=== PATIENT | female | born 1960 | race Caucasian/White ===

== ENCOUNTER 2019-05-16 18:00 | Emergency (ER) | payer SELFPAY ==
[2019-05-16 18:10] VITALS: BP 146/84; PULSE 102; RESP 18; TEMP 38.1; O2SAT 98
--- NOTE | 2019-05-16 18:14 | ED.URI ---
HPI - URI/Sore Throat General Chief Complaint: Upper Respiratory Infection Stated Complaint: fever Time Seen by Provider: 05/16/19 18:15 Source: patient and RN notes reviewed Mode of arrival: ambulatory Limitations: no limitations History of Present Illness HPI Narrative: 59-year-old female, smoker, presents with concern for cough, congestion, fever up to 103, general malaise. Reports symptoms started Wednesday. Reports she is been taking [id number] medications with no relief. MD elicited complaint: cough Related Data Allergies Allergy/AdvReac Type Severity Reaction Status Date / Time codeine AdvReac Intermediate Nausea Verified 08/29/15 17:09 Review of Systems Review of Systems: Narrative: CONSTITUTIONAL: Reports malaise, chills, sweats, fever. EYES: Denies visual changes, redness, or discharge. ENT: Reports rhinorrhea, congestion. Denies sinus pain, otalgia and sore throat. CARDIOVASCULAR: Denies chest pain, palpitations, or edema. RESPIRATORY: Reports cough, chest congestion. Denies dyspnea. GASTROINTESTINAL: Denies abdominal pain, nausea, vomiting, diarrhea SKIN: Denies rash or itching. MUSCULOSKELETAL: Reports myalgia. NEUROLOGIC: Denies headache. All systems reviewed & are unremarkable except as noted in HPI and below PMFSH Social History Social History Gender identity (if verbalized by the patient): Female Comments At time of signature, agree with nursing past medical, surgical, social and family history. There is no relevant family history pertinent to the presenting complaint Exam Narrative: Exam Narrative: GENERAL: Nontoxic-appearing, well-nourished, and in no acute distress. HEAD: Normocephalic EYES: PERRLA, conjunctivae clear ENT: Nares clear, turbinates edematous and erythematous, clear discharge. Mucous membranes moist. TM pearly ernst with dull light reflex bilaterally; no tragal tenderness. Oropharynx not erythematous without lesions. Tonsils not enlarged and without exudate, no drooling, no hoarseness, no trismus. NECK: Supple. No lymphadenopathy CHEST: Clear to auscultation, breath sounds equal. No wheezing, rhonchi, rales, or stridor. No respiratory distress, speaks in full sentences. Cough noted HEART: Regular rate and rhythm. No murmur heard. Normal peripheral pulses. SKIN: Warm, dry, no rash. NEURO: Alert and oriented x3. PSYCH: Normal mood and affect Course Course Emergency Course: Patient is aware of diagnosis, understands and agrees to treatment plan. Anticipatory guidance given. Patient agrees to follow-up as directed and is aware of reasons to seek care at the emergency department. Portions of this record may have been created with voice recognition software Vital Signs Vital signs: Vital Signs Temperature 100.6 F H 05/16/19 18:10 Pulse Rate 102 H 05/16/19 18:10 Respiratory Rate 18 05/16/19 18:10 Blood Pressure 146/84 H 05/16/19 18:10 Pulse Oximetry 98 05/16/19 18:10 Temperature 100.6 F H 05/16/19 18:10 Pulse Rate 102 H 05/16/19 18:10 Respiratory Rate 18 05/16/19 18:10 Blood Pressure 146/84 H 05/16/19 18:10 Pulse Oximetry 98 05/16/19 18:10 Reviewed. MDM - URI/Sore Throat MDM Narrative Medical decision making narrative: Differential diagnosis considered: Strep pharyngitis, allergic rhinitis, upper respiratory tract infection, sinusitis, rhinosinusitis, nasopharyngitis. viral pharyngitis, otitis media, otitis externa, pneumonia, bronchitis, viral cough syndrome, viral syndrome, and influenza. Exam findings show no acute concerns or changes; patient is non-toxic appearing and is in no distress. Patient is appropriate for outpatient treatment and follow-up. Lab Data Attestation: I reviewed the patient's lab results. Labs: Influenza A Screen Positive Reference Range: Negative Influenza B Screen Negative Reference Range: Negative Critical Care Time Critical Care Time Critical Care Time: No Discharge Pl
== END 2019-05-16 18:28 | disposition home or self-care (01) ==
PROVIDERS: Emergency Provider Nurse Practitioner
DX: J10.1 Influenza due to other identified influenza virus with other respiratory manifestations (principal)
CPT/HCPCS: 87804; 99203; G0463

== ENCOUNTER 2020-06-20 08:52 | Observation (INO) | payer MEDICAID, SELFPAY ==
[2020-06-20] VITALS (53 sets, daily range): BP systolic 120–191; BP diastolic 70–111; PULSE 55–78; RESP 12–24; TEMP 36–36.8; O2SAT 95–100; BMI 25.2
--- NOTE | 2020-06-20 | ECHO_ITS ---
Patient Info Name: Basia Al Age: 60 years : 1960 Gender: Female Ht: 64 in Wt: 155 lbs BSA: 1.80 m2 HR: 60 bpm BP: 148 / 98 mmHg Technical Quality: Good Exam Date: 06/20/2020 3:56 PM Exam Location: [facility] Pulmonary Exam Room: [facility] Patient Status: Inpatient Admit Date: 06/20/2020 Staff Ordering Physician: Arvind Carpenter MD Aviation Survival Technician: Jody Landeros RDCS Attending Provider: Arvind Carpenter MD Exam Type: CA echo doppler color flow Study Info Indications - chest pain s/p cath nstemi Complete two-dimensional, color flow and Doppler transthoracic echocardiogram is performed. Summary 1. Complete two-dimensional, color flow and Doppler transthoracic echocardiogram is performed. 2. The mitral valve has thickened leaflets. 3. Left ventricular systolic function is normal with an estimated ejection fraction of 5055.0 %. 4. Grade I diastolic dysfunction of the left ventricle (impaired relaxation pattern). 5. TDS. Left Ventricle Left ventricular systolic function is normal with an estimated ejection fraction of 5055.0 %. Grade I diastolic dysfunction of the left ventricle (impaired relaxation pattern). Right Ventricle Right ventricle Empty are normal. Left Atria Left atrial chamber dimension is normal. Right Atria Right atrial chamber dimension is normal. Aortic Valve AV not well visualized. Pulmonic Valve Pulmonary valve is not well visualized. Mitral Valve The mitral valve has thickened leaflets. Tricuspid Valve The tricuspid valve is structurally and functionally normal by two-dimensional, color flow Doppler and Doppler interrogation. Pericardium/Pleural Pericardium is normal in appearance with no evidence for significant pericardial effusion. Left Ventricular Outflow Tract Name Value Normal LVOT 2D LVOT Diameter 2.0 cm LVOT Doppler LVOT Peak Gradient 3 mmHg LVOT Mean Gradient 1 mmHg LVOT VTI 20 cm LVOT VTI/AV VTI Ratio 1.0 LVOT Stroke Volume 65 ml Pulmonic Valve Name Value Normal PV Doppler PV Peak Gradient 2 mmHg PV Regurgitation Doppler OH Peak End Diastolic Velocity 132 cm/s Mitral Valve Name Value Normal MV Doppler MV Decel Hutchinson 304 cm/s2 MV PHT 54 ms MV Area (PHT) 4.1 cm2 4.0-5.0
--- NOTE | ~2020-06-20 | XR_ITS ---
EXAMINATION: XR chest 2V 06/20/2020 09:26 INDICATION: Chest pain. History of smoking. PROCEDURE: 2 view chest COMPARISON: No prior studies for comparison. FINDINGS: The lungs are clear. The cardiomediastinal silhouette is within normal limits. There are no pleural effusions. There is no pneumothorax suspected. IMPRESSION: 1: NO ACUTE CARDIOPULMONARY DISEASE. Reviewed, dictated and finalized at location A.
--- NOTE | ~2020-06-20 | CT_ITS ---
EXAMINATION: CTA chest PE protocol DATE: 06/20/2020 10:56 CDT INDICATION: Sudden onset of midsternal chest pain and dyspnea TECHNIQUE: Computed tomographic angiography (CTA) of the chest was performed with 100 mL Omnipaque-35 0 intravenous contrast. The dose-length product was 274.35 mGy-cm. Maximum intensity projection 3D-re constructions of the aorta and other arteries were constructed by the technologist on a separate work station. Automated exposure control and iterative reconstruction technique were employed. COMPARISON: Chest dated 06/20/2020 FINDINGS: Study is technically adequate without evidence for pulmonary embolism. Heart size is normal . No thoracic lymphadenopathy. No significant pleural or pericardial effusion. Moderate emphysema. No pneumothorax. No evidence for focal pneumonia. There is lingular atelectasis. No endobronchial lesio ns. The upper abdomen is unremarkable. Mild thoracic spondylosis. IMPRESSION: 1. No evidence for pulmonary embolism. 2: Lingular atelectasis. 3: Moderate emphysema. Reviewed, dictated and finalized at location A.
--- NOTE | 2020-06-20 09:07 | ECG_ITS ---
Measurements Intervals [place] Rate: 60 P: 56 UT: 149 QRS: -24 QRSD: 92 T: 27 QT: 411 QTc: 411 Interpretive Statements SINUS RHYTHM DELAYED PRECORDIAL R/S TRANSITION BORDERLINE ECG Electronically Signed On 06-20-2020 9:32:21 CDT by Carroll Madison D.O.
--- NOTE | 2020-06-20 09:13 | ED.CHESTPAIN ---
HPI - Chest Pain General Chief Complaint: Chest Pain Stated Complaint: CP Source: RN notes reviewed History of Present Illness HPI narrative: Patient presents emergency department from urgent care via EMS for chest pain. Patient states she has had lower midsternal chest pain since last night described as burning states the pain does not radiate. Nothing makes the pain better or worse. Patient denies any associated fevers or chills shortness of breath abdominal pain nausea vomiting diarrhea or any other symptoms she was given 325 aspirin by EMS as well as nitro with some improvement of pain but still present denies any previous cardiac history Related Data Home Medications Medication Instructions Recorded Confirmed No Home Medications 06/20/20 06/20/20 Allergies Allergy/AdvReac Type Severity Reaction Status Date / Time codeine AdvReac Intermediate Nausea Verified 06/20/20 09:03 Review of Systems Review of Systems: Narrative: Gen.: Denies fevers or chills ENT: Denies congestion Respiratory: Denies shortness of breath or cough CV: See HPI GI: Denies abdominal pain nausea, emesis or diarrhea Musculoskeletal: Denies back pain or muscle pain Neuro: Denies numbness, tingling, weakness or focal weakness Skin: Denies rash Except as documented, all other systems reviewed and negative PMFSH Past Medical History Medical History (Updated 06/20/20 @ 13:45 by Matthew Rebolledo DO) Patient denies significant medical history Social History Social History (Updated 06/20/20 @ 09:31 by Matthew Rebolledo DO) Smoking status: Current every day smoker Gender identity (if verbalized by the patient): Female Exam Narrative: Exam Narrative: APPEARANCE: No acute distress, nontoxic, resting in bed EYES: EOMI HEENT: Normocephalic, atraumatic, OMM RESPIRATORY: No respiratory distress Clear to auscultation bilaterally with no rhonchi wheezing or rales. CARDIOVASCULAR: Regular rate and rhythm without murmurs rubs or gallops. ABDOMINAL: Soft, tender to palpation epigastric and lateral quadrant no tenderness right upper quadrant right lower quadrant left lower quadrant no rebound or guarding MUSCULOSKELETAl: Moves all extremities. No clubbing, cyanosis or edema. NEURO: Awake and alert. Following commands, speech normal, no focal deficits SKIN:: Warm, dry. No rashes lesions or abrasions PSYCHIATRIC: Normal affect/mood, Course Course Emergency Course: Discussed with Dr. carpenter presentation work-up agrees with admission to his service request patient started on heparin drip Called back and discussed with Dr. carpenter patient's continued pain second troponin. At this time plan to take patient to the [facility] Dr. Ruiz came down to see the patient for cardiology patient received nitroglycerin drip as well as metoprolol 5 mg x [address] Carpenter in ED at this time Discussed with patient and family results of workup and diagnosis. Discussed need for admission. Patient and family understand and agree to current treatment plan Vital Signs Vital signs: Vital Signs Temperature 98.2 F 06/20/20 08:56 Pulse Rate 64 06/20/20 08:56 Respiratory Rate 14 06/20/20 08:56 Blood Pressure 150/111 H 06/20/20 08:56 Pulse Oximetry 99 06/20/20 08:56 Temperature 98.2 F 06/20/20 08:56 Pulse Rate 78 06/20/20 12:05 Respiratory Rate 18 06/20/20 12:05 Blood Pressure 132/78 06/20/20 12:05 Pulse Oximetry 99 06/20/20 12:05 MDM - Chest Pain Lab Data Result diagrams: 06/20/20 09:34 06/20/20 09:33 Labs: Lab Results 06/20/20 06/20/20 06/20/20 Range/Units 09:33 09:34 09:34 WBC 6.8 (4.5-10.0) K/mm3 RBC 5.29 (4.2-5.4) M/mm3 Hgb 16.9 H (12.0-15.0) g/dL Hct 49.7 H (37.0-47.0) % MCV 94.0 (80-100) fl MCH 31.9 (26-34) pg MCHC 34.0 (32-36) g/dl RDW 13.0 (11.5-14.5) % Plt Count 225 (150-375) k/mm3 MPV 9.2 (7.4-10.4) fl Mar[place]
[2020-06-20 09:43] LABS: Basophils Absolute Auto 0.1 K/mm3 (0.0-0.1); Basophils Percent Auto 0.7 % (0.2-1.2); Eosinophils Absolute Auto 0.1 K/mm3 (0-0.3); Eosinophils Percent Auto 1.3 % (0-4.4); Hematocrit 49.7 % (37.0-47.0); Hemoglobin 16.9 g/dL (12.0-15.0); Immature Granulocyte Absolute 0.03 K/mm3 (0.00-0.031); Immature Granulocyte Percent A 0.4 % (0-0.5); Lymphocytes Absolute Auto 1.99 K/mm3 (0.9-3.2); Lymphocytes Percent Auto 29.1 % (18.3-44.2); Mean Corpuscular Hemoglobin 31.9 pg (26-34); Mean Platelet Volume 9.2 fl (7.4-10.4); Monocytes Absolute Auto 0.6 K/mm3 (0.1-0.6); Monocytes Percent Auto 8.8 % (2.6-8.5); Neutrophils Absolute Auto 4.1 K/mm3 (1.3-6.7); Neutrophils Percent Auto 59.7 % (45.5-73.1); Platelet Count Result 225 k/mm3 (150-375); Red Blood Count 5.29 M/mm3 (4.2-5.4); White Blood Count 6.8 K/mm3 (4.5-10.0)
[2020-06-20 09:56] LABS: INR 0.9; Lipase 131 U/L (23-300); Prothrombin Time 12.4 Seconds (11.1-14.7)
[2020-06-20 09:57] LABS: Partial Thromboplastin Time 26.5 SECONDS (22.3-36.8)
[2020-06-20 10:11] LABS: Troponin I 0.033 ng/mL (0.000-0.034)
[2020-06-20 10:23] LABS: Alanine Aminotransferase 18 U/L (4-35); Albumin Level 4.4 g/dL (3.5-5.1); Alkaline Phosphatase 76 U/L (38-126); Anion Gap 7 mmol/L (8-16); Aspartate Amino Transferase 28 U/L (14-36); Bilirubin,Total 0.4 mg/dL (0.2-1.3); Blood Urea Nitrogen 16 mg/dL (7-17); Calcium 9.3 mg/dL (8.4-10.2); Carbon Dioxide 25 mmol/L (22-30); Chloride 109 mmol/L (98-107); Estimated CRCL calculation 64 ml/min; Estimated Glomerular Filt Rate > 60; Glucose 134 mg/dL (65-105); Potassium 4.6 mmol/L (3.4-5.0); Sodium 141 mmol/L (137-145)
--- NOTE | 2020-06-20 10:48 | PC.NURSE ---
pt states epigastric pain remains 2/10. continues to have intermittent episodes of intense burning that radiates into her back.
[2020-06-20] MEDS: MORPHINE SULFATE (*CRX) 2 MG/ML INJ IV PUSH ×3 (10:57→12:58)
--- NOTE | 2020-06-20 11:38 | ECG_ITS ---
Measurements Intervals [place] Rate: 65 P: 50 [place]: 146 QRS: -23 QRSD: 92 T: 27 QT: 401 QTc: 420 Interpretive Statements SINUS RHYTHM DELAYED PRECORDIAL R/S TRANSITION BORDERLINE ST-T WAVE ABNORMALITY- ANT/HIGH LAT LEADS BORDERLINE ECG Electronically Signed On 06-20-2020 12:58:00 CDT by Carroll Madison D.O.
[2020-06-20 12:45] LABS: Troponin I 0.196 ng/mL (0.000-0.034)
[2020-06-20] MEDS: HEPARIN SOD/D5W 100 UNITS/ML 25,000 UNITS/250 ML BAG 7 UNITS IV CONT (12:49)
[2020-06-20] MEDS: HEPARIN SODIUM 5,000 UNITS/ML VIAL 3500 UNITS IV PUSH (12:49)
[2020-06-20] MEDS: METOPROLOL TARTRATE INJ 5 MG/5 ML VIAL IV PUSH (13:49)
--- NOTE | 2020-06-20 13:51 | PM.CNCAR ---
History of Present Illness History of Present Illness Consult date/time: 06/20/20 13:51 Patient is a 60-year-old woman with history of active tobacco dependence (1-1.5 packs per day for 45 years), who is seen in cardiac consultation for chief complaint of chest pain. Patient reports onset of lower midsternal chest pain since 8:00 p.m. on 06/19/2020. She reports that this burning discomfort has persisted and has been nearly constant. She does report intermittent worsening of the discomfort. She reports that the lower midsternal burning is persisting at present. She denies shortness of breath. She reports some nausea and nonbloody emesis. She reports some radiation of her chest discomfort to the mid back. She reports occasional palpitations but denies dizziness or syncope. She denies edema, orthopnea, paroxysmal nocturnal dyspnea. She denies any history of myocardial infarction, congestive heart failure, valvular heart disease, or cardiac arrhythmia. She denies seeing a photography teacher previously. She denies any history of prior cardiac stress testing or echocardiography. She denies any prior left heart catheterization. She denies any history of hypertension or diabetes mellitus. This admission, hemoglobin was elevated at 16.9. D-dimer was negative at 0.30. Potassium is 4.6 and creatinine 0.8. Troponin I was initially negative then the elevated at 0.195. Reason For Visit: Chest pain PMFSH Past Medical History Medical History (Updated 06/20/20 @ 13:45 by Matthew Rebolledo DO) Patient denies significant medical history Social History Social History (Updated 06/20/20 @ 09:31 by Matthew Rebolledo DO) Smoking status: Current every day smoker Gender identity (if verbalized by the patient): Female Meds Home Medications and Allergies Home Medications Medication Instructions Recorded Confirmed Type No Home Medications 06/20/20 06/20/20 History Allergies Allergy/AdvReac Type Severity Reaction Status Date / Time codeine AdvReac Intermediate Nausea Verified 06/20/20 09:03 Vital Signs Vital Signs - 24 hr 06/20/20 08:56 06/20/20 08:57 06/20/20 08:58 Temperature 36.8 C Pulse Rate 64 67 Respiratory Rate 14 22 H Blood Pressure 150/111 H 176/91 H Pulse Oximetry 99 100 100 06/20/20 09:00 06/20/20 09:02 06/20/20 09:15 Temperature Pulse Rate 66 63 63 Respiratory Rate 13 12 14 Blood Pressure 150/111 H Pulse Oximetry 99 100 100 06/20/20 09:17 06/20/20 09:30 06/20/20 09:45 Temperature Pulse Rate 64 62 56 L Respiratory Rate 18 13 13 Blood Pressure 191/94 H Pulse Oximetry 100 100 100 06/20/20 10:00 06/20/20 10:07 06/20/20 10:15 Temperature Pulse Rate 65 70 69 Respiratory Rate 24 H Blood Pressure 120/82 Pulse Oximetry 100 100 100 06/20/20 10:16 06/20/20 10:30 06/20/20 10:32 Temperature Pulse Rate 63 62 68 Respiratory Rate Blood Pressure 183/105 H 167/109 H Pulse Oximetry 100 100 100 06/20/20 10:45 06/20/20 12:05 Temperature Pulse Rate 73 78 Respiratory Rate 18 Blood Pressure 132/78 Pulse Oximetry 99 Results Labs and Meds Result diagrams: 06/20/20 09:34 06/20/20 09:33 Lab results: Cardiac Enzymes 06/20/20 06/20/20 06/20/20 Range/Units 09:33 09:34 11:53 AST 28 (14-36) U/L Troponin I 0.033 0.196 H* D (0.000-0.034) ng/mL Coagulation 06/20/20 Range/Units 09:34 PT 12.4 (11.1-14.7) Seconds APTT 26.5 (22.3-36.8) SECONDS CBC 06/20/20 Range/Units 09:34 WBC 6.8 (4.5-10.0) K/mm3 RBC 5.29 (4.2-5.4) M/mm3 Hgb 16.9 H (12.0-15.0) g/dL Hct 49.7 H (37.0-47.0) % Plt Count 225 (150-375) k/mm3 Lymph # (Auto) 1.99 (0.9-3.2) K/mm3 [place] # (Auto) 0.6 (0.1-0.6) K/mm3 Eos # (Auto) 0.1 (0-0.3) K/mm3 Baso # (Auto) 0.1 (0.0-0.1) K/mm3 Comprehensive Metabolic Panel 06/20/20 Range/Units 09:33 Sodium 141 (137-145) mmol/L Potassium 4.6 (3.4-5.0)
--- NOTE | 2020-06-20 13:58 | WPDMODSED ---
Moderate Sedation Note-Pt Data Patient Data Allergies Allergy/AdvReac Type Severity Reaction Status Date / Time codeine AdvReac Intermediate Nausea Verified 06/20/20 09:03 Home Medications Medication Instructions Recorded Confirmed Type No Home Medications 06/20/20 06/20/20 History Current Medications: Active Medications Aspirin (Aspirin 81 Mg Chewable Tablet) 324 mg PO DAILY@0800 RAHEEM Aspirin (Aspirin 81 Mg Enteric Tablet) 81 mg PO QAM [facility] Heparin Sodium (Porcine) (Heparin Sodium 5,000 Units/Ml Vial) 4,000 units IV PUSH PRN PRN PRN Reason: aPTT less than 55 seconds Heparin Sodium (Porcine) (Heparin Sodium 5,000 Units/Ml Vial) 2,500 units IV PUSH PRN PRN PRN Reason: aPTT 55 - 70 seconds Heparin Sodium/Dextrose (Heparin Sodium/D5w 100 Units/Ml) 25,000 units in 250 mls @ 7 mls/hr IV CONT .Q24H RAHEEM; Protocol Last Admin: 06/20/20 12:49 Dose: 700 units/hr, 7 mls/hr Documented by: Sedation/Anesthesia: No previous sedation/anesthesia problems (including family history). [facility] Past Medical History Medical History (Updated 06/20/20 @ 13:45 by Matthew Rebolledo DO) Patient denies significant medical history Social History Social History (Updated 06/20/20 @ 09:31 by Matthew Rebolledo DO) Smoking status: Current every day smoker Gender identity (if verbalized by the patient): Female Mod Sed Physical Exam Physical Exam Pre Procedural Exam: Normal: Appearance, Eyes, Ears, Nose, Neck, Throat, Airway, Lungs, Heart Size, Heart Rate, Heart Rhythm, Neuro Exam, Abdomen, Liver, Kidneys, Spleen, Breasts, Genitalia, Extremities and Skin Hours since solid foods: 6 Hours since liquid intake: 6 Internal Medicine - PN: Obj Da Vital Signs Vital Signs: Vital Signs - 24 hr 06/20/20 08:56 06/20/20 08:57 06/20/20 08:58 Temperature 36.8 C Pulse Rate 64 67 Respiratory Rate 14 22 H Blood Pressure 150/111 H 176/91 H Pulse Oximetry 99 100 100 06/20/20 09:00 06/20/20 09:02 06/20/20 09:15 Temperature Pulse Rate 66 63 63 Respiratory Rate 13 12 14 Blood Pressure 150/111 H Pulse Oximetry 99 100 100 06/20/20 09:17 06/20/20 09:30 06/20/20 09:45 Temperature Pulse Rate 64 62 56 L Respiratory Rate 18 13 13 Blood Pressure 191/94 H Pulse Oximetry 100 100 100 06/20/20 10:00 06/20/20 10:07 06/20/20 10:15 Temperature Pulse Rate 65 70 69 Respiratory Rate 24 H Blood Pressure 120/82 Pulse Oximetry 100 100 100 06/20/20 10:16 06/20/20 10:30 06/20/20 10:32 Temperature Pulse Rate 63 62 68 Respiratory Rate Blood Pressure 183/105 H 167/109 H Pulse Oximetry 100 100 100 06/20/20 10:45 06/20/20 11:00 06/20/20 11:15 Temperature Pulse Rate 73 70 65 Respiratory Rate Blood Pressure Pulse Oximetry 100 99 06/20/20 11:30 06/20/20 11:45 06/20/20 12:00 Temperature Pulse Rate 63 70 64 Respiratory Rate Blood Pressure Pulse Oximetry 100 100 100 06/20/20 12:05 06/20/20 12:15 06/20/20 12:30 Temperature Pulse Rate 78 68 77 Respiratory Rate 18 Blood Pressure 132/78 Pulse Oximetry 99 100 06/20/20 12:45 06/20/20 13:00 06/20/20 13:15 Temperature Pulse Rate 64 65 75 Respiratory Rate Blood Pressure 167/102 H Pulse Oximetry 100 99 06/20/20 13:32 06/20/20 13:49 06/20/20 13:52 Temperature Pulse Rate 60 78 78 Respiratory Rate Blood Pressure Pulse Oximetry 98 Meds/Results Medications: Active Medications Generic Name Dose Route Start Last Admin Trade Name Freq PRN Reason Stop Dose Admin Aspirin 324 mg 06/21/20 08:00 Aspirin 81 Mg Chewable Tablet PO DAILY@0800 [facility] Aspirin 81 mg 06/21/20 09:00 Aspirin 81 Mg Enteric Tablet PO QAM [facility] Heparin Sodium (Porcine) 4,000 units 06/20/20 12:10 Heparin Sodium 5,000 Units/Ml Vial IV PUSH PRN PRN aPTT less than 55 seconds Heparin Sodium (Porcine) 2,500 units 06/20/20 12:10 Heparin Sodium 5,000 Units/Ml Vial IV PUSH AL
--- NOTE | 2020-06-20 14:01 | WPDMODSED ---
Moderate Sedation Note-Pt Data Patient Data Allergies Allergy/AdvReac Type Severity Reaction Status Date / Time codeine AdvReac Intermediate Nausea Verified 06/20/20 09:03 Home Medications Medication Instructions Recorded Confirmed Type No Home Medications 06/20/20 06/20/20 History Current Medications: Active Medications Aspirin (Aspirin 81 Mg Chewable Tablet) 324 mg PO DAILY@0800 [facility] Aspirin (Aspirin 81 Mg Enteric Tablet) 81 mg PO QAM [facility] Heparin Sodium (Porcine) (Heparin Sodium 5,000 Units/Ml Vial) 4,000 units IV PUSH PRN PRN PRN Reason: aPTT less than 55 seconds Heparin Sodium (Porcine) (Heparin Sodium 5,000 Units/Ml Vial) 2,500 units IV PUSH PRN PRN PRN Reason: aPTT 55 - 70 seconds Heparin Sodium/Dextrose (Heparin Sodium/D5w 100 Units/Ml) 25,000 units in 250 mls @ 7 mls/hr IV CONT .Q24H [facility]HEEM; Protocol Last Admin: 06/20/20 12:49 Dose: 700 units/hr, 7 mls/hr Documented by: Sedation/Anesthesia: No previous sedation/anesthesia problems (including family history). [facility] Past Medical History Medical History (Updated 06/20/20 @ 13:45 by Matthew Rebolledo DO) Patient denies significant medical history Social History Social History (Updated 06/20/20 @ 09:31 by Matthew Rebolledo DO) Smoking status: Current every day smoker Gender identity (if verbalized by the patient): Female Mod Sed Physical Exam Physical Exam Pre Procedural Exam: Normal: Appearance, Eyes, Ears, Nose, Neck, Throat, Airway, Lungs, Heart Size, Heart Rate, Heart Rhythm, Neuro Exam, Abdomen, Liver, Kidneys, Spleen, Breasts, Genitalia, Extremities and Skin Hours since solid foods: 6 Hours since liquid intake: 6 Internal Medicine - PN: Obj Da Vital Signs Vital Signs: Vital Signs - 24 hr 06/20/20 08:56 06/20/20 08:57 06/20/20 08:58 Temperature 36.8 C Pulse Rate 64 67 Respiratory Rate 14 22 H Blood Pressure 150/111 H 176/91 H Pulse Oximetry 99 100 100 06/20/20 09:00 06/20/20 09:02 06/20/20 09:15 Temperature Pulse Rate 66 63 63 Respiratory Rate 13 12 14 Blood Pressure 150/111 H Pulse Oximetry 99 100 100 06/20/20 09:17 06/20/20 09:30 06/20/20 09:45 Temperature Pulse Rate 64 62 56 L Respiratory Rate 18 13 13 Blood Pressure 191/94 H Pulse Oximetry 100 100 100 06/20/20 10:00 06/20/20 10:07 06/20/20 10:15 Temperature Pulse Rate 65 70 69 Respiratory Rate 24 H Blood Pressure 120/82 Pulse Oximetry 100 100 100 06/20/20 10:16 06/20/20 10:30 06/20/20 10:32 Temperature Pulse Rate 63 62 68 Respiratory Rate Blood Pressure 183/105 H 167/109 H Pulse Oximetry 100 100 100 06/20/20 10:45 06/20/20 11:00 06/20/20 11:15 Temperature Pulse Rate 73 70 65 Respiratory Rate Blood Pressure Pulse Oximetry 100 99 06/20/20 11:30 06/20/20 11:45 06/20/20 12:00 Temperature Pulse Rate 63 70 64 Respiratory Rate Blood Pressure Pulse Oximetry 100 100 100 06/20/20 12:05 06/20/20 12:15 06/20/20 12:30 Temperature Pulse Rate 78 68 77 Respiratory Rate 18 Blood Pressure 132/78 Pulse Oximetry 99 100 06/20/20 12:45 06/20/20 13:00 06/20/20 13:15 Temperature Pulse Rate 64 65 75 Respiratory Rate Blood Pressure 167/102 H Pulse Oximetry 100 99 06/20/20 13:32 06/20/20 13:49 06/20/20 13:52 Temperature Pulse Rate 60 78 78 Respiratory Rate Blood Pressure Pulse Oximetry 98 Meds/Results Medications: Active Medications Generic Name Dose Route Start Last Admin Trade Name Freq PRN Reason Stop Dose Admin Aspirin 324 mg 06/21/20 08:00 Aspirin 81 Mg Chewable Tablet PO DAILY@0800 [facility] Aspirin 81 mg 06/21/20 09:00 Aspirin 81 Mg Enteric Tablet PO QAM [facility] Heparin Sodium (Porcine) 4,000 units 06/20/20 12:10 Heparin Sodium 5,000 Units/Ml Vial IV PUSH PRN PRN aPTT less than 55 seconds Heparin Sodium (Porcine) 2,500 units 06/20/20 12:10 Heparin Sodium 5,000 Units/Ml Vial IV PUSH [place]
--- NOTE | 2020-06-20 14:01 | PM.IMHP ---
H&P: HPI History of Present Illness Date/Time: 06/20/20 14:01 Patient is a 60-year-old woman with history of active tobacco dependence (1-1.5 packs per day for 45 years), who is seen in cardiac consultation for chief complaint of chest pain. Patient reports onset of lower midsternal chest pain since 8:00 p.m. on 06/19/2020. She reports that this burning discomfort has persisted and has been nearly constant. She does report intermittent worsening of the discomfort, with some radiation of the discomfort to her mid back. She reports that the lower midsternal burning is persisting at present. She denies shortness of breath. She reports some nausea and nonbloody emesis. She reports occasional palpitations but denies dizziness or syncope. She denies edema, orthopnea, paroxysmal nocturnal dyspnea. She denies any history of myocardial infarction, congestive heart failure, valvular heart disease, or cardiac arrhythmia. She denies seeing a cutter v groove previously. She denies any history of prior cardiac stress testing or echocardiography. She denies any prior left heart catheterization. She denies any history of hypertension or diabetes mellitus. She denies any history of alcohol or drug use. This admission, hemoglobin was elevated at 16.9. D-dimer was negative at 0.30. Potassium is 4.6 and creatinine 0.8. Troponin I was initially negative then elevated at 0.195. Blood pressure was elevated in emergency department at 183/105. She had CTA of the chest PE protocol which was negative for pulmonary embolism, with evidence of moderate emphysema, normal heart size. Patient was seen and examined, chart reviewed, case discussed with nurse. Chief Complaint: Chest pain Review of Systems Review of Systems: All systems reviewed & are unremarkable except as noted in HPI and below [facility] Past Medical History Medical History (Updated 06/20/20 @ 14:05 by Sidney Ruiz MD) Patient denies significant medical history Social History Social History Smoking status: Current every day smoker Gender identity (if verbalized by the patient): Female Meds Home Medications and Allergies Home Medications Medication Instructions Recorded Confirmed Type No Home Medications 06/20/20 06/20/20 History Allergies Allergy/AdvReac Type Severity Reaction Status Date / Time codeine AdvReac Intermediate Nausea Verified 06/20/20 09:03 Vital Signs Vital Signs - 24 hr 06/20/20 08:56 06/20/20 08:57 06/20/20 08:58 Temperature 36.8 C Pulse Rate 64 67 Respiratory Rate 14 22 H Blood Pressure 150/111 H 176/91 H Pulse Oximetry 99 100 100 06/20/20 09:00 06/20/20 09:02 06/20/20 09:15 Temperature Pulse Rate 66 63 63 Respiratory Rate 13 12 14 Blood Pressure 150/111 H Pulse Oximetry 99 100 100 06/20/20 09:17 06/20/20 09:30 06/20/20 09:45 Temperature Pulse Rate 64 62 56 L Respiratory Rate 18 13 13 Blood Pressure 191/94 H Pulse Oximetry 100 100 100 06/20/20 10:00 06/20/20 10:07 06/20/20 10:15 Temperature Pulse Rate 65 70 69 Respiratory Rate 24 H Blood Pressure 120/82 Pulse Oximetry 100 100 100 06/20/20 10:16 06/20/20 10:30 06/20/20 10:32 Temperature Pulse Rate 63 62 68 Respiratory Rate Blood Pressure 183/105 H 167/109 H Pulse Oximetry 100 100 100 06/20/20 10:45 06/20/20 11:00 06/20/20 11:15 Temperature Pulse Rate 73 70 65 Respiratory Rate Blood Pressure Pulse Oximetry 100 99 06/20/20 11:30 06/20/20 11:45 06/20/20 12:00 Temperature Pulse Rate 63 70 64 Respiratory Rate Blood Pressure Pulse Oximetry 100 100 100 06/20/20 12:05 06/20/20 12:15 06/20/20 12:30 Temperature Pulse Rate 78 68 77 Respiratory Rate 18 Blood Pressure 132/78 Pulse Oximetry 99 100 06/20/20 12:45 06/20/20 13:00 06/20/20 13:15 Temperature Pulse Rate 64 65 75 Respiratory Rate Blood Pressure 167/102 H Pulse
--- NOTE | 2020-06-20 14:34 | WPDCARDPROC ---
Cardiac Cath Procedure Note Date of procedure:: 06/20/20 Performing physician:: Arvind Carpenter MD Procedure: 1. Left heart catheterization, selective coronary angiogram. 2. Angio-Seal device for arterial hemostasis 3. Conscious sedation. 4. 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 Arvind Carpenter Complications: None. Sedation: Conscious sedation, local anesthesia, using 1 mg of Versed said, 25 mcg of fentanyl, and using 1% lidocaine for local anesthesia. starting time is 2:08 p.m. ending time is 2:27 p.m. mom medication was administered by nurse Colleen Damico under my supervision History: 60 years old lady with history of hypertension, history of smoking came to hospital because of recurrent episode of chest pain she was having active pain in the emergency room did not improved in spite of nitroglycerin and morphine. Had some EKG changes and positive troponin due to that she was brought to the supervisor laboratory animal facility on urgent basis in view of persistent chest pain for evaluation of coronary disease and possible treatment. was very difficult going through aorta bifurcation due to significant disease, I was able to navigate through and at the end the procedure we did angiogram to evaluate the abnormalities there Technique: After informed consent was obtained from patient, was brought to the supervisor laboratory animal facility, put in the supervisor laboratory animal facility table, prepped and draped in usual sterile fashion. Five Urdu sheath was inserted into the right common femoral artery, through the sheath 5 Urdu JL4 catheter inserted, advanced to the left coronary artery, left coronary artery angiogram was obtained. The catheter was exchanged over guidewire into a 5 Urdu JR4 catheter, advanced to the right coronary artery, right coronary artery angiogram was obtained. LV pressure was obtained, and then the catheter was exchanged over guidewire into pigtail catheter advanced to the abdominal aorta abdominal aorta angiogram was done to evaluate the abdominal aorta bifurcation due to significant difficulty passing the wire up The catheter. The catheter then was pulled, the sheath was pulled applying Angio-Seal device for arterial hemostasis. Patient tolerated the procedure no complication, taken from the supervisor laboratory animal facility to his room in stable condition stable vital signs. Hemodynamics: aortic pressure 110/60 . LV pressure 113/04 with LVEDP of 20 mmHg Angiographic findings: Left main: Medium size artery no significant disease or stenosis. Lad medium size artery showed proximal LAD 75% disease followed by severe disease of the 1st diagonal branch which has ostial 95% disease and then mid LAD showed 75% disease and then bifurcation lesion of the LAD and diagonal Left circumflex artery, showed mid left circumflex 95% disease RCA: Dominant vessel, showed no significant disease or stenosis Abdominal aorta showed slight irregularity with significant atherosclerotic plaque but severe atherosclerotic plaque noted at distal portion with subtotal occlusion followed by severe disease of both ostium of the iliac arteries Summary: severe 3 vessel coronary disease involving the circumflex the 1st diagonal branch and LAD, with bifurcation lesion of the LAD. Severe peripheral vascular disease with disease of distal aorta at the level of the aortic bifurcation Recommendation: with multiple lesion and specially with bifurcation lesion of aorta she would benefit from coronary bypass surgery with KIM to LAD saphenous venous graft to diagonal branch and venous graft to the distal circ.
[2020-06-20] MEDS: NITROGLYCERIN/D5W 200 MCG/ML 50 MG/250 ML BTL IV CONT ×2 (14:45→16:45)
--- NOTE | 2020-06-20 15:03 | SUR.PHASEII ---
0324- Telephoned Dr. Carpenter to clarify what dosage to titrate nitroglycerin drip. Verbal order per Dr. Carpenter to titrate by 2 mcg/min for systolic goal below 140. MD notified that patient's current BP is 139/70 and MD instructed this RN to stop nitroglycerin infusion.
--- NOTE | 2020-06-20 15:20 | SUR.PHASEII ---
3335-Telephoned Dr. Carpenter to clarify specifics about nitroglycerin gtt titration. Dr. Carpenter states to titrate by 2 mcg/min to achieve SBP of 140. Dr. Carpenter states that since patient's blood pressure is 139/70, nitro gtt can be turned off. Will continue to monitor.
[2020-06-20 15:27] LABS: Cholesterol 279 mg/dL (0-200); HDL Direct 51 mg/dL; Triglycerides 53 mg/dL (<150)
[2020-06-20 15:38] LABS: LDL Cholesterol Direct 200 mg/dL
--- NOTE | 2020-06-20 15:42 | SUR.PHASEII ---
Addendum entered by Lorena Gilliland RN 06/20/20 15:48: Dr. Carpenter states to not bolus patient heparin at this time. Original Note: 1530- Verified heparin gtt order with Dr. Carpenter. Dr. Carpenter states he wants the heparin gtt resumed now (1530) and at previous dose of 700 units/hr. This is 1 hour post angioseal time. Will continue to monitor.
[2020-06-20 15:46] LABS: Troponin I 0.619 ng/mL (0.000-0.034)
--- NOTE | 2020-06-20 16:10 | SUR.PHASEII ---
Report given to Kimberly SAMANIEGO RN
--- NOTE | 2020-06-20 16:55 | ADMGEN ---
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 Report received from Kelin @ 0527 Original Note: This patient, Basia Al, was admitted to Intensive Care Unit-9. Patient/family oriented to hospital policies and general routines including ID bracelet, bed and alarms, visiting hours, pain management, procedures, bathroom and other care routines, personal items, smoking policy, room service/diet, and visiting hours. Information on how to activate the Rapid Response Team has been discussed. Patient/Family are encouraged to report perceived risks to care and to ask questions if they do not understand what they are told or what they should do.
[2020-06-20] MEDS: SODIUM CHLORIDE 0.9% IV 1,000 ML 80 ML IV CONT (17:11)
[2020-06-20] MEDS: MORPHINE SULFATE (*CRX) 2 MG/ML INJ 1 MG IV PUSH (18:50)
--- NOTE | 2020-06-20 18:54 | PC.NURSE ---
Spoke with Dr. Carpenter regarding patient's chest pain. Titrated Nitro drip up to 10mcg/hr. New order for 1 mg Morphine IVP once.
[2020-06-20] MEDS: METOPROLOL TARTRATE 25 MG TABLET PO (20:13)
[2020-06-20] MEDS: ATORVASTATIN 40 MG TABLET 80 MG PO (20:13)
--- NOTE | 2020-06-20 20:27 | ECG_ITS ---
Measurements Intervals [place] Rate: 63 P: 61 [place]: 153 QRS: -33 QRSD: 89 T: 2 QT: 424 QTc: 435 Interpretive Statements SINUS RHYTHM LEFT AXIS DEVIATION BORDERLINE R WAVE PROGRESSION, ANTERIOR LEADS T WAVE ABNORMALITY IN INFERIOR LEADS- CONSIDER ISCHEMIA ABNORMAL ECG Electronically Signed On 06-21-2020 7:54:46 CDT by Carroll Madison D.O.
[2020-06-20] MEDS: ONDANSETRON INJ 4 MG/2 ML VIAL IV PUSH (20:35)
--- NOTE | 2020-06-20 20:55 | PC.NURSE ---
2049 out with [facility]. B/P 148/85
--- NOTE | 2020-06-20 21:26 | PC.NURSE ---
210 notified ARGELIA Fung at [facility] of patient departure with EMS
--- NOTE | 2020-07-11 11:04 | PM.TDS ---
Transfer Discharge Sum: Prov Provider Date of admission: 06/20/20 12:12 Primary care physician: UNKNOWN,DOCTOR Admitting clinician: Arvind Carpenter MD DS: Admitting Diagnosis Admitting Diagnosis Admitting Diagnosis: NSTEMI DS: Discharge Diagnosis Discharge Diagnosis (1) Acute non-ST elevation myocardial infarction (NSTEMI): Code(s): I21.4 - Non-ST elevation (NSTEMI) myocardial infarction Status: Acute Assessment and Plan: Patient is a 60-year-old woman with history of active tobacco dependence (1-1.5 packs per day for 45 years), who is seen in cardiac consultation for chief complaint of chest pain. - She has non ST elevation myocardial infarction with initial negative troponin I and subsequent troponin I elevated at 0.195, with persistent chest pain. - she had moderate to severe elevation of blood pressure on presentation, with hypertensive urgency. - continue to trend troponin I. - EKG demonstrated sinus rhythm, 65 beats per minute, with 1-[address] depression in leads V4 and V5 ( ST depression new since EKG upon arrival in the emergency department). -She received full-dose aspirin and will continue with aspirin 81 mg daily. -She was started on intravenous heparin for 24 hours. -given her moderate to severely elevated blood pressure, she was given metoprolol tartrate 5 mg IV once and nitroglycerin intravenous infusion ordered in the emergency department. -Obtain fasting lipid panel, TSH, and magnesium. -Began atorvastatin 80 mg q.h.s. - obtain echo to evaluate cardiac structure and function. - Given her active chest discomfort and newly elevated troponin I, will proceed with left heart catheterization for definitive evaluation of coronary artery disease. Risks and benefits of procedure discussed with the patient. (2) Essential hypertension: Code(s): I10 - Essential (primary) hypertension Status: Acute Assessment and Plan: -She had moderate to severe elevation of her blood pressure on presentation at 183/105, with hypertensive urgency. -improve blood pressure control with addition of metoprolol tartrate 5 mg IV p.r.n. and with intravenous nitroglycerin infusion as needed. - She denies any history of hypertension. (3) Tobacco dependence: Code(s): F17.200 - Nicotine dependence, unspecified, uncomplicated Status: Acute Assessment and Plan: -She had CTA of the chest PE protocol which was negative for pulmonary embolism, with evidence of moderate emphysema. -Tobacco cessation needed, with pulmonary follow-up for management of her emphysema. Transfer Discharge Sum: Med Medications Active and Home Medications: Home Medications No Home Medications 06/20/20 [History Confirmed 06/20/20] Transfer Discharge Sum: Hosp Hospital Course Hospital course: Basia Al is a 60 year old female was admitted to the hospital with NSTEMI, chest pain, Had a cath with 3 vessel CAD, was transferred for CABG vs high risk PCI to [facility] Time Spent with Patient Time attestation: Total time spent providing and/or coordinating transfer services:30 Exam Narrative: Exam Narrative: Exam Narrative: APPEARANCE: Mild acute distress, actively vomiting, resting in bed EYES: EOMI HEENT: Normocephalic, atraumatic, RESPIRATORY: No respiratory distress Clear to auscultation bilaterally with no rhonchi wheezing or rales. CARDIOVASCULAR: No heave. Regular rate and rhythm with 1/6 intensity systolic murmur, no rubs or gallops. ABDOMINAL: Soft, tender to palpation epigastric and lateral quadrant no tenderness right upper quadrant right lower quadrant left lower quadrant no rebound or guarding MUSCULOSKELETAl: Moves all extremities. No clubbing, cyanosis or edema. NEURO: Awake and alert. Following commands, speech normal, no focal deficits SKIN:: Warm, dry. No rashes lesions or abrasions PSYCHIATRIC: Normal affect/mood, DS: Data Data Completed and Pending Completed studies during hospitalization: Kareem
== END 2020-06-20 20:52 | disposition short-term general hospital (02) ==
LOC: ANHED 09:27 → ANHIMU 12:33 → ANHICU 16:43
PROVIDERS: Internal Medicine Cardiovascular Disease; Admitting Provider Specialist; Emergency Provider Emergency Medicine; Visit Provider Specialist
PROC: 4A023N7 Measurement of Cardiac Sampling and Pressure, Left Heart, Percutaneous Approach (ICD-10-PCS; CPT 93452; principal; 2020-06-20 13:30)
DX: I21.4 Non-ST elevation (NSTEMI) myocardial infarction (principal); I10 Essential (primary) hypertension; F17.210 Nicotine dependence, cigarettes, uncomplicated
CPT/HCPCS: 36415; 71046; 71275; 80053; 80061; 83690; 84443; 84484; 85025; 85380; 85610; 85730; 93005; 93306; 93458; 96365; 96366; 96368; 96375; 96376; 99291; A9270; C1760; C1769; C1887; C1894; G0269; G0378; G0379; J1644; J2250; J2270; J2405; J3010; J7030; J7040; Q9967

== ENCOUNTER 2020-09-27 14:18 | Emergency (ER) | payer OTHER, SELFPAY ==
[2020-09-27 14:25] VITALS: BP 111/75; PULSE 65; RESP 15; TEMP 36.2; O2SAT 97
--- NOTE | 2020-09-27 14:32 | ED.GENADULT ---
HPI - General Adult General Chief complaint: Dental/Oral Stated complaint: tooth abscess Source: patient Mode of arrival: ambulatory Limitations: no limitations History of Present Illness HPI narrative: Patient is a 40-year-old female presents to urgent care via POV for evaluation of right lower dental pain that began yesterday. Additionally, patient reports her pain is constant and throbbing in nature. She reports her pain is 7 out of 10 on a pain scale. She also reports right facial pain and intermittent mild generalized headaches. Tylenol provides mild temporary relief. Nothing worsens symptoms. Patient does not have a dentist and cannot remember the last time she was seen by a dentist. Related Data Home Medications Medication Instructions Recorded Confirmed amlodipine 10 mg PO DAILY 09/27/20 09/27/20 aspirin [Aspir-81] 81 mg PO DAILY 09/27/20 09/27/20 atorvastatin 80 mg PO DAILY 09/27/20 09/27/20 carvedilol 6.25 mg PO DAILY 09/27/20 09/27/20 clopidogrel 75 mg PO DAILY 09/27/20 09/27/20 Allergies Allergy/AdvReac Type Severity Reaction Status Date / Time codeine AdvReac Intermediate Nausea Verified 09/27/20 14:22 Review of Systems Review of Systems: Narrative: CONSTITUTIONAL: Denies fever, chills, or sweats. EYES: Denies visual changes, redness, or discharge. ENT: Denies rhinorrhea, congestion, sore throat, or otalgia. MOUTH: Sores in mouth, dry mouth, loss of taste, difficulty swallowing, bleeding gums, hoarseness/change in voice. CARDIOVASCULAR: Denies chest pain, palpitations, or edema. RESPIRATORY: Denies cough or dyspnea. GASTROINTESTINAL: Denies abdominal pain, nausea, vomiting, or diarrhea. GENITOURINARY: Denies dysuria or hematuria. SKIN: Denies rash or itching. MUSCULOSKELETAL: Denies back pain, joint pain, or myalgia. NEUROLOGIC: Denies headache, numbness, or weakness. PSYCHIATRIC: Denies anxiety or depression. [facility] Past Medical History Medical History Patient denies significant medical history Family History Family History Grandparent Acute myocardial infarction Diabetes mellitus Mother Acute myocardial infarction Cerebrovascular accident Diabetes mellitus Son Asthma Social History Social History Smoking status: Current every day smoker Additional smoking assessment comments: 1.5 PPD for 40 years Alcohol intake: former Substance use type: marijuana Gender identity (if verbalized by the patient): Female Spiritual care concerns: No Comments I have reviewed and agree with the patient's past medical, surgical, social, and family hx as documented by the RN. There is no relevant family history pertinent to the presenting complaint. Exam Narrative: Exam Narrative: GENERAL: Well-appearing, well-nourished, and in no acute distress. HEAD: Normocephalic, atraumatic. No sinus tenderness or facial swelling. NECK: Supple. No lymphadenopathy or nuchal rigidity. CHEST: Lung sounds are clear to auscultation in bilateral lung hobbs. No respiratory distress. No evidence of cough upon examination. HEART: Regular rate and rhythm. No murmurs, gallops, or rubs heard. Normal peripheral pulses. Eyes: PERRLA and EOMI. Bilateral conjunctiva with erythema. Normal sclera, eyelids, and eyelashes. Periorbital areas without swelling, erythema, and warmth. No drainage appreciated. ENT: Ears: TMs pearly gonzalez. No bulging, erythema, or fluid appreciated. External auditory canals are Nose: Nares clear, no rhinorrhea or epistaxis. No swelling or erythema. Throat/Mouth: No evidence of swelling, erythema, exudate, peritonsillar mass, lesions, ulcers or drooling. Uvula is midline and without erythema and swelling. Mucous membranes moist. Voice and breath odor normal. Small dental abscess noted to gums surrounding tooth #31. Missing
== END 2020-09-27 14:53 | disposition home or self-care (01) ==
PROVIDERS: Emergency Provider Nurse Practitioner Family
DX: K04.7 Periapical abscess without sinus (principal); F17.200 Nicotine dependence, unspecified, uncomplicated
CPT/HCPCS: 99213; G0463

== ENCOUNTER 2021-01-22 16:30 | Outpatient (RCR) | payer OTHER, SELFPAY ==
[2020-10-29 15:27] VITALS: BP 124/70; PULSE 55; RESP 16; O2SAT 97
[2020-10-29 16:12] VITALS: PULSE 55
--- NOTE | 2020-11-04 17:13 | PCCPR ---
Teo Lofton called this am states she was watching her grandchildren and lifted her out of bath tub and strained her back. Verbalized she hopes to return on Wednesday.
--- NOTE | 2020-11-25 16:45 | PCCPR ---
Basia called today and stated that she has not been feeling well, running a low grade fever and congested. Instructed to return once she was symptom and fever free for 24 hours.
--- NOTE | 2020-11-28 16:44 | PCCPR ---
Basia has not returned, called today, no answer, left message.
== END 2021-01-22 19:30 | disposition home or self-care (01) ==
LOC: ANHCPREHAB 16:30
PROVIDERS: PCP Family Medicine
DX: Z95.5 Presence of coronary angioplasty implant and graft (principal)
CPT/HCPCS: 93798

== ENCOUNTER 2021-06-04 17:31 | Emergency (ER) | payer OTHER, SELFPAY ==
[2021-06-04 17:47] VITALS: BP 134/78; PULSE 86; RESP 18; TEMP 37.1; O2SAT 99
--- NOTE | 2021-06-04 17:54 | ED.NAVMDI ---
HPI - Nausea/Vomiting/Diarrhea General Chief complaint: Upper Respiratory Infection Stated complaint: nausea Time Seen by Provider: 06/04/21 17:55 Source: patient and RN notes reviewed Mode of arrival: ambulatory Limitations: no limitations History of Present Illness HPI Narrative: 61-year-old female presents with concern for nausea, 1 episode of vomiting, one episode of diarrhea, chills, headache, runny nose, frequent urination. Reports symptoms started this morning. Reports she was mostly concerned that her blood pressure was slightly elevated when she took it today. Reports she took her blood pressure after vomiting. She denies taking any [id number] medications for her symptoms. She denies cough, shortness of breath MD elicited complaint: nausea, vomiting and diarrhea Related Data Home Medications Medication Instructions Recorded Confirmed amlodipine 10 mg PO DAILY 09/27/20 06/04/21 aspirin [Aspir-81] 81 mg PO DAILY 09/27/20 06/04/21 atorvastatin 80 mg PO DAILY 09/27/20 06/04/21 carvedilol 6.25 mg PO DAILY 09/27/20 06/04/21 clopidogrel 75 mg PO DAILY 09/27/20 06/04/21 [id number] 1 cap PO DAILY 06/04/21 06/04/21 [Krill Oil ([place] 3 and 6)] Allergies Allergy/AdvReac Type Severity Reaction Status Date / Time codeine AdvReac Intermediate Nausea Verified 06/04/21 18:09 Review of Systems Review of Systems: CONSTITUTIONAL: Reports malaise, chills. Denies sweats, or fever. ENT: Reports rhinorrhea. Denies congestion, sinus pain, otalgia or sore throat. CARDIOVASCULAR: Denies chest pain, palpitations, or edema. RESPIRATORY: Denies cough or dyspnea. GASTROINTESTINAL: Denies abdominal pain, bloody, or mucous stools. Reports nausea, vomiting, diarrhea, GENITOURINARY: Denies dysuria or hematuria. Reports urine frequency MUSCULOSKELETAL: Denies myalgia. NEUROLOGIC: Reports headache. All systems reviewed & are unremarkable except as noted in HPI and below PMFSH Past Medical History Medical History Patient denies significant medical history Family History Family History Grandparent Acute myocardial infarction Diabetes mellitus Mother Acute myocardial infarction Cerebrovascular accident Diabetes mellitus Son Asthma Social History Social History Smoking packs per day: 2 Smoking cigarettes per day: 40.0 Years smoked: 40 Smoking pack-years: 80.00 Smoking status: Former smoker Tobacco type: cigarettes Smoking end date: 06/21/20 Additional smoking assessment comments: Basia states she stopped smoking the day of her [place] Alcohol intake: former Substance use type: marijuana Gender identity (if verbalized by the patient): Female Spiritual care concerns: No Comments At time of signature, agree with nursing past medical, surgical, social and family history. There is no relevant family history pertinent to the presenting complaint Exam Narrative: GENERAL: Well-appearing, well-nourished, and in no acute distress. HEAD: Normocephalic, atraumatic. EYES: PERRLA, conjunctivae clear, and EOMI. ENT: Nares clear, turbinates pink, no rhinorrhea or epistaxis. Mucous membranes moist. Oropharynx without edema, erythema, or lesions. Tonsils not enlarged and without exudate. NECK: Supple. No lymphadenopathy CHEST: Speaks in full sentences. No respiratory distress. HEART: Regular rate and rhythm. ABDOMEN: Soft, flat, nondistended. No guarding, rebound tenderness, or rigid. No pulsatilla masses. Bowel sounds present in all four quadrants. No organomegaly. Negative Cruz?s sign. No periumbilical tenderness. No Supra public tenderness or distension. Good femoral pulses bilaterally. No hernia noted. No scars or surface trauma. SKIN: Warm, dry, no rash. NEURO: Alert and oriented x3. PSYCH: Normal mood and affect
== END 2021-06-04 18:34 | disposition home or self-care (01) ==
PROVIDERS: Emergency Provider Nurse Practitioner
DX: R11.2 Nausea with vomiting, unspecified (principal); R19.7 Diarrhea, unspecified; Z20.822 Contact with and (suspected) exposure to COVID-19; I10 Essential (primary) hypertension; Z87.891 Personal history of nicotine dependence; I25.2 Old myocardial infarction; I25.10 Atherosclerotic heart disease of native coronary artery without angina pectoris; Z95.5 Presence of coronary angioplasty implant and graft
CPT/HCPCS: 81003; 87086; 87426; 87804; 99213; C9803; G0463

== ENCOUNTER 2021-09-01 13:49 | Emergency (ER) | payer OTHER, SELFPAY ==
[2021-09-01 13:59] VITALS: BP 112/65; PULSE 67; RESP 18; TEMP 36.1; O2SAT 97
--- NOTE | 2021-09-01 14:10 | ED.DENTAL ---
HPI - Dental/Oral General Chief complaint: Dental/Oral Stated complaint: toothache Time Seen by Provider: 09/01/21 14:10 Source: patient Mode of arrival: ambulatory Limitations: no limitations History of Present Illness HPI Narrative: 61-year-old female presents with complaint of lower dental pain for 3 days. Reports that teeth are very bad . States that she needs multiple teeth pulled. Does not have a dentist. Denies fever/chills. And antibiotics. All systems reviewed and normal except as noted above. Related Data Home Medications Medication Instructions Recorded Confirmed amlodipine 10 mg tablet 10 mg PO DAILY 09/27/20 09/01/21 aspirin 81 mg tablet,delayed 81 mg PO DAILY 09/27/20 09/01/21 release atorvastatin 80 mg tablet 80 mg PO DAILY 09/27/20 09/01/21 carvedilol 6.25 mg tablet 6.25 mg PO DAILY 09/27/20 09/01/21 Allergies Allergy/AdvReac Type Severity Reaction Status Date / Time codeine AdvReac Intermediate Nausea Verified 09/01/21 14:07 Review of Systems Review of Systems: CONSTITUTIONAL: Denies fever, chills, or sweats. EYES: Denies visual changes, redness, or discharge. ENT: Denies rhinorrhea, congestion, sore throat, or otalgia. Reports dental pain. CARDIOVASCULAR: Denies chest pain, palpitations, or edema. RESPIRATORY: Denies cough or dyspnea. GASTROINTESTINAL: Denies abdominal pain, nausea, vomiting, or diarrhea. GENITOURINARY: Denies dysuria or hematuria. SKIN: Denies rash or itching. MUSCULOSKELETAL: Denies back pain, joint pain, or myalgia. NEUROLOGIC: Denies headache, numbness, or weakness. PSYCHIATRIC: Denies anxiety or depression. All other systems reviewed are negative, except as documented in HPI. [facility] Past Medical History Medical History Patient denies significant medical history Family History Family History Grandparent Acute myocardial infarction Diabetes mellitus Mother Acute myocardial infarction Cerebrovascular accident Diabetes mellitus Son Asthma Social History Social History Smoking packs per day: 2 Smoking cigarettes per day: 40.0 Years smoked: 40 Smoking pack-years: 80.00 Smoking status: Former smoker Tobacco type: cigarettes Smoking end date: 06/21/20 Additional smoking assessment comments: Basia states she stopped smoking the day of her [place] Alcohol intake: former Substance use type: marijuana Gender identity (if verbalized by the patient): Female Spiritual care concerns: No Comments At time of signature, agree with nursing past medical, surgical, social and family history. There is no relevant family history pertinent to the presenting complaint. Exam Narrative: GENERAL: This is a well-nourished, well-developed patient, in no apparent distress. HEAD: normocephalic, atraumatic. EYES: PERRL. Sclera clear/white. Vision is grossly intact. EARS: External ears normal NOSE: External nose normal MOUTH: Several decayed, broken teeth to lower gumline. No significant swelling or fluctuance concerning for dental abscess. NECK: Neck supple, non-tender without lymphadenopathy, masses or thyromegaly. CARDIOVASCULAR: Regular rate and rhythm without murmurs, gallops, or rubs. RESPIRATORY: Clear to auscultation. Breath sounds equal bilaterally. No wheezes, rales, or rhonchi. SKIN: warm, Dry, intact with no suspicious lesions or rash, good texture and turgor. NEURO: awake, alert, and oriented to person, place and time. There were no obvious focal neurologic abnormalities. EXTREMITIES: Normal range of motion to all extremities. Course Course Level of Care: Express Care Visit Vital Signs Vital signs: Vital Signs Temperature 36.1 C L 09/01/21 13:59 Pulse Rate 67 09/01/21 13:59 Respiratory Rate 18 09/01/21 13:59 Blood Pressure 112/65 09/01/21 13:59 Pul
== END 2021-09-01 14:18 | disposition home or self-care (01) ==
PROVIDERS: Emergency Provider Nurse Practitioner Family
DX: K04.7 Periapical abscess without sinus (principal); Z87.891 Personal history of nicotine dependence; E78.00 Pure hypercholesterolemia, unspecified; I10 Essential (primary) hypertension; I25.2 Old myocardial infarction; Z95.5 Presence of coronary angioplasty implant and graft; H26.9 Unspecified cataract
CPT/HCPCS: 99213; G0463

== ENCOUNTER 2022-08-14 08:03 | Emergency (ER) | payer OTHER, SELFPAY ==
[2022-08-14 08:12] VITALS: BP 131/92; PULSE 63; RESP 18; TEMP 36.1; O2SAT 99
--- NOTE | 2022-08-14 08:24 | ED.EXTPRO ---
HPI - Extremity Problem General Chief complaint: Extremity Problem,Nontraumatic Stated complaint: Lt Leg Swelling Time Seen by Provider: 08/14/22 08:17 Source: patient Mode of arrival: ambulatory Limitations: no limitations History of Present Illness HPI Narrative: Patient presents today complaining of swelling to the left anterolateral calf, with pain from the left groin radiating to the left ankle since last night. She is also complaining of a burning sensation to the lower leg. Denies color change. She currently rates her pain 7/10 andtook a dose of Tylenol at 3:00 a.m. without relief. Patient has history of blood clot to the left groin in the past. She was taken off her Plavix approximately 6 months ago. Related Data Home Medications Medication Instructions Recorded Confirmed amlodipine 10 mg tablet 10 mg PO DAILY 09/27/20 08/14/22 aspirin 81 mg tablet,delayed 81 mg PO DAILY 09/27/20 08/14/22 release atorvastatin 80 mg tablet 80 mg PO DAILY 09/27/20 08/14/22 carvedilol 6.25 mg tablet 6.25 mg PO DAILY 09/27/20 08/14/22 Allergies Allergy/AdvReac Type Severity Reaction Status Date / Time codeine AdvReac Intermediate Nausea Verified 08/14/22 08:05 Review of Systems Review of Systems: CONSTITUTIONAL: Denies body aches, fever, chills, or sweats. EYES: Denies visual changes, redness, or discharge. ENT: Denies rhinorrhea, congestion, sore throat, or otalgia. CARDIOVASCULAR: Denies chest pain, palpitations, or edema. RESPIRATORY: Denies cough or dyspnea. GASTROINTESTINAL: Denies abdominal pain, nausea, vomiting, or diarrhea. GENITOURINARY: Denies dysuria or hematuria. SKIN: Denies rash, itching, or wounds. MUSCULOSKELETAL: + left leg pain, left calf swelling NEUROLOGIC: Denies headache, numbness, tingling, or weakness. PSYCH: Denies depression or anxiety. [facility] Past Medical History Medical History (Updated 08/14/22 @ 08:33 by Muna Nath, FRONT DESK AGENT, ) History of DVT (deep vein thrombosis) Family History Family History Grandparent Acute myocardial infarction Diabetes mellitus Mother Acute myocardial infarction Cerebrovascular accident Diabetes mellitus Son Asthma Social History Social History Smoking packs per day: 2 Smoking cigarettes per day: 40.0 Years smoked: 40 Smoking pack-years: 80.00 Smoking status: Former smoker Tobacco type: cigarettes Smoking end date: 06/21/20 Additional smoking assessment comments: Basia states she stopped smoking the day of her [place] Alcohol intake: former Substance use type: marijuana Gender identity (if verbalized by the patient): Female Spiritual care concerns: No Comments At time of signature, I have reviewed and agree with nursing past medical, surgical, social and family history unless otherwise noted. Please see nursing chart for further information. There is no relevant family history pertinent to the presenting complaint Exam Narrative: GENERAL: Well-appearing, well-nourished, and in no acute distress. HEAD: Normocephalic, atraumatic. EYES: EOMI. No redness or drainage. Conjunctivae normal. ENT: Mucous membranes pink and moist. NECK: Normal AROM. CHEST: No respiratory distress. EXTREMITIES: Left leg: Color normal. Range of movement normal throughout, with movement in the groin with flexion of the hip. Distal sensation intact. Capillary refill normal. Pedal pulse normal. Patient is localizing swelling to the anterolateral portion of the calf. No swelling or pitting appreciated at this time. There is tenderness to this area. Negative Homans. SKIN: Warm, dry, no rash. Capillary refill normal. Normal skin turgor. NEURO: No focal deficits. Alert and oriented x3. Gait steady. PSYCH: Normal affect. No signs of depression or anxiety. Course Course Level of Care: Express Care Visit Vital S
== END 2022-08-14 08:34 | disposition short-term general hospital (02) ==
PROVIDERS: Emergency Provider Nurse Practitioner
DX: M79.605 Pain in left leg (principal); Z86.718 Personal history of other venous thrombosis and embolism; Z79.82 Long term (current) use of aspirin; Z87.891 Personal history of nicotine dependence; I25.2 Old myocardial infarction
CPT/HCPCS: 99212; G0463

== ENCOUNTER 2022-08-14 08:50 | Emergency (ER) | payer OTHER, SELFPAY ==
--- NOTE | ~2022-08-14 | XR_ITS ---
XR hip LT min 3V w AP pelvis 08/14/2022 11:00 Indication: Pelvic pain Procedure: AP pelvis and 3 views left hip Comparison: No prior studies for comparison. Findings: Pelvic rings are intact. Sacral foramen are symmetric. No acute fracture, subluxation or di slocation. Impression: 1: No acute bone or joint abnormality. Reviewed, dictated and finalized at location B. Impression: 1: No acute bone or joint abnormality.
--- NOTE | ~2022-08-14 | XR_ITS ---
XR tibia fibula LT 2V 08/14/2022 11:00 Indication: Left leg pain and swelling Procedure: 2 views left tibia/fibula Comparison: No prior studies for comparison. Findings: There is a single lag screw transfixing the medial malleolus. There is a side plate and 5 s crews transfixing the distal fibula. No acute fracture or traumatic malalignment. Ankle mortise intac t. No significant soft tissue abnormality. No focal soft tissue abnormality. No foreign bodies. Impression: 1: No acute bone or joint abnormality. Reviewed, dictated and finalized at location B. Impression: 1: No acute bone or joint abnormality.
--- NOTE | ~2022-08-14 | US_ITS ---
EXAMINATION:US venous doppler LE LT INDICATION:Left lower extremity pain TECHNIQUE: Multiple grayscale, color flow and Doppler images of the left lower extremity deep venous systems were obtained and reviewed. COMPARISON:04/29/2015 FINDINGS: The common femoral, superficial femoral and popliteal veins demonstrate normal respiratory variation, augmentation and compressibility. Color flow is also seen within the posterior tibial, pe roneal, greater saphenous and profunda veins. There is a Fernandes's cyst measuring 4.1 x 3.8 x 1.3 cm. IMPRESSION: 1: No lower extremity deep venous thrombosis. Reviewed, dictated and finalized at location B.
[2022-08-14 08:54] VITALS: BP 145/97; PULSE 61; RESP 16; TEMP 37; O2SAT 95
--- NOTE | 2022-08-14 10:21 | ED.EXTPRO ---
HPI - Extremity Problem General Chief complaint: Extremity Problem,Nontraumatic Stated complaint: left leg pain Time Seen by Provider: 08/14/22 10:08 History of Present Illness HPI Narrative: 62-year-old female here for evaluation of left leg pain x2 days. Patient states the pain is sharp and shooting in nature, originating in her low back and radiates into her foot. She describes it as occasional burning sensation on the top of her foot as well. Patient did have a fall 1 week ago and states the pain has been worsening since. Sent from urgent care for DVT rule out. Patient does have a history of DVT 30 years ago. Related Data Home Medications Medication Instructions Recorded Confirmed amlodipine 10 mg tablet 10 mg PO DAILY 09/27/20 08/14/22 aspirin 81 mg tablet,delayed 81 mg PO DAILY 09/27/20 08/14/22 release atorvastatin 80 mg tablet 80 mg PO DAILY 09/27/20 08/14/22 carvedilol 6.25 mg tablet 6.25 mg PO DAILY 09/27/20 08/14/22 Allergies Allergy/AdvReac Type Severity Reaction Status Date / Time codeine AdvReac Intermediate Nausea Verified 08/14/22 08:05 Review of Systems Review of Systems: Gen.: Denies fevers or chills Eyes: Denies eye pain or visual change ENT: Denies congestion Respiratory: Denies shortness of breath or cough CV: Denies chest pain or palpitations GI: Denies abdominal pain nausea, emesis or diarrhea denies burning, urgency, frequency or hematuria Musculoskeletal: Reports left hip pain and knee Neuro: Denies numbness, tingling, weakness or focal weakness Skin: Denies rash Except as documented, all other systems reviewed and negative [facility] Past Medical History Medical History History of DVT (deep vein thrombosis) Family History Family History Grandparent Acute myocardial infarction Diabetes mellitus Mother Acute myocardial infarction Cerebrovascular accident Diabetes mellitus Son Asthma Social History Social History Smoking packs per day: 2 Smoking cigarettes per day: 40.0 Years smoked: 40 Smoking pack-years: 80.00 Smoking status: Former smoker Tobacco type: cigarettes Smoking end date: 06/21/20 Additional smoking assessment comments: Basia states she stopped smoking the day of her [place] Alcohol intake: former Substance use type: marijuana Gender identity (if verbalized by the patient): Female Spiritual care concerns: No Exam Narrative: APPEARANCE: Well appearing, no pain in distress, well-nourished. Head: Normocephalic and atraumatic. EYES: PERRLA/EOMI, conjunctivae clear NOSE: No nasal drainage EARS: External ear normal in appearance THROAT: Oropharynx is clear. Mucous membranes are moist. NECK: Supple. No adenopathy, no masses. RESPIRATORY: Airway patent, respirations nonlabored. Clear to auscultation bilaterally, no rales, rhonchi, wheezing. CARDIOVASCULAR: 2+ DP PT pulses bilaterally. Regular rate and rhythm without murmurs, rubs, or gallops. ABDOMINAL: Normoactive bowel sounds. Soft, nontender, nondistended. No rebound tenderness or guarding. MUSCULOSKELETAL: Straight leg raise negative bilaterally. Extremities are warm and well-perfused. Moves all extremities well. No edema. NEURO: Normal speech. No focal neurologic deficits. SKIN: Skin is warm and dry. No rashes. PSYCHIATRIC: Normal affect/mood.. Course Vital Signs Vital signs: Vital Signs Temperature 98.6 F 08/14/22 08:54 Pulse Rate 61 08/14/22 08:54 Respiratory Rate 16 08/14/22 08:54 Blood Pressure 145/97 H 08/14/22 08:54 Pulse Oximetry 95 08/14/22 08:54 Oxygen Delivery Room Air 08/14/22 08:54 Temperature 98.6 F 08/14/22 08:54 Pulse Rate 61 08/14/22 08:54 Respiratory Rate 16 08/14/22 08:54 Blood Pressure 145/97 H 08/14/22 08:54 Pulse Oximetry 95 08/14
[2022-08-14] MEDS: KETOROLAC 30 MG/ML VIAL (*BKC) IM (11:16)
== END 2022-08-14 11:27 | disposition home or self-care (01) ==
PROVIDERS: Emergency Provider Physician Assistant
DX: M54.42 Lumbago with sciatica, left side (principal); I25.2 Old myocardial infarction; Z86.718 Personal history of other venous thrombosis and embolism; Z87.891 Personal history of nicotine dependence
CPT/HCPCS: 73502; 73590; 93971; 96372; 99284; J1885

== ENCOUNTER 2023-05-22 13:07 | Emergency (ER) | payer OTHER, SELFPAY ==
[2023-05-22 13:15] VITALS: BP 143/79; PULSE 63; RESP 16; TEMP 36.5; O2SAT 99
--- NOTE | 2023-05-22 13:26 | ECG_ITS ---
Measurements Intervals [place] Rate: 63 P: 23 MA: 157 QRS: -19 QRSD: 90 T: 30 QT: 412 QTc: 423 Interpretive Statements SINUS RHYTHM LOW QRS VOLTAGE IN PRECORDIAL LEADS [QRS DEFLECTION < 1.0 mV IN CHEST LEADS] BORDERLINE ECG COMPARED TO ECG 06/20/2020 20:27:10 NO SIGNIFICANT CHANGES Electronically Signed On 05-22-2023 14:47:43 REALTY LOAN SPECIALIST by Rod Boyer M.D.
--- NOTE | 2023-05-22 13:34 | ED.GENADULT ---
HPI - General Adult General Chief complaint: Nausea/Vomiting/Diarrhea Stated complaint: Stomach Pain and Vomiting Time Seen by Provider: 05/22/23 13:22 Source: patient, RN notes reviewed and old records reviewed Mode of arrival: ambulatory Limitations: no limitations History of Present Illness HPI narrative: 63-year-old female presents to the [facility] with complaints of upper right and epigastric pain as well as vomiting since yesterday. Patient states that she is on the did 4 times today. Multiple times yesterday. States that she is not able to keep her medications down, tried taking them this morning and vomited them up Patient on arrival states ?I want to make sure it is not my heart. ? Patient also states ?I feel dehydrated. EKG done, no ST elevation or depression noted Onset (ago): day(s) (1) Related Data Home Medications Medication Instructions Recorded Confirmed amlodipine 10 mg tablet 10 mg PO DAILY 09/27/20 05/22/23 aspirin 81 mg tablet,delayed 81 mg PO DAILY 09/27/20 05/22/23 release atorvastatin 80 mg tablet 80 mg PO DAILY 09/27/20 05/22/23 carvedilol 6.25 mg tablet 6.25 mg PO DAILY 09/27/20 05/22/23 Allergies Allergy/AdvReac Type Severity Reaction Status Date / Time codeine AdvReac Intermediate Nausea Verified 05/22/23 13:09 Review of Systems Review of Systems: All systems reviewed & are unremarkable except as noted in HPI and below Constitutional: Constitutional: Reports no additional constitutional complaints Eyes: Eyes: Reports no additional eye complaints ENT: Reports system reviewed and no additional complaints, except as documented Cardiovascular: Cardiovascular: Reports no additional cardiovascular complaints, Denies chest pain and Denies dyspnea Respiratory: Respiratory: Reports no additional respiratory complaints, Denies chest congestion, Denies cough and Denies dyspnea Gastrointestinal: Gastrointestinal: Reports as per HPI, Reports abdominal pain, Reports nausea and Reports vomiting Musculoskeletal: Musculoskeletal: Reports no additional musculoskeletal complaints Integumentary/Breasts: Skin/Breast: Reports system reviewed and no additional complaints, except as docu Neurologic: Reports system reviewed and no additional complaints, except as documented Psychiatric: Psychiatric: Reports no additional psychiatric complaints Allergic/Immunologic: Allergic/Immunologic: Reports no additional allergic/immunologic complaints PMFSH Past Medical History Medical History History of DVT (deep vein thrombosis) Family History Family History Grandparent Acute myocardial infarction Diabetes mellitus Mother Acute myocardial infarction Cerebrovascular accident Diabetes mellitus Son Asthma Social History Social History Smoking packs per day: 2 Smoking cigarettes per day: 40.0 Years smoked: 40 Smoking pack-years: 80.00 Smoking status: Former smoker Tobacco type: cigarettes Smoking end date: 06/21/20 Additional smoking assessment comments: Basia states she stopped smoking the day of her [place] Alcohol intake: former Substance use type: marijuana Gender identity (if verbalized by the patient): Female Spiritual care concerns: No Comments At the time of my signature, I reviewed and agree with the nursing past medical, surgical, social, and family history. There is no relevant family history pertinent to the patient complaint. Exam Const: General: cooperative, no acute distress, well developed, alert, ill appearing acutely, tired appearing, uncomfortable and well nourished Nutritional Appearance: well nourished Orientation/consciousness: patient oriented x3 Limitations: no limitations HENMT: Head: normal to inspection Ears: hearing grossly normal bilaterally and external ears normal
== END 2023-05-22 13:35 | disposition short-term general hospital (02) ==
PROVIDERS: Emergency Provider Nurse Practitioner
DX: R10.11 Right upper quadrant pain (principal); R11.2 Nausea with vomiting, unspecified; Z20.822 Contact with and (suspected) exposure to COVID-19; Z87.891 Personal history of nicotine dependence; Z86.718 Personal history of other venous thrombosis and embolism; Z79.82 Long term (current) use of aspirin
CPT/HCPCS: 87426; 87804; 93005; 99213; G0463

== ENCOUNTER 2023-05-22 13:50 | Emergency (ER) | payer OTHER, SELFPAY ==
--- NOTE | ~2023-05-22 | XR_ITS ---
EXAMINATION: XR chest 1V portable Exam Date/Time: 05/22/2023 15:12 MEDICAL INSURANCE CLAIMS SPECIALIST HISTORY: epigastric pain, vomiting Comparison: 06/20/2020. RESULT: Lines, tubes, and devices: None. Lungs and pleura: Clear. Cardiomediastinal silhouette: Stable. Other: No acute osseous or upper abdominal finding. IMPRESSION: No acute cardiopulmonary process. Reviewed, dictated and finalized at location K. [place] INSURANCE CLAIMS SPECIALIST
--- NOTE | ~2023-05-22 | CT_ITS ---
EXAMINATION: CT abdomen pelvis w con DATE: 05/22/2023 16:20 INDICATION: RUQ/epigastric pain, N/V TECHNIQUE: Computed tomography (CT) of the abdomen and pelvis was performed with 100 mL Omnipaque-350 intravenous contrast. Automated exposure control and iterative reconstruction technique were employe d. The dose-length product was 332.03 mGy-cm. COMPARISON: None. FINDINGS: Lower thorax: Unremarkable Liver: Normal. Biliary/Gallbladder: Gallbladder is normal. No bile duct dilation. Pancreas: No mass or duct dilation. Spleen: Normal. Adrenals:No mass. Kidneys: No suspicious mass, obstructing stone, or hydronephrosis. Simple right midpole cyst. Bilater al subcentimeter hypodensities that also likely represent cysts. GI tract: Mild distal esophageal and gastric wall edema. Small uncomplicated gastric diverticulum. No small or large bowel dilation. Appendix not visualized. Diverticulosis without diverticulitis. Mesentery/Peritoneum: No ascites, mass, or free air. Retroperitoneum: No mass. Atherosclerotic abdominal aortic and/or arterial calcifications. Pelvis: Pelvic organs are within normal limits. Soft Tissues: Soft tissues and body wall unremarkable. Bones: No acute osseous finding. IMPRESSION: Mild esophagitis/gastritis. Otherwise, no acute abdominal pelvic process detected Reviewed, dictated and finalized at location K. SETTERS PRINTER
[2023-05-22 13:52] VITALS: BP 162/93; PULSE 55; RESP 18; TEMP 35.6; O2SAT 99
[2023-05-22 14:31] LABS: Basophils Percent Auto 0.6 % (0.2-1.2); Eosinophils Percent Auto 0.4 % (0-4.4); Hematocrit 48.2 % (37.0-47.0); Hemoglobin 16.2 g/dL (12.0-15.0); Immature Granulocyte Absolute 0.01 K/mm3 (0.00-0.031); Immature Granulocyte Percent A 0.1 % (0-0.5); Lymphocytes Absolute Auto 1.22 K/mm3 (0.9-3.2); Lymphocytes Percent Auto 17.5 % (18.3-44.2); Mean Corpuscular HGB Conc 33.6 g/dl (32-36); Mean Corpuscular Hemoglobin 30.7 pg (26-34); Mean Corpuscular Volume 91.3 fl (80-100); Mean Platelet Volume 10.1 fl (7.4-10.4); Monocytes Absolute Auto 0.4 K/mm3 (0.1-0.6); Neutrophils Absolute Auto 5.3 K/mm3 (1.3-6.7); Neutrophils Percent Auto 75.4 % (45.5-73.1); Platelet Count Result 200 k/mm3 (150-375); Red Blood Count 5.28 M/mm3 (4.2-5.4); Red Cell Distribution Width 12.7 % (11.5-14.5)
--- NOTE | 2023-05-22 15:05 | ECG_ITS ---
Measurements Intervals [place] Rate: 55 P: 29 NC: 159 QRS: -21 QRSD: 90 T: 28 QT: 429 QTc: 412 Interpretive Statements SINUS BRADYCARDIA LOW-VOLTAGE QRS IN PRECORDIAL LEADS BORDERLINE ECG COMPARED TO ECG 05/22/2023 13:26:03 NO SIGNIFICANT CHANGES ALTHOUGH HEART RATE HAS DECREASED Electronically Signed On 05-23-2023 18:00:55 SENIOR PHYSICIAN by Rod Boyer M.D.
--- NOTE | 2023-05-22 15:06 | ED.ABDPAIN ---
HPI - Abdominal Pain General Chief Complaint: Abdominal Pain Stated Complaint: abd pain, vomiting Time Seen by Provider: 05/22/23 14:16 History of Present Illness HPI narrative: Patient is a 63-year-old female with a history of CAD, hyperlipidemia, hypertension presenting with upper abdominal pain and nausea. States that it started last night. She initially thought that she had just eaten something bad. States that she has had a lot of vomiting and she continues to have pain in her epigastrium that sometimes goes to both sides. States that it may just be bad acid. She would urgent care and was advised to come here for further evaluation. Patient states that she is concerned about her heart given her history of NSTEMI. She denies any chest pain, shortness of breath, diaphoresis, leg swelling. States that she has felt a little bit lightheaded. No diarrhea, had a small bowel movement this morning, nonbloody. No dysuria or hematuria. Related Data Home Medications Medication Instructions Recorded Confirmed amlodipine 10 mg tablet 10 mg PO DAILY 09/27/20 05/22/23 aspirin 81 mg tablet,delayed 81 mg PO DAILY 09/27/20 05/22/23 release atorvastatin 80 mg tablet 80 mg PO DAILY 09/27/20 05/22/23 carvedilol 6.25 mg tablet 6.25 mg PO DAILY 09/27/20 05/22/23 Allergies Allergy/AdvReac Type Severity Reaction Status Date / Time codeine AdvReac Intermediate Nausea Verified 05/22/23 13:09 Review of Systems Review of Systems: All systems reviewed & are unremarkable except as noted in HPI and below PMFSH Past Medical History Medical History History of DVT (deep vein thrombosis) Family History Family History Grandparent Acute myocardial infarction Diabetes mellitus Mother Acute myocardial infarction Cerebrovascular accident Diabetes mellitus Son Asthma Social History Social History Smoking packs per day: 2 Smoking cigarettes per day: 40.0 Years smoked: 40 Smoking pack-years: 80.00 Smoking status: Former smoker Tobacco type: cigarettes Smoking end date: 06/21/20 Additional smoking assessment comments: Basia states she stopped smoking the day of her [place] Alcohol intake: former Substance use type: marijuana Gender identity (if verbalized by the patient): Female Spiritual care concerns: No Exam Narrative: GENERAL: Nontoxic, no acute distress, pleasant cooperative HEAD: Normocephalic, atraumatic. EYES: PERRLA and EOMI. ENT: Mucous membranes moist. NECK: Supple. CHEST: Clear to auscultation. No respiratory distress. HEART: Regular rate and rhythm ABDOMEN: Soft, + mild tenderness epigastrium/right upper quadrant, no guarding or rebound EXTREMITIES: Normal range of motion. No edema. SKIN: Warm, dry, no rash. NEURO: No focal deficits. Alert and oriented x3. PSYCH: Normal mood and affect. Course Vital Signs Vital signs: Vital Signs Temperature 96.1 F L 05/22/23 13:52 Pulse Rate 55 L 05/22/23 13:52 Respiratory Rate 18 05/22/23 13:52 Blood Pressure 162/93 H 05/22/23 13:52 Pulse Oximetry 99 05/22/23 13:52 Oxygen Delivery Room Air 05/22/23 13:52 Temperature 97.5 F L 05/22/23 20:11 Pulse Rate 75 05/22/23 20:11 Respiratory Rate 15 05/22/23 20:11 Blood Pressure 122/66 05/22/23 20:11 Pulse Oximetry 98 05/22/23 20:11 Oxygen Delivery Room Air 05/22/23 13:52 MDM - Abdominal Pain MDM Narrative Medical decision making narrative: 63-year-old female presenting with abdominal pain, nausea vomiting. Vitals are stable. Exam remarkable for the above. EKG per my interpretation shows sinus bradycardia, no ST elevations or depressions. Blood work with no significant abnormalities. Troponin undetectable. Lipase is normal. CT abdomen pelvis shows a esophagitis/gastritis.
[2023-05-22 15:08] LABS: Influenza A QL RT-PCR Negative (Negative); Influenza B QL RT-PCR Negative (Negative); RSV RNA, RT-PCR Negative (Negative); SARS-CoV-2 RNA PCR Negative (Negative)
[2023-05-22] MEDS: SODIUM CHLORIDE 0.9% IV 1,000 ML 999 ML IV CONT (15:18)
[2023-05-22] MEDS: ONDANSETRON INJ 4 MG/2 ML VIAL IV PUSH (15:18)
[2023-05-22] MEDS: FAMOTIDINE 20 MG/2 ML VIAL IV PUSH (15:18)
[2023-05-22 15:26] VITALS: BP 155/84; PULSE 60; RESP 19; O2SAT 97
[2023-05-22 15:49] LABS: Appearance Urine Cloudy (Clear); Bacteria Urine None Seen /hpf; Bilirubin Urine Negative (Negative); Blood Urine Negative (Negative); Color Urine Yellow (Yellow); Glucose Urine UA Negative (Negative); Ketones Urine 1+ mg/dL (Negative); Leukocyte Esterase Ur Negative LEU/UL (Negative); Nitrate Urine Negative (Negative); Non Pathogenic Casts 0-2; Protein Urine 1+ mg/dL (Negative); Specific Grav Ur 1.021 (1.001-1.035); Squamous Epithelial Cell Urine None seen /hpf (Few); WBC Urine 0-5 /hpf
[2023-05-22 15:50] LABS: Alanine Aminotransferase 33 U/L (6-35); Albumin Level 4.4 g/dL (3.5-5.1); Alkaline Phosphatase 87 U/L (38-126); Anion Gap 8 mmol/L (8-16); Aspartate Amino Transferase 32 U/L (14-36); Bilirubin,Total 0.8 mg/dL (0.2-1.3); Blood Urea Nitrogen 18 mg/dL (7-17); Calcium 9.6 mg/dL (8.4-10.2); Carbon Dioxide 28 mmol/L (22-30); Chloride 104 mmol/L (98-107); Estimated CRCL calculation 71 ml/min; Estimated Glomerular Filt Rate > 60; Glucose 137 mg/dL (65-110); Lipase 55 U/L (23-300); Potassium 3.8 mmol/L (3.4-5.0); Sodium 140 mmol/L (137-145)
[2023-05-22 15:52] LABS: INR 0.9
[2023-05-22 15:53] LABS: Partial Thromboplastin Time 24.7 SECONDS (22.3-36.8)
[2023-05-22 15:55] LABS: Add Urine Microscopic? YES
[2023-05-22 16:01] LABS: Troponin I < 0.012 ng/mL (0.000-0.034)
--- NOTE | 2023-05-22 16:56 | ECG_ITS ---
Measurements Intervals [place] Rate: 56 P: 53 GA: 153 QRS: -24 QRSD: 91 T: 28 QT: 440 QTc: 428 Interpretive Statements SINUS BRADYCARDIA LOW QRS VOLTAGE IN PRECORDIAL LEADS [QRS DEFLECTION < 1.0 mV IN CHEST LEADS] BORDERLINE ECG COMPARED TO ECG 05/22/2023 15:24:44 NO SIGNIFICANT CHANGES Electronically Signed On 05-23-2023 18:02:23 DIESEL ENGINE PIPE FITTER by Rod Boyer M.D.
[2023-05-22] MEDS: BELLADONNA ALK/PHENOB ELIX 10 ML, MAG HYDROX/ALUMINUM HYD/SIMETH 30 ML, LIDOCAINE HCL 2... PO (17:15)
[2023-05-22 17:18] VITALS: BP 125/67; PULSE 77; RESP 20; O2SAT 100
[2023-05-22 20:11] VITALS: BP 122/66; PULSE 75; RESP 15; TEMP 36.4; O2SAT 98
== END 2023-05-22 20:12 | disposition home or self-care (01) ==
PROVIDERS: Emergency Provider Emergency Medicine
DX: K20.90 Esophagitis, unspecified without bleeding (principal); K29.70 Gastritis, unspecified, without bleeding; Z20.822 Contact with and (suspected) exposure to COVID-19; I10 Essential (primary) hypertension; I25.10 Atherosclerotic heart disease of native coronary artery without angina pectoris; I25.2 Old myocardial infarction; E78.5 Hyperlipidemia, unspecified; Z86.718 Personal history of other venous thrombosis and embolism; Z87.891 Personal history of nicotine dependence; Z79.82 Long term (current) use of aspirin; R00.1 Bradycardia, unspecified
CPT/HCPCS: 36415; 71045; 74177; 80053; 81001; 83690; 84484; 85025; 85610; 85730; 87426; 87637; 87804; 93005; 96361; 96374; 96375; 99213; 99284; A9270; G0463; J2405; J7030; Q9967

== ENCOUNTER 2023-11-05 14:33 | Outpatient (CLI) | payer OTHER, SELFPAY ==
--- NOTE | ~2023-11-05 | MM_ITS ---
EXAMINATION: MM screening young BI w juani HISTORY: Screening TECHNIQUE: Craniocaudal and mediolateral oblique 3-D tomosynthesis images were obtained and synthetic 2-D images were generated. CAD analysis was submitted and interpreted. COMPARISON: No prior mammogram is available for comparison at this institution. BREAST PARENCHYMAL COMPOSITION: Not dense: There are scattered areas of fibroglandular density. FINDINGS: There is no evidence of suspicious mass, calcification, or architectural distortion to sugg est malignancy in either breast. There has been no suspicious interval change. IMPRESSION: 1. No mammographic evidence of malignancy. 2. Recommend routine screening mammography in one year. BI-RADS Category 1: Negative Reviewed, dictated and finalized at location B.
== END 2023-11-05 14:34 | disposition home or self-care (01) ==
LOC: ANHIMG 14:40
PROVIDERS: PCP Emergency Medicine; Visit Provider Emergency Medicine
DX: Z12.31 Encounter for screening mammogram for malignant neoplasm of breast (principal)
CPT/HCPCS: 77063; 77067

== ENCOUNTER → 2023-11-22 10:14 | Outpatient (CLI) | payer OTHER, SELFPAY ==
--- NOTE | ~2023-11-22 | XR_ITS ---
Right wrist Technique: PA, oblique, lateral, and ulnar deviation views were obtained. Clinical History: Pain Findings: No acute fracture or dislocation is seen. Osseous alignment is anatomic. 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 Soft tissues are unremarkable. 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 Reviewed, dictated and finalized at location . 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
--- NOTE | ~2023-11-22 | XR_ITS ---
Right Hand Technique: PA, oblique, and lateral views were obtained. Clinical History: Pain Findings: No acute fracture or dislocation is seen. Old, healed fracture deformity of the fifth metac arpal noted. Osseous alignment is otherwise anatomic. Advanced degenerative change of the first CMC j oint noted. Soft tissues are unremarkable. Impression: No acute abnormality. 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 Old, healed fracture deformity of the fifth metacarpal. Reviewed, dictated and finalized at location M. Impression: No acute abnormality. 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 Old, healed fracture deformity of the fifth metacarpal.
== END ==
LOC: EXPCRAD 10:16
PROVIDERS: PCP Emergency Medicine; Visit Provider Emergency Medicine
DX: M19.041 Primary osteoarthritis, right hand (principal); M19.031 Primary osteoarthritis, right wrist
CPT/HCPCS: 73110; 73130

== ENCOUNTER 2023-11-26 00:06 | Emergency (ER) | payer OTHER, SELFPAY ==
[2023-11-26 00:08] VITALS: BP 143/58; PULSE 57; RESP 22; TEMP 36.7; O2SAT 100
[2023-11-26 01:18] VITALS: PULSE 86; RESP 32; O2SAT 100
[2023-11-26 01:30] VITALS: PULSE 56; RESP 18; O2SAT 94
[2023-11-26 01:31] VITALS: BP 151/83; PULSE 63; RESP 19; O2SAT 95
[2023-11-26 01:36] LABS: Basophils Absolute Auto 0.1 K/mm3 (0.0-0.1); Basophils Percent Auto 0.3 % (0.2-1.2); Eosinophils Absolute Auto 0.1 K/mm3 (0-0.3); Eosinophils Percent Auto 0.6 % (0-4.4); Hematocrit 49.5 % (37.0-47.0); Hemoglobin 16.8 g/dL (12.0-15.0); Immature Granulocyte Absolute 0.05 K/mm3 (0.00-0.031); Immature Granulocyte Percent A 0.3 % (0-0.5); Lymphocytes Absolute Auto 1.77 K/mm3 (0.9-3.2); Lymphocytes Percent Auto 11.6 % (18.3-44.2); Mean Corpuscular HGB Conc 33.9 g/dl (32-36); Mean Corpuscular Volume 94.3 fl (80-100); Mean Platelet Volume 10.1 fl (7.4-10.4); Monocytes Absolute Auto 0.7 K/mm3 (0.1-0.6); Monocytes Percent Auto 4.4 % (2.6-8.5); Neutrophils Absolute Auto 12.6 K/mm3 (1.3-6.7); Neutrophils Percent Auto 82.8 % (45.5-73.1); Platelet Count Result 215 k/mm3 (150-375); Red Blood Count 5.25 M/mm3 (4.2-5.4); White Blood Count 15.3 K/mm3 (4.5-10.0)
[2023-11-26 01:46] LABS: Lactic Acid Reflex 2.2 mmol/L (0.7-2.0)
[2023-11-26 01:48] VITALS: PULSE 55; RESP 16; O2SAT 94
[2023-11-26 01:48] LABS: Alanine Aminotransferase 32 U/L (6-35); Albumin Level 4.7 g/dL (3.5-5.1); Alkaline Phosphatase 83 U/L (38-126); Anion Gap 13 mmol/L (4-12); Aspartate Amino Transferase 30 U/L (14-36); Bilirubin,Total 0.5 mg/dL (0.2-1.3); Blood Urea Nitrogen 23 mg/dL (7-17); Calcium 10.3 mg/dL (8.4-10.2); Carbon Dioxide 26 mmol/L (22-30); Chloride 99 mmol/L (98-107); Estimated CRCL calculation 49 ml/min; Estimated Glomerular Filt Rate > 60; Glucose 183 mg/dL (65-110); Lipase 701 U/L (23-300); Magnesium 2.4 mg/dL (1.6-2.3); Potassium 4.1 mmol/L (3.4-5.0); Sodium 138 mmol/L (137-145)
[2023-11-26] MEDS: SODIUM CHLORIDE 0.9% IV 1,000 ML 999 ML IV CONT (01:55)
--- NOTE | 2023-11-26 02:31 | ED.ABDPAIN ---
HPI - Abdominal Pain General Chief Complaint: Abdominal Pain Stated Complaint: abd pain Time Seen by Provider: 11/26/23 01:04 History of Present Illness HPI narrative: Patient is a 63-year-old female who presents to the emergency department this evening complaining of abdominal pain. Patient admits that she took a few laxatives at home before the abdominal pain started and then started to have some cramping and decided to come to the emergency department for evaluation. Denies any nausea or vomiting, any dysuria or hematuria, any fevers or chills at home. No additional symptoms or concerns at this time. Related Data Home Medications Medication Instructions Recorded Confirmed amlodipine 10 mg tablet 10 mg PO DAILY 09/27/20 05/22/23 aspirin 81 mg tablet,delayed 81 mg PO DAILY 09/27/20 05/22/23 release atorvastatin 80 mg tablet 80 mg PO DAILY 09/27/20 05/22/23 carvedilol 6.25 mg tablet 6.25 mg PO DAILY 09/27/20 05/22/23 Allergies Allergy/AdvReac Type Severity Reaction Status Date / Time codeine AdvReac Intermediate Nausea Verified 05/22/23 13:09 Review of Systems Review of Systems: All systems are reviewed and are negative unless stated otherwise in the HPI. [facility] Past Medical History Medical History History of DVT (deep vein thrombosis) Family History Family History Grandparent Acute myocardial infarction Diabetes mellitus Mother Acute myocardial infarction Cerebrovascular accident Diabetes mellitus Son Asthma Social History Social History Smoking packs per day: 2 Smoking cigarettes per day: 40.0 Years smoked: 40 Smoking pack-years: 80.00 Smoking status: Former smoker Tobacco type: cigarettes Smoking end date: 06/21/20 Additional smoking assessment comments: Basia states she stopped smoking the day of her [place] Alcohol intake: former Substance use type: marijuana Gender identity (if verbalized by the patient): Female Spiritual care concerns: No Exam Narrative: General: Alert, awake, afebrile, in no acute distress. HEENT: PERRL, no rhinorrhea, no post nasal drip, oropharynx clear. Cardiovascular: Regular rate and rhythm, no murmurs, rubs or gallops, no peripheral edema. Respiratory: Clear to auscultation bilaterally, no tachypnea, no wheezing, no rhonchi, no rubs, no respiratory distress. Abdomen: Soft, nontender, nondistended, no rebound, no guarding, no peritoneal signs. Musculoskeletal: No joint swelling or deformity, normal muscle tone. Skin: No rashes or petechia, no signs of infection. Neurological: Alert and oriented to person, place, and time. Follows all commands. No focal deficits, speech is clear and fluent. Course Vital Signs Vital signs: Vital Signs Temperature 98.0 F 11/26/23 00:08 Pulse Rate 57 L 11/26/23 00:08 Respiratory Rate 22 H 11/26/23 00:08 Blood Pressure 143/58 H 11/26/23 00:08 Pulse Oximetry 100 11/26/23 00:08 Temperature 97.9 F 11/26/23 03:55 Pulse Rate 86 11/26/23 03:55 Respiratory Rate 16 11/26/23 03:55 Blood Pressure 110/70 11/26/23 03:55 Pulse Oximetry 94 11/26/23 03:55 MDM - Abdominal Pain MDM Narrative Medical decision making narrative: The patient was evaluated by myself in the emergency department. History is obtained from patient who is an independent historian and physical exam was performed. External medical records were reviewed at this time. IV was established and pertinent tests were ordered. Patient was administered 1 L IV fluid bolus with normal saline. Laboratory results obtained revealing lactic acid of 2.2, magnesium 2.4, or blood cell count of 15.3 and lipase of 701. Urinalysis revealed trace ketones and trace leuk esterase otherwise unremarkable. At this time given patient's abdominal pain and elevated
[2023-11-26 03:06] LABS: Add Urine Microscopic? YES; Appearance Urine Clear (Clear); Bacteria Urine None Seen /hpf; Bilirubin Urine 1+ (Negative); Blood Urine Negative (Negative); Color Urine Dark Yellow (Yellow); Glucose Urine UA Negative (Negative); Ketones Urine Trace mg/dL (Negative); Leukocyte Esterase Ur Trace LEU/UL (Negative); Nitrate Urine Negative (Negative); Non Pathogenic Casts 0-2; Protein Urine Trace mg/dL (Negative); RBC Urine 0-2 /hpf (0-2); Specific Grav Ur 1.023 (1.001-1.035); Squamous Epithelial Cell Urine None Seen /hpf (Few); WBC Urine 0-5 /hpf (0-3)
[2023-11-26 03:55] VITALS: BP 110/70; PULSE 86; RESP 16; TEMP 36.6; O2SAT 94
[2023-11-26 04:34] LABS: Reflex Lactic Acid Yes or No Add Lactic
== END 2023-11-26 03:56 | disposition home or self-care (01) ==
PROVIDERS: Emergency Provider Emergency Medicine; PCP Emergency Medicine
DX: E86.0 Dehydration (principal); D72.829 Elevated white blood cell count, unspecified; R19.7 Diarrhea, unspecified; R74.8 Abnormal levels of other serum enzymes; Z86.718 Personal history of other venous thrombosis and embolism; Z87.891 Personal history of nicotine dependence
CPT/HCPCS: 36415; 80053; 81001; 83605; 83690; 83735; 85025; 96360; 96361; 99283; J7030

== ENCOUNTER 2024-05-09 03:14 | Emergency (ER) | payer OTHER, SELFPAY ==
--- NOTE | ~2024-05-09 | XR_ITS ---
Clinical Indication: Chest pain PA and lateral views of the chest: Comparison: 05/22/2023 Findings: The lungs are clear, without evidence of focal consolidation or pleural effusion. Cardiome diastinal silhouette is within normal limits. Bones and soft tissues are unremarkable. Impression: Normal chest. Reviewed, dictated and finalized at [facility]. ICATION RELEASE MANAGER Impression: Normal chest.
--- OUTSIDE RECORDS SUMMARY | 2024-05-09 03:16 | XMS_ITS | Patient Health Summary ---
Author Organization [facility] Address [address] [place] [address] Care Team Providers Care Yarn Comber Name Role Phone Unavailable Primary Care Provider Unavailabl e Note from [facility],non-owned Affiliates and Associated Physician Practices is amultiple site organization consisting of ambulatory clinics and hospital sitesin [place], [place], [place] and [place]. This disclosure is being madepursuant to the Care Everywhere program and may not contain all information available regarding this patient. Last updated 17.[facility] Allergies * Codeine(GI Discomfort) -High Criticality Medications * Be aware that medications may not be up to date on this document. Alwaysverify current medications with the patient. * aspirin (ASPIRIN) 81 MG chew tablet(Started 06/23/2020) Take 1 (one) tablet by mouth once daily * carvedilol (Coreg) 6.25 MG tablet(Started 07/17/2022) Take 1 (one) tablet by mouth 2 times daily 3 refills by 07/17/2023 * pantoprazole EC (Protonix) 20 MG tablet(Started 05/30/2023) Take 1 (one) tablet by mouth once daily * amLODIPine (Norvasc) 5 MG tablet(Started 01/17/2024) Take 1 (one) tablet by mouth once daily 4 refills by 01/16/2025 * atorvastatin (Lipitor) 80 MG tablet(Started 03/03/2024) Take 1 (one) tablet by mouth once daily * DULoxetine HCl 40 MG(Started 05/08/2024) Take 40 mg by mouth at bedtime Replaces use of 60 mg capsules Active Problems Problem Noted Date Diagnosed Date Primary osteoarthritis of both first carpometaca rpal joints 12/07/2023 S/P drug eluting coronary stent placement 2023 Coronary artery disease invo lving [place] coronary artery of [place] heart without angina pectoris 10/22/2023 Mixed hyperlipidemia 07/15/2020 Essential hypertension 07/15/2020 NSTEMI (non-ST elevated myocardial infarction) 0 06/20/2020 Social History Tobacco Use Types Packs/Day Years Used Date Smoking Tobacco: Every Day Cigarettes Smokeless Tobacco: Never Tobacco Cessation:Ready to Q uit: Not Asked; Counseling Given: Not Answered Alcohol Use Standard Drinks/Week Comments Not Currently 0 (1 standard drink = 0.6 oz pure alcohol) has not had a drink in 15 years Sex and Gender Information Value Date Recorded Sex Assigned at Not on file Gender Identity Female 06/21/2020 12:12 PM CDT Sexual Orientation Not on file Last Filed Vital Signs Vital Sign Reading Time Taken Comments Blood Pressure 110/64 01/19/2024 3:47 PM CDT Pulse 56 01/19/2024 3:47 PM CDT Temperature 36.7 C (98 F) 01/19/2024 3:47 PM CDT Respiratory Rate 16 01/19/2024 3:47 PM CDT Oxygen Saturation 96% 01/19/2024 3:47 PM CDT Inhaled Oxygen Concentration - - Weight 65.3 kg (144 lb) 01/19/2024 3:47 PM CDT Height 162.6 cm (5' 4 ) 01/19/2024 3:47 PM CDT Body Mass Index 24.72 01/19/2024 3:47 PM CDT Medical Devices Implanted Type Area Marshmallow Runner Device Identifier Shelf Expiration Date Model / Serial / Lot Sys Cor Stent Xience Srr 3mm 15mm Rap Ex Implanted:Qty: 1 on 06/21/2020 by Hima Herrera MD at [facility] Coronary [employer] 09/03/2021 [id number] Description:m-CIRC Procedures * LIPID PROFILE(Performed 08/28/2020) Performed for NSTEMI (non-ST elevated myocardial infarction) (HCC), Mixed hyperlipidemia * CARDIAC EKG ORDER(Performed 06/25/2020) * CARDIAC PROCEDURE ORDER(Performed 06/24/2020) * PHOSPHORUS BLOOD(Performed 06/22/2020) * MAGNESIUM BLOOD(Performed 06/22/2020) * BASIC METABOLIC PANEL (CALCIUM TOTAL)(Performed 06/22/2020) * CBC W AUTO DIFFERENTIAL(Performed 06/22/2020) * CULTURE URINE(Performed 06/21/2020) Performed for NSTEMI (non-ST elevated myocardial infarction) ([facility]) * CCL CARDIAC CATH LEFT(Performed 06/21/2020) Performed for NSTEMI (non-ST elevated myocardial infarction) ([facility]) * ECHO COMPLETE(Performed 06/21/2020) Performed for NSTEMI (non-ST elevated myocardial infarction) ([facility]) * LIPID PROFILE(Performed 06/21/2020) Performed for NSTEMI (non-ST elevated myocardial infarction) ([facility]) * LACTIC ACID BLOOD(Performed 06/21/2020) * PTT [facility](Performed 06/21/2020) * URINALYSIS REFLEX TO MICROSCOPIC NO CULTURE(Performed 06/21/2020) * EKG 12-LEAD(Performed 06/20/2020) Performed for NSTEMI (non-ST elevated myocardial infarction) ([facility]) * SARS-COV-2 (COVID-19) IN HOUSE(Performed 06/20/2020) * HEMOGLOBIN A1C(Performed 06/20/2020) * PTT [facility](Performed 06/20/2020) * PT-INR [facility](Performed 06/20/2020) * PHOSPHORUS BLOOD(Performed 06/20/2020) * MAGNESIUM BLOOD(Performed 06/20/2020) * LACTIC ACID BLOOD(Performed 06/20/2020) * COMPREHENSIVE METABOLIC PANEL(Performed 06/20/2020) * CBC W AUTO DIFFERENTIAL(Performed 06/20/2020) * CALCIUM IONIZED WHOLE BLOOD(Performed 06/20/2020) * B-TYPE NATRIURETIC PEPTIDE(Performed 06/20/2020) * XR CHEST 1VW PORTABLE(Performed 06/20/2020) Performed for NSTEMI (non-ST elevated myocardial infarction) ([facility]) Results * (ABNORMAL) LIPID PROFILE (08/28/2020 2:11 PM CDT) Only the most recent of2 resultswithin the time period is included. Cholesterol Total 190 <200 mg/dL 08/28/2020 2:55 PM CDT [facility] HDL 46 >40 mg/dL 08/28/2020 2:55 PM CDT [facility] Comment: ATP III Classification of HDL Cholesterol: <40 mg/dL: Considered a major risk factor. >60 mg/dL: Considered a negative risk factor. LDL Calculated 82 <100 mg/dL 08/28/2020 2:55 PM CDT [facility] Comment: ATP III Classification of LDL Cholesterol: <100 mg/dL: Optimal 100 - 129 mg/dL: Near Optimal/Above Optimal 130 - 159 mg/dL: Borderline High 160 - 189 mg/dL: High >190 mg/dL: Very High Triglycerides 312(H) <150 mg/dL 08/28/2020 2:55 PM CDT [facility] Comment: ATP III Classification of Triglycerides: <150 mg/dL: Normal 150 - 199 mg/dL: Borderline High 200 - 400 mg/dL: High >500 mg/dL: Very High Blood BLOOD SPECIMEN / Unknown Lab Venipuncture / Unknown 08/28/2020 2:11 PM CDT 08/28/2020 2:30 PM CDT Leonides Chávez MD LAB - CHEMISTRY ORD ERABLES [facility] [address] [place] [address], [facility] [phone] * CARDIAC EKG ORDER (06/25/2020 9:10 AM CDT) Narrative 06/25/2020 9:10 AM CDT Ordered by an unspecified provider. Scanned Document CARDIAC SERVICES ORD ERABLES * CARDIAC PROCEDURE ORDER (06/24/2020 2:35 PM CDT) Narrative 06/24/2020 2:35 PM CDT Ordered by an unspecified provider. Scanned Document CARDIAC SERVICES ORD ERABLES * (ABNORMAL) CBC W AUTO DIFFERENTIAL (06/22/2020 4:45 AM CDT) Only the most recent of2 resultswithin the time period is included. WBC 11.0(H) 3.5 - 10.5 10 3/uL 06/22/2020 5:08 AM [facility] RBC 5.29(H) 3.90 - 5.00 10 6/uL 06/22/2020 5:08 AM [facility] Hemoglobin 16.4(H) 12.0 - 15.5 g/dL 06/22/2020 5:08 AM [facility] Hematocrit 48.3(H) 35.0 - 45.0 % 06/22/2020 5:08 AM [facility] MCV 91.3 81.0 - 97.0 fL 06/22/2020 5:08 AM [facility] MCH 31.0 28.0 - 34.0 pg 06/22/2020 5:08 AM [facility] MCHC 34.0 32.0 - 36.0 g/dL 06/22/2020 5:08 AM [facility] Platelet Count 215 150 - 400 10 3/uL 06/22/2020 5:08 AM [facility] RDW-SD 42.8 36.0 - 50.0 fL 06/22/2020 5:08 AM [facility] RDW-CV 12.7 11.2 - 14.8 % 06/22/2020 5:08 AM [facility] MPV 9.6 9.3 - 12.8 fL 06/22/2020 5:08 AM [facility] nRBC Absolute 0.00 0 10 3/uL 06/22/2020 5:08 AM [facility] nRBC Auto 0.0 0 /100 WBC 06/22/2020 5:08 AM [facility] Neutrophils % 70.3(H) 35.0 - 70.0 % 06/22/2020 5:08 AM [facility] Lymphocytes % 18.9(L) 19.7 - 55.1 % 06/22/2020 5:08 AM [facility] Monocytes % 9.8 3.0 - 15.0 % 06/22/2020 5:08 AM [facility] Eosinophils % 0.2 0.0 - 6.0 % 06/22/2020 5:08 AM CDT [facility] Basophil % 0.4 0.0 - 1.5 % 06/22/2020 5:08 AM [facility] Neutrophils Absolute 7.8(H) 1.6 - 7.0 10 3/uL 06/22/2020 5:08 AM [facility] Lymphocyte Absolute 2.1 0.8 - 2.9 10 3/uL 06/22/2020 5:08 AM T [facility] Monocytes Absolute 1.08(H) 0.14 - 0.66 10 3/uL 06/22/2020 5:08 AM [facility] Eosinophils Absolute 0.02 0.00 - 0.45 10 3/uL 06/22/2020 5:08 AM [facility] Basophils Absolute 0.04 0.00 - 0.06 10 3/uL 06/22/2020 5:08 AM [facility] Immature Granulocytes % 0.4 0.0 - 1.0 % 06/22/2020 5:08 AM [facility] Blood BLOOD SPECIMEN / Unknown Venipuncture / Unknown 06/22/2020 4:45 AM CDT 06/22/2020 4:49 AM CDT Braulio Dueñas MD LAB - HEMATOLOGY ORD ERABLES [facility] [address] [place] [address], [facility] [phone] * (ABNORMAL) BASIC METABOLIC PANEL (CALCIUM TOTAL) (06/22/2020 4:45 AM CDT) BUN 10 7 - 26 mg/dL 06/22/2020 5:17 AM CDT [facility] Creatinine 0.7 0.6 - 1.2 mg/dL 06/22/2020 5:17 AM [facility] Sodium 138 136 - 145 mmol/L 06/22/2020 5:17 AM [facility] Potassium 4.1 3.5 - 4.5 mmol/L 06/22/2020 5:17 AM T [facility] Chloride 104 98 - 107 mmol/L 06/22/2020 5:17 AM [facility] CO2 22 22 - 29 mmol/L 06/22/2020 5:17 AM [facility] Glucose 136(H) 70 - 115 mg/dL 06/22/2020 5:17 AM [facility] Calcium 9.0 8.4 - 10.2 mg/dL 06/22/2020 5:17 AM [facility] Anion Gap 16 8 - 18 06/22/2020 5:17 AM [facility] BUN/Creatinine Ratio 14 7 - 23 06/22/2020 5:17 AM [facility] Osmolality Calculated 287 270 - 300 mOsm/kg 06/22/2020 5:17 AM [facility] eGFR >60 >60 mL/min/1.7 3 m2 06/22/2020 5:17 AM [facility] Blood BLOOD SPECIMEN / Unknown Venipuncture / Unknown 06/22/2020 4:45 AM CDT 06/22/2020 4:49 AM CDT Braulio Dueñas MD LAB - CHEMISTRY [facility] [address] [address], [place] [phone] * PHOSPHORUS BLOOD (06/22/2020 4:45 AM CDT) Only the most recent of2 resultswithin the time period is included. Phosphorus 2.4 2.3 - 4.7 mg/dL 06/22/2020 5:17 AM T [facility] Blood BLOOD SPECIMEN / Unknown Venipuncture / Unknown 06/22/2020 4:45 AM CDT 06/22/2020 4:49 AM CDT Braulio Dueñas MD LAB - CHEMISTRY [facility] [address] [address], [place] [phone] * MAGNESIUM BLOOD (06/22/2020 4:45 AM CDT) Only the most recent of2 resultswithin the time period is included. Magnesium 1.9 1.6 - 2.6 mg/dL 06/22/2020 5:17 AM CDT [facility] Blood BLOOD SPECIMEN / Unknown Venipuncture / Unknown 06/22/2020 4:45 AM CDT 06/22/2020 4:49 AM CDT Braulio Dueñas MD LAB - CHEMISTRY AM[facility] RIVERA [facility] [address] [place] [address], [facility] [phone] * CULTURE URINE (06/21/2020 7:01 PM CDT) Culture Urine 10,000-50,000 CFU/mL urogenital torres DEION 06/23/2020 7:13 AM CDT [facility] Urine URINE SPECIMEN OBTAINED BY CLEAN CATCH PROCEDURE / Unknown Collection / Unknown 06/21/2020 7:01 PM CDT 06/21/2020 7:03 PM CDT Braulio Dueñas MD LAB - MICROBIOLOGY O RDERABLES Performing Organization Address City/[facility]/ZIP Co de Phone Number [facility] [address] [place] [address], [facility] [phone] * CCL CARDIAC CATH LEFT (06/21/2020 3:01 PM CDT) Anatomical Region Laterality Modality Chest X-Ray Angiograph y Narrative 06/22/2020 12:33 AM CDT [facility] Cardiac Catheterization Procedure Note Patient: Basia Al Age: [age] year old Date of : 1960 Procedure Date: 06/21/20 MAINFRAME SYSTEMS PROGRAMMER: Charlie Glover ATTENDING PHYSICIAN: Hima Herrera HISTORY: 60 year old female previously healthy who presented with chest pain to [facility], found to have multi- vessel disease. She is refusing CABG and is here to get PCI today. EKG showed ST depressions in V4 and V5. She was started on heparin drip, loaded with ASA and taken for a LHC. LHC showed proximal LAD 60%, 1st diagonal 90%, Left Cx 95%. ACCESS SITE(S): right radial artery PROCEDURAL OVERVIEW: After obtaining informed consent and positioning the patient on the catheterization table, a timeout was performed to confirm the patient s name, date of , and procedure. Sedation was initiated and the patient was prepped and draped using standard sterile technique. Lidocaine was used for local anesthesia over the access site, after which the vessel was accessed and a sheath was placed using the modified Seldinger technique. Access was uncomplicated. At the conclusion of the procedure, hemostasis was achieved using a radial compression device after removal of all catheters, wires, and sheaths. APPROPRIATENESS CRITERIA FOR PCI: NSTEMI PCI INDICATION: NSTEMI Unstable Angina / [id number] Myocardial Infarction-Class:I PCI STATUS: urgent PCI PROCEDURAL MODIFIERS: none LESION UNDERGOING INTERVENTION : PCI TO THE OM1. 1. LESION MODIFIERS: culprit lesion for ACS and thrombus present in lesion 2. RESTENOSIS?:no 3. ACCESS: The existing sheath was used for the PCI procedure. 4. GUIDE: XB 3.0 guide catheter was used for intervention. 5. ORAL ANTIPLATELET THERAPY: Aspirin and ticagrelor 6. INTRAVENOUS ANTICOAGULATION DURING PCI: Heparin 7. INTERVENTIONAL WIRE: A Lab42i wire was advanced beyond the lesion into the distal vessel. 8. PROCEDURE DETAILS:Balloon angioplasty was performed using a Trek 3.0 * 12 balloon. After angioplasty, a Xience drug-eluting 3.0 * 15 stent was deployed across the lesion. 9. After intervention, the 99% stenosis was reduced to 0% with JACOBY-II flow prior to PCI and JACOBY-III flow after PCI. FFR TO LAD Opsens wire advanced into Diagonal branch and dPR measured at 0.88 Wire pulled back and re advanced into distal LAD and dPR was measured as 0.91 Adenosine was given IV and FFR measured as 0.83 in distal LAD, pull back showed area of stenosis at proximal LAD but not yet significant stenosis COMPLICATIONS: none HEMOSTASIS: At the conclusion of the procedure, hemostasis was achieved using TR band after removal of all catheters, wires, and sheaths. INTERVENTIONAL CONCLUSIONS: Successful PCI to OM1 culprit lesion of NSTEMI FFR to LAD was not 0.83 (IFR is 0.91) RECOMMENDATIONS AFTER INTERVENTIONAL PROCEDURE: Aspirin 81 mg QDAY indefinitely. ticagrelor 90 mg BID for 12 months Medical management of LAD/diagonal disease Hima Herrera MD 06/22/2020 Braulio Dueñas MD CARDIAC AIRCRAFT CABIN CLEANER RAD IANT * ECHO COMPLETE (06/21/2020 12:36 PM CDT) Anatomical Region Laterality Modality Chest Echo 06/21/2020 11:5 4 AM CDT Narrative Procedure Note John Chavarria MD - 06/21/2020 Braulio Dueñas MD ECHOCARDIOGRAPHY RAD IANT * (ABNORMAL) PTT [facility] (06/21/2020 5:13 AM CDT) Only the most recent of2 resultswithin the time period is included. APTT 122.4(HH) 23.0 - 38.4 Seconds 06/21/2020 7:46 AM CDT [facility] Comment: Patient is on Heparin, Argatroban or Dabigatran. Blood BLOOD SPECIMEN / Unknown Venipuncture / Unknown 06/21/2020 5:13 AM CDT 06/21/2020 6:04 AM CDT Braulio Dueñas MD LAB - COAGULATION OR DERABLES Performing Organization Address [facility]/State/[facility] Co de Phone Number [address] [address], [facility] [phone] * LACTIC ACID BLOOD (06/21/2020 5:13 AM CDT) Only the most recent of2 resultswithin the time period is included. Lactic Acid-Stat 1.0 0.5 - 2.2 mmol/L 06/21/2020 6:19 AM CDT [facility] Blood BLOOD SPECIMEN / Unknown Venipuncture / Unknown 06/21/2020 5:13 AM CDT 06/21/2020 5:47 AM CDT Braulio Dueñas MD LAB - CHEMISTRY [facility] [address] [place] [address], [facility] [phone] * (ABNORMAL) URINALYSIS REFLEX TO MICROSCOPIC NO CULTURE (06/21/2020 2:02 AM CDT) Color UA Yellow Straw, Yellow, Colorless 06/21/2020 2:21 AM [facility] Clarity UA Slt Cloudy Clear, t Cloudy 06/21/2020 2:21 AM [facility] Specific B[place]ford UA 1.034(H) 1.005 - 1.030 06/21/2020 2:21 AM [facility] pH UA 5.0 5.0 - 8.0 pH 06/21/2020 2:21 AM [facility] Protein UA 1+(A) Negative mg/dL 06/21/2020 2:21 AM [facility] Glucose UA Negative Negative mg/dL 06/21/2020 2:21 AM [facility] Ketone UA 2+(A) Negative mg/dL 06/21/2020 2:21 AM [facility] Bilirubin UA Negative Negative mg/dL 06/21/2020 2:21 AM [facility] Blood UA 1+(A) Negative 06/21/2020 2:21 AM [facility] Nitrite UA Negative Negative 06/21/2020 2:21 AM [facility] Leukocyte Esterase 3+(A) Negative 06/21/2020 2:21 AM [facility] Urobilinogen UA Negative Negative mg/dL 06/21/2020 2:21 AM [facility] RBC UA 6-10(A) None Seen, 0-2, 3-5 /HPF 06/21/2020 2:21 AM [facility] WBC UA 6-10(A) None Seen, 0-5 /HPF 06/21/2020 2:21 AM [facility] Squamous Epithelial Cells UA 3-5(A) None Seen, 0-2 /HPF 06/21/2020 2:21 AM CDT [facility] Urine URINE SPECIMEN OBTAINED BY CLEAN CATCH PROCEDURE / Unknown Collection / Unknown 06/21/2020 2:02 AM CDT 06/21/2020 2:14 AM CDT Narrative [facility] - 06/21/2020 2:21 AM CDT Braulio Dueñas MD LAB - URINALYSIS ORD ERABLES Performing Organization Address City/[facility]/ZIP Co de Phone Number [facility] [address] [place] [address], [facility] [phone] * EKG 12-LEAD (06/20/2020 10:54 PM CDT) Ventricular Rate 59 BPM [facility] Atrial Rate 59 BPM [facility] P-R Interval 150 ms [facility] QRS Duration ms 80 ms [facility] Q-T Interval ms 450 ms [facility] QTC Calculation (Bezet) 445 ms [facility] Calculated P Mercer 56 degrees [facility] Calculated R Mercer -27 degrees [facility] Calculated T Mercer 42 degrees [facility] MUSE Interpretation EKG SINUS BRADYCARDIA POSSIBLE ANTEROSEPTAL INFARCT , AGE UNDETERMINED ABNORMAL ECG NO PREVIOUS ECGS AVAILABLE Confirmed by Braulio Dueñas ([id number]) on 06/23/2020 3:04:52 PM [facility] MUSE 06/20/2020 10:5 4 PM CDT 06/23/2020 3:04 PM CDT Braulio Dueñas MD ECG ORDERABLES Performing Organization Address City/[facility]/ZIP Co de Phone Number [facility] * SARS-COV-2 (COVID-19) IN HOUSE (06/20/2020 10:45 PM CDT) Pathologist [facility] COVID-19 PCR Not detected Not detected 06/21/2020 3:59 AM CDT [facility] Microbiology SPECIMEN FROM NASOPHARYNGEAL STRUCTURE / Unknown Collection / Unknown 06/20/2020 10:45 PM CDT 06/20/2020 10:49 PM CDT Narrative [facility] - 06/21/2020 3:59 AM CDT This nucleic acid amplification assay performance was validated by [facility]. This test has been authorized by the Food and Drug administration (FDA)under an Emergency Use Authorization (EUA). This test has been validated in accordance with the FDA's guidance document Policy for Diagnostic Testing in Laboratories Certified to perform High Complexity Testing under CLIA prior to Emergency Use Authorization for Coronavirus Disease-2019 during the Public Health Emergency issued on May 27, 2019. FDA independent review of this validation is pending. This test is only authorized for the duration of time the declaration that circumstances exist justifying the authorization of emergency use of in vitro diagnostic tests for detection of SARS-CoV-2 virus and/or diagnosis of COVID-19 infection under section 564(b)(1) of the Act, 21 U.S.C 360bbb-3 (b)(1), unless the authorization is terminated or revoked sooner. Fact Sheets for this EUA assay are available upon request. Braulio Dueñas MD LAB - MICROBIOLOGY O RDERABLES [facility] [address] [place], [address] [phone] * PT-INR [facility] (06/20/2020 10:22 PM CDT) PT 12.5 12.1 - 14.8 Seconds 06/20/2020 10:43 PM CDT [facility] INR 1.0 See Comment 06/20/2020 10:43 PM CDT [facility] Comment:The suggested therap eutic range for standard coumadin (warfarin) therapy is an INR of 2.0-3.0. For high-risk patients (Mechanical Mitral Valve Prosthesis, etc.), the suggested prophylactic therapeutic range is an INR of 2.5-3.5. Blood BLOOD SPECIMEN / Unknown Venipuncture / Unknown 06/20/2020 10:22 PM CDT 06/20/2020 10:34 PM CDT Braulio Dueñas MD LAB - COAGULATION OR DERABLES [facility] [address] [place] [address], [facility] [phone] * (ABNORMAL) CALCIUM IONIZED WHOLE BLOOD (06/20/2020 10:22 PM CDT) Ionized Calcium Whole Blood 1.20 mmol/L 06/20/2020 10:34 PM CDT [facility] Adjusted Ionized Calcium 1.16(L) 1.19 - 1.34 mmol/L 06/20/2020 10:34 PM CDT [facility] pH Whole Blood 7.32(L) 7.35 - 7.45 06/20/2020 10:34 PM CDT [facility] Blood WHOLE BLOOD SPECIMEN / Unknown Venipuncture / Unknown 06/20/2020 10:22 PM CDT 06/20/2020 10:29 PM CDT Braulio Dueñas MD LAB - CHEMISTRY [facility] [address] [address], [facility] [phone] * HEMOGLOBIN A1C (06/20/2020 10:22 PM CDT) Hemoglobin A1c 6.1 4.4 - 6.3 % 06/21/2020 8:50 AM CDT [facility] Estimated Average Glucose 128 mg/dL 06/21/2020 8:50 AM T [facility] Comment: HbA1c Interpretation: Treatment target values recommended by ADA and other clinical organizations should be used to evaluate metabolic control in patients. Treatment Target Values: Normal : < 5.7% Pre-diabetes: 5.7-6.4% Diabetes: Equal to or greater than 6.5% Reference: [place] [employer] Standards of Care in Diabetes -2014 In patients 70 years and older consider HbA1c target range of 7.0-7.5% Reference: Diabetes Mellitus in Older People: Position Statement on behalf of the International Association of Gerontology and Geriatrics (IAGG), the Diabetes Working Democrat for Older People (EDWPOP), and the International Task Force of Experts in Diabetes. Balbir Deluna et al. J [place] [employer]. 2012 Test results diagnostic of diabetes should be repeated for confirmation. The Sebia Capillary 2 assay for the measurement of HbA1c is a National Glycohemoglobin Standardization Program (NGSP)certified method. Blood BLOOD SPECIMEN / Unknown Venipuncture / Unknown 06/20/2020 10:22 PM CDT 06/20/2020 10:27 PM CDT Braulio Dueñas MD LAB - CHEMISTRY [facility] Performing Organization Address [facility]/ZIP Co de Phone Number [address] [address], [facility] [phone] * (ABNORMAL) B-TYPE NATRIURETIC PEPTIDE (06/20/2020 10:22 PM CDT) Pathologist [facility] BNP 246(H) See Comment pg/mL 06/20/2020 10:57 PM CDT [facility] Comment: A decision threshold of 100 pg/mL has been demonstrated to provide the maximal combination of sensitivity, specificity and predictive value for the diagnosis of congestive heart failure (CHF). Virtually all patients with no evidence of CHF have BNP values less than 100 pg/mL. A BNP value greater than 100 pg/mL is consistent with the diagnosis of CHF in the appropriate clinical setting. In a study of 693 patients (male and female) with diagnosed CHF, the following values were determined based on the NYHA functional classification system: NYHA Functional Class Mean Valule (pg/mL) % >100 pg/mL I 320 58.1 II 432 73.0 III 656 79.0 IV 1635 98.3 Blood BLOOD SPECIMEN / Unknown Venipuncture / Unknown 06/20/2020 10:22 PM CDT 06/20/2020 10:27 PM CDT Braulio Dueñas MD LAB - CHEMISTRY [facility] Performing Organization Address City/[facility]/ZIP Co de Phone Number [address] [address], [place] [phone] * (ABNORMAL) COMPREHENSIVE METABOLIC PANEL (06/20/2020 10:22 PM CDT) [facility] BUN 10 7 - 26 mg/dL 06/20/2020 10:54 PM [facility] Creatinine 0.6 0.6 - 1.2 mg/dL 06/20/2020 10:54 PM [facility] Sodium 138 136 - 145 mmol/L 06/20/2020 10:54 PM [facility] Potassium 4.1 3.5 - 4.5 mmol/L 06/20/2020 10:54 PM [facility] Chloride 105 98 - 107 mmol/L 06/20/2020 10:54 PM [facility] CO2 22 22 - 29 mmol/L 06/20/2020 10:54 PM [facility] Glucose 176(H) 70 - 115 mg/dL 06/20/2020 10:54 PM [facility] Calcium 8.8 8.4 - 10.2 mg/dL 06/20/2020 10:54 PM [facility] Protein Total 7.3 6.0 - 8.3 g/dL 06/20/2020 10:54 PM [facility] Albumin 4.1 3.4 - 5.0 g/dL 06/20/2020 10:54 PM [facility] Bilirubin Total 0.5 0.2 - 1.2 mg/dL 06/20/2020 10:54 PM [facility] Alkaline Phosphatase 72 40 - 150 Units/L 06/20/2020 10:54 PM [facility] ALT 17 0 - 55 Units/L 06/20/2020 10:54 PM [facility] AST 28 5 - 34 Units/L 06/20/2020 10:54 PM [facility] Anion Gap 15 8 - 18 06/20/2020 10:54 PM [facility] BUN/Creatinine Ratio 17 7 - 23 06/20/2020 10:54 PM [facility] Osmolality Calculated 289 270 - 300 mOsm/kg 06/20/2020 10:54 PM [facility] Albumin/Globulin Ratio 1.3 1.1 - 2.3 06/20/2020 10:54 PM [facility] eGFR >60 >60 mL/min/1.7 3 m2 06/20/2020 10:54 PM [facility] Blood BLOOD SPECIMEN / Unknown Venipuncture / Unknown 06/20/2020 10:22 PM CDT 06/20/2020 10:27 PM CDT Braulio Dueñas MD LAB - CHEMISTRY [facility] Organization Address City/State/ZIP Co de Phone Number [facility] [address] [place] [address], [facility] [phone] * XR CHEST 1VW PORTABLE (06/20/2020 10:13 PM CDT) Anatomical Region Laterality Modality Chest Radiographic Laurita ging 06/21/2020 8:30 AM CDT Impressions 06/25/2020 9:18 AM CDT FINDINGS/IMPRESSION: Right basilar opacity, likely representing atelectasis and/or airspace disease. Likely mild bibasilar atelectasis. No pleural effusion or pneumothorax bilaterally. The cardiomediastinal silhouette is normal. The visible bony thorax is intact. Dictated by Bridget Souza MD (residential service technician). Dr. CHOLO Miguel have personally reviewed and interpreted this examination/study. This report was electronically signed by CHOLO PAULA on 06/25/2020 9:18 AM . Narrative 06/25/2020 9:18 AM CDT EXAMINATION: XR CHEST 1VW PORTABLE HISTORY: I21.4: NSTEMI (non-ST elevated myocardial infarction) COMPARISON: No prior study is available for comparison. Procedure Note Cholo Paula DO - 06/25/2020 EXAMINATION: XR CHEST 1VW PORTABLE HISTORY: I21.4: NSTEMI (non-ST elevated myocardial infarction) COMPARISON: No prior study is available for comparison. FINDINGS/IMPRESSION: Right basilar opacity, likely representing atelectasis and/or airspace disease. Likely mild bibasilar atelectasis. No pleural effusion or pneumothorax bilaterally. The cardiomediastinal silhouette is normal.The visible bony thorax is intact. Dictated by Bridget Souza MD (residential service technician). Dr. CHOLO Miguel have personally reviewed and interpreted this examination/study. This report was electronically signed by CHOLO PAULA on 06/25/2020 9:18 AM . Braulio Dueñas MD DIAGNOSTIC IMAGING O RDERABLES
--- OUTSIDE RECORDS SUMMARY | 2024-05-09 03:16 | XMS_ITS | Encounter Summary ---
Author Organization [facility] Address [address] [place] [address] Care Team Providers Care Locomotive Supervisor Name Role Phone Unavailable Primary Care Provider Unavailabl e Reason for Visit * Reason Onset Date Comments MEDICATION REFILL 05/08/2024 Encounter Details Date Type Department Care Team (Late st Contact Info) Description 05/08/2024 Refill [facility] Medical Group - Rheumatology [address], [address] [place] [address] Abel Amin DO [address] [place] [address] MEDICATION REFILL Social History Tobacco Use Types Packs/Day Years Used Date Smoking Tobacco: Every Day Cigarettes Smokeless Tobacco: Never Alcohol Use Standard Drinks/Week Comments Not Currently 0 (1 standard drink = 0.6 oz pure alcohol) has not had a drink in 15 years Sex and Gender Information Value Date Recorded Sex Assigned at Not on file Gender Identity Female 06/21/2020 12:12 PM CDT Sexual Orientation Not on file documented as of this encounter Functional Status Functional Status Response Date of Assess ment Is person deaf or have serious hearing difficult y? No 06/20/2020 Is person blind or have serious difficulty seein g? No 06/20/2020 Does person have serious dif ficulty walking/climbing stairs? No 06/20/2020 Does person have difficulty dressing/bathing? No 06/20/2020 Does person have difficulty doing errands alone? No 06/20/2020 Cognitive Status Response Date of Assessm ent Does person have difficulty concentrating/remembering/making decisions? No 06/20/2020 documented as of this encounter Miscellaneous Notes * Telephone Encounter - Hood Segal, RN - 05/08/2024 11:24 AM CST Patient chart, labs and allergies reviewed and medication sent to provider due to unable to reach to determine if 40mg capsules are being tolerated. Called patient, no answer, LMOR for patient to inform of the need for clarification on how being tolerated. Called and MyChart message sent. NON-BIOLOGIC REFILL REQUEST Last OV: 01/19/2024 Next Appointment: 07/19/2024 Last Fill: 02/11/2024 Recent Labs Component Name 06/22/20 0445 06/20/20 2222 WBC 11.0* 12.4* HGB 16.4* 16.1* PLTCOUNT 215 231 MCV 91.3 93.0 Recent Labs Component Name 06/22/20 0445 06/20/20 2222 CREATININE 0.7 0.6 BUN 10 10 POTASSIUM 4.1 4.1 Recent Labs Component Name 06/22/20 0445 06/20/20 2222 EGFR >60 >60 Recent Labs Component Name 06/20/20 2222 AST 28 ALT 17 ALKPHOS 72 No results for input(s): [id number] in the last 45358 hours. No results for input(s): URICACID in the last 38248 hours. Last ESR: No results for input(s): SEDRATE in the last 71224 hours. Last 3 CRP: No results for input(s): CRP in the last 64843 hours. ENT DEVELOPMENT COORDINATOR documented in this encounter Plan of Treatment Upcoming Encounters Date Type Department Care Team (Late st Contact Info) Description 05/18/2024 4:00 PM STUDENT DEVELOPMENT COORDINATOR Office Visit [facility] Physician Group - Cardiology [address] [facility], [facility] [address] [place] [address] Basia Cortez, PA [address] [place] [address] 07/19/2024 4:00 PM CDT Office Visit [facility] Medical [facility] - Rheumatology [address], [address] [place] [address] Abel Amin DO [address] [place] [address] documented as of this encounter Visit Diagnoses Diagnosis Primary osteoarthritis of both first carpometacarpal joints- Primary Primary localized osteoarthrosis, hand documented in this encounter
--- OUTSIDE RECORDS SUMMARY | 2024-05-09 03:16 | XMS_ITS | Encounter Summary ---
Author Organization [facility] Address [address] [address] [place] [address] Care Team Providers Care Insurance Territory Manager Name Role Phone Unavailable Primary Care Provider Unavailabl e Encounter Details Date Type Department Care Team (Latest Contact Info) Description 05/08/2024 Travel Social History Tobacco Use Types Packs/Day Years [...] No 06/20/2020 documented as of this encounter Plan of Treatment Upcoming Encounters Date Type Department Care Team (Late st Contact Info) Description 05/18/2024 4:00 PM ELEVATOR CONSTRUCTOR ELECTRIC Office Visit [facility] - Cardiology [address] [facility], [facility] [address] [place] [address] Basia Cortez, MERVAT [address] [place] [address] 07/19/2024 4:00 PM CDT Office Visit [facility] - Rheumatology [address], [address] [place] [address] Abel Amin DO [address] [place] [address] documented as of this encounter Visit Diagnoses Not on filedocumented in this encounter
--- OUTSIDE RECORDS SUMMARY | 2024-05-09 03:16 | XMS_ITS | Clinical Summary ---
Author Organization [facility] Address [address] [place] [address] Care Team Providers Care Employee Service Officer Name Role Phone Unavailable Primary Care Provider Unavailabl e Source Comments [facility],non-owned Affiliates and Associated Physician Practices is amultiple site organization consisting of ambulatory clinics and hospital sitesin [place] and [place]. This disclosure is being madepursuant to the Care Everywhere program and may not contain all information available regarding this patient. Last updated 17.[facility] Allergies Active Allergy Reactions Criticality Noted Date Comments Codeine GI Discomfort High 06/20/2020 Medications * Be aware that medications may not be up to date on this document. Alwaysverify current medications with the patient. Medication Sig Dispensed Refills Start Date End Date Status aspirin (ASPIRIN) 81 MG chew tablet Take 1 (one) tablet by mouth once daily 30 tablet 06/23/2020 Active carvedilol (Coreg) 6.25 MG tablet Take 1 (one) tablet by mouth 2 times daily 180 tablet 3 07/17/2022 Active pantoprazole EC (Protonix) 20 MG tablet Take 1 (one) tablet by mouth once daily 05/30/2023 Active amLODIPine (Norvasc) 5 MG tablet Take 1 (one) tablet by mouth once daily 90 tablet 4 01/17/2024 Active atorvastatin (Lipitor) 80 MG tablet Take 1 (one) tablet by mouth once daily 30 tablet 03/03/2024 Active DULoxetine HCl 40 MGIndications:Primary osteoarthritis of both first carpometacarpal joints Take 40 mg by mouth at bedtime Replaces use of 60 mg capsules 90 capsule 05/08/2024 Active Active Problems Problem Noted Date Diagnosed Date Primary osteoarthritis of both first carpometaca rpal joints 12/07/2023 Assessment & Plan (12/07/2023 4:52 PM CDT): I discussed the 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 Basia Al favored a trial of duloxetine and will start at 30 mg taken at bedtime but if not feeling improved with less pain after 14 days to contact [facility] to be provided a dose titration as long as tolerated without side effects. S/P drug eluting coronary stent placement 2023 Coronary artery disease invo lving [place] coronary artery of [place] heart without angina pectoris 10/22/2023 Mixed hyperlipidemia 07/15/2020 Overview (07/15/2020): On high intensity statin therapy. At goal LDL. Tolerating without side effects Assessment & Plan (07/15/2020 12:35 PM CDT): On high intensity statin therapy.check if At goal LDL. Tolerating without side effects Essential hypertension 07/15/2020 Assessment & Plan (07/15/2020 12:34 PM CDT): BP in good range. will lower amlodipine and monitor NSTEMI (non-ST elevated myocardial infarction) 0 06/20/2020 Assessment & Plan (07/15/2020 12:33 PM CDT): S/P multivesel PCI ISAEL 06/16 has stopped smoking! continue [employer] DAPT6-12 months Ok's return to work Encounters Date Type Department Care Team Description 05/08/2024 Travel 05/08/2024 Refill [facility] Medical Group - Rheumatology [address], [address] [place] [address] Abel Amin, DO MEDICATION REFILL 03/01/2024 Refill [facility] Physician Group - Cardiology [address] [place] [address], [address] [phone] Basia Cortez PA MEDICATION REFILL from Last 3 Months Social History Tobacco Use Types Packs/Day Years [...] Mass Index 24.72 01/19/2024 3:47 PM CDT Plan of Treatment Upcoming Encounters Date Type Department Care Team (Late st Contact Info) Description 05/18/2024 4:00 PM MEDICAL EDUCATION MANAGER Office Visit [facility] Physician [facility] - Cardiology [address] [place], [place] [address] [place] [address] Basia Cortez PA [facility] [place] [address] 07/19/2024 4:00 PM CDT Office Visit [facility] Medical [facility] - Rheumatology [address] [place] [address], [address] [place] [address] Matt AminanDO [address] [place] [address] Health Maintenance Due Date Last Done Comments COLOGUARD (AGES 45-75) - COL ON CA SCREENING 1961 COLON MONITORING 1961 COLONOSCOPY - COLON CA SCREENING 1961 CT COLONOGRAPHY - COLON CA SCREENING 1961 Colorectal Cancer Screening 1961 FIT - COLON CA SCREENING 1961 FLEX SIG - COLON CA SCREENING 1961 MAMMOGRAM 1961 PAP SMEAR 1961 HIV SCREENING 02/09/1976 HEPATITIS C SCREENING 02/04/1979 DTAP/TDAP/TD VACCINES (1 - Tdap) 02/09/1980 PNEUMOCOCCAL VACCINE 50+ (1 of 2 - PCV) 02/09/1980 ZOSTER VACCINE (1 of 2) 2011 COVID-19 VACCINE ( - 2023-2 5 season) 2023 INFLUENZA VACCINE (#1) 2023 DEPRESSION SCREENING 03/29/2024 Respiratory Syncytial Virus (RSV) Vaccine Pt: or over 60 yrs (1 - 1-dose 75+ series) 02/09/2036 HEPATITIS B VACCINE Aged Out No longe r eligible based on patient's age to complete this topic HIB VACCINE Aged Out No longer eligi ble based on patient's age to complete this topic HPV VACCINE Aged Out No longer eligi ble based on patient's age to complete this topic MENINGOCOCCAL (Group B) VACCINE Aged Out No longer eligible based on patient's age to complete this topic MENINGOCOCCAL VACCINE Aged Out No jackeline li eligible based on patient's age to complete this topic Medical Devices Implanted Type Area Microwave Remote Sensing Scientist Device Identifier Shelf Expiration Date Model / Serial / Lot Sys Cor Stent Xience Srr 3mm 15mm Rap Ex Implanted:Qty: 1 on 06/21/2020 by Hima Tracey MD at [facility] Coronary [employer] 09/03/2021 [id number] Description:m-CIRC Advance Directives * Full Code (Latest Code Status on File) Date Activated Date Inactivated Comments 06/20/2020 9:53 PM 06/22/2020 2:41 PM
--- OUTSIDE RECORDS SUMMARY | 2024-05-09 03:16 | XMS_ITS | Encounter Summary ---
Author Organization [facility] Address [address] [place] [address] Care Team Providers Care Barrel Loader Name Role Phone Kevan Mejía MD Primary Care Provider Unavailable Encounter Details Date Type Department Care Team (Late st Contact Info) Description 07/24/2012 Abstract [facility] CONVERSION [address] [place] [address] Kevan Mejía MD Social History Tobacco Use Types Packs/Day Years Used Date Smoking Tobacco: Never Assessed Comments Unknown Sex and Gender Information Value Date Recorded Sex Assigned at Not on file Legal Sex Female 7:57 PM CDT Gender Identity Not on file Sexual Orientation Not on file documented as of this encounter Plan of Treatment Not on file documented as of this encounter Visit Diagnoses Not on filedocumented in this encounter Care Teams Barrel Loader Relationship Specialty Start Date End Date Kevan Mejía MD PCP - General 07/24/12 documented as of this encounter
--- OUTSIDE RECORDS SUMMARY | 2024-05-09 03:16 | XMS_ITS | Encounter Summary ---
Author Organization [facility] Address [address] [place] [address] Care Team Providers Care Livestock Trucker Name Role Phone Unavailable Primary Care Provider Unavailabl e Reason for Visit * Reason Onset Date Comments MEDICATION REFILL 11/17/2020 Encounter Details Date Type Department Care Team (Late st Contact Info) Description 11/17/2020 Refill [facility] Cardiology [address] [facility] [address] [place] [address] Isidro Martínez W, DO [address] [facility] [address] [place], [place] [address] MEDICATION REFILL Social History Tobacco Use Types [...] st Contact Info) Description 05/18/2024 4:00 PM BIOINFORMATICS ENGINEER Office Visit [facility] Physician Group - Cardiology [address] [facility] [address] [place] [address] Basia Cortez, MERVAT [address] [place] [address] 07/19/2024 4:00 PM CDT Office Visit [facility] Medical Group - Rheumatology [address], [address] [place] [address] Abel Amin DO [address] [place] [address] documented as of this encounter Visit Diagnoses Diagnosis Essential hypertension NSTEMI (non-ST elevated myocardial infarction) (HCC) Acute myocardial infarction, subendocardial infarction, episode of care unspecified documented in this encounter
--- OUTSIDE RECORDS SUMMARY | 2024-05-09 03:16 | XMS_ITS | Data Portability ---
Author Organization [facility] [place] Address [address] [place] [address] [place] [address] Care Team Providers Care Wire Steward Name Role Phone ROB RENE Primary Care Provider Assessment Encounter Date Assessment Date Assessment LastModified by Organization Details LastModified Time 04/06/2024 04/06/2024 Annual gynecological exam performed. Patient will come back in a year unless there are new symptoms. [email or web address] Not available 04/06/2024 14:15:49 Plan of Treatment Reminders Order Date Submit Date Provider Last Modified By Organization Details Last Modified Time Details Appointments None recorded. Lab None recorded. Referral None recorded. Procedures None recorded. Surgeries None recorded. Imaging US, pelvis, complete 2024 025 [email or web address] [place], [address], [address], [place], [address], 04:07:25 US, transvagina l 2024 025 [email or web address] [place] [facility] [address], [place], [address], 20:48:58 Medication Orders None recorded. Patient TargetsNo targets recorded. Patient InstructionsNo instructions recorded. Reason for Referral None Reported. Results Created Date Observation Date Name Description Value Unit Range Abnormal Flag Note LastModifiedBy Organization Detail LastModifiedTime 04/06/1904/06/2024 IMAGE GUIDE D PAP AND HPV REGAR DLESS image guided Pap, HPV regardless of Pap result SEE RESULT S BELOW CASE REPOR T: Cytol ogy Gynec ologi jeff Repor t Case: [id number] Autho fco to Provi abdirizak: Kimberly Mccord, MAURICIO Jimenez cted: 04/06 1628 Order ing Locat ion: [place] Patho lyssa Recei missy: 04/07 1008 First Leila n: Татьяна Lamar, CT Speci men: Leila johansen Pap - Image d, Cervi x STATE MENT OF ADEQU ACY: Satis facto ry for evalu ation Trans forma tion zone compo nent prese nt ----- ----- ----- ----- ----- ----- ----- ----- ----- ----- ----- ----- ----- ----- ----- ----- ----- ---- FINAL DIAGN OSIS: Negat sussy for Intra epith elial Aric michael or Liss gomez (NIL) . Elect luisito perez by Татьяна Lamar, MC on 2024 at 0820 QUALITY CONTROL HEAD ----- ----- ----- ----- ----- ----- ----- ----- ----- ----- ----- ----- ----- ----- ----- ----- ----- ---- HPV RESUL TS: HPV mRNA E6/E7 : No HPV mRNA Detec amaya NOTE: This high risk HPV mRNA assay detec ts fourt een high- risk HPV types (16, 18, 31, 33, 35, 39, 45, 51, 52, 56, 58, 59, 66, 68) witho ut diffe renti ation . COMME NT: This speci men was revie wed by a Cytot echno logis t and/o r Patho logis t (as indic ated in this repor t) after evalu ation using the Thinp rep Imagi ng Syste m. CLINI JEFF INFOR MATIO N: Menst rual Statu s: LMP (if appli cable ): Clini jeff Histo ry/Pr eviou s Pap: Type of Neopl elena (if appli cable ): Signi fican t Clini jeff Findi ngs: Other Histo ry: Hormo tennille (if appli cable ): PAP EDUCA FARAZ L NOTE: The Pap Test is a scree haily test with an inher ent false negat sussy rate. Liqui d-bas ed sampl ing may decre ase, but will not elimi siri, false negat sussy resul ts. A negat sussy resul t does not precl ude the prese nce and/o r devel opmen t of disea se, since the prese nce of abnor mal cells in the sampl e depen ds on the locat ion of the lesio n and sampl ing techn ique. Jett nued regul ar scree haily is the best metho d of cance r preve ntion . If repor amaya cytol ogic findi ng do not corre late with physi jeff and/o r histo rical findi ngs, furth er inves tigat ion is recom kami d, as clini fadi warra nted. Not Available [facility] (Lab) [address] , [place], [address], 04/14/2024 09:26:27 04/06/19 25 04/06/2024 TRICH OMONA S VAGIN LYDIA (RRNA ) trichomonas vaginalis ribosomal RNA (rrna) Negati ve negati ve Not Available [facility] (Lab) [address] , [place], [address], 04/14/2024 09:26:28 04/06/19 25 04/06/2024 CT/GC (ADALBERTO) , THINP REP VIAL chlamydia trachomatis, PCR Negati ve negati ve Not Available [facility] (Lab) [address], [place], [address], 04/14/2024 09:26:28 04/06/19 25 04/06/2024 CT/GC (ADALBERTO) , THINP REP VIAL neisseria gonorrhoeae, PCR Negati ve negati ve Not Available [facility] (Lab) [address], [place], [address], 04/14/2024 09:26:28 04/27/19 25 04/27/2024 US, trans vagin al No observ ation record ed. [email or web address] [place] [address], [place], [address], 04/27/2024 18:14:49 04/27/19 25 04/27/2024 US, trans vagin al No observ ation record ed. [email or web address] [address], [place], [address], 05/04/2024 09:33:40 Result Notes None recorded. Procedures Surgical History Date Name Laterality Status Provider Name and Address Organization Details Recorded Time 01/10/20 24 Date of Last Mammogram completed [facility] 04/06/2024 14:18:21 01/06/20 24 [facility] 04/06/2024 14:18:21 01/06/20 24 Date of Last Colonoscopy completed [facility] 04/06/2024 14:18:21 03/29/19 22 placement of stent in coronary artery completed JOAQUIM Garza [address], [place], [address], [facility] 04/06/2024 14:10:34 03/29/19 05 Date of Last Pap Smear completed [facility] 04/06/2024 14:22:07 Imaging Results Imaging Date Name Status LastModified by Organization Details LastModified Time 04/27/2024 [facility]inal [email or web address] [address], [place], [address], 04/27/2024 18:14:49 04/27/2024 US, transvaginal completed [email or web address] [address], [place], [address], 05/04/2024 09:33:40 Procedure Notes None recorded. Medical Equipment None Reported. Allergies Allergen ID Allergen Name Allergen Category Reaction Reaction Severity Criticality Documentation Date Start Date Code Code System Note Provider Name and Address Organization Details Recorded Time 20517 codeine medicatio n Not available Not available Not available 04/06/2024 2670 RxNorm Lorie Love [facility] 14:18:35 Medications Name Sig Start Date Stop Date Status Note LastModified by Organization Details LastModified Time atorvastati n 80 mg tablet TAKE 1 TABLET BY MOUTH DAILY active Not Available Not Available No t Available carvedilol 6.25 mg tablet TAKE 1 TABLET BY MOUTH TWICE DAILY active Not Available Not Available No t Available prednisone 10 mg tablet TAKE 1 TABLET BY MOUTH DAILY FOR 3 DAYS 04/06 completed Not Available Not Available Not Available amlodipine 5 mg tablet TAKE 1 TABLET BY MOUTH DAILY active Not Available Not Available No t Available peg-electro lyte solution 420 gram oral solution TAKE DIRECTED BY OFFICE 04/06 completed Not Available Not Available Not Available pantoprazol e 20 mg tablet,amanda yed release TAKE 1 TABLET BY MOUTH DAILY 04/06 completed Not Available Not Available Not Available famotidine 20 mg tablet TAKE 1 TABLET BY MOUTH DAILY 04/06 completed Not Available Not Available Not Available promethazin e 25 mg tablet TAKE 1/2 TABLET BY MOUTH EVERY 6 HOURS NEEDED 04/06 completed Not Available Not Available Not Available ergocalcife rol (vitamin D2) 1,250 mcg (50,000 unit) capsule TAKE 1 CAPSULE BY MOUTH WEEKLY 04/06 completed Not Available Not Available Not Available ondansetron 4 mg disintegrat ing tablet DISSOLVE 1 TABLET ON THE TONGUE EVERY 8 HOURS NEEDED FOR NAUSEA OR VOMITING 04/06 completed Not Available Not Available Not Available duloxetine 30 mg capsule,del ayed release TAKE 1 CAPSULE BY MOUTH AT BEDTIME active Not Available Not Available No t Available duloxetine 60 mg capsule,del ayed release 04/06 completed Not Available Not Available Not Available aspirin 80 mg chewable tablet 2021 active Not Available Not Available Not Avai lable duloxetine 40 mg capsule,del ayed release TAKE 1 CAPSULE BY MOUTH AT BEDTIME. REPLACES USE OF 60 MG CAPSULES active Not Available Not Available No t Available duloxetine 40 mg capsule,del ayed release sprinkle 04/06 completed Not Available Not Available Not Available Vitals None Recorded Social History Question Answer Notes LastModified by Organizat ion Details LastModified Time Tobacco Smoking Status Former Smoker Lorie Love [facility], [facility] 04/06/2024 14:26:15 Do You Have An Advance Directive? No [email or web address] Information not available 04/06/2024 What Is Your Level Of Alcohol Consumption? None [email or web address] Information not available 04/06/2024 How Many Years Have You Consumed Alcohol? 15 [email or web address] Information not available 04/06/2024 Are You Blind Or Do You Have Difficulty Seeing? Yes [email or web address] Information not available 04/06/2024 What Is Your Level Of Caffeine Consumption? Occasional Information not available 04/06/2024 How Much Tobacco Do You Chew? None Information not available 04/06/2024 In The 14 Days Before Symptom Onset, Have You Had Close Contact With A Laboratory-confir med COVID-19 While That Case Was Ill? No [email or web address] Information not available 04/06/2024 In The 14 Days Before Symptom Onset, Have You Had Close Contact With A Person Who Is Under Investigation For COVID-19 While That Person Was Ill? No [email or web address] Information not available 04/06/2024 Have You Been To An Area Known To Be High Risk For COVID-19? No [email or web address] Information not available 04/06/2024 Are You Deaf Or Do You Have Serious Difficulty Hearing? No [email or web address] Information not available 04/06/2024 What Type Of Diet Are You Following? REGULAR [email or web address] Information not available 04/06/2024 What Is The Highest Grade Or Level Of School You Have Completed Or The Highest Degree You Have Received? 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 No [email or web address] Information not available 04/06/2024 Do You Use Protection During Sex? No [email or web address] Information not available 04/06/2024 Do You Use Your Seat Belt Or Car Seat Routinely? Yes Information not available 04/06/2024 Do You Have Smoke And Carbon Monoxide Detectors In Your Home? Yes [email or web address] Information not available 04/06/2024 At What Age Did You Start Smoking Tobacco? 12 [email or web address] Information not available 04/06/2024 How Much Tobacco Do You Smoke? No Information not available 04/06/2024 Do You Feel Stressed (tense, Restless, Nervous, Or Anxious, Or Unable To Sleep At Night)? [id number] [email or web address] Information not available 04/06/2024 Do You Use Any Illicit Or Recreational Drugs? Yes [email or web address] Information not available 04/06/2024 Do You Use Sunscreen Routinely? No [email or web address] Information not available 04/06/2024 How Many Years Have You Smoked Tobacco? 40 [email or web address] Information not available 04/06/2024 Have You Used IV Drugs? No [email or web address] Information not available 04/06/2024 Sex: Unknown Functional Status Question Answer Note LastModified by Palamida ion Details LastModified Time Are you able to walk? [email or web address] Information not available 04/06/2024 What is your exercise level? Occasional [email or web address] Information not available 04/06/2024 Mental Status None recorded. Family History Relationship Description Onset Age of this Age Resolved Age Notes LastModified by Organization Details LastModified Time Mother Heart disease [email or web address] Not available 2024 14:18:21 Mother Diabetes mellitus [email or web address] Not available 2024 14:25:58 Maternal Grandmother Heart disease Not available 2024 14:18:21 Maternal Grandmother Diabetes mellitus [email or web address] Not available 2024 14:25:43 Medical History Condition Response Allergies (Food, seasonal, environmental ) N Other N Breast Cancer N Drug/Latex Allergies/Reactions N Blood Transfusion N Lung Disease N Dermatologic Disorders N Defects or Inherited Disease N Breast Problem N Gestational Diabetes N Hematologic disorders N Anesthesia Complications N History of STI N Deep Vein Thrombosis N Polycystic ovary syndrome N Anxiety Disorder N Autoimmune disease N Arthritis Y Polyps N Infertility N History of abnormal pap N Acid Reflux (GERD) N Cancer N Varicosities N Stroke N Neurologic/Epilepsy N Endometriosis N High Cholesterol Y Fibromyalgia N Headaches N Kidney Disease N Heart Problems N Kidney or Bladder Problems N Thyroid Problems N GI Problems N Eating Disorder N Anemia N Art (IVF or FET) N Psychiatric Illness N Ovarian Cancer N Diabetes Y Pulmonary (TB, Asthma) N Hepatitis/Liver Disease N No Past Medical History N Eczema N Urinary Tract Infection N Abuse/Domestic Violence N Asthma N Trauma/Violence N Depression/ depression N Heart Disease Y Pre-Eclampsia N Hypertension Y Osteoporosis N Thrombophilias N Gynecological History Statement/Question Response Date of Last Mammogram 01/10/2024 N Was last menstrual period normal N STIs/STDs N HPV Vaccine N Current Control Method None Age at First Child 21 If Post Menopausal, Age at Menopause 51 Are cycles usually normal N Date of Last Colonoscopy 01/06/2024 Sexually Active? Y Age of first menstrual cycle 12 Date of Last Pap Smear 03/29/2004 Sexual Problems? Yes Desired Control Method None LMP Unknown 01/06/2024 N Obstetrics History GPAL:G 3 P 3 0 0 3 Type Value Full Term 3 Living 3 Total 3 Past Encounters Encounter ID Performer Location Encounter Start Date Encounter Closed Date Diagnosis/Indication Diagnosis SNOMED-CT Code Diagnosis ICD10 Code Diagnosis Note [id number] JOAQUIM Garza [place] [address] [address] 04/06/2024 13:53:38 04/06/2024 14:57:39 Gynecologic examination [id number] Z01.419 WWEpostmen opausalPap - done todaySTI screen - gc/ct/tric h testing added to papMammogr am - UTDColon cancer screening - UTDDexa - n/aRoutine labs - UTD/PCPRTC in 1 yr or sooner if needed Do monthly self breast exams.It is advised to get annual flu shot in the fall and she could obtain at local pharmacy. If you haven't received the Tdap vaccine in the last 10 years you should obtain one as well.Have mammogram yearly, bone density every 2-3 years and stay up to date on colon cancer screening. Engage in regular exercise. Avoid tobacco and illicit drugs. This lifestyle behavior pattern will lead to less health conditions and longer life span. If BMI greater than 25 dietary consult advised.Qu estions have been answered. Postcoital bleeding 4888 0000 N93.0 discussed recent postcoital bleedingre commended pelvic u/s - orderedSTI screen sentdiscus sed possible further testing pending results Time spent in visit is a total of 30 mins with at least 50% of visit consisting of counseling and review of plan of care. Venereal d isease screening 427112708 Z11.3 [id number] Snow Olimpia [place] [address] [address] 04/27/2024 15:44:10 04/27/2024 16:28:53 Postcoital bleeding 00123158 N93.0 Health Concerns Section Related Observation LastModified by Organization Detai ls LastModified Time None Recorded Concern Status LastModified by Organization Details LastModified Time None Recorded Advance Directives Directive N: Payers Encounter Date Sequence Insurance Name Policy Number Policy Ibarra Covered Member ID Ibarra Member ID Guarantor Name 04/06/2024 1 [facility] ON OR AFTER 09/26/20 (MEDICAID REPLACEMENT - HMO) Basia Al [id number] Basia Al 04/27/2024 1 [facility] ON OR AFTER 09/26/20 (MEDICAID REPLACEMENT - HMO) Basia Al [id number] Basia Al Notes Date Note Type Note Provider Name and Address Organization Details Recorded Time 5 text/html 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 Post-MenopausalReporte d bypatient.Menopausal Symptoms:no menopausal symptoms; normal vaginal lubrication Vaginal Bleeding:post menopausal bleeding Urinary Symptoms:no hematuria; no incontinence; no nocturia; no urinary frequency Vulva:no genital lesion; no vulvar atrophy Vagina:normal vaginal discharge; no vaginal atrophy Breast:no breast lump; no nipple discharge; no breast pain Sexual Complaints:no sexual complaints Psychological Symptoms:no depression; no anxiety Preventive Measures:encourage regular mammograms starting age 40; encourage self breast examination; encourage regular exercise; encourage no tobacco useNotes:64yo wwepostmenopausal since age 51no h/o abnormal papslast pap 20+ yrs agorecently SA again, had not been for 15+ yrs. Has had bleeding with IC the last 3 times. Light spotting, quickly resolvesmammogram UTDcolonoscopy UTD JOAQUIM Garza [address], [place], [address], [place] [facility] 04/06/2024 14:57:16 OBGyn Episode Ob Episode Information Episode Created Date Number of Fetuses Patient Bloodtype Patient rh Status Prepregnancy Weight lbs Domestic Partner Domestic Partner Phone Father Name Architectural Sales Consultant Status 04/06/19 1 CLOSED Fetus Data First Name Last Name Admitted to NICU Weight (g) Sex Living Outcome Pediatric Complications Fetus ID Race Codes Race Delivery Type M Full Term [id number] Vaginal Delivery Obey Calculation Initial Obey Date Initial Exam Date Initial Exam Provider Initial Ultrasound Date Last Menstrual Period Date Ultra Sound Weeks Gestation 0 Eighteen To Twenty Week Obey Update Ultra Sound Date Fundal Height At Umbil Quickening Date Ultra Sound Latest Weeks Gestation Final Obey Confirmed By Final Obey Confirmed Date Final Obey Date Ultra Sound Latest Days Gestation 0 0 Menstrual History Last Menstrual Date Menses Monthly On Bcp Conception Prior Menses Frequency Hcg Plus Date Menarche Onset Age Delivery Information Delivery Date Delivery Type Labor Anesthesia Weeks Gestation Incision Type Labor Labor Length Hrs Delivered By Post Complications Tubal Sterilization Discharge Date Comments 1 Discharge Information Feeding Method Contraceptive Method Maternal HG B and HCT Levels Ob Episode Information Episode Created Date Number of Fetuses Patient Bloodtype Patient rh Status Prepregnancy Weight lbs Domestic Partner Domestic Partner Phone Father Name Architectural Sales Consultant Status 04/06/19 1 CLOSED Fetus Data First Name Last Name Admitted to NICU Weight (g) Sex Living Outcome Pediatric Complications Fetus ID Race Codes Race Delivery Type M Full Term [id number] Vaginal Delivery Obey Calculation Initial Obey Date Initial Exam Date Initial Exam Provider Initial Ultrasound Date Last Menstrual Period Date Ultra Sound Weeks Gestation 0 Eighteen To Twenty Week Obey Update Ultra Sound Date Fundal Height At Umbil Quickening Date Ultra Sound Latest Weeks Gestation Final Obey Confirmed By Final Obey Confirmed Date Final Obey Date Ultra Sound Latest Days Gestation 0 0 Menstrual History Last Menstrual Date Menses Monthly On Bcp Conception Prior Menses Frequency Hcg Plus Date Menarche Onset Age Delivery Information Delivery Date Delivery Type Labor Anesthesia Weeks Gestation Incision Type Labor Labor Length Hrs Delivered By Post Complications Tubal Sterilization Discharge Date Comments 4 Discharge Information Feeding Method Contraceptive Method Maternal HG B and HCT Levels Ob Episode Information Episode Created Date Number of Fetuses Patient Bloodtype Patient rh Status Prepregnancy Weight lbs Domestic Partner Domestic Partner Phone Father Name Architectural Sales Consultant Status 01/09/20 25 1 CLOSED Fetus Data First Name Last Name Admitted to NICU Weight (g) Sex Living Outcome Pediatric Complications Fetus ID Race Codes Race Delivery Type F Full Term [id number] Vaginal Delivery Obey Calculation Initial Obey Date Initial Exam Date Initial Exam Provider Initial Ultrasound Date Last Menstrual Period Date Ultra Sound Weeks Gestation 0 Eighteen To Twenty Week Obey Update Ultra Sound Date Fundal Height At Umbil Quickening Date Ultra Sound Latest Weeks Gestation Final Obey Confirmed By Final Obey Confirmed Date Final Obey Date Ultra Sound Latest Days Gestation 0 0 Menstrual History Last Menstrual Date Menses Monthly On Bcp Conception Prior Menses Frequency Hcg Plus Date Menarche Onset Age Delivery Information Delivery Date Delivery Type Labor Anesthesia Weeks Gestation Incision Type Labor Labor Length Hrs Delivered By Post Complications Tubal Sterilization Discharge Date Comments 1 Discharge Information Feeding Method Contraceptive Method Maternal HG B and HCT Levels
--- OUTSIDE RECORDS SUMMARY | 2024-05-09 03:16 | XMS_ITS | Clinical Summary ---
Author Organization [facility] Address [address] [place] [address] Care Team Providers Care Group Social Worker Name Role Phone Unavailable Primary Care Provider Unavailabl e Social History Tobacco Use Types Packs/Day Years Used Date Smoking Tobacco: Never Assessed Comments Unknown Sex and Gender Information Value Date Recorded Sex Assigned at Not on file Legal Sex Female 7:57 PM CDT Gender Identity Not on file Sexual Orientation Not on file Last Filed Vital Signs Vital Sign Reading Time Taken Comments Blood Pressure 118/78 05/11/2014 11:04 AM SALT WASHER Pulse 64 05/11/2014 11:04 AM SALT WASHER Temperature - - Respiratory Rate - - Oxygen Saturation - - Inhaled Oxygen Concentration - - Weight 66.2 kg (146 lb) 05/11/2014 11:04 AM SALT WASHER Height 161.9 cm (5' 3.75 ) 05/11/2014 11:[address] Body Mass Index 25.26 05/11/2014 11:04 AM SALT WASHER Plan of Treatment Health Maintenance Due Date Last Done Comments Cervical Cancer Screening Pa p Smear (Age 30 to 64) Every 3 Years 1961 Colorectal Cancer Screening Colonoscopy (10 Years) 1961 Annual Physical 02/09/1964 Hepatitis C 1979 DTaP, Tdap and Td Vaccines ( 1 - Tdap) 02/09/1980 Cervical Cancer Screening Pa p with HPV Testing (Age 30 to 64) Every 5 Years 1991 Cervical Cancer Screening with HPV 1991 Mammogram Screening 2001 Zoster Vaccines (1 of 2) 2011 COVID-19 Vaccine (2023-2 5 season) 2023 Influenza Adult (#1) 2023 RSV Immunization or 60+ Years (1 - 1-dose 75+ series) 02/09/2036 Meningococcal B Vaccine Aged Out No l onger eligible based on patient's age to complete this topic Meningococcal Vaccine Aged Out No jackeline li eligible based on patient's age to complete this topic Pneumococcal Vaccine: Pediat rics (0 to 5 Years) and At-Risk Patients (6 to 64 Years) Aged Out No longer eligible b ased on patient's age to complete this topic RSV Immunizations Under 20 Months Aged Out No longer eligible based on patient's age to complete this topic
--- OUTSIDE RECORDS SUMMARY | 2024-05-09 03:16 | XMS_ITS | Encounter Summary ---
Author Organization [facility] Address [address] [place] [address] Care Team Providers Care Adoption Manager Name Role Phone Unavailable Primary Care Provider Unavailabl e Reason for Visit * Reason Onset Date Comments MEDICATION REFILL 01/11/2021 Encounter Details Date Type Department Care Team (Late st Contact Info) Description 01/11/2021 Refill [facility] [address] [facility] [address] [place] [address] Isidro Martínez W, DO [address] [facility] [address] [place], [place] [id number] MEDICATION REFILL Social History Tobacco Use Types [...] st Contact Info) Description 05/18/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 Office Visit [facility] - Cardiology [address] [facility] [address] [place] [address] Basia Cortez, MERVAT [address] [place] [address] 07/19/2024 4:00 PM CDT Office Visit [facility] - Rheumatology [address] [facility], [address] [place] [address] Abel Amin DO [address] [facility] [address] [place] [address] documented as of this encounter Visit Diagnoses Diagnosis Essential hypertension NSTEMI (non-ST elevated myocardial infarction) (HCC) Acute myocardial infarction, subendocardial infarction, episode of care unspecified documented in this encounter
--- OUTSIDE RECORDS SUMMARY | 2024-05-09 03:16 | XMS_ITS | Referral Summary ---
Author Organization [facility] Address [address] [place] [address] Care Team Providers Care Shake Table Operator Name Role Phone Unavailable Primary Care Provider Unavailabl e Source Comments [facility],non-owned Affiliates and Associated Physician Practices is amultiple site organization consisting of ambulatory clinics and hospital sitesin [place], [place], [place] and [place]. This disclosure is being madepursuant to the Care Everywhere program and may not contain all information available regarding this patient. Last updated 17.[facility] Encounters Date Type Department Care Team Description 05/08/2024 Travel 05/08/2024 Refill [facility] - Rheumatology [address] [place] [address], [address] [place] [phone] Abel Amin DO MEDICATION REFILL 03/01/[address] [facility] - Cardiology [address] [place] [address], [address] [place] [address] Basia Cortez PA MEDICATION REFILL from Last 3 Months Allergies Active Allergy Reactions Criticality Noted Date [...] corticosteroid injection, or referral to hand surgical sales representative for consideration of basilar thumb arthroplasty. Basia Al favored a trial of duloxetine and will start at 30 mg taken at bedtime but if not feeling improved with less pain after 14 days to contact [facility] to be provided a dose titration as long as tolerated without side effects. S/P drug eluting coronary stent placement 2023 Coronary artery disease invo lving [place] coronary artery of [place] heart without angina pectoris 10/22/2023 Mixed hyperlipidemia [...] RFM DAPT6-12 months Ok's return to work Social History Tobacco Use Types Packs/Day Years [...] Mass Index 24.72 01/19/2024 3:47 PM CDT Functional Status Functional Status Response Date of [...] person have difficulty concentrating/remembering/making decisions? No 06/20/2020 Plan of Treatment Upcoming Encounters Date Type Department Care Team (Late st Contact Info) Description 05/18/2024 4:00 PM HAND ETCHER HELPER Office Visit [facility] - Cardiology [address] [facility], [address] [place] [address] Basia Cortez, PA [address] [place] [address] 07/19/2024 4:00 PM CDT Office Visit [facility] - Rheumatology [address], [address] [place] [address] Abel Amin DO [address] [place] [address] Medical Devices Implanted Type Area Laboratory Animal Caretaker Device Identifier Shelf Expiration Date Model / Serial / Lot Sys Cor Stent Xience Srr 3mm 15mm Rap Ex Implanted:Qty: 1 on 06/21/2020 by Hima Tracey MD at [facility] [employer] 09/03/2021 [id number] Description:m-CIRC Advance Directives * Full Code (Latest Code Status on File) Date Activated Date Inactivated Comments 06/20/2020 9:53 PM 06/22/2020 2:41 PM
--- OUTSIDE RECORDS SUMMARY | 2024-05-09 03:16 | XMS_ITS | CONTINUITY OF CARE DOCUMENT ---
Author Name edith sharma Address Unknown Organization [facility] Address [address] [place] [address] [address] [place] [address] Phone [phone] Care Team Providers Care Hardening Machine Operator Name Role Phone France Goss MD Unavailable [phone] ROB RENE MD Unavailable [phone] ROB RENE MD Unavailable [phone] PROBLEMS Condition Status Date Provider Notes Cardiology examination active France rivera MD AMI subendocardial active France Goss MD Hypercholesterolemia active France melendez MD GERD active France Goss MD Cardiovascular Condition Screening active S elías Goss MD CAD (coronary artery disease) active Josh Ly TOWEL INSPECTOR ENCOUNTERS Date Type Provider Location Encounter Diag nosis 04/26 - 04/28 In-person encounter Office Visit France Goss MD [facility] Office 08/17 - 08/18 In-person encounter Office Visit France Goss MD [facility] CAD (coronary artery disease) 06/02 - 06/04 In-person encounter Office Visit France Goss MD [facility] Cardiology examinationAMI subendocardialHypercholesterolemiaGERDCardiovascular Condition Screening VITAL SIGNS Date Observation Value Provider Body Mass Index (Ratio) 24.89 kg/m2 Rose Goss MD blood pressure, diastolic 75 mm[Hg] Deana nkLogic blood pressure, systolic 142 mm[Hg] Jocy Dorisogic blood pressure, diastolic 75 mm[Hg] Adriano Blakely blood pressure, systolic 142 mm[Hg] Tita Blakely pulse rate 66 /min Shirley Licea s oxygen saturation, oximetry 95 % Shirley Blakely weight E&M 145 [lb_av] Shirley Licea s height E&M 64 [in_i] Shirley Licea s Body Mass Index (Ratio) 25.23 kg/m2 Rose Goss MD blood pressure, diastolic 88 mm[Hg] Deana ortizLoglance blood pressure, systolic 140 mm[Hg] [facility], cuff size regular Prosper fortune Marquez blood pressure, diastolic 88 mm[Hg] Prosper fortune Marquez blood pressure, systolic 140 mm[Hg] [facility] oxygen saturation, oximetry 98 % Juliet Marquez respiratory rate E&M 12 /min Juliet Marquez pulse rate 61 /min Juliet Marquez weight E&M 147 [lb_av] Juliet Marquez height E&M 64 [in_i] Juliet Marquez Body Mass Index (Ratio) 26.09 kg/m2 Rose Goss MD blood pressure, diastolic -1 mm[Hg] Deana nkLoglance blood pressure, systolic 120 mm[Hg] Jocy Georgeoglance blood pressure, diastolic 70 mm[Hg] Faith Garcia blood pressure, systolic 120 mm[Hg] Jasmin Garcia oxygen saturation, oximetry 94 % Lauren Garcia pulse rate 59 /min Lauren Garcia height E&M 64 [in_i] Lauren Jose weight E&M 152 [lb_av] Lauren Garcia respiratory rate E&M 17 /min Lauren Carlisle lliams blood pressure, cuff size large Faith Garcia ALLERGIES Allergy Name Onset Date Reaction Criticality Status CODEINE High Criticality active RESULTS Date Observation Value Provider Reference Range Interpretation Location hemoglobin A1C, blood, as % of total hemoglobin 6.1 % OF TOTAL HGB LinkLogic <5.7 High basophils as percent of blood leukocytes 1.3 % [facility] Normal eosinophils as percent of blood leukocytes 1.8 % [facility] Normal monocyte count, blood 11.1 % [facility] Normal lymphocyte count, blood 35.4 % [facility] Normal neutrophils as percent of blood leukocytes 50.4 % [facility] Normal basophils, absolute, manual 49 cells/mcL [facility] 0-200 Normal eosinophils, absolute, manual 68 cells/mcL [facility] 15-500 Normal monocytes, absolute, manual 422 cells/mcL [facility] 200-950 Normal lymphocytes, absolute 1345 CELLS/UL [facility] 850-3900 Normal Absolute Neutrophil count 1915 cells/mcL [facility] 6652-3770 Normal mean platelet volume 10.5 fL [facility] 7.5-12.5 Normal platelet count 219 THOUSAND/UL [facility] 140-400 Normal red blood cell distribution width 12.3 % [facility] 11.0-15.0 Normal mean corpuscular hemoglobin concentration, RBC 33.7 G/DL [facility] 32.0-36.0 Normal mean corpuscular hemoglobin, RBC 31.8 pg [facility] 27.0-33.0 Normal mean corpuscular volume, RBC 94.4 fL [facility] 80.0-100.0 Normal hematocrit, blood 43.6 % [facility] 35.0-45.0 Normal hemoglobin electrophoresis, blood 14.7 [facility] 11.7-15.5 Normal erythrocyte (RBC) count 4.62 MILLION/UL [facility] 3.80-5.10 Normal leukocyte (white blood cells) count, blood 3.8 THOUSAND/UL [facility] 3.8-10.8 Normal hyaline casts, urine NONE SEEN [facility] NONE SEEN Normal bacteria, urine microscopy NONE SEEN [facility] NONE SEEN Normal epithelial cells, urine 6-10 [facility] < OR = 5 Abnormal RBC urine by microscopy NONE SEEN [facility] < OR = 2 Normal WBC urine on microscopy NONE SEEN /HPF [facility] < OR = 5 Normal leukocyte esterase, urine, by dipstick NEGATIVE [facility] NEGATIVE Normal nitrite, urine, semiquantitative NEGATIVE [facility] NEGATIVE Normal protein, urine, semiquantitative (dipstick) NEGATIVE [facility] NEGATIVE Normal blood in urine (hemoglobin) by dipstick NEGATIVE [facility] NEGATIVE Normal ketones, urine, by test strip 1+ [facility] NEGATIVE Abnormal bilirubin, urine NEGATIVE [facility] NEGATIVE Normal glucose, urine, semiquantitative NEGATIVE [facility] NEGATIVE Normal pH, urine, semiquantitative 5.5 [facility] 5.0-8.0 Normal specific gravity, urine 1.021 [facility] 1.001-1.035 Normal appearance, urine CLEAR [facility] CLEAR Normal urine color YELLOW [facility] YELLOW Normal alanine aminotransferase (SGPT), serum 21 1/L [facility] 6-29 Normal aspartate aminotransferase (SGOT), serum 22 1/L [facility] 10-35 Normal alkaline phosphatase, serum 68 1/L [facility] 37-153 Normal bilirubin, serum, total 0.6 mg/dL [facility] 0.2-1.2 Normal albumin/globulin ratio, serum 1.8 (calc) [facility] 1.0-2.5 Normal globulins, serum, total 2.5 G/DL (CALC) [facility] 1.9-3.7 Normal albumin, serum 4.5 g/dL [facility] 3.6-5.1 Normal protein, total, serum 7.0 g/dL [facility] 6.1-8.1 Normal calcium, serum 9.5 mg/dL [facility] 8.6-10.4 Normal carbon dioxide, venous blood 20 mmol/L [facility] 20-32 Normal chloride, serum 107 mmol/L [facility] 98-110 Normal potassium, serum 4.3 mmol/L [facility] 3.5-5.3 Normal sodium, serum 141 mmol/L [facility] 135-146 Normal urea nitrogen/creatinine ratio, serum SEE NOTE: (calc) [facility] 6-22 creatinine, serum 0.77 mg/dL [facility] 0.50-1.05 Normal urea nitrogen, blood 16 mg/dL [facility] 7-25 Normal blood glucose, random 111 mg/dL [facility] 65-99 High thyroxine, serum, free 1.1 ng/dL [facility] 0.8-1.8 Normal thyroid stimulating hormone, serum 1.67 u[IU]/mL [facility] 0.40-4.50 Normal microalbumin/creatin ine ratio, urine 2 MCG/MG CREAT [facility] <30 Normal microalbumin/total urine volume 4 mg/L [facility] Units converted. See lab report for original value. Normal creatinine, random, urine 165 mg/dL [facility] 20-275 Normal cholesterol, non-HDL, total 106 MG/DL (CALC) [facility]ic <130 Normal cholesterol/HDL ratio, serum, percent 3.0 (calc) [facility] <5.0 Normal LDL cholesterol, serum 90 MG/DL (CALC) [facility]ic Normal triglyceride, serum, fasting 69 mg/dL [facility] <150 Normal HDL cholesterol, serum 54 mg/dL [facility] > OR = 50 Normal cholesterol, serum 160 mg/dL [facility]ic <200 Normal HISTORY OF MEDICATION USE Medication Status Instructions Dates Provider Indications Com ments carvedilol 6.25 mg tablet active Take 1 tablet by mouth twice a day Irene Boswell ergocalciferol (vitamin D2) 1,250 mcg (50,000 unit) capsule active TAKE 1 CAPSULE BY MOUTH EVERY WEEK Josh Ly NP pantoprazole 20 mg tablet,delayed release (DR/EC) active 1 tablet by mouth once a day Josh Ly NP ondansetron 4 mg tablet,disintegra ting completed - Juliet Marquez famotidine 20 mg tablet completed - Juliet Marquez amlodipine 5 mg tablet active TAKE 1 TABLET BY MOUTH EVERY DAY Josh Ly NP carvedilol 6.25 mg tablet completed Take 1 tablet by mouth twice daily - Irene Boswell atorvastatin 80 mg tablet active Take 1 tablet by mouth once a day Kari Winn Aspirin Childrens 81 mg tablet,chewable active TAKE 1 TABLET BY MOUTH EVERY DAY Josh Ly NP SOCIAL HISTORY Date Observation Value Provider personal history of marijuana use yes France Goss MD drug use no France melendez MD alcohol use no France melendez MD cigarette use yes France rodrigues MD smoking status Former smoker France marte MD personal history of marijuana use yes Josh Ly NP drug use no Josh Ly NP alcohol use no Josh Ly NP cigarette use yes Josh Ly NP smoking status Former smoker Josh Jong bowden NP cigarette use yes Lauren Jose smoking status Former smoker Lauren campbell FUNCTIONAL STATUS Date Observation Value Provider HRA, CV Assess/Plan, Angina (inactive) Management Plan continue current therapy France Goss MD HRA, CV Assess/Plan, Angina (inactive) Management Plan continue current therapy Josh Aliyah MARTÍNEZ INSURANCE PROVIDERS Payer name Policy type / Coverage type [employer] party ID [place] MEDICAID (2) Medicaid [id number] ADVANCE DIRECTIVES Name Date DISCUSSED - NO DECISION MADE TREATMENT PLAN Date Name Performer Cardiology: Maria Guadalupe BOLDEN FROM ONCLUSIONS: 1 . Normal left ventricular systolic function. Normal left ventricular size. Normal left ventricular wall thickness. Normal left v entricular diastolic function. E/E': 6.1. Left ventricular ejection fraction is measured at 60 %. 2 . Normal right ventricular size. Normal right ventricular systolic function. 3 . Normal appearing tricuspid valve leaflets. There is mild tricuspid regurgitation. IVC is normal in size with normal r espiratory response. Estimated peak pulmonary artery systolic pressure is 21.0 mmHg. 4 . Pulmonic valve leaflets appear structurally normal. Normal pulmonic valve velocities by Doppler. There is mild pulmonic r egurgitation. NUCLAR JOSE STRESS 08/09/23 1 . Normal sinus rhythm. The resting EKG shows right bundle branch block. 2 . Normal Regadenoson ECG with no ischemic ST or T changes, following vasodilator stress. 3 . Normal left ventricle size. 4 . Left Ventricular Ejection Fraction is 62 %. TID: 1.03. 5 . Normal myocardial perfusion imaging with no evidence of ischemia or scar. 6 . Significant breast attenuation noted. France Goss MD Cardiology:This visi t has been a part of the consistent, comprehensive, and ongoing management of the chronic medical condition(s) listed above for the patient. Her updated medication list for this problem includes: Atorvastatin 80 Mg Tablet (Atorvastatin) ..... Take 1 tablet by mouth once a day C HOL: 160 (06/07/2023) LDL: 90 MG/DL (CALC) (06/07/2023) HDL: 54 (06/07/2023) T (06/07/2023) France Goss MD Cardiology: H er updated medication list for this problem includes: Pantoprazole 20 Mg Tablet,delayed Release (dr/ec) (Pantoprazole) ..... 1 tablet by mouth once a day France Goss MD Cardiology:63 Y/O HE RE FOR EVAL HAS HAD PRIOR HX OF [place] AND RECALLS SHE HAD STENT PLACED IN 2020 AT [facility] WITH DR MAURICIO MENDOSA ON ASA AND STATIN AND BB AND IS OFFF PLAVIX. T his visit has been a part of the consistent, comprehensive, and ongoing management of the chronic medical condition(s) listed above for the patient. France Goss MD Cardiology: s /p stents placed in 2020 at [facility] with Dr. Mauricio michael statin/BB/ASA T his visit has been a part of the consistent, comprehensive, and ongoing management of the chronic medical condition(s) listed above for the patient. France Goss MD Cardiology: s /p stents placed in 2020 at [facility] with Dr. Mauricio michael statin/BB/ASA Josh Ly NP Cardiology: T OTAL 60, HDL 54, TRI 69, LDL 90 H er updated medication list for this problem includes: Atorvastatin 80 Mg Tablet (Atorvastatin) ..... Take 1 tablet by mouth once a day Josh Ly NP Cardiology: H er updated medication list for this problem includes: Pantoprazole 20 Mg Tablet,delayed Release (dr/ec) (Pantoprazole) ..... 1 tablet by mouth once a day Josh Ly NP Cardiology:ECHO FROM ONCLUSIONS: 1 . Normal left ventricular systolic function. Normal left ventricular size. Normal left ventricular wall thickness. Normal left v entricular diastolic function. E/E': 6.1. Left ventricular ejection fraction is measured at 60 %. 2 . Normal right ventricular size. Normal right ventricular systolic function. 3 . Normal appearing tricuspid valve leaflets. There is mild tricuspid regurgitation. IVC is normal in size with normal r espiratory response. Estimated peak pulmonary artery systolic pressure is 21.0 mmHg. 4 . Pulmonic valve leaflets appear structurally normal. Normal pulmonic valve velocities by Doppler. There is mild pulmonic r egurgitation. NUCLAR JOSE STRESS 08/09/23 1 . Normal sinus rhythm. The resting EKG shows right bundle branch block. 2 . Normal Regadenoson ECG with no ischemic ST or T changes, following vasodilator stress. 3 . Normal left ventricle size. 4 . Left Ventricular Ejection Fraction is 62 %. TID: 1.03. 5 . Normal myocardial perfusion imaging with no evidence of ischemia or scar. 6 . Significant breast attenuation noted. Josh Ly TOWEL INSPECTOR Date Name Stress Exercise Card iolite Stress Regadenoson Stress Routine HEMOGLOBIN A1c LIPID PANEL COMPREHENSIVE METABO LIC PANEL, W/EGFR Stress Exercise Card iolite Complete Echo HISTORY OF PROCEDURES Procedure Date Procedure Name Provider Procedure Notes S tatus Complex e/m visit add on France Goss MD completed EKG France Goss MD compl eted EKG France Goss MD compl eted EKG France Goss MD compl eted
--- OUTSIDE RECORDS SUMMARY | 2024-05-09 03:16 | XMS_ITS | Encounter Summary ---
Author Organization [facility] Address [address] [facility] [place] [address] Care Team Providers Care Assembler Bicycle Name Role Phone Unavailable Primary Care Provider Unavailabl e Reason for Visit * Reason Onset Date Comments MEDICATION REFILL 01/18/2021 Encounter Details Date Type Department Care Team (Late st Contact Info) Description 01/18/2021 Refill [facility] [address] [facility] [address] [place] [address] Isidro Martínez W, DO [address] [facility] [address] [place], [place] [address] MEDICATION REFILL Social History Tobacco Use Types [...] st Contact Info) Description 05/18/2024 4:00 PM CURTAIN MENDER Office Visit [facility] - Cardiology [address] [facility] [address] [place] [address] Basia Cortez, MERVAT [address] [place] [address] 07/19/2024 4:00 PM CDT Office Visit [facility] - Rheumatology [address] [facility], [address] [place] [address] Abel Amin DO [address] [facility] [address] [place] [address] documented as of this encounter Visit Diagnoses Diagnosis Essential hypertension NSTEMI (non-ST elevated myocardial infarction) (HCC) Acute myocardial infarction, subendocardial infarction, episode of care unspecified documented in this encounter
[2024-05-09 03:22] VITALS: BP 180/100; PULSE 93; RESP 24; TEMP 36.7
--- NOTE | 2024-05-09 03:25 | ECG_ITS ---
Test Date: 2024-05-09 03:30:41 Measurements Intervals [facility] Rate: 69 P: 53 MO: 161 QRS: -37 QRSD: 76 T: 58 QT: 366 QTc: 394 Interpretive Statements SINUS RHYTHM LEFT AXIS DEVIATION LOW QRS VOLTAGE IN PRECORDIAL LEADS BASELINE ARTIFACT- I, II, III, AVR, AVL, AVF, V2, V4-V6 BORDERLINE ECG No previous ECG available for comparison Electronically Signed On 05-09-2024 06:55:02 MEDICAL FIELD REPRESENTATIVE by Carroll Madison D.O.
[2024-05-09 03:58] LABS: Basophils Percent Auto 0.6 % (0.2-1.2); Eosinophils Absolute Auto 0.1 K/mm3 (0-0.3); Eosinophils Percent Auto 1.6 % (0-4.4); Hematocrit 45.5 % (37.0-47.0); Hemoglobin 15.5 g/dL (12.0-15.0); Lymphocytes Percent Auto 35.2 % (18.3-44.2); Mean Corpuscular HGB Conc 34.1 g/dl (32-36); Mean Corpuscular Hemoglobin 32.1 pg (26-34); Mean Corpuscular Volume 94.2 fl (80-100); Mean Platelet Volume 9.1 fl (7.4-10.4); Monocytes Absolute Auto 0.5 K/mm3 (0.1-0.6); Monocytes Percent Auto 9.6 % (2.6-8.5); Neutrophils Absolute Auto 2.7 K/mm3 (1.3-6.7); Platelet Count Result 224 k/mm3 (150-375); Red Blood Count 4.83 M/mm3 (4.2-5.4); Red Cell Distribution Width 12.6 % (11.5-14.5); White Blood Count 5.1 K/mm3 (4.5-10.0)
[2024-05-09 04:09] LABS: Alanine Aminotransferase 30 U/L (6-35); Albumin Level 4.5 g/dL (3.5-5.1); Alkaline Phosphatase 66 U/L (38-126); Anion Gap 9 mmol/L (4-12); Aspartate Amino Transferase 27 U/L (14-36); Bilirubin,Total 0.4 mg/dL (0.2-1.3); Blood Urea Nitrogen 22 mg/dL (7-17); Calcium 9.4 mg/dL (8.4-10.2); Carbon Dioxide 20 mmol/L (22-30); Chloride 108 mmol/L (98-107); Estimated CRCL calculation 67 ml/min; Estimated Glomerular Filt Rate > 60; Glucose 151 mg/dL (65-110); Lipase 299 U/L (23-300); Potassium 4.5 mmol/L (3.4-5.0); Sodium 137 mmol/L (137-145)
[2024-05-09 04:14] LABS: INR 0.9; Partial Thromboplastin Time 25.4 Seconds (22.3-36.8); Prothrombin Time 12.7 Seconds (11.1-14.7)
[2024-05-09 04:20] LABS: Troponin I < 0.012 ng/mL (0.000-0.034)
--- NOTE | 2024-05-09 07:56 | ECG_ITS ---
Test Date: 2024-05-09 17:21:42 Measurements Intervals [place] Rate: 65 P: 25 OK: 158 QRS: -39 QRSD: 85 T: 42 QT: 379 QTc: 396 Interpretive Statements SINUS RHYTHM LEFT AXIS DEVIATION POSSIBLE ANTERIOR MYOCARDIAL INFARCTION , OF INDETERMINATE AGE ABNORMAL ECG Compared to ECG 05/09/2024 14:07:37 NO SIGNIFICANT CHANGE Electronically Signed On 05-09-2024 20:15:21 VISUAL DESIGNER by Carroll Madison D.O.
--- NOTE | 2024-05-09 07:58 | PC.NURSE ---
Pt called to triage for 3 hour troponin & ekg. Pt not in waiting room or outside
--- OUTSIDE RECORDS SUMMARY | 2024-05-09 08:49 | XMS_ITS | Referral Summary ---
Author Organization [facility] Address [address] [facility] [place] [address] Care Team Providers Care Residential Program Director Name Role Phone Unavailable Primary Care Provider Unavailabl e Source Comments [facility],non-owned Affiliates and Associated Physician Practices is amultiple site organization consisting of ambulatory clinics and hospital sitesin [place], [place], [place] and [place]. This disclosure is being madepursuant to the Care Everywhere program and may not contain all information available regarding this patient. Last updated 17.[facility] Encounters Date Type Department Care Team Description 05/08/2024 Travel 05/08/2024 Refill [facility] - Rheumatology [address] [place] [address], [address] [place] [address] Abel Amin DO MEDICATION REFILL 03/01/2024 Refill [facility] - Cardiology [address] [place] [address], [address] [place] [address] Basia Cortez PA MEDICATION REFILL from Last [...] corticosteroid injection, or referral to hand surgical technician for consideration of basilar thumb arthroplasty. Basia Al favored a trial of duloxetine and will start at 30 mg taken at bedtime but if not feeling improved with less pain after 14 days to contact [facility] to be provided a dose titration as long as tolerated without side effects. S/P drug eluting coronary stent placement 2023 Coronary artery disease invo lving [place] coronary artery of [place] heart without angina pectoris 10/22/2023 Mixed hyperlipidemia [...] st Contact Info) Description 05/18/2024 4:00 PM SERGEANT OF CORRECTIONS Office Visit [facility] - Cardiology [address] [facility], [address] [place] [address] Baisa Cortez, PA [address] [place] [address] 07/19/2024 4:00 PM CDT Office Visit [facility] - Rheumatology [address], [address] [place] [address] Abel Amin DO [address] [place] [address] Medical Devices Implanted Type Area Drop Board Man Device Identifier Shelf Expiration Date Model / Serial / Lot Sys Cor Stent Xience Srr 3mm 15mm Rap Ex Implanted:Qty: 1 on 06/21/2020 by Hima Tracey MD at [facility] [employer] 09/03/2021 [id number] Description:m-CIRC Advance Directives * Full Code (Latest Code Status on File) Date Activated Date Inactivated Comments 06/20/2020 9:53 PM 06/22/2020 2:41 PM
--- OUTSIDE RECORDS SUMMARY | 2024-05-09 08:49 | XMS_ITS | Patient Health Summary ---
Author Organization [facility] [employer] Address [address] [place] [address] Care Team Providers Care Pet Store Merchandiser Name Role Phone Unavailable Primary Care Provider Unavailabl e Note from [facility],non-owned Affiliates and Associated Physician Practices is amultiple site organization consisting of ambulatory clinics and hospital sitesin [place], [place], [place] and [place]. This disclosure is being madepursuant to the Care Everywhere program and may not contain all information available regarding this patient. Last updated 17.[facility] [employer] Allergies * Codeine(GI Discomfort) -High Criticality Medications [...] placement 2023 Coronary artery disease invo lving [place] coronary artery of [place] heart without angina pectoris 10/22/2023 Mixed hyperlipidemia [...] PM CDT Medical Devices Implanted Type Area Primary Care Nurse Practitioner Device Identifier Shelf Expiration Date Model / Serial / Lot Sys Cor Stent Xience Srr 3mm 15mm Rap Ex Implanted:Qty: 1 on 06/21/2020 by Hima Herrera MD at [facility] Coronary [employer] 09/03/2021 [id number] Description:m-CIRC Procedures * LIPID PROFILE(Performed 08/28/2020) Performed for NSTEMI (non-ST elevated myocardial infarction) (HCC), Mixed hyperlipidemia * CARDIAC EKG ORDER(Performed 06/25/2020) * CARDIAC PROCEDURE ORDER(Performed 06/24/2020) * PHOSPHORUS BLOOD(Performed 06/22/2020) * MAGNESIUM BLOOD(Performed 06/22/2020) * BASIC METABOLIC PANEL (CALCIUM TOTAL)(Performed 06/22/2020) * CBC W AUTO DIFFERENTIAL(Performed 06/22/2020) * CULTURE URINE(Performed 06/21/2020) Performed for NSTEMI (non-ST elevated myocardial infarction) ([facility]) * CCL CARDIAC CATH LEFT(Performed 06/21/2020) Performed for NSTEMI (non-ST elevated myocardial infarction) ([facility]) * ECHO COMPLETE(Performed 06/21/2020) Performed for NSTEMI (non-ST elevated myocardial infarction) ([facility]) * LIPID PROFILE(Performed 06/21/2020) Performed for NSTEMI (non-ST elevated myocardial infarction) ([facility]) * LACTIC ACID BLOOD(Performed 06/21/2020) * PTT [facility](Performed 06/21/2020) * URINALYSIS REFLEX TO MICROSCOPIC NO CULTURE(Performed 06/21/2020) * EKG 12-LEAD(Performed 06/20/2020) Performed for NSTEMI (non-ST elevated myocardial infarction) ([facility]) * SARS-COV-2 (COVID-19) IN HOUSE(Performed [...] Performed for NSTEMI (non-ST elevated myocardial infarction) ([facility]) Results * (ABNORMAL) LIPID PROFILE (08/28/2020 2:11 PM CDT) Only the most recent of2 resultswithin the time period is included. Cholesterol Total 190 <200 mg/dL 08/28/2020 2:55 PM CDT [facility] HDL 46 >40 mg/dL 08/28/2020 2:55 PM CDT [facility] Comment: ATP III Classification of HDL Cholesterol: <40 mg/dL: Considered a major risk factor. >60 mg/dL: Considered a negative risk factor. LDL Calculated 82 <100 mg/dL 08/28/2020 2:55 PM CDT [facility] Comment: ATP III Classification of LDL Cholesterol: <100 mg/dL: Optimal 100 - 129 mg/dL: Near Optimal/Above Optimal 130 - 159 mg/dL: Borderline High 160 - 189 mg/dL: High >190 mg/dL: Very High Triglycerides 312(H) <150 mg/dL 08/28/2020 2:55 PM CDT [facility] Comment: ATP III Classification of Triglycerides: <150 mg/dL: Normal 150 - 199 mg/dL: Borderline High 200 - 400 mg/dL: High >500 mg/dL: Very High Blood BLOOD SPECIMEN / Unknown Lab Venipuncture / Unknown 08/28/2020 2:11 PM CDT 08/28/2020 2:30 PM CDT Leonides Chávez MD LAB - CHEMISTRY ORD ERABLES [facility] [address] [place] [address], [facility] [phone] * CARDIAC EKG ORDER (06/25/2020 9:10 AM [...] - 10.5 10 3/uL 06/22/2020 5:08 AM [facility] RBC 5.29(H) 3.90 - 5.00 10 6/uL 06/22/2020 5:08 AM [facility] Hemoglobin 16.4(H) 12.0 - 15.5 g/dL 06/22/2020 5:08 AM [facility] Hematocrit 48.3(H) 35.0 - 45.0 % 06/22/2020 5:08 AM [facility] MCV 91.3 81.0 - 97.0 fL 06/22/2020 5:08 AM [facility] MCH 31.0 28.0 - 34.0 pg 06/22/2020 5:08 AM [facility] MCHC 34.0 32.0 - 36.0 g/dL 06/22/2020 5:08 AM [facility] Platelet Count 215 150 - 400 10 3/uL 06/22/2020 5:08 AM [facility] RDW-SD 42.8 36.0 - 50.0 fL 06/22/2020 5:08 AM [facility] RDW-CV 12.7 11.2 - 14.8 % 06/22/2020 5:08 AM [facility] MPV 9.6 9.3 - 12.8 fL 06/22/2020 5:08 AM [facility] nRBC Absolute 0.00 0 10 3/uL 06/22/2020 5:08 AM [facility] nRBC Auto 0.0 0 /100 WBC 06/22/2020 5:08 AM [facility] Neutrophils % 70.3(H) 35.0 - 70.0 % 06/22/2020 5:08 AM [facility] Lymphocytes % 18.9(L) 19.7 - 55.1 % 06/22/2020 5:08 AM [facility] Monocytes % 9.8 3.0 - 15.0 % 06/22/2020 5:08 AM [facility] Eosinophils % 0.2 0.0 - 6.0 % 06/22/2020 5:08 AM CDT [facility] Basophil % 0.4 0.0 - 1.5 % 06/22/2020 5:08 AM [facility] Neutrophils Absolute 7.8(H) 1.6 - 7.0 10 3/uL 06/22/2020 5:08 AM [facility] Lymphocyte Absolute 2.1 0.8 - 2.9 10 3/uL 06/22/2020 5:08 AM T [facility] Monocytes Absolute 1.08(H) 0.14 - 0.66 10 3/uL 06/22/2020 5:08 AM [facility] Eosinophils Absolute 0.02 0.00 - 0.45 10 3/uL 06/22/2020 5:08 AM [facility] Basophils Absolute 0.04 0.00 - 0.06 10 3/uL 06/22/2020 5:08 AM [facility] Immature Granulocytes % 0.4 0.0 - 1.0 % 06/22/2020 5:08 AM [facility] Blood BLOOD SPECIMEN / Unknown Venipuncture / Unknown 06/22/2020 4:45 AM CDT 06/22/2020 4:49 AM CDT Braulio Dueñas MD LAB - HEMATOLOGY ORD ERABLES [facility] [address] [place] [address], [facility] [phone] * (ABNORMAL) BASIC METABOLIC PANEL (CALCIUM TOTAL) (06/22/2020 4:45 AM CDT) BUN 10 7 - 26 mg/dL 06/22/2020 5:17 AM CDT [facility] Creatinine 0.7 0.6 - 1.2 mg/dL 06/22/2020 5:17 AM [facility] Sodium 138 136 - 145 mmol/L 06/22/2020 5:17 AM [facility] Potassium 4.1 3.5 - 4.5 mmol/L 06/22/2020 5:17 AM T [facility] Chloride 104 98 - 107 mmol/L 06/22/2020 5:17 AM [facility] CO2 22 22 - 29 mmol/L 06/22/2020 5:17 AM [facility] Glucose 136(H) 70 - 115 mg/dL 06/22/2020 5:17 AM [facility] Calcium 9.0 8.4 - 10.2 mg/dL 06/22/2020 5:17 AM [facility] Anion Gap 16 8 - 18 06/22/2020 5:17 AM [facility] BUN/Creatinine Ratio 14 7 - 23 06/22/2020 5:17 AM [facility] Osmolality Calculated 287 270 - 300 mOsm/kg 06/22/2020 5:17 AM [facility] eGFR >60 >60 mL/min/1.7 3 m2 06/22/2020 5:17 AM [facility] Blood BLOOD SPECIMEN / Unknown Venipuncture / Unknown 06/22/2020 4:45 AM CDT 06/22/2020 4:49 AM CDT Braulio Dueñas MD LAB - CHEMISTRY [facility] [address] [address], [place] [phone] * PHOSPHORUS BLOOD (06/22/2020 4:45 AM CDT) Only the most recent of2 resultswithin the time period is included. Phosphorus 2.4 2.3 - 4.7 mg/dL 06/22/2020 5:17 AM T [facility] Blood BLOOD SPECIMEN / Unknown Venipuncture / Unknown 06/22/2020 4:45 AM CDT 06/22/2020 4:49 AM CDT Braulio Dueñas MD LAB - CHEMISTRY [facility] [address] [address], [place] [phone] * MAGNESIUM BLOOD (06/22/2020 4:45 AM CDT) Only the most recent of2 resultswithin the time period is included. Magnesium 1.9 1.6 - 2.6 mg/dL 06/22/2020 5:17 AM CDT [facility] Blood BLOOD SPECIMEN / Unknown Venipuncture / Unknown 06/22/2020 4:45 AM CDT 06/22/2020 4:49 AM CDT Braulio Dueñas MD LAB - CHEMISTRY [facility] [address] [place] [address], [facility] [phone] * CULTURE URINE (06/21/2020 7:01 PM CDT) Culture Urine 10,000-50,000 CFU/mL urogenital torres DEION 06/23/2020 7:13 AM CDT [facility] Urine URINE SPECIMEN OBTAINED BY CLEAN CATCH PROCEDURE / Unknown Collection / Unknown 06/21/2020 7:01 PM CDT 06/21/2020 7:03 PM CDT Braulio Dueñas MD LAB - MICROBIOLOGY O RDERABLES Performing Organization Address City/[facility]/ZIP Co de Phone Number [facility] [address] [place] [address], [facility] [phone] * CCL CARDIAC CATH LEFT (06/21/2020 3:01 PM CDT) Anatomical Region Laterality Modality Chest X-Ray Angiograph y Narrative 06/22/2020 12:33 AM CDT [facility] Cardiac Catheterization Procedure Note Patient: Basia Al Age: [age] year old Date of : 1960 Procedure Date: 06/21/20 FINISHER MACHINE: Charlie Glover ATTENDING PHYSICIAN: Hima Herrera HISTORY: 60 year old female previously healthy who presented with chest pain to [place], found to have multi- vessel disease. She [...] NSTEMI PCI INDICATION: NSTEMI Unstable Angina / [id number] Myocardial Infarction-Class:I PCI STATUS: urgent PCI PROCEDURAL [...] DURING PCI: Heparin 7. INTERVENTIONAL WIRE: A Taboolai wire was advanced beyond the lesion into [...] Herrera MD 06/22/2020 Braulio Dueñas MD CARDIAC MID LEVEL CLINICIAN RAD IANT * ECHO COMPLETE (06/21/2020 12:36 PM CDT) Anatomical Region Laterality Modality Chest Echo 06/21/2020 11:5 4 AM CDT Narrative Procedure Note John Chavarria MD - 06/21/2020 Braulio Dueñas MD ECHOCARDIOGRAPHY RAD IANT * (ABNORMAL) PTT [facility] (06/21/2020 5:13 AM CDT) Only the most recent of2 resultswithin the time period is included. APTT 122.4(HH) 23.0 - 38.4 Seconds 06/21/2020 7:46 AM CDT [facility] Comment: Patient is on Heparin, Argatroban or Dabigatran. Blood BLOOD SPECIMEN / Unknown Venipuncture / Unknown 06/21/2020 5:13 AM CDT 06/21/2020 6:04 AM CDT Braulio Dueñas MD LAB - COAGULATION OR DERABLES Performing Organization Address [facility]/State/[facility] Co de Phone Number [address] [address], [facility] [phone] * LACTIC ACID BLOOD (06/21/2020 5:13 AM CDT) Only the most recent of2 resultswithin the time period is included. Lactic Acid-Stat 1.0 0.5 - 2.2 mmol/L 06/21/2020 6:19 AM CDT [facility] Blood BLOOD SPECIMEN / Unknown Venipuncture / Unknown 06/21/2020 5:13 AM CDT 06/21/2020 5:47 AM CDT Braulio Dueñas MD LAB - CHEMISTRY [facility] [address] [place] [address], [facility] [phone] * (ABNORMAL) URINALYSIS REFLEX TO MICROSCOPIC NO CULTURE (06/21/2020 2:02 AM CDT) Color UA Yellow Straw, Yellow, Colorless 06/21/2020 2:21 AM [facility] Clarity UA Slt Cloudy Clear, t Cloudy 06/21/2020 2:21 AM [facility] Specific [place] UA 1.034(H) 1.005 - 1.030 06/21/2020 2:21 AM [facility] pH UA 5.0 5.0 - 8.0 pH 06/21/2020 2:21 AM [facility] Protein UA 1+(A) Negative mg/dL 06/21/2020 2:21 AM [facility] Glucose UA Negative Negative mg/dL 06/21/2020 2:21 AM [facility] Ketone UA 2+(A) Negative mg/dL 06/21/2020 2:21 AM [facility] Bilirubin UA Negative Negative mg/dL 06/21/2020 2:21 AM [facility] Blood UA 1+(A) Negative 06/21/2020 2:21 AM [facility] Nitrite UA Negative Negative 06/21/2020 2:21 AM [facility] Leukocyte Esterase 3+(A) Negative 06/21/2020 2:21 AM [facility] Urobilinogen UA Negative Negative mg/dL 06/21/2020 2:21 AM [facility] RBC UA 6-10(A) None Seen, 0-2, 3-5 /HPF 06/21/2020 2:21 AM [facility] WBC UA 6-10(A) None Seen, 0-5 /HPF 06/21/2020 2:21 AM [facility] Squamous Epithelial Cells UA 3-5(A) None Seen, 0-2 /HPF 06/21/2020 2:21 AM CDT [facility] Urine URINE SPECIMEN OBTAINED BY CLEAN CATCH PROCEDURE / Unknown Collection / Unknown 06/21/2020 2:02 AM CDT 06/21/2020 2:14 AM CDT Narrative [facility] - 06/21/2020 2:21 AM CDT Braulio Dueñas MD LAB - URINALYSIS ORD ERABLES Performing Organization Address City/[facility]/ZIP Co de Phone Number [facility] [address] [place] [address], [facility] [phone] * EKG 12-LEAD (06/20/2020 10:54 PM CDT) Ventricular Rate 59 BPM [facility] MUSE Atrial Rate 59 BPM [facility] MUSE P-R Interval 150 ms [facility] QRS Duration ms 80 ms [facility] MUSE Q-T Interval ms 450 ms [facility] QTC Calculation (Bezet) 445 ms [facility] MUSE Calculated P [place] 56 degrees [facility] MUSE Calculated R [place] -27 degrees [facility] MUSE Calculated T [place] 42 degrees [facility] MUSE Interpretation EKG SINUS BRADYCARDIA POSSIBLE ANTEROSEPTAL INFARCT , AGE UNDETERMINED ABNORMAL ECG NO PREVIOUS ECGS AVAILABLE Confirmed by Braulio Dueñas ([id number]) on 06/23/2020 3:04:52 PM [facility] MUSE 06/20/2020 10:5 4 PM CDT 06/23/2020 3:04 PM CDT Braulio Dueñas MD ECG ORDERABLES Performing Organization Address City/[facility]/ZIP Co de Phone Number [facility] MUSE * SARS-COV-2 (COVID-19) IN HOUSE (06/20/2020 10:45 PM CDT) Pathologist [facility] COVID-19 PCR Not detected Not detected 06/21/2020 3:59 AM CDT [facility] Microbiology SPECIMEN FROM NASOPHARYNGEAL STRUCTURE / Unknown Collection / Unknown 06/20/2020 10:45 PM CDT 06/20/2020 10:49 PM CDT Narrative [facility] - 06/21/2020 3:59 AM CDT This nucleic acid amplification assay performance was validated by [facility]. This test has been authorized [...] Dueñas MD LAB - MICROBIOLOGY O RDERABLES [facility] [address] [place], [address] [phone] * PT-INR [facility] (06/20/2020 10:22 PM CDT) PT 12.5 12.1 - 14.8 Seconds 06/20/2020 10:43 PM CDT [facility] INR 1.0 See Comment 06/20/2020 10:43 PM CDT [facility] Comment:The suggested therap eutic range for standard coumadin (warfarin) therapy is an INR of 2.0-3.0. For high-risk patients (Mechanical Mitral Valve Prosthesis, etc.), the suggested prophylactic therapeutic range is an INR of 2.5-3.5. Blood BLOOD SPECIMEN / Unknown Venipuncture / Unknown 06/20/2020 10:22 PM CDT 06/20/2020 10:34 PM CDT Braulio Dueñas MD LAB - COAGULATION OR DERABLES [facility] [address] [place] [address], [facility] [phone] * (ABNORMAL) CALCIUM IONIZED WHOLE BLOOD (06/20/2020 10:22 PM CDT) Ionized Calcium Whole Blood 1.20 mmol/L 06/20/2020 10:34 PM CDT [facility] Adjusted Ionized Calcium 1.16(L) 1.19 - 1.34 mmol/L 06/20/2020 10:34 PM CDT [facility] pH Whole Blood 7.32(L) 7.35 - 7.45 06/20/2020 10:34 PM CDT [facility] Blood WHOLE BLOOD SPECIMEN / Unknown Venipuncture / Unknown 06/20/2020 10:22 PM CDT 06/20/2020 10:29 PM CDT Braulio Dueñas MD LAB - CHEMISTRY [facility] [address] [address], [facility] [phone] * HEMOGLOBIN A1C (06/20/2020 10:22 PM CDT) Hemoglobin A1c 6.1 4.4 - 6.3 % 06/21/2020 8:50 AM CDT [facility] Estimated Average Glucose 128 mg/dL 06/21/2020 8:50 AM T [facility] Comment: HbA1c Interpretation: Treatment target values recommended by ADA and other clinical organizations should be used to evaluate metabolic control in patients. Treatment Target Values: Normal : < 5.7% Pre-diabetes: 5.7-6.4% Diabetes: Equal to or greater than 6.5% Reference: [place] [employer] Standards of Care in Diabetes -2014 In patients 70 years and older consider HbA1c target range of 7.0-7.5% Reference: Diabetes Mellitus in Older People: Position Statement on behalf of the International Association of Gerontology and Geriatrics (IAGG), the Diabetes Working Republican for Older People (EDWPOP), and the International Task Force of Experts in Diabetes. Balbir Deluna et al. J [place] [employer] Association. 2012 Test results diagnostic of diabetes should be repeated for confirmation. The Sebia Capillary 2 assay for the measurement of HbA1c is a National Glycohemoglobin Standardization Program (NGSP)certified method. Blood BLOOD SPECIMEN / Unknown Venipuncture / Unknown 06/20/2020 10:22 PM CDT 06/20/2020 10:27 PM CDT Braulio Dueñas MD LAB - CHEMISTRY [facility] Performing Organization Address [facility]/ZIP Co de Phone Number [address] [address], [facility] [phone] * (ABNORMAL) B-TYPE NATRIURETIC PEPTIDE (06/20/2020 10:22 PM CDT) Pathologist [facility] BNP 246(H) See Comment pg/mL 06/20/2020 10:57 PM CDT [facility] Comment: A decision threshold of 100 pg/mL [...] - CHEMISTRY [facility] Performing Organization Address City/[facility]/ZIP Co de Phone Number [address] [address], [place] [phone] * (ABNORMAL) COMPREHENSIVE METABOLIC PANEL (06/20/2020 10:22 PM CDT) [facility] BUN 10 7 - 26 mg/dL 06/20/2020 10:54 PM [facility] Creatinine 0.6 0.6 - 1.2 mg/dL 06/20/2020 10:54 PM [facility] Sodium 138 136 - 145 mmol/L 06/20/2020 10:54 PM [facility] Potassium 4.1 3.5 - 4.5 mmol/L 06/20/2020 10:54 PM [facility] Chloride 105 98 - 107 mmol/L 06/20/2020 10:54 PM [facility] CO2 22 22 - 29 mmol/L 06/20/2020 10:54 PM [facility] Glucose 176(H) 70 - 115 mg/dL 06/20/2020 10:54 PM [facility] Calcium 8.8 8.4 - 10.2 mg/dL 06/20/2020 10:54 PM [facility] Protein Total 7.3 6.0 - 8.3 g/dL 06/20/2020 10:54 PM [facility] Albumin 4.1 3.4 - 5.0 g/dL 06/20/2020 10:54 PM [facility] Bilirubin Total 0.5 0.2 - 1.2 mg/dL 06/20/2020 10:54 PM [facility] Alkaline Phosphatase 72 40 - 150 Units/L 06/20/2020 10:54 PM [facility] ALT 17 0 - 55 Units/L 06/20/2020 10:54 PM [facility] AST 28 5 - 34 Units/L 06/20/2020 10:54 PM [facility] Anion Gap 15 8 - 18 06/20/2020 10:54 PM [facility] BUN/Creatinine Ratio 17 7 - 23 06/20/2020 10:54 PM [facility] Osmolality Calculated 289 270 - 300 mOsm/kg 06/20/2020 10:54 PM [facility] Albumin/Globulin Ratio 1.3 1.1 - 2.3 06/20/2020 10:54 PM [facility] eGFR >60 >60 mL/min/1.7 3 m2 06/20/2020 10:54 PM [facility] Blood BLOOD SPECIMEN / Unknown Venipuncture / Unknown 06/20/2020 10:22 PM CDT 06/20/2020 10:27 PM CDT Braulio Dueñas MD LAB - CHEMISTRY [facility] Organization Address City/State/ZIP Co de Phone Number [facility] [address] [place] [address], [facility] [phone] * XR CHEST 1VW PORTABLE (06/20/2020 10:13 PM CDT) Anatomical Region Laterality Modality Chest Radiographic Laurita ging 06/21/2020 8:30 AM CDT Impressions 06/25/2020 9:18 AM CDT FINDINGS/IMPRESSION: Right basilar opacity, likely representing atelectasis and/or airspace disease. Likely mild bibasilar atelectasis. No pleural effusion or pneumothorax bilaterally. The cardiomediastinal silhouette is normal. The visible bony thorax is intact. Dictated by Bridget Souza MD (residential leasing manager). Dr. CHOLO Miguel have personally reviewed and [...] intact. Dictated by Bridget Souza MD (residential leasing manager). Dr. CHOLO Miguel have personally reviewed and interpreted this examination/study. This report was electronically signed by CHOLO PAULA on 06/25/2020 9:18 AM . Braulio Dueñas MD DIAGNOSTIC IMAGING O RDERABLES
--- OUTSIDE RECORDS SUMMARY | 2024-05-09 08:49 | XMS_ITS | Encounter Summary ---
Author Organization [facility] Address [address] [place] [address] Care Team Providers Care Pest Control Pilot Name Role Phone Unavailable Primary Care Provider Unavailabl e Reason for Visit * Reason Onset Date Comments MEDICATION REFILL 01/18/2021 Encounter Details Date Type Department Care Team (Late st Contact Info) Description 01/18/2021 Refill [facility] [address] [facility] [address] [place] [address] Isidro Martínez W, DO [address] [facility] [address] [place], [place] [id number] MEDICATION REFILL Social History Tobacco Use Types [...] st Contact Info) Description 05/18/2024 4:00 PM WOOL HANKER Office Visit [facility] - Cardiology [address] [facility] [address] [place] [address] Basia Cortez, MERVAT [address] [place] [address] 07/19/2024 4:00 PM CDT Office Visit [facility] - Rheumatology [address] [facility] [place] [address] Abel Amin DO [address] [facility] [address] [place] [address] documented as of this encounter Visit Diagnoses Diagnosis Essential hypertension NSTEMI (non-ST elevated myocardial infarction) (HCC) Acute myocardial infarction, subendocardial infarction, episode of care unspecified documented in this encounter
--- OUTSIDE RECORDS SUMMARY | 2024-05-09 08:49 | XMS_ITS | Encounter Summary ---
Author Organization [facility] Address [address] [place] [address] Care Team Providers Care Insurance Claims Analyst Name Role Phone Unavailable Primary Care Provider [...] st Contact Info) Description 05/18/2024 4:00 PM HISTORICAL ARCHEOLOGIST Office Visit [facility] - Cardiology [address] [facility] [facility] [address] [place] [address] Basia Cortez, MERVAT [address] [place] [address] 07/19/2024 4:00 PM CDT Office Visit [facility] - Rheumatology [address] [facility] [place] [address] Abel Amin DO [address] [facility] [address] [place] [address] documented as of this encounter Visit Diagnoses Not on filedocumented in this encounter
--- OUTSIDE RECORDS SUMMARY | 2024-05-09 08:49 | XMS_ITS | Encounter Summary ---
Author Organization [facility] Address [address] [facility] [place] [address] Care Team Providers Care Clin Tech Name Role Phone Unavailable Primary Care Provider Unavailabl e Reason for Visit * Reason Onset Date Comments MEDICATION REFILL 11/17/2020 Encounter Details Date Type Department Care Team (Late st Contact Info) Description 11/17/2020 Refill [facility] [address] [facility] [address] [place] [address] Isidro Martínez W, DO [address] [facility] [address] [place], [place] [id number] MEDICATION REFILL Social History Tobacco Use Types [...] st Contact Info) Description 05/18/2024 4:00 PM DEPUTY FIRE MARSHAL Office Visit [facility] - Cardiology [address] [facility] [address] [place] [address] Basia Cortez, MERVAT [address] [place] [address] 07/19/2024 4:00 PM CDT Office Visit [facility] - Rheumatology [address] [facility], [address] [place] [address] Abel Amin DO [address] [facility] [address] [place] [address] documented as of this encounter Visit Diagnoses Diagnosis Essential hypertension NSTEMI (non-ST elevated myocardial infarction) (HCC) Acute myocardial infarction, subendocardial infarction, episode of care unspecified documented in this encounter
--- OUTSIDE RECORDS SUMMARY | 2024-05-09 08:49 | XMS_ITS | Clinical Summary ---
Author Organization [facility] Address [address] [place] [address] Care Team Providers Care Automotive Glass Specialist Name Role Phone Unavailable Primary Care Provider Unavailabl e Source Comments [facility],non-owned Affiliates and Associated Physician Practices is amultiple site organization consisting of ambulatory clinics and hospital sitesin [place], [place], [place] and [place]. This disclosure is being madepursuant to the Care Everywhere program and may not contain all information available regarding this patient. Last updated 17.[facility] Allergies Active Allergy Reactions Criticality Noted Date [...] intra-articular corticosteroid injection, or referral to hand hand frame surgical elastic knitter for consideration of basilar thumb arthroplasty. Basia Al favored a trial of duloxetine and will start at 30 mg taken at bedtime but if not feeling improved with less pain after 14 days to contact [facility] Rheumatology to be provided a dose titration as long as tolerated without side effects. S/P drug eluting coronary stent placement 2023 Coronary artery disease invo lving [place] coronary artery of [place] heart without angina pectoris 10/22/2023 Mixed [...] Care Team Description 05/08/2024 Travel 05/08/2024 Refill [facility] - Rheumatology [address], [address] [place] [address] Abel Amin, DO MEDICATION REFILL 03/01/2024 Refill [facility] - Cardiology [address] [place] [address], [address] [phone] Basia Cortez PA MEDICATION REFILL from Last [...] st Contact Info) Description 05/18/2024 4:00 PM SOUNDSCRIBER MECHANIC Office Visit [facility] Physician [facility] - Cardiology [address] [place], [place] [address] [place] [address] Basia Cortez PA [facility] [place] [address] 07/19/2024 4:00 PM CDT Office Visit [facility] Medical [facility] - Rheumatology [address] [place] [address], [address] [place] [address] Matt AminanDO [address] [facility] [address] [place] [address] Health Maintenance Due Date Last [...] this topic Medical Devices Implanted Type Area Sludge Control Attendant Device Identifier Shelf Expiration Date Model / Serial / Lot Sys Cor Stent Xience Srr 3mm 15mm Rap Ex Implanted:Qty: 1 on 06/21/2020 by Hima Tracey MD at [facility] 09/03/2021 [id number] Description:m-[facility] Advance Directives * Full Code (Latest Code Status on File) Date Activated Date Inactivated Comments 06/20/2020 9:53 PM 06/22/2020 2:41 PM
--- OUTSIDE RECORDS SUMMARY | 2024-05-09 08:49 | XMS_ITS | Encounter Summary ---
Author Organization [facility] Address [address] [facility] [place] [address] Care Team Providers Care Hose Turner Name Role Phone Unavailable Primary Care Provider Unavailabl e Reason for Visit * Reason Onset Date Comments MEDICATION REFILL 01/11/2021 Encounter Details Date Type Department Care Team (Late st Contact Info) Description 01/11/2021 Refill [facility] [address] 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 Office Visit [facility] - Cardiology [address] [facility] [address] [place] [address] Basia Cortez, MERVAT [address] [place] [address] 07/19/2024 4:00 PM CDT Office Visit [facility] - Rheumatology [address] [facility], [address] [place] [address] Abel Amin DO [address] [facility] [address] [place] [address] documented as of this encounter Visit Diagnoses Diagnosis Essential hypertension NSTEMI (non-ST elevated myocardial infarction) (HCC) Acute myocardial infarction, subendocardial infarction, episode of care unspecified documented in this encounter
--- OUTSIDE RECORDS SUMMARY | 2024-05-09 08:49 | XMS_ITS | Encounter Summary ---
Author Organization [facility] Address [address] [place] [address] Care Team Providers Care Field Service Engineer Name Role Phone Kevan Mejía MD Primary Care Provider Unavailable Encounter Details Date Type Department Care Team (Late st Contact Info) Description 07/24/2012 Abstract [facility] CONVERSION [address] [place] [address] Kevan Mejía MD Social History Tobacco Use [...] on filedocumented in this encounter Care Teams Field Service Engineer Relationship Specialty Start Date End Date Kevan Mejía MD PCP - General 07/24/12 documented as of this encounter
--- OUTSIDE RECORDS SUMMARY | 2024-05-09 08:49 | XMS_ITS | Clinical Summary ---
Author Organization [facility] Address [address] [place] [address] Care Team Providers Care Account Installation Specialist Name Role Phone Unavailable Primary Care [...] Comments Blood Pressure 118/78 05/11/2014 11:04 AM PATTERN HANGER Pulse 64 05/11/2014 11:04 AM PATTERN HANGER Temperature - - Respiratory Rate - - Oxygen Saturation - - Inhaled Oxygen Concentration - - Weight 66.2 kg (146 lb) 05/11/2014 11:04 AM PATTERN HANGER Height 161.9 cm (5' 3.75 ) 05/11/2014 11:[address] Body Mass Index 25.26 05/11/2014 11:04 AM PATTERN HANGER Plan of Treatment Health Maintenance Due Date [...]
--- OUTSIDE RECORDS SUMMARY | 2024-05-09 08:49 | XMS_ITS | Encounter Summary ---
Author Organization [facility] Address [address] [facility] [place] [address] Care Team Providers Care Health And Wellness Instructor Name Role Phone Unavailable Primary Care Provider Unavailabl e Reason for Visit * Reason Onset Date Comments MEDICATION REFILL 05/08/2024 Encounter Details Date Type Department Care Team (Late st Contact Info) Description 05/08/2024 Refill [facility] - Rheumatology [address] [facility], [address] [place] [address] Abel Amin DO [address] [facility] [address] [place] [address] MEDICATION REFILL Social History Tobacco [...] 17 ALKPHOS 72 No results for input(s): TSILJOPZ67GH in the last 17554 hours. No results for input(s): URICACID in the last 33961 hours. Last ESR: No results for input(s): SEDRATE in the last 27359 hours. Last 3 CRP: No results for input(s): CRP in the last 39709 hours. ER TECH documented in this encounter Plan of Treatment Upcoming Encounters Date Type Department Care Team (Late st Contact Info) Description 05/18/2024 4:00 PM WELDER TECH Office Visit [facility]ician Group - Cardiology [address] [facility] [address] [place] [address] Basia Cortez, PA [address] [place] [address] 07/19/2024 4:00 PM CDT Office Visit [facility] - Rheumatology [address] [facility], [address] [place] [address] Abel Aimn DO [address] [facility] [address] [place] [address] documented as of this encounter Visit Diagnoses Diagnosis Primary osteoarthritis of both first carpometacarpal joints- Primary Primary localized osteoarthrosis, hand documented in this encounter
[2024-05-09 14:42] LABS: D Dimer 0.27 ug/mL (<0.48)
== END 2024-05-09 07:58 | disposition left against medical advice (07) ==
PROVIDERS: Emergency Provider Student in an Organized Health Care Education/Training Program; PCP Emergency Medicine
DX: R07.9 Chest pain, unspecified (principal)
CPT/HCPCS: 36415; 71046; 80053; 83690; 84484; 85025; 85380; 85610; 85730; 93005; 99199

== ENCOUNTER 2024-05-09 13:53 | Emergency (ER) | payer OTHER, SELFPAY ==
[2024-05-09] VITALS (16 sets, daily range): BP systolic 141–159; BP diastolic 68–102; PULSE 60–95; RESP 14–20; TEMP 36.6; O2SAT 96–100
--- NOTE | ~2024-05-09 | XR_ITS ---
EXAMINATION: XR chest 2V 05/09/2024 14:43 INDICATION: Chest pain PROCEDURE: 2 view chest COMPARISON: 05/09/2024 FINDINGS: The lungs are clear. The cardiomediastinal silhouette is within normal limits. There are no pleural effusions. There is no pneumothorax suspected. IMPRESSION: 1: NO ACUTE CARDIOPULMONARY DISEASE. Reviewed, dictated and finalized at location B. [facility]
--- NOTE | 2024-05-09 14:01 | ED.CHESTPAIN ---
HPI - Chest Pain General Chief Complaint: Chest Pain <MANI Zendejas Last Filed: 05/09/24 14:09> Stated Complaint: high blood pressure <MANI Zendejas Last Filed: 05/09/24 14:09> Time Seen by Provider: 05/09/24 14:02 <Angie Carmen PA-C - Last Filed: 05/09/24 14:09> Focused HPI: Patient is a 64 y/o female, with PMH of CAD s/p stenting in 2020, who presents to the ED with c/o CP and elevated BP. Patient reports she has been having pain in her L shoulder pain and upper back since yesterday. States pain began radiating through to her chest today. Worse with certain positions, worse with deep breathing. Tried taking Tylenol and ASA at home w/o improvement. She has been feeling increasingly short of breath. Denies cough, congestion, fevers, BLE pain or swelling. Patient was in the ED earlier this morning but LBWS. Contacted her PCP and was referred back to the ED for further evaluation. Sees Basia CROWELL with Cardiology @ [facility]. GENERAL: Appears older than stated age, and in no acute distress. HEAD: Normocephalic, atraumatic. CHEST: Clear to auscultation. ?No respiratory distress. HEART: Regular rate and rhythm.? MSK: No tenderness along anterior chest wall, L shoulder region, L upper back. No bony abnormalities. NEURO: ?Alert and oriented x3. Patient screened in triage and initial orders placed.? ?Additional care and disposition to be based upon?diagnostic testing and treatment. <MANI Zendejas Last Filed: 05/09/24 14:09> Source: patient <MANI Zendejas Last Filed: 05/09/24 14:09> Mode of arrival: ambulatory <MANI Zendejas Last Filed: 05/09/24 14:09> Limitations: no limitations <MANI Zendejas Last Filed: 05/09/24 14:09> History of Present Illness HPI narrative: I agree with the assessment and documentation by Angie Carmen PA-C. <Amy Meyer APRN - Last Filed: 05/10/24 01:40> Related Data Home Medications: Home Medications ?Medication ?Instructions ?Recorded ?Confirmed ?Last Taken ?Type amlodipine 10 mg tablet 10 mg PO DAILY 09/27/20 05/22/23 Unknown History aspirin 81 mg tablet,delayed 81 mg PO DAILY 09/27/20 05/22/23 10/29/20 History release 81 atorvastatin 80 mg tablet 80 mg PO DAILY 09/27/20 05/22/23 Unknown History carvedilol 6.25 mg tablet 6.25 mg PO DAILY 09/27/20 05/22/23 10/29/20 History 6.25 <Angie Carmne PA-C - Last Filed: 05/09/24 14:09> Allergies/Adverse Reactions: Allergies Allergy/AdvReac Type Severity Reaction Status Date / Time codeine AdvReac Intermediate Nausea Verified 05/22/23 13:09 <Angie Carmen PA-C - Last Filed: 05/09/24 14:09> Review of Systems Review of Systems: All systems reviewed & are unremarkable except as noted in HPI and below <Amy Meyer APRN - Last Filed: 05/10/24 01:40> [facility] Past Medical History Medical History: Medical History History of DVT (deep vein thrombosis) <Angie Carmen PA-C - Last Filed: 05/09/24 14:09> Family History Family History: Family History Grandparent Acute myocardial infarction Diabetes mellitus Mother Acute myocardial infarction Cerebrovascular accident Diabetes mellitus Son Asthma <Angie Carmen PA-C - Last Filed: 05/09/24 14:09> Social History Social History: Social History Smoking packs per day: 2 Smoking cigarettes per day: 40.0 Years smoked: 40 Smoking pack-years: 80.00 Smoking status: Former smoker Tobacco type: cigarettes Smoking end date: 06/21/20 Additional smoking assessment comments: Basia states she stopped smoking the day of her HI Alcohol intake: former Substance use type: marijuana Gender identity (if verbalized by the patient): Female Spiritual care concerns: No <Angie Caremn PA-C - Last Filed: 05/09/24 14:09> Exam Narrative: GENERAL: Well appearing, well-nourished, non-toxic, in no acute distress. HEAD: Normocephalic, atraumatic. NECK: Supple. No adenopathy, no masses. RESPIRATORY: Airway patent, respirations nonlabored. Clear to auscultation bilaterally, no rales, rhonchi, wheezing. CARDIOVASCULAR: Regular rate and rhythm without murmurs, rubs, or gallops. Peripheral pulses 2+ and equal bilaterally. -CVA tenderness ABDOMINAL: Soft, nontender, nondistended, no hepatosplenomegaly. Normoactive BS. MUSCULOSKELETAL: Moves all extremities. Strength/ROM intact without gross deformities. SKIN: Warm, dry, normal color. No rashes. NEURO: A&O X3. Speech clear. Cranial nerves intact. No ataxic movements. PSYCHIATRIC: Appropriate mood and affect. Normal interaction. <Amy Meyer APRN - Last Filed: 05/10/24 01:40> Course Vital Signs Vital signs: Vital Signs Temperature 36.6 C 05/09/24 13:56 Pulse Rate 95 05/09/24 13:56 Respiratory Rate 16 05/09/24 13:56 Blood Pressure 159/102 H 05/09/24 13:56 Pulse Oximetry 99 05/09/24 13:56 Oxygen Delivery Room Air 05/09/24 13:56 Temperature 36.6 C 05/09/24 13:56 Pulse Rate 64 05/09/24 22:42 Respiratory Rate 17 05/09/24 22:39 Blood Pressure 141/85 H 05/09/24 22:01 Pulse Oximetry 99 05/09/24 22:39 Oxygen Delivery Room Air 05/09/24 20:18 <Angie Carmen PA-C - Last Filed: 05/09/24 14:09> Vital Signs Temperature 36.6 C 05/09/24 13:56 Pulse Rate 95 05/09/24 13:56 Respiratory Rate 16 05/09/24 13:56 Blood Pressure 159/102 H 05/09/24 13:56 Pulse Oximetry 99 05/09/24 13:56 Oxygen Delivery Room Air 05/09/24 13:56 Temperature 36.6 C 05/09/24 13:56 Pulse Rate 64 05/09/24 22:42 Respiratory Rate 17 05/09/24 22:39 Blood Pressure 141/85 H 05/09/24 22:01 Pulse Oximetry 99 05/09/24 22:39 Oxygen Delivery Room Air 05/09/24 20:18 <Amy Meyer, RN RESIDENTIAL - Last Filed: 05/10/24 01:40> MDM - Chest Pain MDM Narrative Medical decision making narrative: Patient is a 64 y/o female, with PMH of CAD s/p stenting in 2020, who presents to the ED with c/o CP and elevated BP. Patient reports she has been having pain in her L shoulder pain and upper back since yesterday. States pain began radiating through to her chest today. Worse with certain positions, worse with deep breathing. Tried taking Tylenol and ASA at home w/o improvement. She has been feeling increasingly short of breath. Denies cough, congestion, fevers, BLE pain or swelling. Labs Ordered: CBC, CMP, D-dimer, TSH, COVID/flu/RSV, troponin, INR, PTT Imaging Ordered: Chest x-ray Medications Ordered: Aspirin p.o., Tylenol p.o., Flexeril PO, nitroglycerin SL Results: Patient's chest x-ray indicates The lungs are clear. The cardiomediastinal silhouette is within normal limits. There are no pleural effusions. There is no pneumothorax suspected. No CTA chest scan ordered due to negative aortic dissection detection risk score. Diagnosis: atypical chest pain Risks: HEART score HEART Pathway for Early Discharge in Acute Chest Pain from [employer] on 05/09/2024 All calculations should be rechecked by clinician prior to use RESULT SUMMARY: 3 points HEART Pathway Score Low risk 0.9-1.7% 30-day MACE Repeat troponin at 3 hours and if negative, discharge home with outpatient follow-up. INPUTS: History ?> 1 = Moderately suspicious EKG ?> 0 = Normal Age ?> 1 = 45-64 Risk factors ?> 1 = 1-2 risk factors Initial troponin ?> 0 = <=normal limit Aortic Dissection Detection Risk Score (ADD-RS) from [employer] on 05/09/2024 All calculations should be rechecked by clinician prior to use RESULT SUMMARY: 1 points Proceed to D-dimer testing according to ADD-RS; if <500 ng/mL, consider stopping dissection workup, or if >=00 ng/mL, consider CTA. INPUTS: Any high risk condition ?> 0 = No Any high risk pain feature ?> 1 = Yes Any high risk exam feature ?> 0 = No Consults: None necessary Patient Education/Shared MDM: Results of blood work and chest x-ray shared with patient. Pt reports the Nitro SL did not help relieve her symptoms at all. Following the GI cocktail administration she endorses significant improvement in her symptoms. Upon further discussion patient reports ?I am supposed to take omeprazole but I have not needed it lately. Education was provided to pt regarding the need to take Prilosec every day, and she may take Pepcid as needed. Patient strongly advised to maintain hydration status upon discharge and follow-up with her PCP. She will be discharged home with prescription for Pepcid and Omeprazole. Strict return precautions provided. Patient verbalized understanding is in agreement with plan. Vital signs stable at time of discharge. All questions answered. <Amy Meyer APRN - Last Filed: 05/10/24 01:40> Differential Diagnosis Differential diagnosis: Likely atypical chest pain, costochondritis, chest pain and other (GERD) <Amy Meyer APRN - Last Filed: 05/10/24 01:40> Lab Data Attestation: I reviewed the patient's lab results. <Amy Meyer APRN - Last Filed: 05/10/24 01:40> Result diagrams: 05/09/24 14:15 05/09/24 14:15 <Angie Carmen PA-C - Last Filed: 05/09/24 14:09> Labs: Lab Results 05/09/24 05/09/24 05/09/24 Range/Units 14:15 17:11 20:48 WBC 7.2 (4.5-10.0) K/mm3 RBC 4.98 (4.2-5.4) M/mm3 Hgb 15.9 H (12.0-15.0) g/dL Hct 47.1 H (37.0-47.0) % MCV 94.6 (80-100) fl MCH 31.9 (26-34) pg MCHC 33.8 (32-36) g/dl RDW 12.5 (11.5-14.5) % Plt Count 220 (150-375) k/mm3 MPV 9.3 (7.4-10.4) fl Immature Gran % (Auto) 0.1 (0-0.5) % Neut % (Auto) 73.5 H (45.5-73.1) % Lymph % (Auto) 19.8 (18.3-44.2) % Barnwell % (Auto) 6.1 (2.6-8.5) % Eos % (Auto) 0.1 (0-4.4) % Baso % (Auto) 0.4 (0.2-1.2) % Lymph # (Auto) 1.42 (0.9-3.2) K/mm3 Barnwell # (Auto) 0.4 (0.1-0.6) K/mm3 Eos # (Auto) 0.0 (0-0.3) K/mm3 Baso # (Auto) 0.0 (0.0-0.1) K/mm3 Abs Immat Gran (auto) 0.01 (0.00-0.031) K/mm3 Absolute Neuts (auto) 5.3 (1.3-6.7) K/mm3 Absolute Nucleated RBC 0.000 (0.0-0.012) K/mm3 Nucleated RBC % 0.0 (0.0-0.2) % PT 12.9 (11.1-14.7) Seconds INR 0.9 APTT 25.8 (22.3-36.8) Seconds D-Dimer Cancelled 0.28 Sodium 137 (137-145) mmol/L Potassium 4.4 (3.4-5.0) mmol/L Chloride 104 (98-107) mmol/L Carbon Dioxide 23 (22-30) mmol/L Anion Gap 10 (4-12) mmol/L BUN 15 D (7-17) mg/dL Creatinine 0.61 L (0.7-1.0) mg/dL Estim Creat Clear Calc 69 ml/min Estimated GFR > 60 (59 - ) Glucose 146 H (65-110) mg/dL Calcium 9.7 (8.4-10.2) mg/dL Total Bilirubin 0.8 (0.2-1.3) mg/dL AST 28 (14-36) U/L ALT 31 (6-35) U/L Alkaline Phosphatase 74 (38-126) U/L Troponin I < 0.012 < 0.012 < 0.012 (0.000-0.034) ng/mL Total Protein 8.0 (6.3-8.2) g/dL Albumin 4.6 (3.5-5.1) g/dL Lipase 68 (23-300) U/L TSH (Reflex) 1.880 (0.465-4.68) uIU/mL Influenza A (RT-PCR) Negative (Negative) Influenza B (RT-PCR) Negative (Negative) RSV (RT-PCR) Negative (Negative) SARS-CoV-2 RNA (RT-PCR) Negative (Negative) <Angie Carmen PA-C - Last Filed: 05/09/24 14:09> Lab Results 05/09/24 05/09/24 05/09/24 Range/Units 14:15 17:11 20:48 WBC 7.2 (4.5-10.0) K/mm3 RBC 4.98 (4.2-5.4) M/mm3 Hgb 15.9 H (12.0-15.0) g/dL Hct 47.1 H (37.0-47.0) % MCV 94.6 (80-100) fl MCH 31.9 (26-34) pg MCHC 33.8 (32-36) g/dl RDW 12.5 (11.5-14.5) % Plt Count 220 (150-375) k/mm3 MPV 9.3 (7.4-10.4) fl Immature Gran % (Auto) 0.1 (0-0.5) % Neut % (Auto) 73.5 H (45.5-73.1) % Lymph % (Auto) 19.8 (18.3-44.2) % Barnwell % (Auto) 6.1 (2.6-8.5) % Eos % (Auto) 0.1 (0-4.4) % Baso % (Auto) 0.4 (0.2-1.2) % Lymph # (Auto) 1.42 (0.9-3.2) K/mm3 [place]well # (Auto) 0.4 (0.1-0.6) K/mm3 Eos # (Auto) 0.0 (0-0.3) K/mm3 Baso # (Auto) 0.0 (0.0-0.1) K/mm3 Abs Immat Gran (auto) 0.01 (0.00-0.031) K/mm3 Absolute Neuts (auto) 5.3 (1.3-6.7) K/mm3 Absolute Nucleated RBC 0.000 (0.0-0.012) K/mm3 Nucleated RBC % 0.0 (0.0-0.2) % PT 12.9 (11.1-14.7) Seconds INR 0.9 APTT 25.8 (22.3-36.8) Seconds D-Dimer Cancelled 0.28 Sodium 137 (137-145) mmol/L Potassium 4.4 (3.4-5.0) mmol/L Chloride 104 (98-107) mmol/L Carbon Dioxide 23 (22-30) mmol/L Anion Gap 10 (4-12) mmol/L BUN 15 D (7-17) mg/dL Creatinine 0.61 L (0.7-1.0) mg/dL Estim Creat Clear Calc 69 ml/min Estimated GFR > 60 (59 - ) Glucose 146 H (65-110) mg/dL Calcium 9.7 (8.4-10.2) mg/dL Total Bilirubin 0.8 (0.2-1.3) mg/dL AST 28 (14-36) U/L ALT 31 (6-35) U/L Alkaline Phosphatase 74 (38-126) U/L Troponin I < 0.012 < 0.012 < 0.012 (0.000-0.034) ng/mL Total Protein 8.0 (6.3-8.2) g/dL Albumin 4.6 (3.5-5.1) g/dL Lipase 68 (23-300) U/L TSH (Reflex) 1.880 (0.465-4.68) uIU/mL Influenza A (RT-PCR) Negative (Negative) Influenza B (RT-PCR) Negative (Negative) RSV (RT-PCR) Negative (Negative) SARS-CoV-2 RNA (RT-PCR) Negative (Negative) <Amy Meyer APRN - Last Filed: 05/10/24 01:40> Imaging Data Attestation: I personally reviewed and interpreted this imaging study as follows: <Amy Meyer APRN - Last Filed: 05/10/24 01:40> Radiologist's impression: Impressions Chest X-Ray 05/09/24 14:45 IMPRESSION: 1: NO ACUTE CARDIOPULMONARY DISEASE. <Amy Meyer APRN - Last Filed: 05/10/24 01:40> Discharge Plan Discharge Clinical Impression: Chest pain due to GERD, Atypical chest pain <Angie Carmen PA-C - Last Filed: 05/09/24 14:09> Patient Disposition: Home, Self-Care <MANI Zendejas Last Filed: 05/09/24 14:09> Condition: Stable <MANI Zendejas Last Filed: 05/09/24 14:09> Instructions: Antibiotic Form, GERD (Gastroesophageal Reflux Disease) (ED) <MANI Zendejas Last Filed: 05/09/24 14:09> Additional Instructions: Please return to the ER with an worsening symptoms. Follow-up with primary care provider as soon as possible. Take all medications as prescribed. <MANI Zendejas Last Filed: 05/09/24 14:09> Patient Language: Korean <MANI Zendejas Last Filed: 05/09/24 14:09> Prescriptions: New omeprazole 40 mg capsule,delayed release(DR/EC) 40 mg PO DAILY Qty: 30 0RF famotidine [Pepcid] 40 mg tablet 40 mg PO BID Qty: 30 0RF No Action atorvastatin 80 mg tablet 80 mg PO DAILY carvedilol 6.25 mg tablet 6.25 mg PO DAILY amlodipine 10 mg tablet 10 mg PO DAILY aspirin [Aspir-81] 81 mg Tablet,Delayed Release (Dr/Ec) 81 mg PO DAILY ondansetron 4 mg tablet,disintegrating 4 mg PO Q8H PRN (Reason: nausea and vomiting) Qty: 14 0RF famotidine [Pepcid] 20 mg tablet 20 mg PO DAILY Qty: 30 0RF <Angie Carmen PA-C - Last Filed: 05/09/24 14:09> Follow-up/Referrals: Joel Dueñas MD [Primary Care Provider] - <Angie Carmen PA-C - Last Filed: 05/09/24 14:09> Time of Disposition: 01:39 <Angie Carmen PA-C - Last Filed: 05/09/24 14:09> 01:39 <Amy Meyer APRN - Last Filed: 05/10/24 01:40>
--- NOTE | 2024-05-09 14:05 | ECG_ITS ---
Test Date: 2024-05-09 14:07:37 Measurements Intervals [place] Rate: 69 P: 43 ME: 156 QRS: -43 QRSD: 85 T: 51 QT: 374 QTc: 403 Interpretive Statements SINUS RHYTHM WITH SINUS ARRHYTHMIA LEFT AXIS DEVIATION POSSIBLE ANTERIOR MYOCARDIAL INFARCTION , OF INDETERMINATE AGE BASELINE ARTIFACT- I, II, III, AVL ABNORMAL ECG Compared to ECG 05/09/2024 03:30:41 NO SIGNIFICANT CHANGE Electronically Signed On 05-09-2024 14:29:32 RUSSIAN RUBBER by Carroll Madison D.O.
[2024-05-09 14:22] LABS: Basophils Percent Auto 0.4 % (0.2-1.2); Eosinophils Percent Auto 0.1 % (0-4.4); Hematocrit 47.1 % (37.0-47.0); Hemoglobin 15.9 g/dL (12.0-15.0); Immature Granulocyte Absolute 0.01 K/mm3 (0.00-0.031); Immature Granulocyte Percent A 0.1 % (0-0.5); Lymphocytes Absolute Auto 1.42 K/mm3 (0.9-3.2); Lymphocytes Percent Auto 19.8 % (18.3-44.2); Mean Corpuscular HGB Conc 33.8 g/dl (32-36); Mean Corpuscular Hemoglobin 31.9 pg (26-34); Mean Corpuscular Volume 94.6 fl (80-100); Mean Platelet Volume 9.3 fl (7.4-10.4); Monocytes Absolute Auto 0.4 K/mm3 (0.1-0.6); Monocytes Percent Auto 6.1 % (2.6-8.5); Neutrophils Absolute Auto 5.3 K/mm3 (1.3-6.7); Neutrophils Percent Auto 73.5 % (45.5-73.1); Platelet Count Result 220 k/mm3 (150-375); Red Blood Count 4.98 M/mm3 (4.2-5.4); Red Cell Distribution Width 12.5 % (11.5-14.5); White Blood Count 7.2 K/mm3 (4.5-10.0)
[2024-05-09 14:32] LABS: Alanine Aminotransferase 31 U/L (6-35); Albumin Level 4.6 g/dL (3.5-5.1); Alkaline Phosphatase 74 U/L (38-126); Anion Gap 10 mmol/L (4-12); Aspartate Amino Transferase 28 U/L (14-36); Bilirubin,Total 0.8 mg/dL (0.2-1.3); Blood Urea Nitrogen 15 mg/dL (7-17); Calcium 9.7 mg/dL (8.4-10.2); Carbon Dioxide 23 mmol/L (22-30); Chloride 104 mmol/L (98-107); Estimated CRCL calculation 69 ml/min; Estimated Glomerular Filt Rate > 60; Glucose 146 mg/dL (65-110); Lipase 68 U/L (23-300); Potassium 4.4 mmol/L (3.4-5.0); Sodium 137 mmol/L (137-145)
[2024-05-09 14:34] LABS: INR 0.9; Prothrombin Time 12.9 Seconds (11.1-14.7)
[2024-05-09 14:35] LABS: Partial Thromboplastin Time 25.8 Seconds (22.3-36.8)
[2024-05-09 14:44] LABS: Troponin I < 0.012 ng/mL (0.000-0.034)
--- OUTSIDE RECORDS SUMMARY | 2024-05-09 14:46 | XMS_ITS | Encounter Summary ---
Author Organization [facility] Address [address] [place] [address] Care Team Providers Care Experimental Machining Lab Manager Name Role Phone Unavailable Primary Care [...] st Contact Info) Description 05/18/2024 4:00 PM FORESTRY AID Office Visit [facility] - Cardiology [address] [facility], [facility] [address] [place] [address] Basia Cortez, MERVAT [address] [place] [address] 07/19/2024 4:00 PM CDT Office Visit [facility] - Rheumatology [address], [address] [place] [address] Abel Amin DO [address] [place] [address] documented as of this encounter Visit Diagnoses Not on filedocumented in this encounter
--- OUTSIDE RECORDS SUMMARY | 2024-05-09 14:46 | XMS_ITS | Encounter Summary ---
Author Organization [facility] Address [address] [place] [address] Care Team Providers Care Mechanical Oxidizer Name Role Phone Kevan Mejía MD Primary Care Provider Unavailable Encounter Details Date Type Department Care Team (Late st Contact Info) Description 07/24/2012 Abstract [facility] CONVERSION [address] [place] [address] Kevan Mejía MD Social History Tobacco Use [...] on filedocumented in this encounter Care Teams Mechanical Oxidizer Relationship Specialty Start Date End Date Kevan Mejía MD PCP - General 07/24/12 documented as of this encounter
--- OUTSIDE RECORDS SUMMARY | 2024-05-09 14:46 | XMS_ITS | Referral Summary ---
Author Organization [facility] Address [address] [place] [address] Care Team Providers Care Quality Control Assistant Name Role Phone Unavailable Primary Care Provider Unavailabl e Source Comments [facility],non-owned Affiliates and Associated Physician Practices is amultiple site organization consisting of ambulatory clinics and hospital sitesin [place], [place], [place] and [place]. This disclosure is being madepursuant to the Care Everywhere program and may not contain all information available regarding this patient. Last updated 17.[facility] Encounters Date Type Department Care Team Description 05/08/2024 Travel 05/08/[address] [facility] - Rheumatology [address] [place] [address], [address] [place] [id number] Abel Amin DO MEDICATION REFILL 03/01/2024 Refill [facility] - Cardiology [address] [place] [address], [address] [place] [phone] Basia Cortez PA MEDICATION REFILL from Last [...] corticosteroid injection, or referral to hand surgical asst for consideration of basilar thumb arthroplasty. Basia Al favored a trial of duloxetine and will start at 30 mg taken at bedtime but if not feeling improved with less pain after 14 days to contact [facility] Rheumatology to be provided a dose titration as long as tolerated without side effects. S/P drug eluting coronary stent placement 2023 Coronary artery disease invo lving [place] coronary artery of [place] heart without angina pectoris 10/22/2023 Mixed hyperlipidemia [...] st Contact Info) Description 05/18/2024 4:00 PM CAN FEEDER Office Visit [facility] - Cardiology [address] [facility], [address] [place] [address] Basia Crotez, PA [address] [place] [address] 07/19/2024 4:00 PM CDT Office Visit [facility] - Rheumatology [address], [address] [place] [address] Abel Amin DO [address] [place] [address] Medical Devices Implanted Type Area Roll Forming Supervisor Device Identifier Shelf Expiration Date Model / Serial / Lot Sys Cor Stent Xience Srr 3mm 15mm Rap Ex Implanted:Qty: 1 on 06/21/2020 by Hima Tracey MD at [facility] Coronary [employer] 09/03/2021 [id number] Description:m-[facility] Advance Directives * Full Code (Latest Code Status on File) Date Activated Date Inactivated Comments 06/20/2020 9:53 PM 06/22/2020 2:41 PM
--- OUTSIDE RECORDS SUMMARY | 2024-05-09 14:46 | XMS_ITS | Encounter Summary ---
Author Organization [facility] Address [address] [place] [address] Care Team Providers Care Neurocritical Care Physician Name Role Phone Unavailable Primary Care Provider Unavailabl e Reason for Visit * Reason Onset Date Comments MEDICATION REFILL 11/17/2020 Encounter Details Date Type Department Care Team (Late st Contact Info) Description 11/17/2020 Refill [facility] [address] [facility] [address] [place] [address] Isidro Martínez W, DO [address] [facility] [address] [place], [place] [address] MEDICATION REFILL Social History Tobacco Use Types [...] st Contact Info) Description 05/18/2024 4:00 PM CHARGE POSTER Office Visit [facility] - Cardiology [address] [facility] [address] [place] [address] Basia Cortez, MERVAT [address] [place] [address] 07/19/2024 4:00 PM CDT Office Visit [facility] - Rheumatology [address] [facility], [address] [place] [address] Abel Amin DO [address] [facility] [address] [place] [address] documented as of this encounter Visit Diagnoses Diagnosis Essential hypertension NSTEMI (non-ST elevated myocardial infarction) (HCC) Acute myocardial infarction, subendocardial infarction, episode of care unspecified documented in this encounter
--- OUTSIDE RECORDS SUMMARY | 2024-05-09 14:46 | XMS_ITS | Patient Health Summary ---
Author Organization [facility] Address [address] [place] [address] Care Team Providers Care Elevated Guard Name Role Phone Unavailable Primary Care Provider Unavailabl e Note from [facility],non-owned Affiliates and Associated Physician Practices is amultiple site organization consisting of ambulatory clinics and hospital sitesin [place], [place], [place] and [place]. This disclosure is being madepursuant to the Care Everywhere program and may not contain all information available regarding this patient. Last updated 17.[facility] Allergies * Codeine(GI Discomfort) -High Criticality Medications [...] placement 2023 Coronary artery disease invo lving [place] coronary artery of [place] heart without angina pectoris 10/22/2023 Mixed hyperlipidemia [...] PM CDT Medical Devices Implanted Type Area Roundhouse Supervisor Device Identifier Shelf Expiration Date Model / Serial / Lot Sys Cor Stent Xience Srr 3mm 15mm Rap Ex Implanted:Qty: 1 on 06/21/2020 by Hima Herrera MD at [facility] Coronary [employer] 09/03/2021 [id number] Description:m-CIRC Procedures * LIPID PROFILE(Performed 08/28/2020) Performed for NSTEMI (non-ST elevated myocardial infarction) (HCC), Mixed hyperlipidemia * CARDIAC EKG ORDER(Performed 06/25/2020) * CARDIAC PROCEDURE ORDER(Performed 06/24/2020) * PHOSPHORUS BLOOD(Performed 06/22/2020) * MAGNESIUM BLOOD(Performed 06/22/2020) * BASIC METABOLIC PANEL (CALCIUM TOTAL)(Performed 06/22/2020) * CBC W AUTO DIFFERENTIAL(Performed 06/22/2020) * CULTURE URINE(Performed 06/21/2020) Performed for NSTEMI (non-ST elevated myocardial infarction) ([facility]) * CCL CARDIAC CATH LEFT(Performed 06/21/2020) Performed for NSTEMI (non-ST elevated myocardial infarction) ([facility]) * ECHO COMPLETE(Performed 06/21/2020) Performed for NSTEMI (non-ST elevated myocardial infarction) ([facility]) * LIPID PROFILE(Performed 06/21/2020) Performed for NSTEMI (non-ST elevated myocardial infarction) ([facility]) * LACTIC ACID BLOOD(Performed 06/21/2020) * PTT SLH(Performed 06/21/2020) * URINALYSIS REFLEX TO MICROSCOPIC NO CULTURE(Performed 06/21/2020) * EKG 12-LEAD(Performed 06/20/2020) Performed for NSTEMI (non-ST elevated myocardial infarction) ([facility]) * SARS-COV-2 (COVID-19) IN HOUSE(Performed 06/20/2020) * [...] Performed for NSTEMI (non-ST elevated myocardial infarction) ([facility]) Results * (ABNORMAL) LIPID PROFILE (08/28/2020 2:11 PM CDT) Only the most recent of2 resultswithin the time period is included. Cholesterol Total 190 <200 mg/dL 08/28/2020 2:55 PM CDT [facility] HDL 46 >40 mg/dL 08/28/2020 2:55 PM CDT [facility] Comment: ATP III Classification of HDL Cholesterol: <40 mg/dL: Considered a major risk factor. >60 mg/dL: Considered a negative risk factor. LDL Calculated 82 <100 mg/dL 08/28/2020 2:55 PM CDT [facility] Comment: ATP III Classification of LDL Cholesterol: <100 mg/dL: Optimal 100 - 129 mg/dL: Near Optimal/Above Optimal 130 - 159 mg/dL: Borderline High 160 - 189 mg/dL: High >190 mg/dL: Very High Triglycerides 312(H) <150 mg/dL 08/28/2020 2:55 PM CDT [facility] Comment: ATP III Classification of Triglycerides: <150 mg/dL: Normal 150 - 199 mg/dL: Borderline High 200 - 400 mg/dL: High >500 mg/dL: Very High Blood BLOOD SPECIMEN / Unknown Lab Venipuncture / Unknown 08/28/2020 2:11 PM CDT 08/28/2020 2:30 PM CDT Leonides Chávez MD LAB - CHEMISTRY ORD ERABLES [facility] [address] [place] [address], [facility] [phone] * CARDIAC EKG ORDER (06/25/2020 9:10 AM [...] - 10.5 10 3/uL 06/22/2020 5:08 AM [facility] RBC 5.29(H) 3.90 - 5.00 10 6/uL 06/22/2020 5:08 AM [facility] Hemoglobin 16.4(H) 12.0 - 15.5 g/dL 06/22/2020 5:08 AM [facility] Hematocrit 48.3(H) 35.0 - 45.0 % 06/22/2020 5:08 AM [facility] MCV 91.3 81.0 - 97.0 fL 06/22/2020 5:08 AM [facility] MCH 31.0 28.0 - 34.0 pg 06/22/2020 5:08 AM [facility] MCHC 34.0 32.0 - 36.0 g/dL 06/22/2020 5:08 AM [facility] Platelet Count 215 150 - 400 10 3/uL 06/22/2020 5:08 AM [facility] RDW-SD 42.8 36.0 - 50.0 fL 06/22/2020 5:08 AM [facility] RDW-CV 12.7 11.2 - 14.8 % 06/22/2020 5:08 AM [facility] MPV 9.6 9.3 - 12.8 fL 06/22/2020 5:08 AM [facility] nRBC Absolute 0.00 0 10 3/uL 06/22/2020 5:08 AM [facility] nRBC Auto 0.0 0 /100 WBC 06/22/2020 5:08 AM [facility] Neutrophils % 70.3(H) 35.0 - 70.0 % 06/22/2020 5:08 AM [facility] Lymphocytes % 18.9(L) 19.7 - 55.1 % 06/22/2020 5:08 AM [facility] Monocytes % 9.8 3.0 - 15.0 % 06/22/2020 5:08 AM [facility] Eosinophils % 0.2 0.0 - 6.0 % 06/22/2020 5:08 AM CDT [facility] Basophil % 0.4 0.0 - 1.5 % 06/22/2020 5:08 AM [facility] Neutrophils Absolute 7.8(H) 1.6 - 7.0 10 3/uL 06/22/2020 5:08 AM [facility] Lymphocyte Absolute 2.1 0.8 - 2.9 10 3/uL 06/22/2020 5:08 AM T [facility] Monocytes Absolute 1.08(H) 0.14 - 0.66 10 3/uL 06/22/2020 5:08 AM [facility] Eosinophils Absolute 0.02 0.00 - 0.45 10 3/uL 06/22/2020 5:08 AM [facility] Basophils Absolute 0.04 0.00 - 0.06 10 3/uL 06/22/2020 5:08 AM [facility] Immature Granulocytes % 0.4 0.0 - 1.0 % 06/22/2020 5:08 AM [facility] Blood BLOOD SPECIMEN / Unknown Venipuncture / Unknown 06/22/2020 4:45 AM CDT 06/22/2020 4:49 AM CDT Braulio Dueñas MD LAB - HEMATOLOGY ORD ERABLES [facility] [address] [place] [address], [facility] [phone] * (ABNORMAL) BASIC METABOLIC PANEL (CALCIUM TOTAL) (06/22/2020 4:45 AM CDT) BUN 10 7 - 26 mg/dL 06/22/2020 5:17 AM CDT [facility] Creatinine 0.7 0.6 - 1.2 mg/dL 06/22/2020 5:17 AM [facility] Sodium 138 136 - 145 mmol/L 06/22/2020 5:17 AM [facility] Potassium 4.1 3.5 - 4.5 mmol/L 06/22/2020 5:17 AM T [facility] Chloride 104 98 - 107 mmol/L 06/22/2020 5:17 AM [facility] CO2 22 22 - 29 mmol/L 06/22/2020 5:17 AM [facility] Glucose 136(H) 70 - 115 mg/dL 06/22/2020 5:17 AM [facility] Calcium 9.0 8.4 - 10.2 mg/dL 06/22/2020 5:17 AM [facility] Anion Gap 16 8 - 18 06/22/2020 5:17 AM [facility] BUN/Creatinine Ratio 14 7 - 23 06/22/2020 5:17 AM [facility] Osmolality Calculated 287 270 - 300 mOsm/kg 06/22/2020 5:17 AM [facility] eGFR >60 >60 mL/min/1.7 3 m2 06/22/2020 5:17 AM [facility] Blood BLOOD SPECIMEN / Unknown Venipuncture / Unknown 06/22/2020 4:45 AM CDT 06/22/2020 4:49 AM CDT Braulio Dueñas MD LAB - CHEMISTRY [facility] [address] [address], [place] [phone] * PHOSPHORUS BLOOD (06/22/2020 4:45 AM CDT) Only the most recent of2 resultswithin the time period is included. Phosphorus 2.4 2.3 - 4.7 mg/dL 06/22/2020 5:17 AM T [facility] Blood BLOOD SPECIMEN / Unknown Venipuncture / Unknown 06/22/2020 4:45 AM CDT 06/22/2020 4:49 AM CDT Braulio Dueñas MD LAB - CHEMISTRY [facility] [address] [address], [place] [phone] * MAGNESIUM BLOOD (06/22/2020 4:45 AM CDT) Only the most recent of2 resultswithin the time period is included. Magnesium 1.9 1.6 - 2.6 mg/dL 06/22/2020 5:17 AM CDT [facility] Blood BLOOD SPECIMEN / Unknown Venipuncture / Unknown 06/22/2020 4:45 AM CDT 06/22/2020 4:49 AM CDT Braulio Dueñas MD LAB - CHEMISTRY [facility] [address] [place] [address], [facility] [phone] * CULTURE URINE (06/21/2020 7:01 PM CDT) Culture Urine 10,000-50,000 CFU/mL urogenital torres DEION 06/23/2020 7:13 AM CDT [facility]CRO[facility] Urine URINE SPECIMEN OBTAINED BY CLEAN CATCH PROCEDURE / Unknown Collection / Unknown 06/21/2020 7:01 PM CDT 06/21/2020 7:03 PM CDT Braulio Dueñas MD LAB - MICROBIOLOGY O RDERABLES Performing Organization Address City/[facility] [place]/ZIP Co de Phone Number [facility]CRO[facility]OLOG[facility] [address] [place] [address], [facility] [phone] * CCL CARDIAC CATH LEFT (06/21/2020 3:01 PM CDT) Anatomical Region Laterality Modality Chest X-Ray Angiograph y Narrative 06/22/2020 12:33 AM CDT [facility] Procedure Note Patient: Basia Al Age: [age] year old Date of : 1960 Procedure Date: 06/21/20 BRAKE RIDER: Charlie Glover ATTENDING PHYSICIAN: Hima Herrera HISTORY: 60 year old female previously healthy who presented with chest pain to [place], found to have multi- vessel disease. She [...] NSTEMI PCI INDICATION: NSTEMI Unstable Angina / Aba-TA-Mawwralvh Myocardial Infarction-Class:I PCI STATUS: urgent PCI PROCEDURAL [...] DURING PCI: Heparin 7. INTERVENTIONAL WIRE: A Branch2i wire was advanced beyond the lesion into [...] Herrera MD 06/22/2020 Braulio Dueñas MD CARDIAC OPEN TENTER OPERATOR RAD IANT * ECHO COMPLETE (06/21/2020 12:36 PM CDT) Anatomical Region Laterality Modality Chest Echo 06/21/2020 11:5 4 AM CDT Narrative Procedure Note John Chavarria MD - 06/21/2020 Braulio Dueñas MD ECHOCARDIOGRAPHY RAD IANT * (ABNORMAL) PTT [facility] (06/21/2020 5:13 AM CDT) Only the most recent of2 resultswithin the time period is included. APTT 122.4(HH) 23.0 - 38.4 Seconds 06/21/2020 7:46 AM CDT [facility] Comment: Patient is on Heparin, Argatroban or Dabigatran. Blood BLOOD SPECIMEN / Unknown Venipuncture / Unknown 06/21/2020 5:13 AM CDT 06/21/2020 6:04 AM CDT Braulio Dueñas MD LAB - COAGULATION OR DERABLES Performing Organization Address [facility]/State/[facility] Co de Phone Number [address] [address], [facility] [phone] * LACTIC ACID BLOOD (06/21/2020 5:13 AM CDT) Only the most recent of2 resultswithin the time period is included. Lactic Acid-Stat 1.0 0.5 - 2.2 mmol/L 06/21/2020 6:19 AM CDT [facility] Blood BLOOD SPECIMEN / Unknown Venipuncture / Unknown 06/21/2020 5:13 AM CDT 06/21/2020 5:47 AM CDT Braulio Dueñas MD LAB - CHEMISTRY [facility] [address] [place] [address], [facility] [phone] * (ABNORMAL) URINALYSIS REFLEX TO MICROSCOPIC NO CULTURE (06/21/2020 2:02 AM CDT) Color UA Yellow Straw, Yellow, Colorless 06/21/2020 2:21 AM [facility] Clarity UA Slt Cloudy Clear, t Cloudy 06/21/2020 2:21 AM [facility] Specific [place] UA 1.034(H) 1.005 - 1.030 06/21/2020 2:21 AM [facility] pH UA 5.0 5.0 - 8.0 pH 06/21/2020 2:21 AM [facility] Protein UA 1+(A) Negative mg/dL 06/21/2020 2:21 AM [facility] Glucose UA Negative Negative mg/dL 06/21/2020 2:21 AM [facility] Ketone UA 2+(A) Negative mg/dL 06/21/2020 2:21 AM [facility] Bilirubin UA Negative Negative mg/dL 06/21/2020 2:21 AM [facility] Blood UA 1+(A) Negative 06/21/2020 2:21 AM [facility] Nitrite UA Negative Negative 06/21/2020 2:21 AM [facility] Leukocyte Esterase 3+(A) Negative 06/21/2020 2:21 AM [facility] Urobilinogen UA Negative Negative mg/dL 06/21/2020 2:21 AM [facility] RBC UA 6-10(A) None Seen, 0-2, 3-5 /HPF 06/21/2020 2:21 AM [facility] WBC UA 6-10(A) None Seen, 0-5 /HPF 06/21/2020 2:21 AM [facility] Squamous Epithelial Cells UA 3-5(A) None Seen, 0-2 /HPF 06/21/2020 2:21 AM CDT [facility] Urine URINE SPECIMEN OBTAINED BY CLEAN CATCH PROCEDURE / Unknown Collection / Unknown 06/21/2020 2:02 AM CDT 06/21/2020 2:14 AM CDT Narrative [facility] - 06/21/2020 2:21 AM CDT Braulio Dueñas MD LAB - URINALYSIS ORD ERABLES Performing Organization Address City/[facility] [place]/ZIP Co de Phone Number [facility] [address] [place] [address], [facility] [phone] * EKG 12-LEAD (06/20/2020 10:54 PM CDT) Ventricular Rate 59 BPM [facility] MUSE Atrial Rate 59 BPM [facility] MUSE P-R Interval 150 ms [facility] MUSE QRS Duration ms 80 ms [facility] MUSE Q-T Interval ms 450 ms [facility] MUSE QTC Calculation (Bezet) 445 ms [facility] MUSE Calculated P [place] 56 degrees [facility] MUSE Calculated R [place] -27 degrees [facility] MUSE Calculated T [place] 42 degrees [facility] MUSE Interpretation EKG SINUS BRADYCARDIA POSSIBLE ANTEROSEPTAL INFARCT , AGE UNDETERMINED ABNORMAL ECG NO PREVIOUS ECGS AVAILABLE Confirmed by Braulio Dueñas ([id number]) on 06/23/2020 3:04:52 PM [facility] MUSE 06/20/2020 10:5 4 PM CDT 06/23/2020 3:04 PM CDT Braulio Dueñas MD ECG ORDERABLES Performing Organization Address City/[facility] [place]/ZIP Co de Phone Number [facility] MUSE * SARS-COV-2 (COVID-19) IN HOUSE (06/20/2020 10:45 PM CDT) Pathologist [facility] COVID-19 PCR Not detected Not detected 06/21/2020 3:59 AM CDT [facility]CRO[facility] Microbiology SPECIMEN FROM NASOPHARYNGEAL STRUCTURE / Unknown Collection / Unknown 06/20/2020 10:45 PM CDT 06/20/2020 10:[address] [facility] - 06/21/2020 3:59 AM CDT This nucleic acid amplification assay performance was validated by [facility]. This test has been [...] Dueñas MD LAB - MICROBIOLOGY O RDERABLES [facility] [address] [place], [address] [phone] * PT-INR [facility] (06/20/2020 10:22 PM CDT) PT 12.5 12.1 - 14.8 Seconds 06/20/2020 10:43 PM CDT [facility] INR 1.0 See Comment 06/20/2020 10:43 PM CDT [facility] Comment:The suggested therap eutic range for standard coumadin (warfarin) therapy is an INR of 2.0-3.0. For high-risk patients (Mechanical Mitral Valve Prosthesis, etc.), the suggested prophylactic therapeutic range is an INR of 2.5-3.5. Blood BLOOD SPECIMEN / Unknown Venipuncture / Unknown 06/20/2020 10:22 PM CDT 06/20/2020 10:34 PM CDT Braulio Dueñas MD LAB - COAGULATION OR DERABLES [facility] [address] [place] [address], [facility] [phone] * (ABNORMAL) CALCIUM IONIZED WHOLE BLOOD (06/20/2020 10:22 PM CDT) Ionized Calcium Whole Blood 1.20 mmol/L 06/20/2020 10:34 PM CDT [facility] Adjusted Ionized Calcium 1.16(L) 1.19 - 1.34 mmol/L 06/20/2020 10:34 PM CDT [facility] pH Whole Blood 7.32(L) 7.35 - 7.45 06/20/2020 10:34 PM CDT [facility] Blood WHOLE BLOOD SPECIMEN / Unknown Venipuncture / Unknown 06/20/2020 10:22 PM CDT 06/20/2020 10:29 PM CDT Braulio Dueñas MD LAB - CHEMISTRY [facility] [address] [address], [facility] [phone] * HEMOGLOBIN A1C (06/20/2020 10:22 PM CDT) Hemoglobin A1c 6.1 4.4 - 6.3 % 06/21/2020 8:50 AM CDT [facility] Estimated Average Glucose 128 mg/dL 06/21/2020 8:50 AM T [facility] Comment: HbA1c Interpretation: Treatment target values recommended by ADA and other clinical organizations should be used to evaluate metabolic control in patients. Treatment Target Values: Normal : < 5.7% Pre-diabetes: 5.7-6.4% Diabetes: Equal to or greater than 6.5% Reference: [place] [employer] Standards of Care in Diabetes -2014 In patients 70 years and older consider HbA1c target range of 7.0-7.5% Reference: Diabetes Mellitus in Older People: Position Statement on behalf of the International Association of Gerontology and Geriatrics (IAGG), the Diabetes Working Constitution Party for Older People (EDWPOP), and the International Task Force of Experts in Diabetes. Balbir Deluna et al. J [place] [employer]. 2012 Test results diagnostic of diabetes should be repeated for confirmation. The Sebia Capillary 2 assay for the measurement of HbA1c is a National Glycohemoglobin Standardization Program (NGSP)certified method. Blood BLOOD SPECIMEN / Unknown Venipuncture / Unknown 06/20/2020 10:22 PM CDT 06/20/2020 10:27 PM CDT Braulio Dueñas MD LAB - CHEMISTRY [facility] Performing Organization Address [facility] [place]/ZIP Co de Phone Number [address] [address], [facility] [phone] * (ABNORMAL) B-TYPE NATRIURETIC PEPTIDE (06/20/2020 10:22 PM CDT) Pathologist [facility] BNP 246(H) See Comment pg/mL 06/20/2020 10:57 PM CDT [facility] Comment: A decision threshold of 100 [...] - CHEMISTRY [facility] Performing Organization Address City/[facility] [place]/ZIP Co de Phone Number [address] [address], [place] [phone] * (ABNORMAL) COMPREHENSIVE METABOLIC PANEL (06/20/2020 10:22 PM CDT) [facility] BUN 10 7 - 26 mg/dL 06/20/2020 10:54 PM [facility] Creatinine 0.6 0.6 - 1.2 mg/dL 06/20/2020 10:54 PM [facility] Sodium 138 136 - 145 mmol/L 06/20/2020 10:54 PM [facility] Potassium 4.1 3.5 - 4.5 mmol/L 06/20/2020 10:54 PM [facility] Chloride 105 98 - 107 mmol/L 06/20/2020 10:54 PM [facility] CO2 22 22 - 29 mmol/L 06/20/2020 10:54 PM [facility] Glucose 176(H) 70 - 115 mg/dL 06/20/2020 10:54 PM [facility] Calcium 8.8 8.4 - 10.2 mg/dL 06/20/2020 10:54 PM [facility] Protein Total 7.3 6.0 - 8.3 g/dL 06/20/2020 10:54 PM [facility] Albumin 4.1 3.4 - 5.0 g/dL 06/20/2020 10:54 PM [facility] Bilirubin Total 0.5 0.2 - 1.2 mg/dL 06/20/2020 10:54 PM [facility] Alkaline Phosphatase 72 40 - 150 Units/L 06/20/2020 10:54 PM [facility] ALT 17 0 - 55 Units/L 06/20/2020 10:54 PM [facility] AST 28 5 - 34 Units/L 06/20/2020 10:54 PM [facility] Anion Gap 15 8 - 18 06/20/2020 10:54 PM [facility] BUN/Creatinine Ratio 17 7 - 23 06/20/2020 10:54 PM [facility] Osmolality Calculated 289 270 - 300 mOsm/kg 06/20/2020 10:54 PM [facility] Albumin/Globulin Ratio 1.3 1.1 - 2.3 06/20/2020 10:54 PM [facility] eGFR >60 >60 mL/min/1.7 3 m2 06/20/2020 10:54 PM [facility] Blood BLOOD SPECIMEN / Unknown Venipuncture / Unknown 06/20/2020 10:22 PM CDT 06/20/2020 10:27 PM CDT Braulio Dueñas MD LAB - CHEMISTRY [facility] RIVERA [facility] Organization Address City/State/ZIP Co de Phone Number [facility] [address] [place] [address], [facility] [phone] * XR CHEST 1VW PORTABLE (06/20/2020 10:13 PM CDT) Anatomical Region Laterality Modality Chest Radiographic Laurita ging 06/21/2020 8:30 AM CDT Impressions 06/25/2020 9:18 AM CDT FINDINGS/IMPRESSION: Right basilar opacity, likely representing atelectasis and/or airspace disease. Likely mild bibasilar atelectasis. No pleural effusion or pneumothorax bilaterally. The cardiomediastinal silhouette is normal. The visible bony thorax is intact. Dictated by Bridget Souza MD (resident in diagnostic radiology). Dr. CHOLO Miguel have personally reviewed and [...] is intact. Dictated by Bridget Souza MD (resident in diagnostic radiology). Dr. CHOLO Miguel have personally reviewed and interpreted this examination/study. This report was electronically signed by CHOLO PAULA on 06/25/2020 9:18 AM . Braulio Dueñas MD DIAGNOSTIC IMAGING O RDERABLES
--- OUTSIDE RECORDS SUMMARY | 2024-05-09 14:46 | XMS_ITS | Encounter Summary ---
Author Organization [facility] Address [address] [place] [address] Care Team Providers Care Us Administrative Law Judge Name Role Phone Unavailable Primary Care Provider Unavailabl e Reason for Visit * Reason Onset Date Comments MEDICATION REFILL 01/11/2021 Encounter Details Date Type Department Care Team (Late st Contact Info) Description 01/11/2021 Refill [facility] [address] [facility] [address] [place] [address] Isidro Martínez W, DO [address] [facility] [address] [place], [place] [id number] MEDICATION REFILL Social History Tobacco Use Types [...] st Contact Info) Description 05/18/2024 4:00 PM SHOE STAMPER Office Visit [facility] - Cardiology [address] [facility] [address] [place] [address] Basia Cortez, MERVAT [address] [place] [address] 07/19/2024 4:00 PM CDT Office Visit [facility] - Rheumatology [address] [facility], [address] [place] [address] Abel Amin DO [address] [facility] [address] [facility] [address] [place] [address] documented as of this encounter Visit Diagnoses Diagnosis Essential hypertension NSTEMI (non-ST elevated myocardial infarction) (HCC) Acute myocardial infarction, subendocardial infarction, episode of care unspecified documented in this encounter
--- OUTSIDE RECORDS SUMMARY | 2024-05-09 14:46 | XMS_ITS | Clinical Summary ---
Author Organization [facility] Address [address] [place] [address] Care Team Providers Care Pasteurizer Helper Name Role Phone Unavailable Primary Care Provider [...] Comments Blood Pressure 118/78 05/11/2014 11:04 AM FILM PAINTER Pulse 64 05/11/2014 11:04 AM FILM PAINTER Temperature - - Respiratory Rate - - Oxygen Saturation - - Inhaled Oxygen Concentration - - Weight 66.2 kg (146 lb) 05/11/2014 11:04 AM FILM PAINTER Height 161.9 cm (5' 3.75 ) 05/11/2014 11:[address] Body Mass Index 25.26 05/11/2014 11:04 AM FILM PAINTER Plan of Treatment Health Maintenance Due Date [...]
--- OUTSIDE RECORDS SUMMARY | 2024-05-09 14:46 | XMS_ITS | CONTINUITY OF CARE DOCUMENT ---
Author Name edith sharma Address Unknown Organization [facility] Address [address] [place] [address] [address] [place] [address] Phone [phone] Care Team Providers Care Film Painter Name Role Phone France Goss MD Unavailable [phone] ROB RENE MD Unavailable [phone] ROB RENE MD Unavailable [phone] PROBLEMS Condition Status Date Provider Notes Cardiology examination active France rivera MD AMI subendocardial active France Goss MD Hypercholesterolemia active France melendez MD GERD active France Goss MD Cardiovascular Condition Screening active S elías Goss MD CAD (coronary artery disease) active Josh Ly PHARMACIST PER DIEM ENCOUNTERS Date Type Provider Location Encounter Diag nosis 04/26 - 04/28 In-person encounter Office Visit France Goss MD [facility] Office 08/17 - 08/18 In-person encounter Office Visit France Goss MD [place] [facility] CAD (coronary artery disease) 06/02 - 06/04 In-person encounter Office Visit France Goss MD [place] [facility] Cardiology examinationAMI subendocardialHypercholesterolemiaGERDCardiovascular Condition Screening VITAL [...] ortizLoglance blood pressure, systolic 140 mm[Hg] [facility], cuff size regular [facility] blood pressure, diastolic 88 mm[Hg] Pros[facility] Marquez blood pressure, systolic 140 mm[Hg] [facility] oxygen saturation, oximetry 98 % [...] Normal Absolute Neutrophil count 1915 cells/mcL [employer] [id number] Normal mean platelet volume 10.5 fL [employer]Logic [...] Payer name Policy type / Coverage type [place] [employer] party ID ANNIKA MEDICAID (2) Medicaid [id number] ADVANCE DIRECTIVES Name Date DISCUSSED - NO [...] FOR EVAL HAS HAD PRIOR HX OF DC AND RECALLS SHE HAD STENT PLACED IN 2020 AT [facility] WITH DR MAURICIO MENDOSA ON ASA AND STATIN AND BB AND IS OFFF PLAVIX. T his visit has been a part of the consistent, comprehensive, and ongoing management of the chronic medical condition(s) listed above for the patient. France Goss MD Cardiology: s /p stents placed in 2020 at [facility] with Dr. Mauricio michael statin/BB/ASA T his visit has been a part of the consistent, comprehensive, and ongoing management of the chronic medical condition(s) listed above for the patient. France Goss MD Cardiology: s /p stents placed in 2020 at [facility] with Dr. Mauricio michael statin/BB/ASA Josh Ly [...] . Significant breast attenuation noted. Josh Ly PHARMACIST PER DIEM Date Name Stress Exercise Card iolite Stress Regadenoson Stress Routine HEMOGLOBIN A1c LIPID PANEL COMPREHENSIVE METABO LIC PANEL, W/EGFR Stress Exercise Card iolite Complete Echo HISTORY OF PROCEDURES Procedure Date Procedure Name Provider Procedure Notes S tatus Complex e/m visit add on Franec Goss MD completed EKG France Goss MD compl eted EKG France Goss MD compl eted EKG France Goss MD compl eted
--- OUTSIDE RECORDS SUMMARY | 2024-05-09 14:46 | XMS_ITS | Clinical Summary ---
Author Organization [facility] [employer] Address [address] [place] [address] Care Team Providers Care Boot Turner Name Role Phone Unavailable Primary Care Provider Unavailabl e Source Comments [facility],non-owned Affiliates and Associated Physician Practices is amultiple site organization consisting of ambulatory clinics and hospital sitesin [place], [place], [place] and [place]. This disclosure is being madepursuant to the Care Everywhere program and may not contain all information available regarding this patient. Last updated 17.[facility] [employer] Allergies Active Allergy Reactions Criticality Noted Date [...] intra-articular corticosteroid injection, or referral to hand donor services specialist for consideration of basilar thumb arthroplasty. Basia Al favored a trial of duloxetine and will start at 30 mg taken at bedtime but if not feeling improved with less pain after 14 days to contact [facility] Rheumatology to be provided a dose titration as long as tolerated without side effects. S/P drug eluting coronary stent placement 2023 Coronary artery disease invo lving [place] coronary artery of [place] heart without angina pectoris 10/22/2023 Mixed hyperlipidemia [...] Care Team Description 05/08/2024 Travel 05/08/2024 Refill [facility] - Rheumatology [address], [address] [place] [address] Abel Amin, DO MEDICATION REFILL 03/01/2024 Refill [facility] - Cardiology [address] [place] [address], [address] [phone] Basia Cortez PA MEDICATION REFILL from Last [...] st Contact Info) Description 05/18/2024 4:00 PM ARMATURE WINDER Office Visit [facility] Physician [facility] - Cardiology [address] [place], [place] [address] [place] [address] Basia Cortez PA [facility] [place] [address] 07/19/2024 4:00 PM CDT Office Visit [facility] - Rheumatology [address] [place] [address], [address] [place] [address] Matt AminanDO [address] [facility] [address] [place] [address] Health Maintenance Due Date Last [...] this topic Medical Devices Implanted Type Area Bag Bundler Device Identifier Shelf Expiration Date Model / Serial / Lot Sys Cor Stent Xience Srr 3mm 15mm Rap Ex Implanted:Qty: 1 on 06/21/2020 by Hima Tracey MD at [facility] [employer] 09/03/2021 [id number] Description:m-CIR[facility] Advance Directives * Full Code (Latest Code Status on File) Date Activated Date Inactivated Comments 06/20/2020 9:53 PM 06/22/2020 2:41 PM
--- OUTSIDE RECORDS SUMMARY | 2024-05-09 14:46 | XMS_ITS | Encounter Summary ---
Author Organization [facility] Address [address] [place] [address] Care Team Providers Care Java Development Team Lead Name Role Phone Unavailable Primary Care Provider Unavailabl e Reason for Visit * Reason Onset Date Comments MEDICATION REFILL 05/08/2024 Encounter Details Date Type Department Care Team (Late st Contact Info) Description 05/08/2024 Refill [facility] - Rheumatology [address], [address] [place] [address] Abel Amin DO [address] [place] [address] MEDICATION REFILL Social History Tobacco [...] 17 ALKPHOS 72 No results for input(s): NPIPKGBM47FD in the last 89190 hours. No results for input(s): URICACID in the last 61791 hours. Last ESR: No results for input(s): SEDRATE in the last 27082 hours. Last 3 CRP: No results for input(s): CRP in the last 35945 hours. BUILDER documented in this encounter Plan of Treatment Upcoming Encounters Date Type Department Care Team (Late st Contact Info) Description 05/18/2024 4:00 PM BODY BUILDER Office Visit [facility] - Cardiology [address] [facility], [facility] [address] [place] [address] Basia Cortez, PA [address] [place] [address] 07/19/2024 4:00 PM CDT Office Visit [facility] Medical [facility] - Rheumatology [address], [address] [place] [address] Abel Amin DO [address] [place] [address] documented as of this encounter Visit Diagnoses Diagnosis Primary osteoarthritis of both first carpometacarpal joints- Primary Primary localized osteoarthrosis, hand documented in this encounter
--- OUTSIDE RECORDS SUMMARY | 2024-05-09 14:46 | XMS_ITS | Encounter Summary ---
Author Organization [facility] Address [address] [place] [address] Care Team Providers Care State Patrol Officer Name Role Phone Unavailable Primary Care Provider Unavailabl e Reason for Visit * Reason Onset Date Comments MEDICATION REFILL 01/18/2021 Encounter Details Date Type Department Care Team (Late st Contact Info) Description 01/18/2021 Refill [facility] [address] [facility] [address] [place] [address] Isidro Martínez W, DO [address] [facility] [address] [place], [place] [id number] MEDICATION REFILL Social History Tobacco Use Types [...] st Contact Info) Description 05/18/2024 4:00 PM ROOM SERVICE BELLHOP Office Visit [facility] - Cardiology [address] [facility] [address] [place] [address] Basia Cortez, MERVAT [address] [place] [address] 07/19/2024 4:00 PM CDT Office Visit [facility] - Rheumatology [address] [facility], [address] [place] [address] Abel Amin DO [address] [facility] [address] [place] [address] documented as of this encounter Visit Diagnoses Diagnosis Essential hypertension NSTEMI (non-ST elevated myocardial infarction) (HCC) Acute myocardial infarction, subendocardial infarction, episode of care unspecified documented in this encounter
--- OUTSIDE RECORDS SUMMARY | 2024-05-09 15:43 | XMS_ITS | Patient Health Summary ---
Author Organization [facility] Address [address] [place] [address] Care Team Providers Care Licensing Engineer Name Role Phone Unavailable Primary Care Provider Unavailabl e Note from [facility],non-owned Affiliates and Associated Physician Practices is amultiple site organization consisting of ambulatory clinics and hospital sitesin [place], [place], [place] and [place]. This disclosure is being madepursuant to the Care Everywhere program and may not contain all information available regarding this patient. Last updated 17.[facility] Allergies * Codeine(GI Discomfort) -High Criticality Medications [...] placement 2023 Coronary artery disease invo lving [place] coronary artery of [place] heart without angina pectoris 10/22/2023 Mixed hyperlipidemia [...] PM CDT Medical Devices Implanted Type Area Animal Care Giver Device Identifier Shelf Expiration Date Model / Serial / Lot Sys Cor Stent Xience Srr 3mm 15mm Rap Ex Implanted:Qty: 1 on 06/21/2020 by Hima Herrera MD at [facility] Coronary Rubio Vascular 09/03/2021 [id number] Description:m-CIRC Procedures * LIPID PROFILE(Performed 08/28/2020) Performed [...] 190 <200 mg/dL 08/28/2020 2:55 PM CDT [facility] HDL 46 >40 mg/dL 08/28/2020 2:55 PM CDT [facility] Comment: ATP III Classification of HDL Cholesterol: <40 mg/dL: Considered a major risk factor. >60 mg/dL: Considered a negative risk factor. LDL Calculated 82 <100 mg/dL 08/28/2020 2:55 PM CDT [facility] Comment: ATP III Classification of LDL Cholesterol: <100 mg/dL: Optimal 100 - 129 mg/dL: Near Optimal/Above Optimal 130 - 159 mg/dL: Borderline High 160 - 189 mg/dL: High >190 mg/dL: Very High Triglycerides 312(H) <150 mg/dL 08/28/2020 2:55 PM CDT [facility] Comment: ATP III Classification of Triglycerides: <150 mg/dL: Normal 150 - 199 mg/dL: Borderline High 200 - 400 mg/dL: High >500 mg/dL: Very High Blood BLOOD SPECIMEN / Unknown Lab Venipuncture / Unknown 08/28/2020 2:11 PM CDT 08/28/2020 2:30 PM CDT Leonides Chávez MD LAB - CHEMISTRY ORD ERABLES [facility] [address] [place] [address], [facility] [phone] * CARDIAC EKG ORDER (06/25/2020 9:10 AM [...] - 10.5 10 3/uL 06/22/2020 5:08 AM [facility] RBC 5.29(H) 3.90 - 5.00 10 6/uL 06/22/2020 5:08 AM [facility] Hemoglobin 16.4(H) 12.0 - 15.5 g/dL 06/22/2020 5:08 AM [facility] Hematocrit 48.3(H) 35.0 - 45.0 % 06/22/2020 5:08 AM [facility] MCV 91.3 81.0 - 97.0 fL 06/22/2020 5:08 AM [facility] MCH 31.0 28.0 - 34.0 pg 06/22/2020 5:08 AM [facility] MCHC 34.0 32.0 - 36.0 g/dL 06/22/2020 5:08 AM [facility] Platelet Count 215 150 - 400 10 3/uL 06/22/2020 5:08 AM [facility] RDW-SD 42.8 36.0 - 50.0 fL 06/22/2020 5:08 AM [facility] RDW-CV 12.7 11.2 - 14.8 % 06/22/2020 5:08 AM [facility] MPV 9.6 9.3 - 12.8 fL 06/22/2020 5:08 AM [facility] nRBC Absolute 0.00 0 10 3/uL 06/22/2020 5:08 AM [facility] nRBC Auto 0.0 0 /100 WBC 06/22/2020 5:08 AM [facility] Neutrophils % 70.3(H) 35.0 - 70.0 % 06/22/2020 5:08 AM [facility] Lymphocytes % 18.9(L) 19.7 - 55.1 % 06/22/2020 5:08 AM [facility] Monocytes % 9.8 3.0 - 15.0 % 06/22/2020 5:08 AM [facility] Eosinophils % 0.2 0.0 - 6.0 % 06/22/2020 5:08 AM CDT [facility] Basophil % 0.4 0.0 - 1.5 % 06/22/2020 5:08 AM [facility] Neutrophils Absolute 7.8(H) 1.6 - 7.0 10 3/uL 06/22/2020 5:08 AM [facility] Lymphocyte Absolute 2.1 0.8 - 2.9 10 3/uL 06/22/2020 5:08 AM T [facility] Monocytes Absolute 1.08(H) 0.14 - 0.66 10 3/uL 06/22/2020 5:08 AM [facility] Eosinophils Absolute 0.02 0.00 - 0.45 10 3/uL 06/22/2020 5:08 AM [facility] Basophils Absolute 0.04 0.00 - 0.06 10 3/uL 06/22/2020 5:08 AM [facility] Immature Granulocytes % 0.4 0.0 - 1.0 % 06/22/2020 5:08 AM [facility] Blood BLOOD SPECIMEN / Unknown Venipuncture / Unknown 06/22/2020 4:45 AM CDT 06/22/2020 4:49 AM CDT Braulio Dueñas MD LAB - HEMATOLOGY ORD ERABLES [facility] [address] [place] [address], [facility] [phone] * (ABNORMAL) BASIC METABOLIC PANEL (CALCIUM TOTAL) (06/22/2020 4:45 AM CDT) BUN 10 7 - 26 mg/dL 06/22/2020 5:17 AM CDT [facility] Creatinine 0.7 0.6 - 1.2 mg/dL 06/22/2020 5:17 AM [facility] Sodium 138 136 - 145 mmol/L 06/22/2020 5:17 AM [facility] Potassium 4.1 3.5 - 4.5 mmol/L 06/22/2020 5:17 AM T [facility] Chloride 104 98 - 107 mmol/L 06/22/2020 5:17 AM [facility] CO2 22 22 - 29 mmol/L 06/22/2020 5:17 AM [facility] Glucose 136(H) 70 - 115 mg/dL 06/22/2020 5:17 AM [facility] Calcium 9.0 8.4 - 10.2 mg/dL 06/22/2020 5:17 AM [facility] Anion Gap 16 8 - 18 06/22/2020 5:17 AM [facility] BUN/Creatinine Ratio 14 7 - 23 06/22/2020 5:17 AM [facility] Osmolality Calculated 287 270 - 300 mOsm/kg 06/22/2020 5:17 AM [facility] eGFR >60 >60 mL/min/1.7 3 m2 06/22/2020 5:17 AM [facility] Blood BLOOD SPECIMEN / Unknown Venipuncture / Unknown 06/22/2020 4:45 AM CDT 06/22/2020 4:49 AM CDT Braulio Dueñas MD LAB - CHEMISTRY [facility] [address] [address], [place] [phone] * PHOSPHORUS BLOOD (06/22/2020 4:45 AM CDT) Only the most recent of2 resultswithin the time period is included. Phosphorus 2.4 2.3 - 4.7 mg/dL 06/22/2020 5:17 AM T [facility] Blood BLOOD SPECIMEN / Unknown Venipuncture / Unknown 06/22/2020 4:45 AM CDT 06/22/2020 4:49 AM CDT Braulio Dueñas MD LAB - CHEMISTRY [facility] [address] [address], [place] [phone] * MAGNESIUM BLOOD (06/22/2020 4:45 AM CDT) Only the most recent of2 resultswithin the time period is included. Magnesium 1.9 1.6 - 2.6 mg/dL 06/22/2020 5:17 AM CDT [facility] Blood BLOOD SPECIMEN / Unknown Venipuncture / Unknown 06/22/2020 4:45 AM CDT 06/22/2020 4:49 AM CDT Braulio Dueñas MD LAB - CHEMISTRY [facility] [address] [place] [address], [facility] [phone] * CULTURE URINE (06/21/2020 7:01 PM CDT) Culture Urine 10,000-50,000 CFU/mL urogenital torres DEION 06/23/2020 7:13 AM CDT [facility] Urine URINE SPECIMEN OBTAINED BY CLEAN CATCH PROCEDURE / Unknown Collection / Unknown 06/21/2020 7:01 PM CDT 06/21/2020 7:03 PM CDT Braulio Dueñas MD LAB - MICROBIOLOGY O RDERABLES Performing Organization Address City/[facility]/ZIP Co de Phone Number [facility] [address] [place] [address], [facility] [phone] * CCL CARDIAC CATH LEFT (06/21/2020 3:01 PM CDT) Anatomical Region Laterality Modality Chest X-Ray Angiograph y Narrative 06/22/2020 12:33 AM CDT [facility] Cardiac Catheterization Procedure Note Patient: Basia Al Age: [age] year old Date of : 1960 Procedure Date: 06/21/20 HEAD OF GLOBAL STRATEGIC PARTNERSHIPS: Charlie Glover ATTENDING PHYSICIAN: Hima Herrera HISTORY: 60 year old female previously healthy who presented with chest pain to [place], found to have multi- vessel disease. She [...] NSTEMI PCI INDICATION: NSTEMI Unstable Angina / [id number] Myocardial Infarction-Class:I PCI STATUS: urgent PCI PROCEDURAL [...] DURING PCI: Heparin 7. INTERVENTIONAL WIRE: A Vengo [employer] wire was advanced beyond the lesion into [...] Herrera MD 06/22/2020 Braulio Dueñas MD CARDIAC RETAIL SERVICE TECHNICIAN RAD IANT * ECHO COMPLETE (06/21/2020 12:36 PM CDT) Anatomical Region Laterality Modality Chest Echo 06/21/2020 11:5 4 AM CDT Narrative Procedure Note John Chavarria MD - 06/21/2020 Braulio Dueñas MD ECHOCARDIOGRAPHY RAD IANT * (ABNORMAL) PTT [facility] (06/21/2020 5:13 AM CDT) Only the most recent of2 resultswithin the time period is included. APTT 122.4(HH) 23.0 - 38.4 Seconds 06/21/2020 7:46 AM CDT [facility] Comment: Patient is on Heparin, Argatroban or Dabigatran. Blood BLOOD SPECIMEN / Unknown Venipuncture / Unknown 06/21/2020 5:13 AM CDT 06/21/2020 6:04 AM CDT Braulio Dueñas MD LAB - COAGULATION OR DERABLES Performing Organization Address [facility]/State/[facility] Co de Phone Number [address] [address], [facility] [phone] * LACTIC ACID BLOOD (06/21/2020 5:13 AM CDT) Only the most recent of2 resultswithin the time period is included. Lactic Acid-Stat 1.0 0.5 - 2.2 mmol/L 06/21/2020 6:19 AM CDT [facility] Blood BLOOD SPECIMEN / Unknown Venipuncture / Unknown 06/21/2020 5:13 AM CDT 06/21/2020 5:47 AM CDT Braulio Dueñas MD LAB - CHEMISTRY [facility] [address] [place] [address], [facility] [phone] * (ABNORMAL) URINALYSIS REFLEX TO MICROSCOPIC NO CULTURE (06/21/2020 2:02 AM CDT) Color UA Yellow Straw, Yellow, Colorless 06/21/2020 2:21 AM [facility] Clarity UA Slt Cloudy Clear, t Cloudy 06/21/2020 2:21 AM [facility] Specific [place] UA 1.034(H) 1.005 - 1.030 06/21/2020 2:21 AM [facility] pH UA 5.0 5.0 - 8.0 pH 06/21/2020 2:21 AM [facility] Protein UA 1+(A) Negative mg/dL 06/21/2020 2:21 AM [facility] Glucose UA Negative Negative mg/dL 06/21/2020 2:21 AM [facility] Ketone UA 2+(A) Negative mg/dL 06/21/2020 2:21 AM [facility] Bilirubin UA Negative Negative mg/dL 06/21/2020 2:21 AM [facility] Blood UA 1+(A) Negative 06/21/2020 2:21 AM [facility] Nitrite UA Negative Negative 06/21/2020 2:21 AM [facility] Leukocyte Esterase 3+(A) Negative 06/21/2020 2:21 AM [facility] Urobilinogen UA Negative Negative mg/dL 06/21/2020 2:21 AM [facility] RBC UA 6-10(A) None Seen, 0-2, 3-5 /HPF 06/21/2020 2:21 AM [facility] WBC UA 6-10(A) None Seen, 0-5 /HPF 06/21/2020 2:21 AM [facility] Squamous Epithelial Cells UA 3-5(A) None Seen, 0-2 /HPF 06/21/2020 2:21 AM CDT [facility] Urine URINE SPECIMEN OBTAINED BY CLEAN CATCH PROCEDURE / Unknown Collection / Unknown 06/21/2020 2:02 AM CDT 06/21/2020 2:14 AM CDT Narrative [facility] - 06/21/2020 2:21 AM CDT Braulio Dueñas MD LAB - URINALYSIS ORD ERABLES Performing Organization Address City/[facility]/ZIP Co de Phone Number [facility] [address] [place] [address], [facility] [phone] * EKG 12-LEAD (06/20/2020 10:54 PM CDT) Ventricular Rate 59 BPM [facility] MUSE Atrial Rate 59 BPM [facility] MUSE P-R Interval 150 ms [facility]USE QRS Duration ms 80 ms [facility] MUSE Q-T Interval ms 450 ms [facility] MUSE QTC Calculation (Bezet) 445 ms [facility] MUSE Calculated P Acton 56 degrees [facility] MUSE Calculated R Acton -27 degrees [facility] MUSE Calculated T Acton 42 degrees [facility] MUSE Interpretation EKG SINUS BRADYCARDIA POSSIBLE ANTEROSEPTAL INFARCT , AGE UNDETERMINED ABNORMAL ECG NO PREVIOUS ECGS AVAILABLE Confirmed by Braulio Dueñas ([id number]) on 06/23/2020 3:04:52 PM [facility] MUSE 06/20/2020 10:5 4 PM CDT 06/23/2020 3:04 PM CDT Braulio Dueñas MD ECG ORDERABLES Performing Organization Address City/[facility]/ZIP Co de Phone Number [facility] MUSE * SARS-COV-2 (COVID-19) IN HOUSE (06/20/2020 10:45 PM CDT) Pathologist [facility] COVID-19 PCR Not detected Not detected 06/21/2020 3:59 AM CDT [facility] Microbiology SPECIMEN FROM NASOPHARYNGEAL STRUCTURE / Unknown Collection / Unknown 06/20/2020 10:45 PM CDT 06/20/2020 10:49 PM CDT Narrative [facility] - 06/21/2020 3:59 AM CDT This nucleic acid amplification assay performance was validated by [facility]. This test has been authorized [...] Dueñas MD LAB - MICROBIOLOGY O RDERABLES [facility] [address] [place], [address] [phone] * PT-INR [facility] (06/20/2020 10:22 PM CDT) PT 12.5 12.1 - 14.8 Seconds 06/20/2020 10:43 PM CDT [facility] INR 1.0 See Comment 06/20/2020 10:43 PM CDT [facility] Comment:The suggested therap eutic range for standard coumadin (warfarin) therapy is an INR of 2.0-3.0. For high-risk patients (Mechanical Mitral Valve Prosthesis, etc.), the suggested prophylactic therapeutic range is an INR of 2.5-3.5. Blood BLOOD SPECIMEN / Unknown Venipuncture / Unknown 06/20/2020 10:22 PM CDT 06/20/2020 10:34 PM CDT Braulio Dueñas MD LAB - COAGULATION OR DERABLES [facility] [address] [place] [address], [facility] [phone] * (ABNORMAL) CALCIUM IONIZED WHOLE BLOOD (06/20/2020 10:22 PM CDT) Ionized Calcium Whole Blood 1.20 mmol/L 06/20/2020 10:34 PM CDT [facility] Adjusted Ionized Calcium 1.16(L) 1.19 - 1.34 mmol/L 06/20/2020 10:34 PM CDT [facility] pH Whole Blood 7.32(L) 7.35 - 7.45 06/20/2020 10:34 PM CDT [facility] Blood WHOLE BLOOD SPECIMEN / Unknown Venipuncture / Unknown 06/20/2020 10:22 PM CDT 06/20/2020 10:29 PM CDT Braulio Dueñas MD LAB - CHEMISTRY [facility] [address] [address], [facility] [phone] * HEMOGLOBIN A1C (06/20/2020 10:22 PM CDT) Hemoglobin A1c 6.1 4.4 - 6.3 % 06/21/2020 8:50 AM CDT [facility] Estimated Average Glucose 128 mg/dL 06/21/2020 8:50 AM T [facility] Comment: HbA1c Interpretation: Treatment target values recommended by ADA and other clinical organizations should be used to evaluate metabolic control in patients. Treatment Target Values: Normal : < 5.7% Pre-diabetes: 5.7-6.4% Diabetes: Equal to or greater than 6.5% Reference: [place] Diabetes Association Standards of Care in Diabetes -2014 In patients 70 years and older consider HbA1c target range of 7.0-7.5% Reference: Diabetes Mellitus in Older People: Position Statement on behalf of the International Association of Gerontology and Geriatrics (IAGG), the Diabetes Working Democrat for Older People (EDWPOP), and the International Task Force of Experts in Diabetes. Balbir Deluna et al. J [place] Medical Directors Association. 2012 Test results diagnostic of diabetes should be repeated for confirmation. The Sebia Capillary 2 assay for the measurement of HbA1c is a National Glycohemoglobin Standardization Program (NGSP)certified method. Blood BLOOD SPECIMEN / Unknown Venipuncture / Unknown 06/20/2020 10:22 PM CDT 06/20/2020 10:27 PM CDT Braulio Dueñas MD LAB - CHEMISTRY [facility] Performing Organization Address [facility]/ZIP Co de Phone Number [address] [address], [facility] [phone] * (ABNORMAL) B-TYPE NATRIURETIC PEPTIDE (06/20/2020 10:22 PM CDT) Pathologist [facility] BNP 246(H) See Comment pg/mL 06/20/2020 10:57 PM CDT [facility] Comment: A decision threshold of 100 [...] Braulio Dueñas MD LAB - CHEMISTRY [facility] Performing Organization Address City/[facility]/ZIP Co de Phone Number [address] [address], [place] [phone] * (ABNORMAL) COMPREHENSIVE METABOLIC PANEL (06/20/2020 10:22 PM CDT) [facility] BUN 10 7 - 26 mg/dL 06/20/2020 10:54 PM [facility] Creatinine 0.6 0.6 - 1.2 mg/dL 06/20/2020 10:54 PM [facility] Sodium 138 136 - 145 mmol/L 06/20/2020 10:54 PM [facility] Potassium 4.1 3.5 - 4.5 mmol/L 06/20/2020 10:54 PM [facility] Chloride 105 98 - 107 mmol/L 06/20/2020 10:54 PM [facility] CO2 22 22 - 29 mmol/L 06/20/2020 10:54 PM [facility] Glucose 176(H) 70 - 115 mg/dL 06/20/2020 10:54 PM [facility] Calcium 8.8 8.4 - 10.2 mg/dL 06/20/2020 10:54 PM [facility] Protein Total 7.3 6.0 - 8.3 g/dL 06/20/2020 10:54 PM [facility] Albumin 4.1 3.4 - 5.0 g/dL 06/20/2020 10:54 PM [facility] Bilirubin Total 0.5 0.2 - 1.2 mg/dL 06/20/2020 10:54 PM [facility] Alkaline Phosphatase 72 40 - 150 Units/L 06/20/2020 10:54 PM [facility] ALT 17 0 - 55 Units/L 06/20/2020 10:54 PM [facility] AST 28 5 - 34 Units/L 06/20/2020 10:54 PM [facility] Anion Gap 15 8 - 18 06/20/2020 10:54 PM [facility] BUN/Creatinine Ratio 17 7 - 23 06/20/2020 10:54 PM [facility] Osmolality Calculated 289 270 - 300 mOsm/kg 06/20/2020 10:54 PM [facility] Albumin/Globulin Ratio 1.3 1.1 - 2.3 06/20/2020 10:54 PM [facility] eGFR >60 >60 mL/min/1.7 3 m2 06/20/2020 10:54 PM [facility] Blood BLOOD SPECIMEN / Unknown Venipuncture / Unknown 06/20/2020 10:22 PM CDT 06/20/2020 10:27 PM CDT Braulio Dueñas MD LAB - CHEMISTRY [facility] Organization Address City/State/ZIP Co de Phone Number [facility] [address] [place] [address], [facility] [phone] * XR CHEST 1VW PORTABLE (06/20/2020 10:13 PM CDT) Anatomical Region Laterality Modality Chest Radiographic Laurita ging 06/21/2020 8:30 AM CDT Impressions 06/25/2020 9:18 AM CDT FINDINGS/IMPRESSION: Right basilar opacity, likely representing atelectasis and/or airspace disease. Likely mild bibasilar atelectasis. No pleural effusion or pneumothorax bilaterally. The cardiomediastinal silhouette is normal. The visible bony thorax is intact. Dictated by Bridget Souza MD (manager of radiology). Dr. CHOLO Miguel have personally reviewed [...] is intact. Dictated by Bridget Souza MD (manager of radiology). Dr. CHOLO Miguel have personally reviewed and interpreted this examination/study. This report was electronically signed by CHOLO PAULA on 06/25/2020 9:18 AM . Braulio Dueñas MD DIAGNOSTIC IMAGING O RDERABLES
--- OUTSIDE RECORDS SUMMARY | 2024-05-09 15:43 | XMS_ITS | Encounter Summary ---
Author Organization [facility] Address [address] [place] [address] Care Team Providers Care School Operations Manager Name Role Phone Kevan Mejía MD Primary Care Provider Unavailable Encounter Details Date Type Department Care Team (Late st Contact Info) Description 07/24/2012 Abstract [facility] CONVERSION [address] [place] [address] Kevan eMjía MD Social History Tobacco Use Types Packs/Day [...] on filedocumented in this encounter Care Teams School Operations Manager Relationship Specialty Start Date End Date Kevan Mejía MD PCP - General 07/24/12 documented as of this encounter
--- OUTSIDE RECORDS SUMMARY | 2024-05-09 15:43 | XMS_ITS | Referral Summary ---
Author Organization [facility] Address [address] [place] [address] Care Team Providers Care Member Of Parliament Name Role Phone Unavailable Primary Care Provider Unavailabl e Source Comments [facility],non-owned Affiliates and Associated Physician Practices is amultiple site organization consisting of ambulatory clinics and hospital sitesin [place], [place], [place] and [place]. This disclosure is being madepursuant to the Care Everywhere program and may not contain all information available regarding this patient. Last updated 17.[facility] Encounters Date Type Department Care Team Description 05/08/2024 Travel 05/08/2024 Refill [facility] - Rheumatology [address] [place] [address], [address] [place] [address] Abel Amin DO MEDICATION REFILL 03/01/2024 Refill [facility] - Cardiology [address] [place] [address], [address] [place] [phone] Basia Cortez PA MEDICATION REFILL from Last [...] intra-articular corticosteroid injection, or referral to hand assistant professor surgical technology for consideration of basilar thumb arthroplasty. Basia Al favored a trial of duloxetine and will start at 30 mg taken at bedtime but if not feeling improved with less pain after 14 days to contact [facility] Rheumatology to be provided a dose titration as long as tolerated without side effects. S/P drug eluting coronary stent placement 2023 Coronary artery disease invo lving [place] coronary artery of [place] heart without angina pectoris 10/22/2023 Mixed hyperlipidemia [...] st Contact Info) Description 05/18/2024 4:00 PM MODERN GREEK STUDIES PROFESSOR Office Visit [facility] - Cardiology [address], [address] [place] [address] Basia Cortez, PA [address] [place] [address] 07/19/2024 4:00 PM CDT Office Visit [facility] - Rheumatology [address], [address] [place] [address] Abel Amin DO [address] [place] [address] Medical Devices Implanted Type Area Line Construction Superintendent Device Identifier Shelf Expiration Date Model / Serial / Lot Sys Cor Stent Xience Srr 3mm 15mm Rap Ex Implanted:Qty: 1 on 06/21/2020 by Hima Tracey MD at [facility] Coronary [employer] 09/03/2021 [id number] Description:m-CIRC Advance Directives * Full Code (Latest Code Status on File) Date Activated Date Inactivated Comments 06/20/2020 9:53 PM 06/22/2020 2:41 PM
--- OUTSIDE RECORDS SUMMARY | 2024-05-09 15:43 | XMS_ITS | Clinical Summary ---
Author Organization [facility] Address [address] [place] [address] Care Team Providers Care Medical Research Scientist Name Role Phone Unavailable Primary Care Provider Unavailabl e Source Comments [facility],non-owned Affiliates and Associated Physician Practices is amultiple site organization consisting of ambulatory clinics and hospital sitesin [place], [place], [place] and [place]. This disclosure is being madepursuant to the Care Everywhere program and may not contain all information available regarding this patient. Last updated 17.[facility] Allergies Active Allergy Reactions Criticality Noted Date [...] corticosteroid injection, or referral to hand surgical services coordinator for consideration of basilar thumb arthroplasty. Basia Al favored a trial of duloxetine and will start at 30 mg taken at bedtime but if not feeling improved with less pain after 14 days to contact [facility] Rheumatology to be provided a dose titration as long as tolerated without side effects. S/P drug eluting coronary stent placement 2023 Coronary artery disease invo lving kletsel dehe wintun coronary artery of kletsel dehe wintun heart without angina pectoris 10/22/2023 Mixed hyperlipidemia [...] Team Description 05/08/2024 Travel 05/08/2024 Refill [facility] - Rheumatology [address], [address] [place] [address] Abel Amin, DO MEDICATION REFILL 03/01/[address] [facility] - Cardiology [address] [place] [address], [address] [phone] Basia Cortez PA MEDICATION REFILL from Last [...] st Contact Info) Description 05/18/2024 4:00 PM VARNISHING UNIT TOOL SETTER Office Visit [facility] Physician [facility] - Cardiology [address] [place], [place] [address] [place] [address] Basia Cortez PA [facility] [place] [address] 07/19/2024 4:00 PM CDT Office Visit [facility] Medical [facility] - Rheumatology [address] [place] [address], [address] [place] [address] Matt AminanDO [address] [facility] [address] [place] [address] Health Maintenance Due Date Last [...] this topic Medical Devices Implanted Type Area Front End Loader Driver Device Identifier Shelf Expiration Date Model / Serial / Lot Sys Cor Stent Xience Srr 3mm 15mm Rap Ex Implanted:Qty: 1 on 06/21/2020 by Hima Tracey MD at [facility] Coronary [employer] 09/03/2021 [id number] Description:m-CIRC Advance Directives * Full Code (Latest Code Status on File) Date Activated Date Inactivated Comments 06/20/2020 9:53 PM 06/22/2020 2:41 PM
--- OUTSIDE RECORDS SUMMARY | 2024-05-09 15:43 | XMS_ITS | Encounter Summary ---
Author Organization [facility] Address [address] [place] [address] Care Team Providers Care Carton Machine Operator Name Role Phone Unavailable Primary Care Provider Unavailabl e Reason for Visit * Reason Onset Date Comments MEDICATION REFILL 05/08/2024 Encounter Details Date Type Department Care Team (Late st Contact Info) Description 05/08/2024 Refill [facility] - Rheumatology [address] [facility] [address] [place] [address] Abel Amin DO [address] [facility] [address] [place] [address] MEDICATION REFILL Social History Tobacco [...] 17 ALKPHOS 72 No results for input(s): [id number] in the last 78704 hours. No results for input(s): URICACID in the last 62791 hours. Last ESR: No results for input(s): SEDRATE in the last 98395 hours. Last 3 CRP: No results for input(s): CRP in the last 27840 hours. ICE CLINICAL SUPERVISOR documented in this encounter Plan of Treatment Upcoming Encounters Date Type Department Care Team (Late st Contact Info) Description 05/18/2024 4:00 PM HOSPICE CLINICAL SUPERVISOR Office Visit [facility] - Cardiology [address] [facility] [address] [place] [address] Basia Cortez, PA [address] [place] [address] 07/19/2024 4:00 PM CDT Office Visit [facility] Medical [facility] - Rheumatology [address] [facility] [address], [address] [place] [address] Abel Amin DO [address] [facility] [address] [place] [address] documented as of this encounter Visit Diagnoses Diagnosis Primary osteoarthritis of both first carpometacarpal joints- Primary Primary localized osteoarthrosis, hand documented in this encounter
--- OUTSIDE RECORDS SUMMARY | 2024-05-09 15:43 | XMS_ITS | Encounter Summary ---
Author Organization [facility] Address [address] [facility] [place] [address] Care Team Providers Care Physician Practice Consultant Name Role Phone Unavailable Primary Care Provider Unavailabl e Reason for Visit * Reason Onset Date Comments MEDICATION REFILL 11/17/2020 Encounter Details Date Type Department Care Team (Late st Contact Info) Description 11/17/2020 Refill [facility] Card[facility] [address] [facility] [address] [place] [address] Isidro Martínez W, DO [address] [facility] [address] [place], [place] [address] MEDICATION REFILL Social History Tobacco Use Types [...] st Contact Info) Description 05/18/2024 4:00 PM PRODUCE SERVICE TEAM MEMBER Office Visit [facility] Group - Cardiology [address] [facility] [address] [place] [address] Basia Cortez, MERVAT [address] [place] [address] 07/19/2024 4:00 PM CDT Office Visit [facility] - Rheumatology [address] [facility], [address] [place] [address] Abel Amin DO [address] [facility] [address] [place] [address] documented as of this encounter Visit Diagnoses Diagnosis Essential hypertension NSTEMI (non-ST elevated myocardial infarction) (HCC) Acute myocardial infarction, subendocardial infarction, episode of care unspecified documented in this encounter
--- OUTSIDE RECORDS SUMMARY | 2024-05-09 15:43 | XMS_ITS | Clinical Summary ---
Author Organization [facility] Address [address] [place] [address] Care Team Providers Care Manager Commercial Sales Name Role Phone Unavailable Primary Care Provider [...] Comments Blood Pressure 118/78 05/11/2014 11:04 AM HVAC SERVICE TECHNICIAN Pulse 64 05/11/2014 11:04 AM HVAC SERVICE TECHNICIAN Temperature - - Respiratory Rate - - Oxygen Saturation - - Inhaled Oxygen Concentration - - Weight 66.2 kg (146 lb) 05/11/2014 11:04 AM HVAC SERVICE TECHNICIAN Height 161.9 cm (5' 3.75 ) 05/11/2014 11:[address] Body Mass Index 25.26 05/11/2014 11:04 AM HVAC SERVICE TECHNICIAN Plan of Treatment Health Maintenance Due Date [...]
--- OUTSIDE RECORDS SUMMARY | 2024-05-09 15:43 | XMS_ITS | CONTINUITY OF CARE DOCUMENT ---
Author Name edith sharma Address Unknown Organization [facility] Address [address] [place] [address] [address] [place] [address] Phone [phone] Care Team Providers Care Jewish History Professor Name Role Phone France Goss MD Unavailable [phone] ROB RENE MD Unavailable [phone] ROB RENE MD Unavailable [phone] PROBLEMS Condition Status Date Provider Notes Cardiology examination active France rivera MD AMI subendocardial active France Goss MD Hypercholesterolemia active France melendez MD GERD active France Goss MD Cardiovascular Condition Screening active S elías Goss MD CAD (coronary artery disease) active Josh Ly EEG TECH ENCOUNTERS Date Type Provider Location Encounter Diag nosis 04/26 - 04/28 In-person encounter Office Visit France Goss MD [facility] Office 08/17 - 08/18 In-person encounter Office Visit France Goss MD [place] [facility] CAD (coronary artery disease) 06/02 - 06/04 In-person encounter Office Visit France Goss MD [place] [facility] Cardiology examinationAMI subendocardialHypercholesterolemiaGERDCardiovascular Condition Screening VITAL [...] Deana ortizLoglance blood pressure, systolic 140 mm[Hg] o[facility]cy [facility] blood pressure, cuff size regular Prosper fortune Marquez blood pressure, diastolic 88 mm[Hg] Prosper fortune Marquez blood pressure, systolic 140 mm[Hg] [facility] oxygen saturation, oximetry 98 % Juliet [...] Normal Absolute Neutrophil count 1915 cells/mcL [employer] [id number] Normal mean platelet volume 10.5 fL [employer] [...] Payer name Policy type / Coverage type [place] [employer] [place] MEDICAID (2) Medicaid [id number] ADVANCE DIRECTIVES Name Date DISCUSSED - NO [...] FOR EVAL HAS HAD PRIOR HX OF [place] AND RECALLS SHE HAD STENT PLACED IN 2020 AT [facility] WITH DR MAURICIO MENDOSA ON ASA AND STATIN AND BB AND IS OFFF PLAVIX. T his visit has been a part of the consistent, comprehensive, and ongoing management of the chronic medical condition(s) listed above for the patient. France Goss MD Cardiology: s /p stents placed in 2020 at [facility] with Dr. Mauricio michael statin/BB/ASA T his visit has been a part of the consistent, comprehensive, and ongoing management of the chronic medical condition(s) listed above for the patient. France Goss MD Cardiology: s /p stents placed in 2020 at [facility] with Dr. Mauricio michael statin/BB/ASA Josh Ly [...] . Significant breast attenuation noted. Josh Ly EEG TECH Date Name Stress Exercise Card iolite Stress [...]
--- OUTSIDE RECORDS SUMMARY | 2024-05-09 15:43 | XMS_ITS | Encounter Summary ---
Author Organization [facility] Address [address] [facility] [place] [address] Care Team Providers Care Capping Machine Operator Name Role Phone Unavailable Primary [...] st Contact Info) Description 05/18/2024 4:00 PM GROUP RESERVATIONS COORDINATOR Office Visit [facility] - Cardiology [address] [facility] [address] [place] [address] Basia Cortez, MERVAT [address] [place] [address] 07/19/2024 4:00 PM CDT Office Visit [facility] - Rheumatology [address] [facility], [address] [place] [address] Abel Amin DO [address] [facility] [address] [place] [address] documented as of this encounter Visit Diagnoses Not on filedocumented in this encounter
--- OUTSIDE RECORDS SUMMARY | 2024-05-09 15:44 | XMS_ITS | Encounter Summary ---
Author Organization [facility] Address [address] [facility] [place] [address] Care Team Providers Care Bindery Machine Setter/Set Up Operator Name Role Phone Unavailable Primary Care Provider Unavailabl e Reason for Visit * Reason Onset Date Comments MEDICATION REFILL 01/18/2021 Encounter Details Date Type Department Care Team (Late st Contact Info) Description 01/18/2021 Refill [facility] [address] [facility] [address] [place] [address] Isidro Martínez W, DO [address] [facility] [address] [place], [place] [address] MEDICATION REFILL Social History Tobacco Use Types [...] st Contact Info) Description 05/18/2024 4:00 PM BUILDING PRINCIPAL Office Visit [facility]ician Group - Cardiology [address] [facility] [address] [place] [address] Basia Cortez, MERVAT [address] [place] [address] 07/19/2024 4:00 PM CDT Office Visit [facility] - Rheumatology [address] [facility], [address] [place] [address] Abel Amin DO [address] [facility] [address] [place] [address] documented as of this encounter Visit Diagnoses Diagnosis Essential hypertension NSTEMI (non-ST elevated myocardial infarction) (HCC) Acute myocardial infarction, subendocardial infarction, episode of care unspecified documented in this encounter
--- OUTSIDE RECORDS SUMMARY | 2024-05-09 15:44 | XMS_ITS | Encounter Summary ---
Author Organization [facility] Address [address] [facility] [place] [address] Care Team Providers Care Neurosurgical Nurse Practitioner Name Role Phone Unavailable Primary Care Provider Unavailabl e Reason for Visit * Reason Onset Date Comments MEDICATION REFILL 01/11/2021 Encounter Details Date Type Department Care Team (Late st Contact Info) Description 01/11/2021 Refill [facility] [address] [facility] [address] [place] [address] Isidro Martínez W, DO [address] [facility] [address] [place], [place] [id number] MEDICATION REFILL Social History Tobacco Use Types [...] st Contact Info) Description 05/18/2024 4:00 PM MARKETING OPERATIONS CONSULTANT Office Visit [facility]ician Group - Cardiology [address] [facility] [address] [place] [address] Basia Cortez, MERVAT [address] [place] [address] 07/19/2024 4:00 PM CDT Office Visit [facility] - Rheumatology [address] [facility], [address] [place] [address] Abel Amin DO [address] [facility] [address] [place] [address] documented as of this encounter Visit Diagnoses Diagnosis Essential hypertension NSTEMI (non-ST elevated myocardial infarction) (HCC) Acute myocardial infarction, subendocardial infarction, episode of care unspecified documented in this encounter
--- NOTE | 2024-05-09 17:17 | ECG_ITS ---
Test Date: 2024-05-09 20:16:56 Measurements Intervals Galien Rate: 66 P: 58 AK: 160 QRS: -23 QRSD: 87 T: 56 QT: 384 QTc: 403 Interpretive Statements SINUS RHYTHM BORDERLINE R WAVE PROGRESSION, ANTERIOR LEADS BORDERLINE ECG Compared to ECG 05/09/2024 17:21:42 NO SIGNIFICANT CHANGE Electronically Signed On 05-10-2024 07:14:21 CARE MANAGER CNA by Carroll Madison D.O.
[2024-05-09 17:40] LABS: Troponin I < 0.012 ng/mL (0.000-0.034)
[2024-05-09] MEDS: CYCLOBENZAPRINE HCL 5 MG TABLET PO (20:20)
[2024-05-09] MEDS: ACETAMINOPHEN 500 MG TABLET 1000 MG PO (20:20)
[2024-05-09] MEDS: NITROGLYCERIN SL 0.4 MG TABLET SUBLINGUAL ×2 (20:57→22:11)
[2024-05-09] MEDS: SODIUM CHLORIDE 0.9% IV 1,000 ML 999 ML IV CONT (20:57)
[2024-05-09 21:26] LABS: D Dimer 0.28 ug/mL (<0.48); Troponin I < 0.012 ng/mL (0.000-0.034)
[2024-05-09 21:41] LABS: Influenza A QL RT-PCR Negative (Negative); Influenza B QL RT-PCR Negative (Negative); RSV RNA, RT-PCR Negative (Negative); SARS-CoV-2 RNA PCR Negative (Negative)
[2024-05-10] VITALS: PULSE 64; RESP 20; O2SAT 96
[2024-05-10 00:17] VITALS: PULSE 65; RESP 18; O2SAT 100
[2024-05-10 00:43] VITALS: PULSE 64; RESP 19; O2SAT 97
[2024-05-10 00:45] VITALS: PULSE 63; RESP 19; O2SAT 97
[2024-05-10] MEDS: BELLADONNA ALK/PHENOB ELIX 10 ML, MAG HYDROX/ALUMINUM HYD/SIMETH 30 ML, LIDOCAINE 2% VI... PO (00:49)
[2024-05-10 01:00] VITALS: PULSE 64; RESP 18; O2SAT 97
[2024-05-10 01:01] VITALS: BP 152/72; PULSE 62; RESP 17; O2SAT 97
== END 2024-05-10 02:08 | disposition home or self-care (01) ==
PROVIDERS: Emergency Medicine; Emergency Provider Registered Nurse; PCP Emergency Medicine
DX: K21.9 Gastro-esophageal reflux disease without esophagitis (principal); R07.89 Other chest pain; Z20.822 Contact with and (suspected) exposure to COVID-19; Z86.718 Personal history of other venous thrombosis and embolism; Z79.01 Long term (current) use of anticoagulants
CPT/HCPCS: 36415; 71046; 80053; 83690; 84443; 84484; 85025; 85380; 85610; 85730; 87637; 93005; 96360; 99284; A9270; J7030

== ENCOUNTER 2024-09-20 09:40 | Outpatient (CLI) | payer OTHER, SELFPAY ==
--- NOTE | ~2024-09-20 | XR_ITS ---
EXAM/PROCEDURE: XR chest 2V - 09/20/2024 9:47 CDT HISTORY: 64 years old Female with fever TECHNIQUE: Two view(s) of the chest. COMPARISON: None available. FINDINGS: LUNGS/ PLEURA: Airspace opacity in the right lung base may represent atelectasis versus pneumonia. Mi ld perihilar bronchial wall thickening. HEART/ MEDIASTINUM: Heart appears normal in size. BONES: No acute osseous abnormality. OTHER: Visualized upper abdomen is unremarkable. IMPRESSION: Airspace opacity in right lung base, likely atelectasis versus pneumonia. Clinical correlation is req uired. Mild perihilar bronchial wall thickening, findings suggestive of respiratory bronchiolitis. Reviewed, dictated and finalized at location A. IMPRESSION: Airspace opacity in right lung base, likely atelectasis versus pneumonia. Clini jeff correlation is required. Mild perihilar bronchial wall thickening, findings suggestive of respiratory br onchiolitis.
[2024-09-20 11:34] LABS: Influenza A QL RT-PCR Negative (Negative); Influenza B QL RT-PCR Negative (Negative); SARS-CoV-2 RNA PCR Negative (Negative)
== END 2024-09-20 09:41 | disposition home or self-care (01) ==
PROVIDERS: PCP Emergency Medicine; Visit Provider Emergency Medicine
DX: R50.9 Fever, unspecified (principal); Z20.822 Contact with and (suspected) exposure to COVID-19; R91.8 Other nonspecific abnormal finding of lung field
CPT/HCPCS: 71046; 87636

== ENCOUNTER 2025-01-31 19:30 | Emergency (ER) | payer OTHER, SELFPAY ==
--- NOTE | ~2025-01-31 | XR_ITS ---
XR hand RT min 3V 01/31/2025 20:02 Indication: Right hand pain Procedure: 3 views right hand Comparison: 11/22/2023 Findings: There is an extra-articular fracture proximal aspect of the right fifth proximal phalanx with dorsal angulation. There is a healed fifth metacarpal fracture. 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 Impression: 1: Mildly displaced extra-articular fracture proximal aspect of the right fifth proximal phalanx with dorsal angulation. Reviewed, dictated and finalized at location O. FING COORDINATOR Impression: 1: Mildly displaced extra-articular fracture proximal aspect of the right fifth proximal phalanx with dorsal angulation.
--- NOTE | ~2025-01-31 | XR_ITS ---
XR hand LT min 3V, XR wrist LT min 3V 01/31/2025 20:02 Indication: Left wrist and hand pain Procedure: 3 views left wrist and 3 views left hand Comparison: No prior studies for comparison. Findings: There is dorsal dislocation of the second finger at the MCP and PIP joints. No fracture identified. There is osteoarthritis of the triscaphe and first carpal metacarpal joints. Impression: 1: Dorsal dislocation left second finger at the MCP and PIP joints. Reviewed, dictated and finalized at location O. OR ENERGY ANALYST Impression: 1: Dorsal dislocation left second finger at the MCP and PIP joints. Impression: 1: Dorsal dislocation left second finger at the MCP and PIP joints.
--- NOTE | ~2025-01-31 | XR_ITS ---
XR finger 5th RT min 2V 01/31/2025 21:40 Indication: Hand/finger injury Procedure: 3 views right fifth finger Comparison: 01/31/2025 Findings: Stable alignment of mildly displaced extra-articular fracture right fifth proximal phalanx with dorsal angulation. Healed fifth metacarpal fracture. No other acute fracture. No foreign bodies or soft tissue abnormality. Impression: 1: Stable alignment of mildly displaced extra-articular fracture right fifth proximal phalanx with dorsal angulation. Reviewed, dictated and finalized at location O. PRESS OPERATOR Impression: 1: Stable alignment of mildly displaced extra-articular fracture right fifth pr oximal phalanx with dorsal angulation.
--- NOTE | ~2025-01-31 | XR_ITS ---
XR finger 5th RT min 2V 01/31/2025 21:40 Indication: Right fifth finger fracture status post reduction Procedure: 2 views right fifth finger Comparison: Comparison to multiple prior studies sequentially, with oldest reviewed study dated 11/22/2023. Findings: Improved alignment of right fifth proximal phalangeal fracture status post reduction, now in near-anatomic alignment. Mild soft tissue swelling. No other fracture. Healed fifth metacarpal fracture. Impression: 1: Near-anatomic alignment of right fifth proximal phalangeal extra-articular fracture status post reduction. Reviewed, dictated and finalized at location O. TENANCE SUPERVISOR MECHANICAL Impression: 1: Near-anatomic alignment of right fifth proximal phalangeal extra-articular f racture status post reduction.
[2025-01-31 19:33] VITALS: BP 137/81; PULSE 83; RESP 16; TEMP 37.1; O2SAT 99
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
[2025-01-31] MEDS: MORPHINE SULFATE (*CRX) 4 MG/ML INJ IM (20:50)
[2025-01-31] MEDS: diazePAM INJ (*CRX) 10 MG/2 ML SYRINGE 5 MG IM (20:51)
[2025-01-31] MEDS: TETANUS,DIPHTHERIA,AC PERTUSSIS ADULT (0.5 ML) BOOSTRIX IM (20:51)
[2025-01-31 22:18] VITALS: BP 138/67; PULSE 77; RESP 16; O2SAT 99
--- OUTSIDE RECORDS SUMMARY | 2025-02-01 04:52 | XMS_ITS | Encounter Summary ---
Author Organization [facility] Address [address] [place] [address] Care Team Providers Care Campus Receptionist Name Role Phone Joel Dueñas MD Primary Care Provider [phone] Reason for Visit * Reason Comments Injury [...] st Contact Info) Description 02/01/2025 4:52 AM CASINO GAMING WORKER - 02/01/2025 11:15 AM [facility] Emergency [facility] EMERGENCY DEPARTMENT [address] [place] [phone] Brooke Beatty MD [address] [place] [address] [place] [phone] Dotty Lazo MD [address] [place] [address] [place] [address] Bilateral hand pain; Closed displaced fracture of [...] Sex Assigned at Female 05/15/2024 10:09 AM CASINO GAMING WORKER Legal Sex Female 4:43 PM CDT Gender Identity Female 06/21/2020 12:12 PM CDT Sexual Orientation Straight 05/15/2024 10 :09 AM CASINO GAMING WORKER documented as of this encounter Last Filed Vital Signs Vital Sign Reading Time Taken Comments Blood Pressure 131/82 02/01/2025 11:00 AM CASINO GAMING WORKER Pulse 75 02/01/2025 6:30 AM CASINO GAMING WORKER Temperature 36.1 C (97 F) 02/01/2025 4:36 AM CASINO GAMING WORKER Respiratory Rate 16 02/01/2025 6:30 AM CASINO GAMING WORKER Oxygen Saturation 90% 02/01/2025 6:30 AM CASINO GAMING WORKER Inhaled Oxygen Concentration - - Weight - [...] Gilles Garnica MD - 02/01/2025 10:57 AM CASINO GAMING WORKER HAND/WRIST SURGERY POST-OPERATIVE CARE INSTRUCTIONS These discharge [...] Room. Plastic Surgery Contact Information: Please call [phone] and press [phone] to ask the bar finish operator for the Plastic Surgery resident at [facility] if after 5 p.m., ask for the plastic surgery resident information technology coordinator. In an emergency, call 911. NO GAMING WORKER NO GAMING WORKER documented in this encounter Medications at Time [...] Pt ambulatory to WR with steady gait. NO GAMING WORKER * Maryellen Flores RN - 02/01/2025 7:29 AM CST Report received from ARGELIA Gonzalez. Care transferred. Pt resting comfortably. Denies any new needs att.Call light remains within reach. Will monitor. NO GAMING WORKER * Brooke Beatty MD - 02/01/2025 5:22 AM CST For this patient encounter, I reviewed the Resident documentation, procedures (if done), treatment plan, and medical decision making; and I had [id number] time with this patient. I have conducted [...] in her hands. She was evaluated at [facility] where multiple dislocated fingers were [...] park ED Course as of 02/01/25 0702 [facility] Feb 01, 2025 0658 Signed out to oncoming team pending hand recommendations [LB] ED Course User Index [LB] Brooke Beatty MD Clinical Impressions as of 02/01/25 0702 Bilateral hand pain Brooke Beatty MD NO GAMING WORKER * Robel Hurt RN - 02/01/2025 4:52 AM CST Bed: [facility] Expected date: 01/31/25 Expected time: 9:21 PM Means of arrival: Ambulance Comments: NO GAMING WORKER * Robel Hurt RN - 02/01/2025 4:46 [...] intact but did just receive nerve blocks. NO GAMING WORKER * Robel Hurt RN - 02/01/2025 4:41 AM CST [facility] for bilateral hand injuries after [...] Section age 12 Coronary Stent Placement 2021 NO GAMING WORKER documented in this encounter Plan of Treatment Upcoming Encounters Date Type Department Care Team (Late st Contact Info) Description 07/18/2025 3:00 PM CDT Office Visit [facility] - Rheumatology [address], [address] [place] [address] Abel Amin DO [address] [place] [address] Scheduled Procedures Name Priority Associated Diagnoses Date/Ti me OPEN REDUCTION INTERNAL FIXA TION (ORIF) CARPAL/METACARPAL Closed nondisplaced fracture of base of metacarpal bone, unspecified fracture morphology, unspecified metacarpal, initial encounter documented as of this encounter Procedures Procedure Name Priority Date/Time Associated Diagnosis Comments XR HAND LEFT 3VW OR MORE STAT 02/01/2025 10:32 AM CASINO GAMING WORKER Bilateral hand pain XR HAND RIGHT 3VW OR MORE Routine 02/01/2025 9:40 AM CASINO GAMING WORKER Bilateral hand pain XR HAND LEFT 3VW OR MORE Routine 02/01/2025 9:40 AM CASINO GAMING WORKER Bilateral hand pain XR HAND LEFT 3VW OR MORE STAT 02/01/2025 5:31 AM CASINO GAMING WORKER Bilateral hand pain XR HAND RIGHT 3VW OR MORE STAT 02/01/2025 5:31 AM CASINO GAMING WORKER Bilateral hand pain documented in this encounter Results * XR Hand Left 3Vw or More (02/01/2025 10:32 AM CASINO GAMING WORKER) Anatomical Region Laterality Modality Wrist / Hand Digital Radiogra phy 02/01/2025 10:5 8 AM CASINO GAMING WORKER Narrative 02/01/2025 11:19 AM CASINO GAMING WORKER PROCEDURE: XR HAND LEFT 3VW OR MORE, DATE/TIME OF EXAM: 02/01/2025 10:39 AM, LOCATION [facility] INDICATION: M79.641: Bilateral hand pain M79.642: Bilateral [...] MD 02/01/2025 10:58 AM > Dictated by Verify Rep I, Tarun Blue MD have personally reviewed and interpreted this examination/study. > Interpreting Provider: Tarun Blue MD on 02/01/2025 11:19 AM Procedure Note Tarun Blue MD - 02/01/2025 PROCEDURE: XR HAND LEFT 3VW OR MORE, DATE/TIME OF EXAM: 0:39 AM, LOCATION [facility] INDICATION: M79.641: Bilateral hand pain M79.642: Bilateral [...] MD 02/01/2025 10:58 AM > Dictated by Verify Rep Tarun Miguel MD have personally reviewed and interpreted this examination/study. > Interpreting Provider: Tarun Blue MD on 02/01/2025 11:19 AM Brooke Beatty MD DIAGNOSTIC IMAGING ORDERABLES Final Result * XR Hand Right 3Vw or More (02/01/2025 9:40 AM CASINO GAMING WORKER) Anatomical Region Laterality Modality Wrist / Hand Digital Radiogra phy 02/01/2025 9:42 AM CASINO GAMING WORKER Narrative 02/01/2025 9:49 AM CASINO GAMING WORKER PROCEDURE: XR HAND RIGHT 3VW OR MORE, DATE/TIME OF EXAM: 02/01/2025 9:40 AM, LOCATION [facility] INDICATION: M79.641: Bilateral hand pain M79.642: Bilateral [...] swelling. Report dictated by Charlie Roblero Dr, (president). > Dictated by Charlie Roblero Dr 02/01/2025 9:42 AM > Dictated by Verify Rep Tarun Miguel MD have personally reviewed and interpreted this examination/study. > Interpreting Provider: Tarun Blue MD on 02/01/2025 9:49 AM Procedure Note Tarun Blue MD - 02/01/2025 PROCEDURE: XR HAND RIGHT 3VW OR MORE, DATE/TIME OF EXAM: 59:40 AM, LOCATION [facility] INDICATION: M79.641: Bilateral hand pain M79.642: Bilateral [...] swelling. Report dictated by Charlie Roblero Dr, (president). > Dictated by Charlie Roblero Dr 02/01/2025 9:42 AM > Dictated by Verify Rep Tarun Miguel MD have personally reviewed and interpreted this examination/study. > Interpreting Provider: Tarun Blue MD on 02/01/2025 9:49 AM us Brooke Beatty MD DIAGNOSTIC IMAGING ORDERABLES Final Result * XR Hand Left 3Vw or More (02/01/2025 9:40 AM CASINO GAMING WORKER) Anatomical Region Laterality Modality Wrist / Hand Digital Radiogra phy 02/01/2025 9:47 AM CASINO GAMING WORKER Narrative 02/01/2025 10:10 AM CASINO GAMING WORKER PROCEDURE: XR HAND LEFT 3VW OR MORE, DATE/TIME OF EXAM: 02/01/2025 9:40 AM, LOCATION [facility] INDICATION: M79.641: Bilateral hand pain M79.642: Bilateral [...] normal. Report dictated by Charlie Roblero Dr, (president). > Dictated by Charlie Roblero Dr 02/01/2025 9:47 AM > Dictated by Verify Rep Tarun Miguel MD have personally reviewed and interpreted this examination/study. > Interpreting Provider: Tarun Blue MD on 02/01/2025 10:10 AM Procedure Note Tarun Blue MD - 02/01/2025 PROCEDURE: XR HAND LEFT 3VW OR MORE, DATE/TIME OF EXAM: 02/01/2025 9:40 AM, LOCATION [facility] INDICATION: M79.641: Bilateral hand pain M79.642: Bilateral [...] normal. Report dictated by Charlie Roblero Dr, (president). > Dictated by Charlie Roblero Dr 02/01/2025 9:47 AM > Dictated by Verify Rep I, Tarun Blue MD have personally reviewed and interpreted this examination/study. > Interpreting Provider: Tarun Blue MD on 02/01/2025 10:10 AM us Brooke Beatty MD DIAGNOSTIC IMAGING ORDERABLES Final Result * XR Hand Left 3Vw or More (02/01/2025 5:31 AM CASINO GAMING WORKER) Anatomical Region Laterality Modality Wrist / Hand Digital Radiogra phy 02/01/2025 5:37 AM CASINO GAMING WORKER Narrative 02/01/2025 7:47 AM CASINO GAMING WORKER PROCEDURE: XR HAND LEFT 3VW OR MORE, DATE/TIME OF EXAM: 02/01/2025 5:31 AM, LOCATION [facility] INDICATION: M79.641: Bilateral hand pain M79.642: Bilateral [...] present. Report dictated by Adama Mayorga MD, (president). > Dictated by Adama Mayorga MD 02/01/2025 5:37 AM > Dictated by Verify Rep aTrun Miguel MD have personally reviewed and interpreted this examination/study. > Interpreting Provider: Tarnu Blue MD on 02/01/2025 7:47 AM Procedure Note Tarun Blue MD - 02/01/2025 PROCEDURE: XR HAND LEFT 3VW OR MORE, DATE/TIME OF EXAM: 02/01/2025 5:31 AM, LOCATION [facility] INDICATION: M79.641: Bilateral hand pain M79.642: Bilateral hand pain ADDITIONAL CLINICAL INFORMATION: Ordering Provider Reason For Exam: Technologist Note: Additional: COMPARISON: None. FINDINGS/IMPRESSION: There is dorsal dislocation of the second metacarpal phalangeal joint.No evidence of acute fracture. Degenerative changes at the first carpometacarpal and STT joints. Bone density and texture are normal.Soft tissue swelling is present. Report dictated by Adama Mayorga MD, (president). > Dictated by Adama Mayorga MD 02/01/2025 5:37 AM > Dictated by Verify Rep Tarnu Miguel MD have personally reviewed and interpreted this examination/study. > Interpreting Provider: Tarun Blue MD on 02/01/2025 7:47 AM us Brooke Beatty MD DIAGNOSTIC IMAGING ORDERABLES Final Result * XR Hand Right 3Vw or More (02/01/2025 5:31 AM CASINO GAMING WORKER) Anatomical Region Laterality Modality Wrist / Hand Digital Radiogra phy 02/01/2025 5:40 AM CASINO GAMING WORKER Narrative 02/01/2025 7:46 AM CASINO GAMING WORKER PROCEDURE: XR HAND RIGHT 3VW OR MORE, DATE/TIME OF EXAM: 02/01/2025 5:31 AM, LOCATION [facility] INDICATION: M79.641: Bilateral hand pain M79.642: Bilateral [...] joints. Report dictated by Adama Mayorga MD, (president). > Dictated by Adama Mayorga MD 02/01/2025 5:40 AM > Dictated by Verify Rep Tarun Miguel MD have personally reviewed and interpreted this examination/study. > Interpreting Provider: Tarun Blue MD on 02/01/2025 7:46 AM Procedure Note Tarun Blue MD - 02/01/2025 PROCEDURE: XR HAND RIGHT 3VW OR MORE, DATE/TIME OF EXAM: 55:31 AM, LOCATION [facility] INDICATION: M79.641: Bilateral hand pain M79.642: Bilateral [...] joints. Report dictated by Adama Mayorga MD, (president). > Dictated by Adaam Mayorga MD 02/01/2025 5:40 AM > Dictated by Verify Rep Tarun Miguel MD have personally reviewed and interpreted this examination/study. > Interpreting Provider: Tarun Blue MD on 02/01/2025 7:46 AM us Brooke Beatty MD DIAGNOSTIC IMAGING [...] 8 hours. $ Given 02/01/2025 6:18 AM CASINO GAMING WORKER 3 mL HYDROmorphone (Dilaudid) injection 0.5 mg [...] oral intake. $ Given 02/01/2025 6:03 AM CASINO GAMING WORKER 0.5 mg lidocaine PF (Xylocaine MPF) 1 % injection 20 mL 20 mL, Infiltration, ONCE, 1 dose, On Zita 02/01/25 at 0745 $ Admin. by Other Provider 02/01/2025 8:08 AM CASINO GAMING WORKER 20 mL documented in this encounter Active and Recently Administered Medications Times are shown in CASINO GAMING WORKER. Scheduled Medication Order 01/30/2025 01/31/2025 02/01/2025 0.9% NaCl injection 3 mL(Linked Group 1) 3 mL, Intracatheter, EVERY 8 HOURS, First dose on Zita 02/01/25 at 0600, Until Discontinued, Flush peripheral IV catheter with 3 mL of normal saline every 8 hours. 0618 ($ Given - Prov ider: Lisa Blakely RN) HYDROmorphone (Dilaudid) injection 0.5 mg (COMPLETED) 0.5 [...] patency. documented in this encounter Care Teams Campus Receptionist Relationship Specialty Start Date End Date Joel Dueñas MD [address] [place] [id number] PCP - General Family Medicine 05/18/24 documented as of this encounter
--- OUTSIDE RECORDS SUMMARY | 2025-02-01 15:44 | XMS_ITS | Encounter Summary ---
Author Organization [facility] Address [address] [place] [address] Care Team Providers Care Mule Driver Name Role Phone Joel Dueñas MD Primary Care Provider [phone] Reason for Visit * Reason Onset Date Comments MEDICATION REFILL 11/17/2020 Encounter Details Date Type Department Care Team (Late st Contact Info) Description 11/17/2020 Refill [facility] [address] [place] [address] Isidro Martínez W, DO [address] [place], [place] [id number] MEDICATION REFILL Social History Tobacco Use Types Packs/Day Years Used Date Smoking Tobacco: Every Day Cigarettes Smokeless Tobacco: Never Alcohol Use Standard Drinks/Week Comments Not Currently 0 (1 standard drink = 0.6 oz pure alcohol) has not had a drink in 15 years Comments Unknown Sex and Gender Information Value Date Recorded Sex Assigned at Female 05/15/2024 10:09 AM SPECIAL INVESTIGATOR Legal Sex Female 4:43 PM CDT Gender Identity Female 06/21/2020 12:12 PM CDT Sexual Orientation Straight 05/15/2024 10 :09 AM SPECIAL INVESTIGATOR documented as of this encounter Functional Status * Is person deaf or have serious hearing difficulty? Answer Date of Assessment Author No 06/20/2020 9:50 PM CDT Helen Bryson RN * Is person blind or have serious difficulty seeing? Answer Date of Assessment Author No 06/20/2020 9:50 PM TAMIKAT Helen Bryson RN * Does person have serious difficulty walking/climbing stairs? Answer Date of Assessment Author No 06/20/2020 9:50 PM CDT Helen Bryson RN * Does person have difficulty dressing/bathing? Answer Date of Assessment Author No 06/20/2020 9:50 PM Helen Reddy RN * Does person have difficulty doing errands alone? Answer Date of Assessment Author No 06/20/2020 9:50 PM TAMIKAT Helen Bryson RN documented as of this encounter Mental Status * Does person have difficulty concentrating/remembering/making decisions? Answer Entry Date Author No 06/20/2020 9:50 PM Helen Reddy RN documented in this encounter Plan of Treatment Upcoming Encounters Date Type Department Care Team (Late st Contact Info) Description 07/18/2025 3:00 PM CDT Office Visit [facility] - Rheumatology [address], [address] [place] [address] Abel Amin DO [address] [place] [address] Scheduled Procedures Name Priority Associated Diagnoses Date/Ti me OPEN REDUCTION INTERNAL FIXA TION (ORIF) CARPAL/METACARPAL Closed nondisplaced fracture of base of metacarpal bone, unspecified fracture morphology, unspecified metacarpal, initial encounter documented as of this encounter Visit Diagnoses Diagnosis Essential hypertension NSTEMI (non-ST elevated myocardial infarction) (HCC) Acute myocardial infarction, subendocardial infarction, episode of care unspecified documented in this encounter Care Teams Mule Driver Relationship Specialty Start Date End Date Joel Dueñas MD [address] [place] [address] PCP - General Family Medicine 05/18/24 documented as of this encounter
--- OUTSIDE RECORDS SUMMARY | 2025-02-01 15:44 | XMS_ITS | Clinical Summary ---
Author Organization [facility] Address [address] [place] [address] Care Team Providers Care Field Machinist Name Role Phone Joel Dueñas MD Primary Care Provider [phone] Source Comments [facility] [employer],non-owned Affiliates and Associated Physician Practices is amultiple site organization consisting of ambulatory clinics and hospital sitesin [place], [place], [place] and [place]. This disclosure is being madepursuant to the Care Everywhere program and may not contain all information available regarding this patient. Last updated 17.[facility] [employer] Allergies Active Allergy Reactions Criticality Noted Date Comments Codeine GI Discomfort High 06/20/2020 Medications * Be aware that medications may not be up to date on this document. Alwaysverify current medications with the patient. carvedilol (Coreg) 6.25 MG tablet Take 1 (one) tablet by mouth 2 times daily 180 tablet 3 07/18/19 23 Active pantoprazole EC (Protonix) 20 MG tablet Take 1 (one) tablet by mouth once daily 05/30/19 24 Active amLODIPine (Norvasc) 5 MG tablet Take 1 (one) tablet by mouth once daily 90 tablet 4 01/17/20 24 Active aspirin (Aspirin) 81 MG chew tablet Take 1 (one) tablet by mouth once daily 90 tablet 3 05/18/19 25 Active atorvastatin (Lipitor) 80 MG tablet Take 1 (one) tablet by mouth once daily 90 tablet 3 05/18/19 25 Active famotidine (Pepcid) 40 MG tablet Take 1 (one) tablet by mouth 2 times daily 05/10/19 25 Active losartan (Cozaar) 25 MG tablet Take 1 (one) tablet by mouth once daily 90 tablet 3 05/18/19 Active isosorbide mononitrate CR 24hr (Imdur) 30 MG tablet Take 1 (one) tablet by mouth once daily 90 tablet 3 05/18/19 Active nitroGLYCERIN (Nitrostat) 0.4 MG tablet Dissolve 1 (one) tablet under the tongue every 5 minutes as needed for Angina 15 tablet 07/04/19 Active DULoxetine HCl 40 MGIndications:Basi lar thumb osteoarthritis pain Take 40 mg by mouth at bedtime Reasons: Basilar thumb osteoarthritis pain 90 capsule 3 07/20/19 Active Active Problems Problem Noted Date Diagnosed Date Primary osteoarthritis of both first carpometaca rpal joints 12/07/2023 Assessment & Plan (07/19/2024 5:03 PM CDT): Patient reported her symptoms are stable, only aggravated with activity, relieved with rest. -continue duloxetine 40 mg at bedtime -if pain worse will consider steroid injection Assessment & Plan (12/07/2023 4:52 PM CDT): [...] corticosteroid injection, or referral to hand surgical assist for consideration of basilar thumb arthroplasty. Rosalie Al favored a trial of duloxetine and will start at 30 mg taken at bedtime but if not feeling improved with less pain after 14 days to contact [facility]ology to be provided a dose titration as long as tolerated without side effects. S/P drug eluting coronary stent placement 2023 Coronary artery disease invo lving [place] coronary artery of [place] heart without angina pectoris 10/22/2023 Mixed hyperlipidemia [...] Encounters Date Type Department Care Team Description 02/01/2025 4:52 AM ABSTRACT CHECKER - 02/01/2025 11:15 AM [facility] Emergency [facility] EMERGENCY DEPARTMENT [address] [place] [address] Brooke Beatty MD [place], Kene A, MD Bilateral hand pain; Closed displaced fracture of base of second metacarpal bone of left hand, initial encounter; Closed displaced fracture of phalanx of right little finger, unspecified phalanx, initial encounter Discharge Disposition: Home or Self Care 02/01/2025 Travel 01/08/2025 Refill [facility] Medical [facility] - Rheumatology [address] [place] [address], [address] [place] [address] Christine Perales MD MEDICATION REFILL from Last 3 Months Social [...] Sex Assigned at Female 05/15/2024 10:09 AM ABSTRACT CHECKER Legal Sex Female 4:43 PM CDT Gender Identity Female 06/21/2020 12:12 PM CDT Sexual Orientation Straight 05/15/2024 10 :09 AM ABSTRACT CHECKER Last Filed Vital Signs Vital Sign Reading Time Taken Comments Blood Pressure 131/82 02/01/2025 11:00 AM ABSTRACT CHECKER Pulse 75 02/01/2025 6:30 AM ABSTRACT CHECKER Temperature 36.1 C (97 F) 02/01/2025 4:36 AM ABSTRACT CHECKER Respiratory Rate 16 02/01/2025 6:30 AM ABSTRACT CHECKER Oxygen Saturation 90% 02/01/2025 6:30 AM ABSTRACT CHECKER Inhaled Oxygen Concentration - - Weight 59 kg (130 lb) 07/19/2024 3:44 PM CDT Height 162.6 cm (5' 4) 06/28/2024 1:43 PM CDT Body Mass Index 22.31 06/28/2024 1:43 PM CDT Plan of Treatment Upcoming Encounters Date Type Department Care Team (Late st Contact Info) Description 07/18/2025 3:00 PM CDT Office Visit [facility] - Rheumatology [address], [address] [place] [address] Abel Amin DO [address] [place] [address] Scheduled Procedures Name Priority Associated Diagnoses Date/Ti me OPEN REDUCTION INTERNAL FIXA TION (ORIF) CARPAL/METACARPAL Closed nondisplaced fracture of base of metacarpal bone, unspecified fracture morphology, unspecified metacarpal, initial encounter Health Maintenance Due Date Last Done Comments COLOGUARD (AGES 45-75) - COL ON CA SCREENING 1961 COLON MONITORING 1961 COLONOSCOPY - COLON CA SCREENING 1961 CT COLONOGRAPHY - COLON CA SCREENING 1961 Colorectal Cancer Screening 1961 FIT - COLON CA SCREENING 1961 FLEX SIG - COLON CA SCREENING 1961 MAMMOGRAM 1961 HIV SCREENING 02/09/1976 HEPATITIS C SCREENING 02/04/1979 DTAP/TDAP/TD VACCINES (1 - Tdap) 02/09/1980 PNEUMOCOCCAL VACCINE 50+ (1 of 2 - PCV) 02/09/1980 ZOSTER VACCINE (1 of 2) 2011 COVID-19 VACCINE (3 - 2024-2 6 season) 2024 03/31/2023, 08/05/2020 INFLUENZA VACCINE (#1) 2024 PAP SMEAR 04/06/2027 04/06/2024, 04/06/2024 Respiratory Syncytial Virus (RSV) Vaccine Pt: or over 60 yrs (1 - 1-dose 75+ series) 02/09/2036 DEPRESSION SCREENING Completed 05/15/2024 HEPATITIS B VACCINE Aged Out No longe r eligible based on patient's age to complete this topic HIB VACCINE Aged Out No longer eligi ble based on patient's age to complete this topic HPV VACCINE Aged Out No longer eligi ble based on patient's age to complete this topic MENINGOCOCCAL (Group B) VACCINE SHARED DECISION-MAKING Aged Out No longer eligible based on patient's age to complete this topic MENINGOCOCCAL GROUPS A/C/Y/W VACCINE Aged Out No longer eligible b ased on patient's age to complete this topic Medical Devices Implanted Type Area [employer] Packages Sealer Device Identifier Shelf Expiration Date Model / Serial / Lot Sys Cor Stent Xience Srr 3mm 15mm Rap Ex Implanted:Qty: 1 on 06/21/2020 by Hima Tracey MD at [facility] [employer] 09/03/2021 [id number] Description:m-[facility]IR[facility] Procedures Procedure Name Priority Date/Time Associated Diagnosis Comments XR HAND LEFT 3VW OR MORE STAT 02/01/2025 10:32 AM ABSTRACT CHECKER Bilateral hand pain XR HAND RIGHT 3VW OR MORE Routine 02/01/2025 9:40 AM ABSTRACT CHECKER Bilateral hand pain XR HAND LEFT 3VW OR MORE Routine 02/01/2025 9:40 AM ABSTRACT CHECKER Bilateral hand pain XR HAND LEFT 3VW OR MORE STAT 02/01/2025 5:31 AM ABSTRACT CHECKER Bilateral hand pain XR HAND RIGHT 3VW OR MORE STAT 02/01/2025 5:31 AM ABSTRACT CHECKER Bilateral hand pain from Last 3 Months Results * XR Hand Left 3Vw or More (02/01/2025 10:32 AM ABSTRACT CHECKER) Only the most recent of3 resultswithin the time period is included. Anatomical Region Laterality Modality Wrist / Hand Digital Radiogra phy 02/01/2025 10:5 8 AM ABSTRACT CHECKER Narrative 02/01/2025 11:19 AM ABSTRACT CHECKER PROCEDURE: XR HAND LEFT 3VW OR MORE, DATE/TIME OF EXAM: 02/01/2025 10:39 AM, LOCATION [facility] INDICATION: M79.641: Bilateral hand pain [...] MD 02/01/2025 10:58 AM > Dictated by Button Sawyer I, Tarun Blue MD have personally reviewed and interpreted this examination/study. > Interpreting Provider: Tarun Blue MD on 02/01/2025 11:19 AM Procedure Note Tarun Blue MD - 02/01/2025 PROCEDURE: XR HAND LEFT 3VW OR MORE, DATE/TIME OF EXAM: 0:39 AM, LOCATION [facility] INDICATION: M79.641: Bilateral hand pain [...] MD 02/01/2025 10:58 AM > Dictated by Button Sawyer Tarun Miguel MD have personally reviewed and interpreted this examination/study. > Interpreting Provider: Tarun Blue MD on 02/01/2025 11:19 AM Brooke Beatty MD DIAGNOSTIC IMAGING ORDERABLES Final Result * XR Hand Right 3Vw or More (02/01/2025 9:40 AM ABSTRACT CHECKER) Only the most recent of2 resultswithin the time period is included. Anatomical Region Laterality Modality Wrist / Hand Digital Radiogra phy 02/01/2025 9:42 AM ABSTRACT CHECKER Narrative 02/01/2025 9:49 AM ABSTRACT CHECKER PROCEDURE: XR HAND RIGHT 3VW OR MORE, DATE/TIME OF EXAM: 02/01/2025 9:40 AM, LOCATION [facility] INDICATION: M79.641: Bilateral hand pain [...] Report dictated by Charlie Roblero Dr, (residential assistant). > Dictated by Charlie Roblero Dr 02/01/2025 9:42 AM > Dictated by Button Sawyer ITarun MD have personally reviewed and interpreted this examination/study. > Interpreting Provider: Tarun Blue MD on 02/01/2025 9:49 AM Procedure Note Tarun Blue MD - 02/01/2025 PROCEDURE: XR HAND RIGHT 3VW OR MORE, DATE/TIME OF EXAM: 59:40 AM, LOCATION [facility] INDICATION: M79.641: Bilateral hand pain [...] Report dictated by Charlie Roblero Dr, (residential assistant). > Dictated by Charlie Roblero Dr 02/01/2025 9:42 AM > Dictated by Button Sawyer I, Tarun Blue MD have personally reviewed and interpreted this examination/study. > Interpreting Provider: Tarun Blue MD on 02/01/2025 9:49 AM Brooke Beatty MD DIAGNOSTIC IMAGING ORDERABLES Final Result from Last 3 Months Insurance [employer] [place] Advance Directives * Full Code (Latest Code Status on File) Date Activated Date Inactivated Comments 06/20/2020 9:53 PM 06/22/2020 2:41 PM Care Teams Field Machinist Relationship Specialty Start Date End Date Joel Dueñas MD [address] [place] [id number] PCP - General Family Medicine 05/18/24
--- OUTSIDE RECORDS SUMMARY | 2025-02-01 15:44 | XMS_ITS | Encounter Summary ---
Author Organization [facility] Address [address] [place] [address] Care Team Providers Care Portfolio Architect Name Role Phone Joel Dueñas MD Primary Care Provider [phone] Encounter Details Date Type Department Care Team (Latest Contact Info) Description 02/01/2025 Travel Social History Tobacco Use Types Packs/Day Years Used Date Smoking Tobacco: Some Days Cigarettes 0.5 4.8 Started: 2020 Smokeless Tobacco: Never Alcohol Use Standard Drinks/Week Comments Yes 0 (1 standard drink = 0.6 oz pur e alcohol) occassionally PHQ-2 Answer Date Recorded Patient Health Questionnaire-2 Score 0 07/19/2024 Comments No Sex and Gender Information Value Date Recorded Sex Assigned at Female 05/15/2024 10:09 AM TRADE MARK ATTORNEY Legal Sex Female 4:43 PM CDT Gender Identity Female 06/21/2020 12:12 PM CDT Sexual Orientation Straight 05/15/2024 10 :09 AM TRADE MARK ATTORNEY documented as of this encounter Functional Status [...] Assessment Author No 06/20/2020 9:50 PM Helen Rdedy RN * Does person have difficulty dressing/bathing? Answer Date of Assessment Author No 06/20/2020 9:50 PM Helen Reddy RN * Does person have difficulty doing errands alone? Answer Date of Assessment Author No 06/20/2020 9:50 PM CDT Helen Bryson RN documented as of this encounter Mental Status * Does person have difficulty concentrating/remembering/making decisions? Answer Entry Date Author No 06/20/2020 9:50 PM CDT Helen Bryson RN documented in this encounter Plan of Treatment Upcoming Encounters Date Type Department Care Team (Late st Contact Info) Description 07/18/2025 3:00 PM CDT Office Visit [facility] - Rheumatology [address], [address] [place] [address] Abel Amin DO [address] [place] [address] Scheduled Procedures Name Priority Associated Diagnoses Date/Ti me OPEN REDUCTION INTERNAL FIXA TION (ORIF) CARPAL/METACARPAL Closed nondisplaced fracture of base of metacarpal bone, unspecified fracture morphology, unspecified metacarpal, initial encounter documented as of this encounter Visit Diagnoses Not on filedocumented in this encounter Care Teams Portfolio Architect Relationship Specialty Start Date End Date Joel Dueñas MD [address] [place] [address] PCP - General Family Medicine 05/18/24 documented as of this encounter
--- OUTSIDE RECORDS SUMMARY | 2025-02-01 15:44 | XMS_ITS | Encounter Summary ---
Author Organization [facility] Address [address] [place] [address] Care Team Providers Care Testing And Regulating Technician Name Role Phone Joel Dueñas MD Primary Care Provider [phone] Reason for Visit * Reason Onset Date Comments MEDICATION REFILL 01/18/2021 Encounter Details Date Type Department Care Team (Late st Contact Info) Description 01/18/2021 Refill [facility] [address] [place] [address] Isidro Martínez W, DO [address] [place], [place] [id number] MEDICATION REFILL Social History Tobacco Use Types Packs/Day Years Used Date Smoking Tobacco: Every Day Cigarettes Smokeless Tobacco: Never Alcohol Use Standard Drinks/Week Comments Not Currently 0 (1 standard drink = 0.6 oz pure alcohol) has not had a drink in 15 years Comments Unknown Sex and Gender Information Value Date Recorded Sex Assigned at Female 05/15/2024 10:[address] REPORTER Legal Sex Female 4:43 PM CDT Gender Identity Female 06/21/2020 12:12 PM CDT Sexual Orientation Straight 05/15/2024 10 :[address] REPORTER documented as of this encounter Functional Status [...] Description 07/18/2025 3:00 PM CDT Office Visit [facility] - Rheumatology [address], [address] [place] [address] Abel Amin DO [address] [place] [address] Scheduled Procedures Name Priority Associated Diagnoses Date/Ti me OPEN REDUCTION INTERNAL FIXA TION (ORIF) CARPAL/METACARPAL Closed nondisplaced fracture of base of metacarpal bone, unspecified fracture morphology, unspecified metacarpal, initial encounter documented as of this encounter Visit Diagnoses Diagnosis Essential hypertension NSTEMI (non-ST elevated myocardial infarction) (HCC) Acute myocardial infarction, subendocardial infarction, episode of care unspecified documented in this encounter Care Teams Testing And Regulating Technician Relationship Specialty Start Date End Date Joel Dueñas MD [address] [place] [address] PCP - General Family Medicine 05/18/24 documented as of this encounter
--- OUTSIDE RECORDS SUMMARY | 2025-02-01 15:44 | XMS_ITS | Data Portability ---
Author Organization [facility], [place] Address [address] [place] [address] [address] Care Team Providers Care Rn Informatics Name Role Phone ROB RENE Primary Care Provider [phone] Assessment Encounter Date Assessment Date Assessment LastModified by Organization Details LastModified Time 04/06/2024 04/06/2024 Annual gynecological exam performed. Patient will come back in a year unless there are new symptoms. [email or web address] Not available 04/06/2024 14:15:49 Plan of Treatment Reminders Order Date Submit Date Provider Last Modified By Organization Details Last Modified Time Details Appointments None recorded. Lab None recorded. Referral None recorded. Procedures None recorded. Surgeries None recorded. Imaging US, transvagina l 2024 025 [email or web address] [place], [address], [place], [address], 20:48:58 US, pelvis, complete 2024 025 [email or web address] [place] [facility] [address], [place], [address], 16:51:09 Medication Orders None recorded. Patient TargetsNo targets recorded. Patient InstructionsNo instructions recorded. Reason for Referral None Reported. 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 Not Available [facility] (Lab) [address], [place], [address], 04/14/2024 09:26:27 04/06/19 25 04/06/2024 TRICH OMONA S VAGIN LYDIA (RRNA ) trichomonas vaginalis ribosomal RNA (rrna) Negati ve negati ve Not Available [facility] (Lab) [address] , [place], [address], 04/14/2024 09:26:28 04/06/19 25 04/06/2024 CT/GC (ADALBERTO) , THINP REP VIAL chlamydia trachomatis, PCR Negati ve negati ve Not Available [facility] (Lab) [address] , [place], [address], 04/14/2024 09:26:28 04/06/19 25 04/06/2024 CT/GC (ADALBERTO) , THINP REP VIAL neisseria gonorrhoeae, PCR Negati ve negati ve Not Available [facility] (Lab) [address], [place], [address], 04/14/2024 09:26:28 04/27/19 25 04/27/2024 US, trans vagin al No observ ation record ed. [email or web address] [place] [address], [place], [address], 04/27/2024 18:14:49 04/27/19 25 04/27/2024 US, trans vagin al No observ ation record ed. [email or web address] [address] [place] [address] [address], [place], [address], 05/04/2024 09:33:40 Result Notes None recorded. Procedures Surgical History Date Name Laterality Status Provider Name and Address Organization Details Recorded Time 01/10/20 24 Date of Last Mammogram completed Lorie Love [facility] 04/06/2024 14:18:21 01/06/20 24 completed Lorie Love [facility] 04/06/2024 14:18:21 01/06/20 24 Date of Last Colonoscopy completed Lorie Kate [facility] 04/06/2024 14:18:21 03/29/19 22 placement of stent in coronary artery completed JOAQUIM Garza [address], [place], [address], [facility] 04/06/2024 14:10:34 03/29/19 05 Date of Last Pap Smear completed Lorie Kate [facility] 04/06/2024 14:22:07 Imaging Results None recorded. Procedure Notes None recorded. Medical Equipment None Reported. Allergies Allergen ID Allergen Name Allergen Category Reaction Reaction Severity Criticality Documentation Date Start Date Code Code System Note Provider Name and Address Organization Details Recorded Time 31826 codeine medicatio n Not available Not available Not available 04/06/2024 2670 RxNorm Lorie rucker [facility] 14:18:35 Medications Name Sig Start Date [...] Time Tobacco Smoking Status Former Smoker Lorie rucker, [facility] 04/06/2024 14:26:15 Do You Have An Advance Directive? No Information not available 04/06/2024 How Many Years Have You Consumed Alcohol? 15 [email or web address] Information not available 04/06/2024 Are You Blind Or Do You Have Difficulty Seeing? Yes Information not available 04/06/2024 What Is Your Level Of Caffeine Consumption? Occasional [email or web address] Information not available 04/06/2024 How Much Tobacco Do You Chew? None [email or web address] Information not available 04/06/2024 In The 14 Days Before Symptom Onset, Have You Had Close Contact With A Laboratory-confir med COVID-19 While That Case Was Ill? No Information not available 04/06/2024 In The 14 Days Before Symptom Onset, Have You Had Close Contact With A Person Who Is Under Investigation For COVID-19 While That Person Was Ill? No [email or web address] Information not available 04/06/2024 Have You Been To An Area Known To Be High Risk For COVID-19? No [email or web address] Information not available 04/06/2024 Are You Deaf Or Do You Have Serious Difficulty Hearing? No [email or web address] Information not available 04/06/2024 What Type Of Diet Are You Following? REGULAR [email or web address] Information not available 04/06/2024 What Is The Highest Grade Or Level Of School You Have Completed Or The Highest Degree You Have Received? [id number] [email or web address] Information not available 04/06/2024 Are There Any Guns Present In Your Home? No Information not available 04/06/2024 Do You Use Protection During Sex? No [email or web address] Information not available 04/06/2024 Do You Use Your Seat Belt Or Car Seat Routinely? Yes [email or web address] Information not available 04/06/2024 Do You Have Smoke And Carbon Monoxide Detectors In Your Home? Yes Information not available 04/06/2024 At What Age Did You Start Smoking Tobacco? 12 [email or web address] Information not available 04/06/2024 How Much Tobacco Do You Smoke? No [email or web address] Information not available 04/06/2024 Do You Use Sunscreen Routinely? No [email or web address] Information not available 04/06/2024 How Many Years Have You Smoked Tobacco? 40 [email or web address] Information not available 04/06/2024 Have You Used IV Drugs? No [email or web address] Information not available 04/06/2024 Sex: Unknown Functional Status Question Answer Note LastModified by Organizat ion Details LastModified Time Do you use any illicit or recreational drugs? Yes [email or web address] Information not available 04/06/2024 What is your level of alcohol consumption? None [email or web address] Information not available 04/06/2024 Are you able to walk independently without assistance or assistive devices? 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 Occasional [email or web address] Information not available 04/06/2024 Mental Status Question Answer Note LastModified by Organization D etails LastModified Time Do you feel stressed (tense, restless, nervous, or anxious, or unable to sleep at night)? [id number] [email or web address] Information not available 04/06/2024 Family History Relationship Description Onset Age of this Age Resolved Age Notes LastModified by Organization Details LastModified Time Mother Heart disease [email or web address] Not available 2024 14:18:21 Mother Diabetes mellitus [email or web address] Not available 2024 14:25:58 Maternal Grandmother Heart disease [email or web address] Not available 2024 14:18:21 Maternal Grandmother Diabetes mellitus [email or web address] Not available 2024 14:25:43 Medical History Condition Response Allergies (Food, seasonal, environmental ) N Other N Breast Cancer N Drug/Latex Allergies/Reactions N Blood Transfusion N Dermatologic Disorders N Lung Disease N Defects or Inherited Disease N Breast Problem N Gestational Diabetes N Hematologic disorders N Anesthesia Complications N History of STI N Deep Vein Thrombosis N Polycystic ovary syndrome N Anxiety Disorder N Autoimmune disease N Arthritis Y Infertility N Polyps N Acid Reflux (GERD) N History of abnormal pap N Cancer N Stroke N Varicosities N Neurologic/Epilepsy N Endometriosis N High Cholesterol Y Headaches N Fibromyalgia N Kidney Disease N Heart Problems N [...] Diagnosis SNOMED-CT Code Diagnosis ICD10 Code Diagnosis IMO Codes Diagnosis Note [id number] JOAQUIM Garza [place] [address] [address] 04/06/2024 13:53:38 04/06/2024 14:57:39 Gynecologic examination [id number] Z01.419 WWEpostmen opausalPap - done todaySTI screen [...] plan of care. Venereal d isease screening [id number] Z11.3 [id number] Eric Buenrostro MD [place] [address] [address] 04/27/2024 15:44:10 04/27/2024 16:28:53 Postcoital bleeding 02246125 N93.0 Health Concerns Section Related Observation LastModified by Organization Detai ls LastModified Time None Recorded Concern Status LastModified by Organization Details LastModified Time None Recorded Advance Directives Directive N: Payers Insurance Date Sequence Insurance Name Policy Number Policy Ibarra Covered Member ID Ibarra Member ID Guarantor Name 04/26/2024 1 [facility] ON OR AFTER 09/26/20 (MEDICAID REPLACEMENT - HMO) Basia Al [id number] Basia Al Notes Date Note Type Note Provider Name and Address Organization Details Recorded Time 5 text/html Annual Dog Bather Post-MenopausalReported by PatientGenitourinary symptomsFor vaginal bleeding, patient reportspost menopausal bleeding. For menopausal symptoms, patient reportsno menopausal symptomsandnormal vaginal lubrication. For urinary symptoms, patient reportsno hematuria,no incontinence,no nocturia, andno urinary frequency. For vulva, patient reportsno genital lesionandno vulvar atrophy. For vagina, patient reportsnormal vaginal dischargeandno vaginal atrophy.Breast symptomsFor breast, patient reportsno breast lump,no nipple discharge, andno breast pain.Psychological symptomsFor sexual complaints, patient reportsno sexual complaints. For psychological symptoms, patient reportsno depressionandno anxiety.Preventative measuresFor preventive measures, patient reportsencourage regular mammograms starting age 40,encourage self breast examination,encourage regular exercise, andencourage no tobacco use.64yo wwepostmenopausal since age 51no h/o abnormal papslast pap 20+ yrs agorecently SA again, had not been for 15+ yrs. Has had bleeding with IC the last 3 times. Light spotting, quickly resolvesmammogram UTDcolonoscopy UTD JOAQUIM Garza [address], [place], [address], [facility] 04/06/2024 14:57:16 OBGyn Episode Ob Episode Information Episode Created Date Number of Fetuses Patient Bloodtype Patient rh Status Prepregnancy Weight lbs Domestic Partner Domestic Partner Phone Father Name Rope Tier Status 04/06/19 25 1 CLOSED Fetus Data First Name Last Name Admitted to NICU Weight (g) Sex Living Outcome Pediatric Complications Fetus ID Race Codes Race Delivery Type M Full Term 30080 Vaginal Delivery Obey Calculation Initial Obey Date [...] Domestic Partner Domestic Partner Phone Father Name Rope Tier Status 04/06/19 25 1 CLOSED Fetus Data First Name Last Name Admitted to NICU Weight (g) Sex Living Outcome Pediatric Complications Fetus ID Race Codes Race Delivery Type M Full Term 26908 Vaginal Delivery Obey Calculation Initial Obey Date [...] Domestic Partner Domestic Partner Phone Father Name Rope Tier Status 04/06/19 25 1 CLOSED Fetus Data First Name Last Name Admitted to NICU Weight (g) Sex Living Outcome Pediatric Complications Fetus ID Race Codes Race Delivery Type F Full Term [id number] Vaginal Delivery Obey Calculation Initial Obey Date [...]
--- OUTSIDE RECORDS SUMMARY | 2025-02-01 15:44 | XMS_ITS | Clinical Summary ---
Author Organization [facility] Address [address] [place] [address] Care Team Providers Care Systems Mechanic Name Role Phone Unavailable Primary Care Provider [...] Comments Blood Pressure 118/78 05/11/2014 11:04 AM BOOK ILLUSTRATOR Pulse 64 05/11/2014 11:04 AM BOOK ILLUSTRATOR Temperature - - Respiratory Rate - - Oxygen Saturation - - Inhaled Oxygen Concentration - - Weight 66.2 kg (146 lb) 05/11/2014 11:04 AM BOOK ILLUSTRATOR Height 161.9 cm (5' 3.75) 05/11/2014 11:[address] Body Mass Index 25.26 05/11/2014 11:04 AM BOOK ILLUSTRATOR Plan of Treatment Health Maintenance Due Date [...] Screening with HPV 1991 Mammogram Screening 2001 Pneumococcal Vaccine: 50+ Ye ars (1 of 1 - PCV) 2011 Zoster Vaccines (1 of 2) 2011 COVID-19 Vaccine ( - 2024-2 6 season) 2024 Influenza Adult (#1) 2024 RSV Immunization or 60+ Years (1 - 1-dose 75+ series) 02/09/2036 Hepatitis A Vaccines Aged Out No long er eligible based on patient's age to complete this topic Meningococcal B Vaccine Aged Out No l onger eligible based on patient's age to complete this topic Meningococcal Vaccine Aged Out No jackeline li eligible based on patient's age to complete this topic RSV Immunizations Under 20 Months Aged Out No longer eligible based on patient's age to complete this topic
--- OUTSIDE RECORDS SUMMARY | 2025-02-01 15:44 | XMS_ITS | Encounter Summary ---
Author Organization [facility] Address [address] [place] [address] Care Team Providers Care Sales Agent Pest Control Service Name Role Phone Kevan Mejía MD Primary Care Provider Unavailable Encounter Details Date Type Department Care Team (Late st Contact Info) Description 07/24/2012 Abstract [facility] CONVERSION [address] [place] [address] eKvan Mejía MD Social History Tobacco Use Types [...] on filedocumented in this encounter Care Teams Sales Agent Pest Control Service Relationship Specialty Start Date End Date Kevan Mejía MD PCP - General 07/24/12 documented as of this encounter
--- OUTSIDE RECORDS SUMMARY | 2025-02-01 15:44 | XMS_ITS | Encounter Summary ---
Author Organization [facility] Address [address] [facility] [place] [address] Care Team Providers Care Central Lab Technician Name Role Phone Joel Dueñas MD Primary Care Provider [phone] Reason for Visit * Reason Onset Date Comments MEDICATION REFILL 01/11/2021 Encounter Details Date Type Department Care Team (Late st Contact Info) Description 01/11/2021 Refill [facility] [address] [facility] [address] [place] [address] Isidro Martínez W, DO [address] [facility] [address] [place], [place] [address] MEDICATION REFILL Social History Tobacco Use Types Packs/Day Years Used Date Smoking Tobacco: Every Day Cigarettes Smokeless Tobacco: Never Alcohol Use Standard Drinks/Week Comments Not Currently 0 (1 standard drink = 0.6 oz pure alcohol) has not had a drink in 15 years Comments Unknown Sex and Gender Information Value Date Recorded Sex Assigned at Female 05/15/2024 10:09 AM TEXTILE DESIGNER Legal Sex Female 4:43 PM CDT Gender Identity Female 06/21/2020 12:12 PM CDT Sexual Orientation Straight 05/15/2024 10 :09 AM TEXTILE DESIGNER documented as of this encounter Functional Status * Is person deaf or have serious hearing difficulty? Answer Date of Assessment Author No 06/20/2020 9:50 PM CDT Helen Bryson RN * Is person blind or have serious difficulty seeing? Answer Date of Assessment Author No 06/20/2020 9:50 PM TAMIKAT Helen Bryosn RN * Does person have serious difficulty [...] Description 07/18/2025 3:00 PM CDT Office Visit [facility] - Rheumatology [address] [facility], [address] [place] [address] Abel Amin DO [address] [facility] [address] [place] [address] Scheduled Procedures Name Priority Associated Diagnoses Date/Ti me OPEN REDUCTION INTERNAL FIXA TION (ORIF) CARPAL/METACARPAL Closed nondisplaced fracture of base of metacarpal bone, unspecified fracture morphology, unspecified metacarpal, initial encounter documented as of this encounter Visit Diagnoses Diagnosis Essential hypertension NSTEMI (non-ST elevated myocardial infarction) (HCC) Acute myocardial infarction, subendocardial infarction, episode of care unspecified documented in this encounter Care Teams Central Lab Technician Relationship Specialty Start Date End Date Joel Dueñas MD [address] [facility] [address] [place] [address] PCP - General Family Medicine 05/18/24 documented as of this encounter
== END 2025-01-31 22:20 | disposition short-term general hospital (02) ==
PROVIDERS: Emergency Provider Student in an Organized Health Care Education/Training Program; PCP Emergency Medicine
DX: S63.291A Dislocation of distal interphalangeal joint of left index finger, initial encounter (principal); S63.261A Dislocation of metacarpophalangeal joint of left index finger, initial encounter; S62.616A Displaced fracture of proximal phalanx of right little finger, initial encounter for closed fracture; T14.8XXA Other injury of unspecified body region, initial encounter; Z23 Encounter for immunization; I10 Essential (primary) hypertension; I25.2 Old myocardial infarction; Z86.718 Personal history of other venous thrombosis and embolism; Z87.891 Personal history of nicotine dependence; Z79.82 Long term (current) use of aspirin; Z79.899 Other long term (current) drug therapy; Y09 Assault by unspecified means
CPT/HCPCS: 26605; 26700; 26725; 26770; 73110; 73130; 73140; 90471; 90715; 96372; 99285; J2270; J3360

== ENCOUNTER 2025-02-02 08:22 | Emergency (ER) | payer OTHER, SELFPAY ==
--- OUTSIDE RECORDS SUMMARY | 2025-02-01 04:52 | XMS_ITS | Encounter Summary ---
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 0.9% NaCl injection 1-10 mL 1-10 mL, Intracatheter, PRN, Other, peripheral line flush, Starting on Zita 02/01/25 at 0519, Until Zita 02/01/25 at 1216, Flush peripheral IV catheter with 1-10 mL of normal saline before and after medications and prn to clear blood from the line or to verify patency. 0.9% NaCl injection 3 mL 3 mL, Intracatheter, EVERY 8 HOURS, First dose on Zita 02/01/25 at 0600, Until Discontinued, Flush peripheral IV catheter with 3 mL of normal saline every 8 hours. $ Given 02/01/2025 6:18 AM FOOD ASSEMBLER KITCHEN 3 mL HYDROmorphone (Dilaudid) injection 0.5 mg 0.5 mg, Intravenous, NOW, 1 dose, On Zita 02/01/25 at 0530, Patient preference for lesser PRN pain meds may be honored when the patient requests a less strong medication, a lower dose, or a less intrusive route of administration when the lesser drug, dose and route have been ordered for the patient. This patient request must be documented in the MAR. If both oral and IV options are ordered for the same pain severity, give oral first unless patient cannot tolerate oral intake. $ Given 02/01/2025 6:03 AM FOOD ASSEMBLER KITCHEN 0.5 mg lidocaine PF (Xylocaine MPF) 1 % injection 20 mL 20 mL, Infiltration, ONCE, 1 dose, On Zita 02/01/25 at 0745 $ Admin. by Other Provider 02/01/2025 8:08 AM FOOD ASSEMBLER KITCHEN 20 mL documented in this encounter Active and Recently Administered Medications Times are shown in FOOD ASSEMBLER KITCHEN. Scheduled Medication Order 01/30/2025 01/31/2025 02/01/2025 0.9% NaCl injection 3 mL(Linked Group 1) 3 mL, Intracatheter, EVERY 8 HOURS, First dose on Zita 02/01/25 at 0600, Until Discontinued, Flush peripheral IV catheter with 3 mL of normal saline every 8 hours. 0618 ($ Given - Prov ider: Lisa Blakely, ARGELIA) HYDROmorphone (Dilaudid) injection 0.5 mg (COMPLETED) 0.5 mg, Intravenous, NOW, 1 dose, On Zita 02/01/25 at 0530, Patient preference for lesser PRN pain meds may be honored when the patient requests a less strong medication, a lower dose, or a less intrusive route of administration when the lesser drug, dose and route have been ordered for the patient. This patient request must be documented in the MAR. If both oral and IV options are ordered for the same pain severity, give oral first unless patient cannot tolerate oral intake. 0603 ($ Given - Prov ider: Lisa Blakely RN) lidocaine PF (Xylocaine MPF) 1 % injection 20 mL (COMPLETED) 20 mL, Infiltration, ONCE, 1 dose, On Zita 02/01/25 at 0745 0808 ($ Admin. by Ot her Provider - Provider: Maryellen Flores RN) PRN Medication Order 01/30/2025 01/31/2025 02/01/2025 0.9% NaCl injection 1-10 mL(Linked Group 1) 1-10 mL, Intracatheter, PRN, Other, peripheral line flush, Starting on Zita 02/01/25 at 0519, Until Zita 02/01/25 at 1216, Flush peripheral IV catheter with 1-10 mL of normal saline before and after medications and prn to clear blood from the line or to verify patency. Linked Groups Order Group 1: SALINE LOCK, INSERT AND MAINTAIN (CANCELED) Routine, CONTINUOUS, Starting on Zita 02/01/25 at 0530, Until Specified, New collection And 0.9% NaCl injection 3 mLJump to med 3 mL, Intracatheter, EVERY 8 HOURS, First dose on Zita 02/01/25 at 0600, Until Discontinued, Flush peripheral IV catheter with 3 mL of normal saline every 8 hours. And 0.9% NaCl injection 1-10 mLJump to med 1-10 mL, Intracatheter, PRN, Other, peripheral line flush, Starting on Zita 02/01/25 at 0519, Until Zita 02/01/25 at 1216, Flush peripheral IV catheter with 1-10 mL of normal saline before and after medications and prn to clear blood from the line or to verify patency. documented in this encounter Care Teams Professor Of Physics Relationship Specialty Start Date End Date Joel Dueñas MD [address] [place] [id number] PCP - General Family Medicine 05/18/24 documented as of this encounter
--- OUTSIDE RECORDS SUMMARY | 2025-02-01 04:52 | XMS_ITS | Encounter Summary ---
Author Organization [facility] Address [address] [place] [address] Care Team Providers Care Dry Cleaning Supervisor Name Role Phone Joel Dueñas MD Primary Care Provider [phone] Reason for Visit * Reason Comments Injury [...] st Contact Info) Description 02/01/2025 4:52 AM COLOR PASTE MIXING SUPERVISOR - 02/01/2025 11:15 AM [facility] Emergency [facility] EM[facility]GENCY DEPARTMENT [address] [place] [phone] Brooke Beatty MD [address] [place] [address] [place] [phone] Dotty Lazo MD [address] [place] [address] [place] [address] Bilateral hand pain; Closed displaced fracture of [...] Sex Assigned at Female 05/15/2024 10:09 AM COLOR PASTE MIXING SUPERVISOR Legal Sex Female 4:43 PM CDT Gender Identity Female 06/21/2020 12:12 PM CDT Sexual Orientation Straight 05/15/2024 10 :09 AM COLOR PASTE MIXING SUPERVISOR documented as of this encounter Last Filed Vital Signs Vital Sign Reading Time Taken Comments Blood Pressure 131/82 02/01/2025 11:00 AM COLOR PASTE MIXING SUPERVISOR Pulse 75 02/01/2025 6:30 AM COLOR PASTE MIXING SUPERVISOR Temperature 36.1 C (97 F) 02/01/2025 4:36 AM COLOR PASTE MIXING SUPERVISOR Respiratory Rate 16 02/01/2025 6:30 AM COLOR PASTE MIXING SUPERVISOR Oxygen Saturation 90% 02/01/2025 6:30 AM COLOR PASTE MIXING SUPERVISOR Inhaled Oxygen Concentration - - Weight - [...] Gilles Garnica MD - 02/01/2025 10:57 AM COLOR PASTE MIXING SUPERVISOR HAND/WRIST SURGERY POST-OPERATIVE CARE INSTRUCTIONS These discharge [...] Room. Plastic Surgery Contact Information: Please call [phone] and press [phone] to ask the shirt line operator for the Plastic Surgery resident at [facility] if after 5 p.m., ask for the plastic surgery resident park recreation manager. In an emergency, call 911. R PASTE MIXING SUPERVISOR R PASTE MIXING SUPERVISOR documented in this encounter Medications at Time [...] Pt ambulatory to WR with steady gait. R PASTE MIXING SUPERVISOR * Maryellen Flores RN - 02/01/2025 7:29 AM CST Report received from ARGELIA Gonzalez. Care transferred. Pt resting comfortably. Denies any new needs att.Call light remains within reach. Will monitor. R PASTE MIXING SUPERVISOR * Brooke Beatty MD - 02/01/2025 5:22 AM CST For this patient encounter, I reviewed the Resident documentation, procedures (if done), treatment plan, and medical decision making; and I had [id number] time with this patient. I have conducted [...] in her hands. She was evaluated at [facility] where multiple dislocated fingers were identified. The [...] park ED Course as of 02/01/25 0702 [facility] Feb 01, 2025 0658 Signed out to oncoming team pending hand recommendations [LB] ED Course User Index [LB] Brooke Beatty MD Clinical Impressions as of 02/01/25 0702 Bilateral hand pain Brooke Beatty MD R PASTE MIXING SUPERVISOR * Robel Hurt RN - 02/01/2025 4:52 AM CST Bed: [facility] Expected date: 01/31/25 Expected time: 9:21 PM Means of arrival: Ambulance Comments: R PASTE MIXING SUPERVISOR * Robel Hurt RN - 02/01/2025 4:46 [...] intact but did just receive nerve blocks. R PASTE MIXING SUPERVISOR * Robel Hurt RN - 02/01/2025 4:41 [...] Section age 12 Coronary Stent Placement 2021 R PASTE MIXING SUPERVISOR documented in this encounter Plan of Treatment Upcoming Encounters Date Type Department Care Team (Late st Contact Info) Description 2025 Hospital Encounter [facility] [address] [place] [phone] Patrick Kwong MD [address] [place] [address] Surgery General 07/18/2025 3:00 PM CDT Office Visit [facility] - Rheumatology [address], [address] [place] [address] Abel Amin DO [address] [place] [address] Scheduled Procedures Name Priority Associated Diagnoses Date/Ti me CLOSED REDUCTION FINGER/THUM B (PHALANX) Dislocation of finger, initial encounter documented as of this encounter Procedures Procedure Name Priority Date/Time Associated Diagnosis Comments XR HAND LEFT 3VW OR MORE STAT 02/01/2025 10:32 AM COLOR PASTE MIXING SUPERVISOR Bilateral hand pain XR HAND RIGHT 3VW OR MORE Routine 02/01/2025 9:40 AM COLOR PASTE MIXING SUPERVISOR Bilateral hand pain XR HAND LEFT 3VW OR MORE Routine 02/01/2025 9:40 AM COLOR PASTE MIXING SUPERVISOR Bilateral hand pain XR HAND LEFT 3VW OR MORE STAT 02/01/2025 5:31 AM COLOR PASTE MIXING SUPERVISOR Bilateral hand pain XR HAND RIGHT 3VW OR MORE STAT 02/01/2025 5:31 AM COLOR PASTE MIXING SUPERVISOR Bilateral hand pain documented in this encounter Results * XR Hand Left 3Vw or More (02/01/2025 10:32 AM COLOR PASTE MIXING SUPERVISOR) Anatomical Region Laterality Modality Wrist / Hand Digital Radiogra phy 02/01/2025 10:5 8 AM COLOR PASTE MIXING SUPERVISOR Narrative 02/01/2025 11:19 AM COLOR PASTE MIXING SUPERVISOR PROCEDURE: XR HAND LEFT 3VW OR MORE, DATE/TIME OF EXAM: 02/01/2025 10:39 AM, LOCATION [facility] INDICATION: M79.641: Bilateral hand pain M79.642: Bilateral [...] MD 02/01/2025 10:58 AM > Dictated by Rn New Graduate I, Tarun Blue MD have personally reviewed and interpreted this examination/study. > Interpreting Provider: Tarun Blue MD on 02/01/2025 11:19 AM Procedure Note Tarun Blue MD - 02/01/2025 PROCEDURE: XR HAND LEFT 3VW OR MORE, DATE/TIME OF EXAM: 0:39 AM, LOCATION [facility] INDICATION: M79.641: Bilateral hand pain M79.642: Bilateral [...] MD 02/01/2025 10:58 AM > Dictated by Rn New Graduate Tarun Miguel MD have personally reviewed and interpreted this examination/study. > Interpreting Provider: Tarun Blue MD on 02/01/2025 11:19 AM us Brooke Beatty MD DIAGNOSTIC IMAGING ORDERABLES Final Result * XR Hand Right 3Vw or More (02/01/2025 9:40 AM COLOR PASTE MIXING SUPERVISOR) Anatomical Region Laterality Modality Wrist / Hand Digital Radiogra phy 02/01/2025 9:42 AM COLOR PASTE MIXING SUPERVISOR Narrative 02/01/2025 9:49 AM COLOR PASTE MIXING SUPERVISOR PROCEDURE: XR HAND RIGHT 3VW OR MORE, DATE/TIME OF EXAM: 02/01/2025 9:40 AM, LOCATION [facility] INDICATION: M79.641: Bilateral hand pain M79.642: Bilateral [...] swelling. Report dictated by Charlie Roblero Dr, (residential program director). > Dictated by Charlie Roblero Dr 02/01/2025 9:42 AM > Dictated by Rn New Graduate Tarun Miguel MD have personally reviewed and interpreted this examination/study. > Interpreting Provider: Tarun Blue MD on 02/01/2025 9:49 AM Procedure Note Tarun Blue MD - 02/01/2025 PROCEDURE: XR HAND RIGHT 3VW OR MORE, DATE/TIME OF EXAM: 59:40 AM, LOCATION [facility] INDICATION: M79.641: Bilateral hand pain M79.642: Bilateral [...] swelling. Report dictated by Charlie Roblero Dr, (residential program director). > Dictated by Charlie Roblero Dr 02/01/2025 9:42 AM > Dictated by Rn New Graduate I, Tarun Blue MD have personally reviewed and interpreted this examination/study. > Interpreting Provider: Tarun Blue MD on 02/01/2025 9:49 AM Brooke Beatty MD DIAGNOSTIC IMAGING ORDERABLES Final Result * XR Hand Left 3Vw or More (02/01/2025 9:40 AM COLOR PASTE MIXING SUPERVISOR) Anatomical Region Laterality Modality Wrist / Hand Digital Radiogra phy 02/01/2025 9:47 AM COLOR PASTE MIXING SUPERVISOR Narrative 02/01/2025 10:10 AM COLOR PASTE MIXING SUPERVISOR PROCEDURE: XR HAND LEFT 3VW OR MORE, DATE/TIME OF EXAM: 02/01/2025 9:40 AM, LOCATION [facility] INDICATION: M79.641: Bilateral hand pain M79.642: Bilateral [...] normal. Report dictated by Charlie Roblero Dr, (residential program director). > Dictated by Charlie Roblero Dr 02/01/2025 9:47 AM > Dictated by Rn New Graduate Tarun Miguel MD have personally reviewed and interpreted this examination/study. > Interpreting Provider: Tarun Blue MD on 02/01/2025 10:10 AM Procedure Note Tarun Blue MD - 02/01/2025 PROCEDURE: XR HAND LEFT 3VW OR MORE, DATE/TIME OF EXAM: 02/01/2025 9:40 AM, LOCATION [facility] INDICATION: M79.641: Bilateral hand pain M79.642: Bilateral [...] normal. Report dictated by Charlie Roblero Dr, (residential program director). > Dictated by Charlie Roblero Dr 02/01/2025 9:47 AM > Dictated by Rn New Graduate Tarun Miguel MD have personally reviewed and interpreted this examination/study. > Interpreting Provider: Tarun Blue MD on 02/01/2025 10:10 AM us Brooke Beatty MD DIAGNOSTIC IMAGING ORDERABLES Final Result * XR Hand Left 3Vw or More (02/01/2025 5:31 AM COLOR PASTE MIXING SUPERVISOR) Anatomical Region Laterality Modality Wrist / Hand Digital Radiogra phy 02/01/2025 5:37 AM COLOR PASTE MIXING SUPERVISOR Narrative 02/01/2025 7:47 AM COLOR PASTE MIXING SUPERVISOR PROCEDURE: XR HAND LEFT 3VW OR MORE, DATE/TIME OF EXAM: 02/01/2025 5:31 AM, LOCATION [facility] INDICATION: M79.641: Bilateral hand pain M79.642: Bilateral [...] present. Report dictated by Adama Mayorga MD, (residential program director). > Dictated by Adama Mayorga MD 02/01/2025 5:37 AM > Dictated by Rn New Graduate I, Tarun Blue MD have personally reviewed and interpreted this examination/study. > Interpreting Provider: Tarun Blue MD on 02/01/2025 7:47 AM Procedure Note Tarun Blue MD - 02/01/2025 PROCEDURE: XR HAND LEFT 3VW OR MORE, DATE/TIME OF EXAM: 02/01/2025 5:31 AM, LOCATION [facility] INDICATION: M79.641: Bilateral hand pain M79.642: Bilateral hand pain ADDITIONAL CLINICAL INFORMATION: Ordering Provider Reason For Exam: Technologist Note: Additional: COMPARISON: None. FINDINGS/IMPRESSION: There is dorsal dislocation of the second metacarpal phalangeal joint.No evidence of acute fracture. Degenerative changes at the first carpometacarpal and STT joints. Bone density and texture are normal.Soft tissue swelling is present. Report dictated by Adama Mayorga MD, (residential program director). > Dictated by Adama Mayorga MD 02/01/2025 5:37 AM > Dictated by Rn New Graduate I, Tarun Blue MD have personally reviewed and interpreted this examination/study. > Interpreting Provider: Tarun Blue MD on 02/01/2025 7:47 AM Brooke Beatty MD DIAGNOSTIC IMAGING ORDERABLES Final Result * XR Hand Right 3Vw or More (02/01/2025 5:31 AM COLOR PASTE MIXING SUPERVISOR) Anatomical Region Laterality Modality Wrist / Hand Digital Radiogra phy 02/01/2025 5:40 AM COLOR PASTE MIXING SUPERVISOR Narrative 02/01/2025 7:46 AM COLOR PASTE MIXING SUPERVISOR PROCEDURE: XR HAND RIGHT 3VW OR MORE, DATE/TIME OF EXAM: 02/01/2025 5:31 AM, LOCATION [facility] INDICATION: M79.641: Bilateral hand pain M79.642: Bilateral [...] and scaphotrapeziotrapezoid (STT) joints. Report dictated by Admaa Mayorga MD, (residential program director). > Dictated by Adama Mayorga MD 02/01/2025 5:40 AM > Dictated by Rn New Graduate I, Tarun Blue MD have personally reviewed and interpreted this examination/study. > Interpreting Provider: Tarun Blue MD on 02/01/2025 7:46 AM Procedure Note Tarun Blue MD - 02/01/2025 PROCEDURE: XR HAND RIGHT 3VW OR MORE, DATE/TIME OF EXAM: 55:31 AM, LOCATION [facility] INDICATION: M79.641: Bilateral hand pain M79.642: Bilateral [...] joints. Report dictated by Adama Mayorga MD, (residential program director). > Dictated by Adama Mayorga MD 02/01/2025 5:40 AM > Dictated by Rn New Graduate I, Tarun Blue MD have personally reviewed [...] 8 hours. $ Given 02/01/2025 6:18 AM COLOR PASTE MIXING SUPERVISOR 3 mL HYDROmorphone (Dilaudid) injection 0.5 mg [...] oral intake. $ Given 02/01/2025 6:03 AM COLOR PASTE MIXING SUPERVISOR 0.5 mg lidocaine PF (Xylocaine MPF) 1 % injection 20 mL 20 mL, Infiltration, ONCE, 1 dose, On Zita 02/01/25 at 0745 $ Admin. by Other Provider 02/01/2025 8:08 AM COLOR PASTE MIXING SUPERVISOR 20 mL documented in this encounter Active and Recently Administered Medications Times are shown in COLOR PASTE MIXING SUPERVISOR. Scheduled Medication Order 01/30/2025 01/31/2025 02/01/2025 0.9% [...] patency. documented in this encounter Care Teams Dry Cleaning Supervisor Relationship Specialty Start Date End Date Joel Dueñas MD [address] [place] [id number] PCP - General Family Medicine 05/18/24 documented as of this encounter
--- OUTSIDE RECORDS SUMMARY | 2025-02-02 08:37 | XMS_ITS | Encounter Summary ---
Author Organization [facility] Address [address] [facility] [place] [address] Care Team Providers Care Online Education Manager Name Role Phone Joel Dueñas MD Primary Care Provider [phone] Reason for Visit * Reason Onset Date Comments MEDICATION REFILL 01/11/2021 Encounter Details Date Type Department Care Team (Late st Contact Info) Description 01/11/2021 Refill [facility] [address] [facility] [address] [place] [address] Isidro Martínez W, DO [address] [facility] [address] [place], [place] [id number] MEDICATION REFILL Social History Tobacco Use Types Packs/Day Years Used Date Smoking Tobacco: Every Day Cigarettes Smokeless Tobacco: Never Alcohol Use Standard Drinks/Week Comments Not Currently 0 (1 standard drink = 0.6 oz pure alcohol) has not had a drink in 15 years Comments Unknown Sex and Gender Information Value Date Recorded Sex Assigned at Female 05/15/2024 10:09 AM OFFICE MACHINES TEACHER Legal Sex Female 4:43 PM CDT Gender Identity Female 06/21/2020 12:12 PM CDT Sexual Orientation Straight 05/15/2024 10 :09 AM OFFICE MACHINES TEACHER documented as of this encounter Functional Status [...] Bryson RN * Does person have difficulty doing [...] st Contact Info) Description 2025 Hospital Encounter [facility] [address] [place] [address] Patrick Kwong MD [address] [place] [address] Surgery General 07/18/2025 3:00 PM CDT Office Visit [facility] - Rheumatology [address] [facility], [address] [place] [address] Abel Amin DO [address] [facility] [address] [place] [address] Scheduled Procedures Name Priority Associated Diagnoses Date/Ti me CLOSED REDUCTION FINGER/THUM B (PHALANX) Dislocation of finger, initial encounter documented as of this encounter Visit Diagnoses Diagnosis Essential hypertension NSTEMI (non-ST elevated myocardial infarction) (HCC) Acute myocardial infarction, subendocardial infarction, episode of care unspecified documented in this encounter Care Teams Online Education Manager Relationship Specialty Start Date End Date Joel Dueñas MD [address] [facility] [address] [place] [address] PCP - General Family Medicine 05/18/24 documented as of this encounter
--- OUTSIDE RECORDS SUMMARY | 2025-02-02 08:37 | XMS_ITS | Encounter Summary ---
Author Organization [facility] Address [address] [place] [address] Care Team Providers Care Moisture Tester Name Role Phone Kevan Mejía MD Primary Care Provider Unavailable Encounter Details Date Type Department Care Team (Late st Contact Info) Description 07/24/2012 Abstract [facility] [address] [place] [address] Kevan Mejía MD Social History Tobacco Use [...] on filedocumented in this encounter Care Teams Moisture Tester Relationship Specialty Start Date End Date Kevan Mjeía MD PCP - General 07/24/12 documented as of this encounter
--- OUTSIDE RECORDS SUMMARY | 2025-02-02 08:37 | XMS_ITS | Encounter Summary ---
Author Organization [facility] Address [address] [facility] [place] [address] Care Team Providers Care Field Underwriter Name Role Phone Joel Dueñas MD Primary Care Provider [phone] Reason for Visit * Reason Onset Date Comments MEDICATION REFILL 01/18/2021 Encounter Details Date Type Department Care Team (Late st Contact Info) Description 01/18/2021 Refill [facility] [address] [facility] [address] [place] [address] Isidro Martínez W, DO [address] [facility] [address] [place], [place] [address] MEDICATION REFILL Social History Tobacco Use Types Packs/Day Years Used Date Smoking Tobacco: Every Day Cigarettes Smokeless Tobacco: Never Alcohol Use Standard Drinks/Week Comments Not Currently 0 (1 standard drink = 0.6 oz pure alcohol) has not had a drink in 15 years Comments Unknown Sex and Gender Information Value Date Recorded Sex Assigned at Female 05/15/2024 10:09 AM PETROLEUM REFINERY LABORER Legal Sex Female 4:43 PM CDT Gender Identity Female 06/21/2020 12:12 PM CDT Sexual Orientation Straight 05/15/2024 10 :09 AM PETROLEUM REFINERY LABORER documented as of this encounter Functional Status [...] st Contact Info) Description 2025 Hospital Encounter [facility] [address] [place] [address] Patrick Kwong MD [address] [place] [address] Surgery General 07/18/2025 3:00 PM CDT Office Visit [facility] - Rheumatology [address] [facility], [address] [place] [address] Abel Amin DO [address] [facility] [address] [place] [address] Scheduled Procedures Name Priority Associated Diagnoses Date/Ti me CLOSED REDUCTION FINGER/THUM B (PHALANX) Dislocation of finger, initial encounter documented as of this encounter Visit Diagnoses Diagnosis Essential hypertension NSTEMI (non-ST elevated myocardial infarction) (HCC) Acute myocardial infarction, subendocardial infarction, episode of care unspecified documented in this encounter Care Teams Field Underwriter Relationship Specialty Start Date End Date Joel Dueñas MD [address] [facility] [address] [place] [address] PCP - General Family Medicine 05/18/24 documented as of this encounter
--- OUTSIDE RECORDS SUMMARY | 2025-02-02 08:37 | XMS_ITS | Encounter Summary ---
Author Organization [facility] Address [address] [facility] [place] [address] Care Team Providers Care Loader Operator/Ground Leader Name Role Phone Joel Dueñas MD Primary Care Provider [phone] Encounter Details Date Type Department Care Team (Late st Contact Info) Description 02/01/2025 Orders Only [facility] PHYS SURGERY [address] [place] [id number] Gerardo Ribeiro MD [address] [place] [address] Dislocation of finger, initial encounter Social History Tobacco Use Types Packs/Day Years [...] Sex Assigned at Female 05/15/2024 10:09 AM LIDAR ANALYST Legal Sex Female 4:43 PM CDT Gender Identity Female 06/21/2020 12:12 PM CDT Sexual Orientation Straight 05/15/2024 10 :09 AM LIDAR ANALYST documented as of this encounter Functional Status [...] Hospital Encounter [facility] [address] [place] [address] Patrick Kwong MD [address] [place] [address] Surgery General 07/18/2025 3:00 PM CDT Office Visit [facility] - Rheumatology [address] [facility] [address] [place] [address] Abel Amin DO [address] [facility] [address] [place] [address] Scheduled Procedures Name Priority Associated Diagnoses Date/Ti me CLOSED REDUCTION FINGER/THUM B (PHALANX) Dislocation of finger, initial encounter documented as of this encounter Visit Diagnoses Diagnosis Dislocation of finger, initial encounter- Primary Dislocation of finger- Primary documented in this encounter Care Teams Loader Operator/Ground Leader Relationship Specialty Start Date End Date Joel Dueñas MD [address] [place] [address] [address] [place] [address] PCP - General Family Medicine 05/18/24 documented as of this encounter
--- OUTSIDE RECORDS SUMMARY | 2025-02-02 08:37 | XMS_ITS | Encounter Summary ---
Author Organization [facility] Address [address] [place] [address] Care Team Providers Care Carrot Tier Name Role Phone Joel Dueñas MD Primary Care Provider [phone] Reason for Visit * Reason Onset Date Comments MEDICATION REFILL 11/17/2020 Encounter Details Date Type Department Care Team (Late st Contact Info) Description 11/17/2020 Refill [facility] [address] [facility] [address] [place] [address] Isidro Martínez W, DO [address] [facility] [address] [place], [place] [id number] MEDICATION REFILL Social History Tobacco Use Types Packs/Day Years Used Date Smoking Tobacco: Every Day Cigarettes Smokeless Tobacco: Never Alcohol Use Standard Drinks/Week Comments Not Currently 0 (1 standard drink = 0.6 oz pure alcohol) has not had a drink in 15 years Comments Unknown Sex and Gender Information Value Date Recorded Sex Assigned at Female 05/15/2024 10:09 AM VENDOR MANAGEMENT ASSOCIATE Legal Sex Female 4:43 PM CDT Gender Identity Female 06/21/2020 12:12 PM CDT Sexual Orientation Straight 05/15/2024 10 :09 AM VENDOR MANAGEMENT ASSOCIATE documented as of this encounter Functional Status [...] st Contact Info) Description 2025 Hospital Encounter [facility] [address] [place] [address] Patrick Kwong MD [address] [place] [address] Surgery General 07/18/2025 3:00 PM CDT Office Visit [facility] Medical [facility] - Rheumatology [address] [facility], [address] [place] [address] Abel Amin DO [address] [facility] [address] [place] [address] Scheduled Procedures Name Priority Associated Diagnoses Date/Ti me CLOSED REDUCTION FINGER/THUM B (PHALANX) Dislocation of finger, initial encounter documented as of this encounter Visit Diagnoses Diagnosis Essential hypertension NSTEMI (non-ST elevated myocardial infarction) (HCC) Acute myocardial infarction, subendocardial infarction, episode of care unspecified documented in this encounter Care Teams Carrot Tier Relationship Specialty Start Date End Date Joel Dueñas MD [address] [facility] [address] [place] [address] PCP - General Family Medicine 05/18/24 documented as of this encounter
--- OUTSIDE RECORDS SUMMARY | 2025-02-02 08:37 | XMS_ITS | Clinical Summary ---
Author Organization [facility] Address [address] [place] [id number] Care Team Providers Care Medical Genetics Director Name Role Phone Unavailable Primary Care [...] Comments Blood Pressure 118/78 05/11/2014 11:04 AM CIRCULATION SUPERVISOR Pulse 64 05/11/2014 11:04 AM CIRCULATION SUPERVISOR Temperature - - Respiratory Rate - - Oxygen Saturation - - Inhaled Oxygen Concentration - - Weight 66.2 kg (146 lb) 05/11/2014 11:04 AM CIRCULATION SUPERVISOR Height 161.9 cm (5' 3.75) 05/11/2014 11:[address] Body Mass Index 25.26 05/11/2014 11:04 AM CIRCULATION SUPERVISOR Plan of Treatment Health Maintenance Due Date [...]
--- OUTSIDE RECORDS SUMMARY | 2025-02-02 08:37 | XMS_ITS | Encounter Summary ---
Author Organization [facility] Address [address] [place] [address] Care Team Providers Care Core Sucker Name Role Phone Joel Dueñas MD Primary Care Provider Encounter Details Date Type Department Care Team [...] Sex Assigned at Female 05/15/2024 10:09 AM GLOST KILN PLACER Legal Sex Female 4:43 PM CDT Gender Identity Female 06/21/2020 12:12 PM CDT Sexual Orientation Straight 05/15/2024 10 :09 AM GLOST KILN PLACER documented as of this encounter Functional Status [...] st Contact Info) Description 2025 Hospital Encounter [facility] [address] [place] [address] Patrick Kwong MD [address] [place] [address] Surgery General 07/18/2025 3:00 PM CDT Office Visit [facility] - Rheumatology [address] [facility], [address] [place] [address] Abel Amin DO [address] [facility] [address] [place] [address] Scheduled Procedures Name Priority Associated Diagnoses Date/Ti me CLOSED REDUCTION FINGER/THUM B (PHALANX) Dislocation of finger, initial encounter documented as of this encounter Visit Diagnoses Not on filedocumented in this encounter Care Teams Core Sucker Relationship Specialty Start Date End Date Joel Dueñas MD [address] [place] [address] [address] [place] [address] PCP - General Family Medicine 05/18/24 documented as of this encounter
--- OUTSIDE RECORDS SUMMARY | 2025-02-02 08:37 | XMS_ITS | Clinical Summary ---
Author Organization [facility] Address [address] [place] [address] Care Team Providers Care Customer Account Executive Name Role Phone Joel Dueñas MD Primary Care Provider [phone] Source Comments [facility] [employer],non-owned Affiliates and Associated Physician Practices is amultiple site organization consisting of ambulatory clinics and hospital sitesin [place], [place]. This disclosure is being madepursuant to the Care Everywhere program and may not contain all information available regarding this patient. Last updated 17.[facility] [employer] Allergies Active Allergy Reactions Criticality Noted Date [...] Active Problems Problem Noted Date Diagnosed Date Dislocation of finger 02/01/2025 Primary osteoarthritis of both first carpometaca rpal [...] intra-articular corticosteroid injection, or referral to hand operating room surgical technician for consideration of basilar thumb arthroplasty. Rosalie Al favored a trial of duloxetine and will start at 30 mg taken at bedtime but if not feeling improved with less pain after 14 days to contact [facility] Rheumatology to be provided a dose titration as long as tolerated without side effects. S/P drug eluting coronary stent placement 2023 Coronary artery disease invo lving [place] coronary artery of [place] heart without angina pectoris 10/22/2023 Mixed hyperlipidemia [...] Department Care Team Description 02/01/2025 4:52 AM ELECTRIC ENGINE MECHANIC - 02/01/2025 11:15 AM ELECTRIC ENGINE MECHANIC Emergency [facility] EMERGENCY DEPARTMENT [address] [place] [address] Brooke Beatty MD Chukwuanu, Kene A, MD Bilateral hand pain; Closed displaced fracture of base of second metacarpal bone of left hand, initial encounter; Closed displaced fracture of phalanx of right little finger, unspecified phalanx, initial encounter Discharge Disposition: Home or Self Care 02/01/2025 Orders Only [facility] PHYS SURGERY [address] [place] [address] Gerardo Ribeiro MD Dislocation of finger, initial encounter 02/01/2025 Travel 01/08/2025 Refill [facility] - Rheumatology [address] [place] [address], [address] [place] [address] Christine Perales MD MEDICATION REFILL from Last [...] Sex Assigned at Female 05/15/2024 10:09 AM ELECTRIC ENGINE MECHANIC Legal Sex Female 4:43 PM CDT Gender Identity Female 06/21/2020 12:12 PM CDT Sexual Orientation Straight 05/15/2024 10 :09 AM ELECTRIC ENGINE MECHANIC Last Filed Vital Signs Vital Sign Reading Time Taken Comments Blood Pressure 131/82 02/01/2025 11:00 AM ELECTRIC ENGINE MECHANIC Pulse 75 02/01/2025 6:30 AM ELECTRIC ENGINE MECHANIC Temperature 36.1 C (97 F) 02/01/2025 4:36 AM ELECTRIC ENGINE MECHANIC Respiratory Rate 16 02/01/2025 6:30 AM ELECTRIC ENGINE MECHANIC Oxygen Saturation 90% 02/01/2025 6:30 AM ELECTRIC ENGINE MECHANIC Inhaled Oxygen Concentration - - Weight 59 kg (130 lb) 07/19/2024 3:44 PM CDT Height 162.6 cm (5' 4) 06/28/2024 1:43 PM CDT Body Mass Index 22.31 06/28/2024 1:43 PM CDT Plan of Treatment Upcoming Encounters Date Type Department Care Team (Late st Contact Info) Description 2025 Hospital Encounter [facility] [address] [place] [address] Patrick Kwong MD [address] [place] [address] Surgery General 07/18/2025 3:00 PM CDT Office Visit [facility] - Rheumatology [address] [facility], [address] [place] [address] Abel Amin DO [address] [facility] [address] [place] [address] Scheduled Procedures Name Priority Associated Diagnoses Date/Ti me CLOSED REDUCTION FINGER/THUM B (PHALANX) Dislocation of finger, initial encounter Health Maintenance Due Date Last [...] this topic Medical Devices Implanted Type Area Money Examiner Device Identifier Shelf Expiration Date Model / Serial / Lot Sys Cor Stent Xience Srr 3mm 15mm Rap Ex Implanted:Qty: 1 on 06/21/2020 by Hima Tracey MD at [facility] Coronary [employer] 09/03/2021 [id number] Description:m-CIRC Procedures Procedure Name Priority Date/Time Associated Diagnosis Comments XR HAND LEFT 3VW OR MORE STAT 02/01/2025 10:32 AM ELECTRIC ENGINE MECHANIC Bilateral hand pain XR HAND RIGHT 3VW OR MORE Routine 02/01/2025 9:40 AM ELECTRIC ENGINE MECHANIC Bilateral hand pain XR HAND LEFT 3VW OR MORE Routine 02/01/2025 9:40 AM ELECTRIC ENGINE MECHANIC Bilateral hand pain XR HAND LEFT 3VW OR MORE STAT 02/01/2025 5:31 AM ELECTRIC ENGINE MECHANIC Bilateral hand pain XR HAND RIGHT 3VW OR MORE STAT 02/01/2025 5:31 AM ELECTRIC ENGINE MECHANIC Bilateral hand pain from Last 3 Months Results * XR Hand Left 3Vw or More (02/01/2025 10:32 AM ELECTRIC ENGINE MECHANIC) Only the most recent of3 resultswithin the time period is included. Anatomical Region Laterality Modality Wrist / Hand Digital Radiogra phy 02/01/2025 10:5 8 AM ELECTRIC ENGINE MECHANIC Narrative 02/01/2025 11:19 AM ELECTRIC ENGINE MECHANIC PROCEDURE: XR HAND LEFT 3VW OR MORE, DATE/TIME OF EXAM: 02/01/2025 10:39 AM, LOCATION [facility] INDICATION: M79.641: Bilateral hand pain M79.642: [...] MD 02/01/2025 10:58 AM > Dictated by Biological Plant Operator I, Tarun Blue MD have personally reviewed and interpreted this examination/study. > Interpreting Provider: Tarun Blue MD on 02/01/2025 11:19 AM Procedure Note Tarun Blue MD - 02/01/2025 PROCEDURE: XR HAND LEFT 3VW OR MORE, DATE/TIME OF EXAM: 0:39 AM, LOCATION [facility] INDICATION: M79.641: Bilateral hand pain M79.642: [...] MD 02/01/2025 10:58 AM > Dictated by Biological Plant Operator Tarun Miguel MD have personally reviewed and interpreted this examination/study. > Interpreting Provider: Tarun Blue MD on 02/01/2025 11:19 AM Brooke Beatty MD DIAGNOSTIC IMAGING ORDERABLES Final Result * XR Hand Right 3Vw or More (02/01/2025 9:40 AM ELECTRIC ENGINE MECHANIC) Only the most recent of2 resultswithin the time period is included. Anatomical Region Laterality Modality Wrist / Hand Digital Radiogra phy 02/01/2025 9:42 AM ELECTRIC ENGINE MECHANIC Narrative 02/01/2025 9:49 AM ELECTRIC ENGINE MECHANIC PROCEDURE: XR HAND RIGHT 3VW OR MORE, DATE/TIME OF EXAM: 02/01/2025 9:40 AM, LOCATION [facility] INDICATION: M79.641: Bilateral hand pain M79.642: [...] swelling. Report dictated by Charlie Roblero Dr, (energy operations vice president). > Dictated by Charlie Roblero Dr 02/01/2025 9:42 AM > Dictated by Biological Plant Operator Tarun Miguel MD have personally reviewed and interpreted this examination/study. > Interpreting Provider: Tarun Blue MD on 02/01/2025 9:49 AM Procedure Note Tarun Blue MD - 02/01/2025 PROCEDURE: XR HAND RIGHT 3VW OR MORE, DATE/TIME OF EXAM: 59:40 AM, LOCATION [facility] INDICATION: M79.641: Bilateral hand pain M79.642: [...] swelling. Report dictated by Charlie Roblero Dr, (energy operations vice president). > Dictated by Charlie Roblero Dr 02/01/2025 9:42 AM > Dictated by Biological Plant Operator I, Tarun Blue MD have personally reviewed and interpreted this examination/study. > Interpreting Provider: Tarun Blue MD on 02/01/2025 9:49 AM Brooke Beatty MD DIAGNOSTIC IMAGING ORDERABLES Final Result from Last 3 Months Insurance [facility] Advance Directives * Full Code (Latest Code Status on File) Date Activated Date Inactivated Comments 06/20/2020 9:53 PM 06/22/2020 2:41 PM Care Teams Customer Account Executive Relationship Specialty Start Date End Date Joel Dueñas MD [address] [place] [address] PCP - General Family Medicine 05/18/24
[2025-02-02 08:45] VITALS: BP 178/96; PULSE 70; RESP 16; O2SAT 97
--- NOTE | 2025-02-02 09:50 | PC.NURSE ---
PT SEEN WALKING OUT OF DEPARTMENT WHILE TALKING TO A STUNNER.
--- OUTSIDE RECORDS SUMMARY | 2025-02-02 10:04 | XMS_ITS | Encounter Summary ---
Author Organization [facility] Address [address] [place] [address] Care Team Providers Care Actuarial Consultant Name Role Phone Kevan Mejía MD Primary Care Provider Unavailable Encounter Details Date Type Department Care Team (Late st Contact Info) Description 07/24/2012 Abstract [facility] CONVERSION [address] [place] [address] Kevan Mejía MD Social History Tobacco Use [...] on filedocumented in this encounter Care Teams Actuarial Consultant Relationship Specialty Start Date End Date Kevan Mejía MD PCP - General 07/24/12 documented as of this encounter
--- OUTSIDE RECORDS SUMMARY | 2025-02-02 10:05 | XMS_ITS | Encounter Summary ---
Author Organization [facility] Address [address] [facility] [place] [address] Care Team Providers Care Buyer Grain Name Role Phone Joel Dueñas MD Primary Care Provider [phone] Encounter Details Date Type Department Care Team (Late st Contact Info) Description 02/01/[address] [facility] PHYS SURGERY [address] [place] [address] Gerardo Ribeiro MD [address] [place] [address] Dislocation of finger, initial encounter Social History [...] Sex Assigned at Female 05/15/2024 10:09 AM REGIONAL MARKETING MANAGER Legal Sex Female 4:43 PM CDT Gender Identity Female 06/21/2020 12:12 PM CDT Sexual Orientation Straight 05/15/2024 10 :09 AM REGIONAL MARKETING MANAGER documented as of this encounter Functional Status [...] st Contact Info) Description [address] [facility] AN[facility]Y OP [address] [place] [address] Patrick Kwong MD [address] [place] [address] Surgery General 07/18/2025 3:00 PM CDT Office Visit [facility] - Rheumatology [address] [facility] [address] [place] [address] Abel Amin DO [address] [facility] [address] [place] [address] Scheduled Procedures Name Priority Associated Diagnoses Date/Ti me CLOSED REDUCTION FINGER/THUM B (PHALANX) Dislocation of finger, initial encounter documented as of this encounter Visit Diagnoses Diagnosis Dislocation of finger, initial encounter- Primary Dislocation of finger- Primary documented in this encounter Care Teams Buyer Grain Relationship Specialty Start Date End Date Joel Dueñas MD [address] [place] [address] [address] [place] [address] PCP - General Family Medicine 05/18/24 documented as of this encounter
--- OUTSIDE RECORDS SUMMARY | 2025-02-02 10:05 | XMS_ITS | Clinical Summary ---
Author Organization [facility] Address [address] [place] [address] Care Team Providers Care Material Requirements Planning Manager Name Role Phone Joel Dueñas MD Primary Care Provider Source Comments [facility] [employer],non-owned Affiliates and Associated Physician Practices is amultiple site organization consisting of ambulatory clinics and hospital sitesin [place], [place], [place] and [place]. This disclosure is being madepursuant to the Care Everywhere program and may not contain all information available regarding this patient. Last updated 17.[facility] [employer] Allergies Active Allergy Reactions Criticality Noted Date [...] intra-articular corticosteroid injection, or referral to hand director medical surgical for consideration of basilar thumb arthroplasty. Rosalie Al favored a trial of duloxetine and will start at 30 mg taken at bedtime but if not feeling improved with less pain after 14 days to contact [facility] Rheumatology to be provided a dose titration as long as tolerated without side effects. S/P drug eluting coronary stent placement 2023 Coronary artery disease invo lving [place] coronary artery of [place] heart without angina pectoris 10/22/2023 Mixed hyperlipidemia [...] Department Care Team Description 02/01/2025 4:52 AM WEIGH BOSS - 02/01/2025 11:15 AM WEIGH BOSS Emergency [facility] EMERGENCY DEPARTMENT [address] [place] [address] Brooke Beatty MD Chukwuanu, Kene A, MD Bilateral hand pain; Closed displaced fracture of base of second metacarpal bone of left hand, initial encounter; Closed displaced fracture of phalanx of right little finger, unspecified phalanx, initial encounter Discharge Disposition: Home or Self Care 02/01/2025 Orders Only [facility] PHYS SURGERY [address] [place] [address] Gerardo Ribeiro MD Dislocation of finger, initial encounter 02/01/2025 Travel 01/08/2025 Refill [facility] - Rheumatology [address] [place] [address], [address] [place] [address] Christine Perales MD MEDICATION REFILL from Last [...] Sex Assigned at Female 05/15/2024 10:09 AM WEIGH BOSS Legal Sex Female 4:43 PM CDT Gender Identity Female 06/21/2020 12:12 PM CDT Sexual Orientation Straight 05/15/2024 10 :09 AM WEIGH BOSS Last Filed Vital Signs Vital Sign Reading Time Taken Comments Blood Pressure 131/82 02/01/2025 11:00 AM WEIGH BOSS Pulse 75 02/01/2025 6:30 AM WEIGH BOSS Temperature 36.1 C (97 F) 02/01/2025 4:36 AM WEIGH BOSS Respiratory Rate 16 02/01/2025 6:30 AM WEIGH BOSS Oxygen Saturation 90% 02/01/2025 6:30 AM WEIGH BOSS Inhaled Oxygen Concentration - - Weight 59 kg (130 lb) 07/19/2024 3:44 PM CDT Height 162.6 cm (5' 4) 06/28/2024 1:43 PM CDT Body Mass Index 22.31 06/28/2024 1:43 PM CDT Plan of Treatment Upcoming Encounters Date Type Department Care Team (Late st Contact Info) Description 2025 Hospital Encounter [facility] [address] [place] [address] Patrick Kwong MD [address] [place] [address] Surgery General 07/18/2025 3:00 PM CDT Office Visit [facility] - Rheumatology [address] [facility], [address] [place] [address] Abel Amin DO [address] [facility] [address] [place] [address] Scheduled Procedures Name Priority Associated [...] this topic Medical Devices Implanted Type Area Cryolite Recovery Operator Device Identifier Shelf Expiration Date Model / Serial / Lot Sys Cor Stent Xience Srr 3mm 15mm Rap Ex Implanted:Qty: 1 on 06/21/2020 by Hima Tracey MD at [facility] Coronary [employer] 09/03/2021 [id number] Description:m-CIRC Procedures Procedure Name Priority Date/Time Associated Diagnosis Comments XR HAND LEFT 3VW OR MORE STAT 02/01/2025 10:32 AM WEIGH BOSS Bilateral hand pain XR HAND RIGHT 3VW OR MORE Routine 02/01/2025 9:40 AM WEIGH BOSS Bilateral hand pain XR HAND LEFT 3VW OR MORE Routine 02/01/2025 9:40 AM WEIGH BOSS Bilateral hand pain XR HAND LEFT 3VW OR MORE STAT 02/01/2025 5:31 AM WEIGH BOSS Bilateral hand pain XR HAND RIGHT 3VW OR MORE STAT 02/01/2025 5:31 AM WEIGH BOSS Bilateral hand pain from Last 3 Months Results * XR Hand Left 3Vw or More (02/01/2025 10:32 AM WEIGH BOSS) Only the most recent of3 resultswithin the time period is included. Anatomical Region Laterality Modality Wrist / Hand Digital Radiogra phy 02/01/2025 10:5 8 AM WEIGH BOSS Narrative 02/01/2025 11:19 AM WEIGH BOSS PROCEDURE: XR HAND LEFT 3VW OR MORE, DATE/TIME OF EXAM: 02/01/2025 10:39 AM, LOCATION [facility] INDICATION: M79.641: Bilateral hand pain M79.642: [...] MD 02/01/2025 10:58 AM > Dictated by Food And Beverage Attendant I, Tarun Blue MD have personally reviewed and interpreted this examination/study. > Interpreting Provider: Tarun Blue MD on 02/01/2025 11:19 AM Procedure Note Tarun Blue MD - 02/01/2025 PROCEDURE: XR HAND LEFT 3VW OR MORE, DATE/TIME OF EXAM: 0:39 AM, LOCATION [facility] INDICATION: M79.641: Bilateral hand pain M79.642: [...] MD 02/01/2025 10:58 AM > Dictated by Food And Beverage Attendant Tarun Miguel MD have personally reviewed and interpreted this examination/study. > Interpreting Provider: Tarun Blue MD on 02/01/2025 11:19 AM Brooke Beatty MD DIAGNOSTIC IMAGING ORDERABLES Final Result * XR Hand Right 3Vw or More (02/01/2025 9:40 AM WEIGH BOSS) Only the most recent of2 resultswithin the time period is included. Anatomical Region Laterality Modality Wrist / Hand Digital Radiogra phy 02/01/2025 9:42 AM WEIGH BOSS Narrative 02/01/2025 9:49 AM WEIGH BOSS PROCEDURE: XR HAND RIGHT 3VW OR MORE, DATE/TIME OF EXAM: 02/01/2025 9:40 AM, LOCATION [facility] INDICATION: M79.641: Bilateral hand pain M79.642: [...] swelling. Report dictated by Charlie Roblero Dr, (resident physician in radiology). > Dictated by Charlie Roblero Dr 02/01/2025 9:42 AM > Dictated by Food And Beverage Attendant Tarun Miguel MD have personally reviewed and interpreted this examination/study. > Interpreting Provider: Tarun Blue MD on 02/01/2025 9:49 AM Procedure Note Tarun Blue MD - 02/01/2025 PROCEDURE: XR HAND RIGHT 3VW OR MORE, DATE/TIME OF EXAM: 59:40 AM, LOCATION [facility] INDICATION: M79.641: Bilateral hand pain M79.642: [...] swelling. Report dictated by Charlie Roblero Dr, (resident physician in radiology). > Dictated by Charlie Roblero Dr 02/01/2025 9:42 AM > Dictated by Food And Beverage Attendant I, Tarun Blue MD have personally reviewed and interpreted this examination/study. > Interpreting Provider: Tarun Blue MD on 02/01/2025 9:49 AM Brooke Beatty MD DIAGNOSTIC IMAGING ORDERABLES Final Result from Last 3 Months Insurance [facility] Advance Directives * Full Code (Latest Code Status on File) Date Activated Date Inactivated Comments 06/20/2020 9:53 PM 06/22/2020 2:41 PM Care Teams Material Requirements Planning Manager Relationship Specialty Start Date End Date Joel Dueñas MD [address] [place] [address] PCP - General Family Medicine 05/18/24
--- OUTSIDE RECORDS SUMMARY | 2025-02-02 10:05 | XMS_ITS | Encounter Summary ---
Author Organization [facility] Address [address] [place] [address] Care Team Providers Care Painter Plate Name Role Phone Joel Dueñas MD Primary Care Provider [phone] Encounter Details Date Type Department Care Team [...] 2025 Hospital Encounter [facility] [address] [place] [address] Patrick Kwong MD [address] [place] [address] Surgery General 07/18/2025 3:00 PM CDT Office Visit [facility] - Rheumatology [address] [facility], [address] [place] [address] Abel Amin DO [address] [facility] [address] [place] [address] Scheduled Procedures Name Priority Associated Diagnoses Date/Ti me CLOSED REDUCTION FINGER/THUM B (PHALANX) Dislocation of finger, initial encounter documented as of this encounter Visit Diagnoses Not on filedocumented in this encounter Care Teams Painter Plate Relationship Specialty Start Date End Date Joel Dueñas MD [address] [place] [address] [address] [place] [address] PCP - General Family Medicine 05/18/24 documented as of this encounter
--- OUTSIDE RECORDS SUMMARY | 2025-02-02 10:05 | XMS_ITS | Encounter Summary ---
Author Organization [facility] Address [address] [facility] [place] [address] Care Team Providers Care Crisis Therapist Name Role Phone Joel Dueñas MD Primary Care Provider [phone] Reason for Visit * Reason Onset Date Comments MEDICATION REFILL 01/18/2021 Encounter Details Date Type Department Care Team (Late st Contact Info) Description 01/18/2021 Refill [facility] [address] [facility] [address] [place] [address] Isidro Martínez W, DO [address] [facility] [address] [place], [place] [id number] MEDICATION REFILL Social History Tobacco Use Types Packs/Day Years Used Date Smoking Tobacco: Every Day Cigarettes Smokeless Tobacco: Never Alcohol Use Standard Drinks/Week Comments Not Currently 0 (1 standard drink = 0.6 oz pure alcohol) has not had a drink in 15 years Comments Unknown Sex and Gender Information Value Date Recorded Sex Assigned at Female 05/15/2024 10:09 AM HEAVY EQUIPMENT OPERATOR APPRENTICE Legal Sex Female 4:43 PM CDT Gender Identity Female 06/21/2020 12:12 PM CDT Sexual Orientation Straight 05/15/2024 10 :09 AM HEAVY EQUIPMENT OPERATOR APPRENTICE documented as of this encounter Functional Status [...] st Contact Info) Description 2025 Hospital Encounter [facility] [address] [place] [address] Patrick Kwong MD [address] [place] [address] Surgery General 07/18/2025 3:00 PM CDT Office Visit [facility] - Rheumatology [address] [facility], [address] [place] [address] Abel Amin DO [address] [facility] [address] [place] [address] Scheduled Procedures Name Priority Associated Diagnoses Date/Ti me CLOSED REDUCTION FINGER/THUM B (PHALANX) Dislocation of finger, initial encounter documented as of this encounter Visit Diagnoses Diagnosis Essential hypertension NSTEMI (non-ST elevated myocardial infarction) (HCC) Acute myocardial infarction, subendocardial infarction, episode of care unspecified documented in this encounter Care Teams Crisis Therapist Relationship Specialty Start Date End Date Joel Dueñas MD [address] [facility] [address] [place] [address] PCP - General Family Medicine 05/18/24 documented as of this encounter
--- OUTSIDE RECORDS SUMMARY | 2025-02-02 10:05 | XMS_ITS | Encounter Summary ---
Author Organization [facility] Address [address] [facility] [place] [address] Care Team Providers Care Liner Reroll Tender Name Role Phone Joel Dueñas MD Primary Care Provider [phone] Reason for Visit * Reason Onset Date Comments MEDICATION REFILL 11/17/2020 Encounter Details Date Type Department Care Team (Late st Contact Info) Description 11/17/2020 Refill [facility] [address] [facility] [address] [place] [address] Isidro Martínez W, DO [address] [facility] [address] [place], [place] [address] MEDICATION REFILL Social History Tobacco Use Types Packs/Day Years Used Date Smoking Tobacco: Every Day Cigarettes Smokeless Tobacco: Never Alcohol Use Standard Drinks/Week Comments Not Currently 0 (1 standard drink = 0.6 oz pure alcohol) has not had a drink in 15 years Comments Unknown Sex and Gender Information Value Date Recorded Sex Assigned at Female 05/15/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 Legal Sex Female 4:43 PM CDT Gender Identity Female 06/21/2020 12:12 PM CDT Sexual Orientation Straight 05/15/2024 10 :09 AM 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 documented as of this encounter Functional Status [...] st Contact Info) Description 2025 Hospital Encounter [facility] OP [address] [place] [address] Patrick Kwong MD [address] [place] [address] Surgery General 07/18/2025 3:00 PM CDT Office Visit [facility] - Rheumatology [address] [facility], [address] [place] [address] Abel Amin DO [address] [facility] [address] [place] [address] Scheduled Procedures Name Priority Associated Diagnoses Date/Ti me CLOSED REDUCTION FINGER/THUM B (PHALANX) Dislocation of finger, initial encounter documented as of this encounter Visit Diagnoses Diagnosis Essential hypertension NSTEMI (non-ST elevated myocardial infarction) (HCC) Acute myocardial infarction, subendocardial infarction, episode of care unspecified documented in this encounter Care Teams Liner Reroll Tender Relationship Specialty Start Date End Date Joel Dueñas MD [address] [facility] [address] [place] [address] PCP - General Family Medicine 05/18/24 documented as of this encounter
--- OUTSIDE RECORDS SUMMARY | 2025-02-02 10:05 | XMS_ITS | Encounter Summary ---
Author Organization [facility] Address [address] [facility] [place] [address] Care Team Providers Care Drapery Seamstress Name Role Phone Joel Dueñas MD Primary Care Provider [phone] Reason for Visit * Reason Onset Date Comments MEDICATION REFILL 01/11/2021 Encounter Details Date Type Department Care Team (Late st Contact Info) Description 01/11/2021 Refill [facility] [address] [facility] [address] [place] [address] Isidro Martínez W, DO [address] [facility] [address] [place], [place] [address] MEDICATION REFILL Social History Tobacco Use Types Packs/Day Years Used Date Smoking Tobacco: Every Day Cigarettes Smokeless Tobacco: Never Alcohol Use Standard Drinks/Week Comments Not Currently 0 (1 standard drink = 0.6 oz pure alcohol) has not had a drink in 15 years Comments Unknown Sex and Gender Information Value Date Recorded Sex Assigned at Female 05/15/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 Legal Sex Female 4:43 PM CDT Gender Identity Female 06/21/2020 12:12 PM CDT Sexual Orientation Straight 05/15/2024 10 :09 AM FOUNDRY PROCESS ENGINEER documented as of this encounter Functional Status [...] st Contact Info) Description 2025 Hospital Encounter [facility] OP [address] [place] [address] Patrick Kwong MD [address] [place] [address] Surgery General 07/18/2025 3:00 PM CDT Office Visit [facility] - Rheumatology [address] [facility], [address] [place] [address] Abel Amin DO [address] [facility] [address] [place] [address] Scheduled Procedures Name Priority Associated Diagnoses Date/Ti me CLOSED REDUCTION FINGER/THUM B (PHALANX) Dislocation of finger, initial encounter documented as of this encounter Visit Diagnoses Diagnosis Essential hypertension NSTEMI (non-ST elevated myocardial infarction) (HCC) Acute myocardial infarction, subendocardial infarction, episode of care unspecified documented in this encounter Care Teams Drapery Seamstress Relationship Specialty Start Date End Date Joel Dueñas MD [address] [facility] [address] [place] [address] PCP - General Family Medicine 05/18/24 documented as of this encounter
--- OUTSIDE RECORDS SUMMARY | 2025-02-02 10:05 | XMS_ITS | Clinical Summary ---
Author Organization [facility] Address [address] [place] [address] Care Team Providers Care Criminal Intelligence Specialist Name Role Phone Unavailable Primary Care [...] Comments Blood Pressure 118/78 05/11/2014 11:04 AM STRETCHER AND DRIER Pulse 64 05/11/2014 11:04 AM STRETCHER AND DRIER Temperature - - Respiratory Rate - - Oxygen Saturation - - Inhaled Oxygen Concentration - - Weight 66.2 kg (146 lb) 05/11/2014 11:04 AM STRETCHER AND DRIER Height 161.9 cm (5' 3.75) 05/11/2014 11:[address] Body Mass Index 25.26 05/11/2014 11:04 AM STRETCHER AND DRIER Plan of Treatment Health Maintenance Due Date [...]
== END 2025-02-02 09:59 | disposition left against medical advice (07) ==
PROVIDERS: PCP Emergency Medicine
DX: M79.642 Pain in left hand (principal)
CPT/HCPCS: 99199